=== PATIENT | male | born 1945 | race Caucasian/White ===

== ENCOUNTER 2021-08-18 15:01 | Inpatient (IN) | payer MEDICARE ==
[~2021-08-18 15:01] MED LIST: DEXAMETHASONE SOD PHOSPHATE 10 MG/ML 1 ML VIAL ONE; GLYCOPYRROLATE 0.2 MG/ML 2 ML VIAL ONE; LIDOCAINE 1% INJ 10MG/ML (20 ML MDV) ONE; NEOSTIGMINE 1 MG/ML 10 ML VIAL ONE; ONDANSETRON 4 MG/2 ML VIAL ONE; PHENYLEPHRINE-0.9% NACL SYG 1,000 MCG/10 ML SYRINGE ONE; PROPOFOL 10 MG/ML 20 ML VIAL IV ONE; ROCURONIUM 10 MG/ML (5 ML VIAL) IV ONE; SUCCINYLCHOLINE CHLORIDE 100 MG/5 ML SYR IV ONE; fentaNYL (PF) 50 MCG/ML 2 ML AMP ONE
[2021-08-18] MEDS ORDERED: NALOXONE 0.4 MG/ML 1 ML VIAL IV PRN (18:56)
[2021-08-18] MEDS ORDERED: ALPRAZolam 0.25 MG TAB PO PRN (18:59)
[2021-08-18] MEDS ORDERED: TEMAZEPAM 15 MG CAP PO PRN (18:59)
[2021-08-18] MEDS ORDERED: ACETAMINOPHEN TAB 500 MG TAB PO PRN (18:59)
[2021-08-18 19:56] LABS: Basophils % (A) 1 %; Eosinophils # (A) 0.2 k/uL (0-0.7); Eosinophils % (A) 4 %; HCT 34.3 % (39.0-53.0); HGB 10.7 gm/dL (13.0-17.5); Lymphocytes # (A) 1.3 k/uL (1.0-4.8); Lymphocytes % (A) 20 %; MCH 28.3 pg (25.0-35.0); MCHC 31.4 g/dL (31.0-37.0); MCV 90.3 fL (80.0-100.0); Mean Platelet Volume 7.5; Monocytes # (A) 0.4 k/uL (0-1.0); Monocytes % (A) 6 %; Neutrophils # (A) 4.4 k/uL (1.3-7.7); Neutrophils % (A) 68 %; Platelet Count 279 k/uL (150-450); RBC 3.79 m/uL (4.30-5.90); RDW 14.7 % (11.5-15.5); WBC 6.4 k/uL (3.8-10.6)
--- NOTE | 2021-08-18 19:58 | XR ---
EXAMINATION TYPE: XR chest 1V portable DATE OF EXAM: 08/18/2021 COMPARISON: NONE HISTORY: Cholecystitis short of breath TECHNIQUE: FINDINGS: There is no heart failure nor confluent pneumonic infiltrate. There is mild blunting right costophrenic angle. IMPRESSION: Right pleural effusion and right lower lobe infiltrate probably not changed compared to C T scan 2 days ago. No heart failure seen.
[2021-08-18 20:10] LABS: ALT <6 U/L (4-49); AST 19 U/L (17-59); African American GFR (CKD) >90 (>60 ml/min/1.73 sqM); Albumin 3.8 g/dL (3.5-5.0); Albumin/Globulin Ratio 1.1; Alkaline Phosphatase 78 U/L (38-126); Amylase 66 U/L (30-110); Anion Gap 7 mmol/L; Blood Urea Nitrogen 14 mg/dL (9-20); Calcium 8.9 mg/dL (8.4-10.2); Carbon Dioxide 28 mmol/L (22-30); Chloride 104 mmol/L (98-107); Globulin 3.5 g/dL; Glucose 91 mg/dL (74-99); Lipase 42 U/L (23-300); Non-African American GFR(CKD) 84 (>60 ml/min/1.73 sqM); Potassium 4.9 mmol/L (3.5-5.1); Sodium 139 mmol/L (137-145); Total Bilirubin 0.5 mg/dL (0.2-1.3); Total Protein 7.3 g/dL (6.3-8.2)
[2021-08-18] MEDS: PIPERACILLIN-TAZOBACTAM 3.375 GM in SODIUM CHLORIDE 0.9% 100 ML IVPB SCH (20:45)
[2021-08-18] MEDS: SODIUM CHLORIDE 0.9% 1,000 ML IV SCH (20:46)
--- NOTE | 2021-08-18 20:52 | HP ---
HISTORY AND PHYSICAL DATE OF SERVICE: 08/18/2021 CHIEF COMPLAINT: Abdominal pain. HISTORY OF PRESENT ILLNESS: This 76-year-old gentleman with a past medical history of multiple medical problems including depression, Parkinson's, hypothyroidism, dementia, CHF, anxiety, atrial fibrillation being followed by [facility] in the outpatient setting, presented to [facility] with abdominal pain, shoulder pain for several days duration. The patient was found to have features of acute cholecystitis with cholelithiasis, gallbladder wall thickening up to 7 mm, Marin sign was elicited and because of increasing difficulties, the ER physician in [place], Dr. Majano discussed the case at length and the patient transferred to [facility] for further evaluation and treatment. There is no history of fever, rigors or chills. No history of headache, loss of consciousness, seizures at this time. PAST MEDICAL HISTORY: History of depression, Parkinson's hypothyroidism, dementia, CHF, anxiety, atrial fibrillation, chronic pain syndrome, hypertension. MEDICATIONS: Prior to admission according to the EMR: Zestril, Norvasc, Zyloprim, Zoloft, Protonix, Synthroid, EpiPen, Sinequan, vitamin B12, aspirin, Tylenol dose has to be reviewed. ALLERGIES: BEE VENOM. SOCIAL: No history of smoking. No alcohol intake. FAMILY HISTORY: History of ovarian cancer. REVIEW OF SYSTEMS: ENT: No diminished vision. No diminished hearing. CARDIOVASCULAR: No angina or palpitations. RESPIRATION: No cough. GI: As mentioned earlier. no dysuria. NERVOUS SYSTEM: No numbness or weakness. ALLERGY/IMMUNOLOGY: No asthma or hayfever. MUSCULOSKELETAL: As mentioned earlier. HEMATOLOGY/ONCOLOGY: No history of anemia. ENDOCRINE: No history of diabetes or hypothyroidism. CONSTITUTIONAL: As mentioned earlier. DERMATOLOGY: Negative. RHEUMATOLOGY: Negative. PSYCHIATRIC: As mentioned earlier. PHYSICAL EXAMINATION: Alert and oriented x3. Pulse is 80. Blood pressure 120/90, respiration 20, temperature is normal. HEENT: Conjunctivae normal. Neck: No JVD. CARDIOVASCULAR: S1, S2 muffled. RESPIRATORY: Breath sounds diminished in the bases. A few scattered rhonchi. ABDOMEN: Soft. Obese. Mild diffuse tenderness present, mainly on the right upper quadrant. Marin sign present. No guarding. No rigidity. No mass palpable. Bowel sounds diminished. No ascites. Legs no edema. No swelling. NERVOUS SYSTEM: Higher functions as mentioned earlier. Moves all four limbs. No focal motor or sensory deficits. LYMPHATICS: No lymph nodes palpable in the neck, axillae or groin. SKIN: No ulcer, rash or bleeding. JOINTS: No active deforming arthropathy. LABS: Reviewed. ASSESSMENT: 1. Right upper quadrant abdominal pain with possible acute cholecystitis with cholelithiasis with severe pain. 2. Parkinson's. 3. Hypothyroidism. 4. Depression. 5. History of dementia. 6. History of congestive heart failure, ejection fraction unknown. 7. History of anxiety. 8. History of atrial fibrillation. 9. History of chronic pain syndrome. 10.History of dizziness. 11.Anemia, normocytic. 12.Gastroesophageal reflux disease. 13.Hypothyroidism. 14.History of anxiety/depression/PTSD. RECOMMENDATIONS AND DISCUSSION: This 76-year-old gentleman who presented with multiple complex medical issues, we will monitor the patient closely, continue the current medications, management and symptomatic treatment. We will initiate pain medication. Empiric antibiotics. Surgical evaluation. DVT prophylaxis. Resume the home medications once they are confirmed. Prognosis guarded because of multiple complex medical issues. Further recommendations to follow. A copy of dictation being forwarded to Dr. Nava who is the primary physician. MMODL / IJN: [id number] /
[2021-08-18] MEDS: HYDROmorphone 0.5 MG/0.5 ML SYRINGE IVP PRN (22:17)
[2021-08-18] MEDS: HEPARIN SODIUM,PORCINE/PF 5,000 UNIT/0.5 ML SYRINGE SQ SCH (22:17)
[2021-08-18] MEDS: PANTOPRAZOLE 40 MG/10 ML VIAL IVP SCH (22:17)
[2021-08-19] MEDS: PIPERACILLIN-TAZOBACTAM 3.375 GM in SODIUM CHLORIDE 0.9% 100 ML IVPB SCH ×4 (00:45→23:26)
[2021-08-19 03:34] LABS: Appearance,Urine Clear (Clear); Bilirubin,Urine Negative (Negative); Blood,Urine Negative (Negative); Color,Urine Yellow; Glucose,Urine (UA) Negative (Negative); Ketones,Urine Negative (Negative); Leukocyte Esterase,Urine Negative (Negative); Nitrite,Urine Negative (Negative); Protein,Urine Negative (Negative); Specific Gravity,Urine 1.019 (1.001-1.035); Urobilinogen,Urine <2.0 mg/dL (<2.0)
[2021-08-19] MEDS: HYDROmorphone 0.5 MG/0.5 ML SYRINGE IVP PRN ×3 (04:46→19:05)
[2021-08-19 07:48] LABS: Basophils % (A) 1 %; Eosinophils # (A) 0.2 k/uL (0-0.7); Eosinophils % (A) 4 %; HCT 31.2 % (39.0-53.0); Lymphocytes # (A) 0.9 k/uL (1.0-4.8); Lymphocytes % (A) 15 %; MCH 28.8 pg (25.0-35.0); MCV 89.8 fL (80.0-100.0); Monocytes # (A) 0.5 k/uL (0-1.0); Monocytes % (A) 7 %; Neutrophils # (A) 4.4 k/uL (1.3-7.7); Neutrophils % (A) 71 %; Platelet Count 265 k/uL (150-450); RBC 3.47 m/uL (4.30-5.90); RDW 14.6 % (11.5-15.5); WBC 6.1 k/uL (3.8-10.6)
[2021-08-19] MEDS: HEPARIN SODIUM,PORCINE/PF 5,000 UNIT/0.5 ML SYRINGE SQ SCH ×2 (09:36→20:58)
[2021-08-19] MEDS: PANTOPRAZOLE 40 MG/10 ML VIAL IVP SCH ×2 (09:37→20:59)
--- NOTE | 2021-08-19 09:53 | P.GSCN ---
History of Present Illness Consult date: 08/19/21 Reason for Consult: Acute calculus cholecystitis History of present illness: 76-year-old male was transferred from [facility] yesterday. Patient was having chest and abdominal pain. Pain radiated to the right shoulder. Pain was mostly in the right upper quadrant however. States in retrospect he has had this pain for many years. His cardiac workup at [facility] was reportedly normal. He underwent a CT chest abdomen and pelvis which showed a distended gallbladder and mild inflammation with stones. Patient had an ultrasound showing a thickened gallbladder wall and a Marin sign. Patient was transferred here for surgical intervention. Liver enzymes have been normal throughout. White blood cell count is normal today as well. No nausea or vomiting. No fevers. Review of Systems The patient denies any acute changes in vision or hearing, no dysphagia or odynophagia, no chest pain or shortness of breath, no dysuria or hematuria, no headache, no runny nose, no rectal bleeding or melena, no unexplained weight loss Past Medical History Past Medical History: Atrial Fibrillation, GERD/Reflux, Hypertension, Osteoarthritis (OA), Pneumonia, Thyroid Disorder History of Any Multi-Drug Resistant Organisms: None Reported Past Surgical History: Back Surgery, Orthopedic Surgery, Tonsillectomy Additional Past Surgical History / Comment(s): lung drains-thoracentesis; left hip replaced; 5x back surgeries Past Anesthesia/Blood Transfusion Reactions: No Reported Reaction Past Psychological History: Anxiety, Depression, PTSD Smoking Status: Former smoker Past Alcohol Use History: Rare Past Drug Use History: None Reported - Past Family History Mother Family Medical History: Cancer Additional Family Medical History / Comment(s): Ovarian Medications and Allergies Home Medications Medication Instructions Recorded Confirmed Type Cholecalciferol [Vitamin D3 (25 2,000 units PO DAILY 01/30/16 08/18/21 History Mcg = 1000 Iu)] Sertraline [Zoloft] 200 mg PO DAILY 01/30/16 08/18/21 History EPINEPHrine (Auto Inject) [Epipen] 0.3 mg IM ONCE PRN 01/31/16 08/18/21 History Apixaban [Eliquis] 5 mg PO BID 08/18/21 08/18/21 History Carbidopa-Levodopa 25-100 mg 2.5 tab PO QID@07,11,15,19 08/18/21 08/18/21 History [Sinemet 25-100] Docusate [Colace] 100 mg PO DAILY 08/18/21 08/18/21 History Ferrous Sulfate [Feosol] 325 mg PO DAILY 08/18/21 08/18/21 History Gabapentin 600 mg PO TID 08/18/21 08/18/21 History Levothyroxine Sodium [Synthroid] 200 mcg PO DAILY 08/18/21 08/18/21 History Meclizine [Antivert] 25 mg PO Q8H PRN 08/18/21 08/18/21 History Multivitamins, Thera [Multivitamin 1 tab PO DAILY 08/18/21 08/18/21 History (formulary)] Prazosin [Minipress] 10 mg PO HS 08/18/21 08/18/21 History buPROPion XL [Wellbutrin XL] 150 mg PO DAILY 08/18/21 08/18/21 History Allergies Allergy/AdvReac Type Severity Reaction Status Date / Time venom-honey bee Allergy Dyspnea Verified 08/18/21 20:11 [bee venom (honey bee)] Surgical - Exam Vital Signs Temp Pulse Resp BP Pulse Ox 98.5 F 79 16 160/90 97 08/18/21 20:00 08/18/21 20:00 08/18/21 20:00 08/18/21 20:00 08/18/21 20:00 Physical exam: General: Well-developed, well-nourished HEENT: Normocephalic, sclerae nonicteric Abdomen: Right upper quadrant tenderness, nondistended Extremities: No edema Neuro: Alert and oriented Results - Labs 08/19/21 07:02 08/18/21 19:43 Abnormal Lab Results - Last 24 Hours (Table) 08/18/21 08/19/21 Range/Units 19:43 07:02 RBC 3.79 L 3.47 L (4.30-5.90) m/uL Hgb 10.7 L 10.0 L (13.0-17.5) gm/dL Hct 34.3 L 31.2 L (39.0-53.0) % Lymphocytes # 0.9 L (1.0-4.8) k/uL Diabetes panel 08/18/21 Range/Units 19:43 Sodium 139 (137-145) mmol/L Potassium 4.9 (3.5-5.1) mmol/L Chloride 104 (98-107) mmol/L Carbon Dioxide 28 (22-30) mmol/L BUN 14 (9-20) mg/dL Creatinine 0.90 (0.66-1.25) mg/dL Glucose 91 (74-99) mg/dL Calcium 8.9 (8.4-10.2) mg/dL AST 19 (17-59) U/L ALT <6 (4-49) U/L Alkaline Phosphatase 78 (38-126) U/L Total Protein 7.3 (6.3-8.2) g/dL Albumin 3.8 (3.5-5.0) g/dL Calcium panel 08/18/21 Range/Units 19:43 Calcium 8.9 (8.4-10.2) mg/dL Albumin 3.8 (3.5-5.0) g/dL Pituitary panel 08/18/21 Range/Units 19:43 Sodium 139 (137-145) mmol/L Potassium 4.9 (3.5-5.1) mmol/L Chloride 104 (98-107) mmol/L Carbon Dioxide 28 (22-30) mmol/L BUN 14 (9-20) mg/dL Creatinine 0.90 (0.66-1.25) mg/dL Glucose 91 (74-99) mg/dL Calcium 8.9 (8.4-10.2) mg/dL Adrenal panel 08/18/21 Range/Units 19:43 Sodium 139 (137-145) mmol/L Potassium 4.9 (3.5-5.1) mmol/L Chloride 104 (98-107) mmol/L Carbon Dioxide 28 (22-30) mmol/L BUN 14 (9-20) mg/dL Creatinine 0.90 (0.66-1.25) mg/dL Glucose 91 (74-99) mg/dL Calcium 8.9 (8.4-10.2) mg/dL Total Bilirubin 0.5 (0.2-1.3) mg/dL AST 19 (17-59) U/L ALT <6 (4-49) U/L Alkaline Phosphatase 78 (38-126) U/L Total Protein 7.3 (6.3-8.2) g/dL Albumin 3.8 (3.5-5.0) g/dL Assessment and Plan (1) Acute cholecystitis due to biliary calculus Narrative/Plan: 76-year-old male with acute calculus cholecystitis. Patient does take eloquis however his last dose appears to be on Friday. Options discussed with patient. We'll proceed with laparoscopic possible open cholecystectomy today. Risks of bleeding, infection, bile leak, bile duct injury, retained common bile duct stone, trocar injury, conversion to an open procedure, hernia, anesthesia related complications were reviewed. The patient understands and wishes to proceed. Current Visit: Yes Status: Acute Code(s): K80.00 - CALCULUS OF GALLBLADDER W ACUTE CHOLECYST W/O OBSTRUCTION SNOMED Code(s): 14974414894371
[2021-08-19] MEDS ORDERED: LACTATED RINGERS 1,000 ML IV ONE (11:32)
--- NOTE | 2021-08-19 12:36 | P.OP ---
Date of Procedure: 08/19/21 Procedure(s) Performed: PREOPERATIVE DIAGNOSIS: Acute calculus cholecystitis POSTOPERATIVE DIAGNOSIS: Same PROCEDURE: Laparoscopic cholecystectomy SURGEON: Hannah EBL: Minimal see anesthesia record ANESTHESIA: Gen. COMPLICATIONS: None OPERATIVE PROCEDURE: The patient was brought and placed on the operating room table in the supine position. The patient was placed under general anesthesia at that time. The abdomen was prepped and draped in the usual sterile fashion. A small vertical infraumbilical incision was made. The fascia was grasped with the Bernice forceps. The fascia was retracted anteriorly. The Veress needle was advanced into the peritoneal cavity. The saline drop test was normal. Ins ufflation took place up to 15 mmHg. A 5 mm optical trocar was advanced and the peritoneal cavity. 2 additional 5 mm trochars were placed in the right upper quadrant under direct visualization. A 12 mm trocar was advanced into the epigastric incision site. The gallbladder was retracted superiorly and laterally. The peritoneum overlying the infundibulum was bluntly dissected. The patient's cystic duct was visualized. The junction between the cystic duct common and hepatic duct was identified. The critical view of safety was achieved after blunt dissection. The cystic duct was then divided after placement of 3 12 mm clips on the patient's side and one on the specimen side. The cystic artery was identified and clipped as well. A small vessel was seen along the gallbladder fossa and clipped as well. The gallbladder was then removed from the liver bed using electrocautery. The gallbladder was then removed from the epigastric trocar site with an Endo Catch bag. The gallbladder fossa was irrigated with saline. There was no evidence of any bleeding or biliary drainage seen. The fascia at the 12 millimeter site was closed using a River-Porsha 0 Vicryl stitch. The trochars were then removed. The skin at all 4 sites was closed using a 4-0 Monocryl stitch. Skin glue was utilized on the incision sites. At the end of this procedure the sponge and needle counts were correct. DISPOSITION: Stable to the recovery room
[2021-08-19 12:54] LABS: ALT <8 U/L (10-49); AST 16 U/L (14-35); African American GFR (CKD) 76.2 (60.0-200.0); Albumin/Globulin Ratio 1.46 (1.60-3.17); Alkaline Phosphatase 69 U/L (41-126); Calcium 8.5 mg/dL (8.7-10.3); Carbon Dioxide 31.4 mmol/L (21.6-31.8); Chloride 106 mmol/L (96-109); Globulin 2.6 g/dL (1.6-3.3); Glucose 83 mg/dL (70-110); Non-African American GFR(CKD) 65.8 (60.0-200.0); Potassium 4.4 mmol/L (3.5-5.5); Sodium 137 mmol/L (135-145); Total Bilirubin 0.7 mg/dL (0.3-1.2); Total Protein 6.4 g/dL (6.2-8.2)
[2021-08-19] MEDS ORDERED: MECLIZINE 25 MG TAB PO PRN (17:17)
[2021-08-19] MEDS: SODIUM CHLORIDE 0.9% 1,000 ML IV SCH (17:28)
--- NOTE | 2021-08-19 19:31 | PN ---
PROGRESS NOTE DATE OF SERVICE: 08/19/2021 This 76-year-old gentleman was admitted with acute cholecystitis, underwent laparoscopic cholecystectomy patient is feeling much better. No chest pain. No palpitations. No fever. PHYSICAL EXAMINATION: Pulse 69, blood pressure 151/71, respiration 20, temperature is normal, pulse ox 94% on 2 L. HEENT: Conjunctivae normal. Oral mucosa moist. NECK: No jugular venous distention. No lymph node enlargement. CARDIOVASCULAR: S1, S2, muffled. No S3, no S4, RESPIRATORY: Diminished breath sounds at the bases. A few scattered rhonchi. ABDOMEN: Soft. Postoperative tenderness present, mild. Status post laparoscopic cholecystectomy. LEGS: No edema, no swelling. NERVOUS SYSTEM: No focal deficits. LAB STUDIES: WBC 6.9, hemoglobin 10. ASSESSMENT: 1. Acute cholecystitis with cholelithiasis, severe pain status post laparoscopic cholecystectomy. 2. Parkinson's. 3. Hypothyroidism. 4. Depression. 5. History of dementia. 6. History of congestive heart failure, ejection fraction unknown. 7. History of anxiety. 8. History atrial fibrillation. 9. History of chronic pain syndrome. 10.History of dizziness. 11.Anemia, normocytic. 12.Gastroesophageal reflux disease. 13.Hypothyroidism. 14.History of anxiety, depression, PTSD. RECOMMENDATIONS AND DISCUSSION: Recommend to continue current management and symptomatic treatment. Otherwise, incentive spirometry. DVT prophylaxis. Closely follow with surgery. Further recommendations to follow. Resume the home medications. MMODL / IJN: [id number] /
[2021-08-19] MEDS: GABAPENTIN 300 MG CAP PO SCH (20:57)
[2021-08-19] MEDS: HYDROcodone/APAP 5-325MG 1 EACH TAB PO PRN (20:58)
[2021-08-19] MEDS: CARBIDOPA-LEVODOPA 25-100 MG 1 EACH TAB PO SCH (20:58)
[2021-08-19] MEDS ORDERED: PRAZOSIN 5 MG PO SCH (21:00)
[2021-08-20] MEDS: HYDROmorphone 0.5 MG/0.5 ML SYRINGE IVP PRN ×3 (01:04→12:47)
[2021-08-20 05:07] VITALS: RESP 16
[2021-08-20] MEDS: HYDROcodone/APAP 5-325MG 1 EACH TAB PO PRN (05:21)
[2021-08-20] MEDS ORDERED: LEVOTHYROXINE 100 MCG TAB PO SCH (06:30)
[2021-08-20 06:48] LABS: Basophils % (A) 0 %; Eosinophils # (A) 0.1 k/uL (0-0.7); Eosinophils % (A) 1 %; HCT 28.3 % (39.0-53.0); HGB 9.1 gm/dL (13.0-17.5); Lymphocytes % (A) 15 %; MCHC 32.1 g/dL (31.0-37.0); MCV 90.1 fL (80.0-100.0); Mean Platelet Volume 7.8; Monocytes # (A) 0.5 k/uL (0-1.0); Monocytes % (A) 7 %; Neutrophils # (A) 5.1 k/uL (1.3-7.7); Neutrophils % (A) 75 %; Platelet Count 274 k/uL (150-450); RBC 3.14 m/uL (4.30-5.90); RDW 14.9 % (11.5-15.5); WBC 6.7 k/uL (3.8-10.6)
[2021-08-20] MEDS: PIPERACILLIN-TAZOBACTAM 3.375 GM in SODIUM CHLORIDE 0.9% 100 ML IVPB SCH (08:17)
[2021-08-20] MEDS: GABAPENTIN 300 MG CAP PO SCH (08:18)
[2021-08-20] MEDS: CARBIDOPA-LEVODOPA 25-100 MG 1 EACH TAB PO SCH ×2 (08:18→11:33)
[2021-08-20] MEDS: HEPARIN SODIUM,PORCINE/PF 5,000 UNIT/0.5 ML SYRINGE SQ SCH (08:18)
[2021-08-20] MEDS: PANTOPRAZOLE 40 MG/10 ML VIAL IVP SCH (08:19)
[2021-08-20] MEDS ORDERED: SERTRALINE 100 MG TAB PO SCH (09:00)
[2021-08-20] MEDS ORDERED: MULTIVITAMINS, THERA 1 EACH TAB PO SCH (09:00)
[2021-08-20] MEDS ORDERED: buPROPion XL 150 MG TAB.ER.24H PO SCH (09:00)
[2021-08-20 10:14] LABS: ALT <8 U/L (10-49); AST 19 U/L (14-35); African American GFR (CKD) 85.6 (60.0-200.0); Albumin/Globulin Ratio 1.35 (1.60-3.17); Alkaline Phosphatase 65 U/L (41-126); Calcium 8.5 mg/dL (8.7-10.3); Carbon Dioxide 21.9 mmol/L (21.6-31.8); Chloride 104 mmol/L (96-109); Globulin 2.6 g/dL (1.6-3.3); Glucose 110 mg/dL (70-110); Non-African American GFR(CKD) 73.8 (60.0-200.0); Potassium 4.2 mmol/L (3.5-5.5); Sodium 138 mmol/L (135-145); Total Bilirubin 0.3 mg/dL (0.2-1.2); Total Protein 6.1 g/dL (6.2-8.2)
--- NOTE | 2021-08-20 11:18 | P.PN ---
Subjective Progress Note Date: 08/20/21 CHIEF COMPLAINT: Abdominal pain HISTORY OF PRESENT ILLNESS: Patient is status post laparoscopic cholecystectomy. He reports his pain is controlled. Denies any nausea or vomiting. He is having flatus. He has been up and ambulating. Afebrile. WBC 6.7 hemoglobin 9.1 PHYSICAL EXAM: VITAL SIGNS: Reviewed. GENERAL: Well-developed in no acute distress. HEENT: No sclera icterus. Extraocular movements grossly intact. Moist buccal mucosa. Head is atraumatic, normocephalic. ABDOMEN: Soft. Nondistended. Nontender. Incision sites clean dry and intact NEUROLOGIC: Alert and oriented. Cranial nerves II through XII grossly intact. ASSESSMENT: 1. Acute calculus cholecystitis status post laparoscopic cholecystectomy PLAN: -Patient can be discharged from surgical standpoint -Patient can resume Eliquis tomorrow from surgical standpoint -Patient follow up with Dr. Young in 1 week Physician Fashion Consultant Selling note has been reviewed by physician. Signing provider agrees with the documented findings, assessment, and plan of care. Objective - Vital Signs Vital signs: Vital Signs Temp 97.6 F 08/20/21 05:06 Pulse 48 L 08/20/21 05:06 Resp 16 08/20/21 05:06 BP 125/68 08/20/21 05:06 Pulse Ox 92 L 08/20/21 05:06 Intake & Output 08/19/21 08/20/21 08/20/21 18:59 06:59 18:59 Intake Total 1700 700 Output Total 10 Balance 1690 700 Weight 85 kg Intake: IV 1000 Intake, IV Titration 700 700 Amount Piperacillin-Tazobactam 3 100 100 .375 gm In Sodium Chloride 0.9% 100 ml @ 25 mls/hr IVPB Q8HR [facility]IP Rx# :[id number] Sodium Chloride 0.9% 1, 600 600 000 ml @ 50 mls/hr IV . Q20H CHPI Rx#:[id number] Output: Estimated Blood Loss 10 Other: Voiding Method Toilet # Voids 1 2 - Labs CBC & Chem 7: 08/20/21 06:11 08/20/21 06:11 Labs: Abnormal Lab Results - Last 24 Hours (Table) 08/19/21 08/20/21 08/20/21 Range/Units 07:02 06:11 06:11 RBC 3.14 L (4.30-5.90) m/uL Hgb 9.1 L (13.0-17.5) gm/dL Hct 28.3 L (39.0-53.0) % Anion Gap -0.40 L 12.10 H (4.00-12.00) mmol/L BUN/Creatinine Ratio 10.00 L (12.00-20.00) Ratio Calcium 8.5 L 8.5 L (8.7-10.3) mg/dL ALT <8 L <8 L (10-49) U/L Total Protein 6.1 L (6.2-8.2) g/dL Albumin 3.50 L (3.80-4.90) g/dL Albumin/Globulin Ratio 1.46 L 1.35 L (1.60-3.17) g/dL
[2021-08-20 11:53] VITALS: BP 107/53; PULSE 70; TEMP 97.8
--- NOTE | 2021-08-20 13:24 | P.DS ---
Providers Date of admission: 08/18/21 18:45 Attending physician: Joseph Corral Consults: 08/18/21 18:58 Consult Physician Routine Consulting Provider: Julian Young Consult Reason/Comments: ac cholecystitis Do you want consulting provider notified?: Yes Primary care physician: Stated None Hospital Course: Final diagnoses 1. Acute cholecystitis with cholelithiasis, severe pain status post endoscopic cholecystectomy postoperative day #1 2. Parkinson's 3. Hypothyroidism 4. Depression 5. History of congestive heart failure, EF unknown, not in acute exacerbation 6. History of A. fib, on eliquis can resume tomorrow 7. History of chronic pain, receives injections plan is for one today 8. Hypothyroidism 9. GERD 10. History of dementia Focal Discharge disposition Patient is discharged home in a stable condition status post appendectomy #1 laparoscopic cholecystectomy. Patient denies any pain today he states all pain in his abdomen, shoulder, back has been resolved. Patient will follow-up with his PCP at the [facility] and surgical services. Patient can resume his eliquis tomorrow. Plans for patient to receive a injection at his normal clinic today for his chronic pain. Patient is discharged home with labs as follow-up Hospital course This is a pleasant 76-year-old gentleman with a past medical history for depression, anxiety, dementia, Parkinson's, hypothyroidism, CHF, paroxysmal atrial fibrillation. He does follow with [facility] and [facility]. Patient presented to [facility] with abdominal pain, right shoulder pain as well as right back pain for several days. Patient was found to have features of acute cholecystitis with cholelithiasis, gall bladder wall thickening up to 7 mm, Marin sign was elicited and because of decreasing difficulties the ER physician sent the patient to a clear border and for further evaluation and treatment. Patient did not have any fever at that time. Patient was placed on empiric antibiotics with IV Zosyn. Patient underwent a laparoscopic cholecystectomy with Dr. Young on August 19. Labs reviewed, this admission patient's white count has remained stable at 6.7, hemoglobin today is 9.1, yesterday was 10.0. Calcium has been 8.5, albumin 6.1. Sodium 138, potassium 4.2, chloride 104, CO2 21.9, BUN 16, creatinine 1. Chest x-ray completed at [facility] revealed a right pleural effusion and right lower lobe infiltrate not changed as compared to computed tomography scan 2 days ago. No heart failure seen. Vital signs remained stable, patient has remained afebrile, heart rate 70s sinus rhythm, blood pressure 125/68 patient is a 95% on room air. 08/20/2021 Patient is evaluated the bedside, he denies any chest pain, chest pressure, cough or shortness of breath. Patient denies any pain. He denies any nausea vomiting or diarrhea. Patient has been up ambulating in the hallway without difficulty. He is tolerating meals. Lungs are clear to auscultation, S1-S2 auscultated. Patient's abdomen is soft nontender positive bowel sounds. Vital signs are stable today afebrile, 97.8, heart rate 70 sinus rhythm, BP 107 and 53 and 95% on room air. Patient is stable for discharge from medical standpoint w ill follow-up with the [facility] and will surgical services. Please see medication reconciliation for list of current medications. Thank you for allowing us to participate in the care of this patient. Plan - Discharge Summary Discharge Rx Participant: Yes New Discharge Prescriptions: New HYDROcodone/APAP 5-325MG [[place] 5-325] 1 tab PO Q6HR PRN 3 Days #12 tab PRN Reason: Pain Continue Sertraline [Zoloft] 200 mg PO DAILY Cholecalciferol [Vitamin D3 (25 Mcg = 1000 Iu)] 2,000 units PO DAILY EPINEPHrine (Auto Inject) [Epipen] 0.3 mg IM ONCE PRN PRN Reason: Allergic Reaction Ferrous Sulfate [Iron (65 MG Elemental)] 325 mg PO DAILY Docusate [Colace] 100 mg PO DAILY Carbidopa-Levodopa 25-100 mg [Sinemet 25-100 mg] 2.5 tab PO QID@07,11,15,19 Meclizine [Antivert] 25 mg PO Q8H PRN PRN Reason: DIZZINESS Multivitamins, Thera [Multivitamin (formulary)] 1 tab PO DAILY Levothyroxine Sodium [Synthroid] 200 mcg PO DAILY Prazosin [Minipress] 10 mg PO HS Gabapentin 600 mg PO TID buPROPion XL [Wellbutrin XL] 150 mg PO DAILY Apixaban [Eliquis] 5 mg PO BID #0 Discharge Medication List Cholecalciferol [Vitamin D3 (25 Mcg = 1000 Iu)] 2,000 units PO DAILY 01/30/16 [History] Sertraline [Zoloft] 200 mg PO DAILY 01/30/16 [History] EPINEPHrine (Auto Inject) [Epipen] 0.3 mg IM ONCE PRN 01/31/16 [History] Carbidopa-Levodopa 25-100 mg [Sinemet 25-100 mg] 2.5 tab PO QID@07,11,15,19 08/18/21 [History] Docusate [Colace] 100 mg PO DAILY 08/18/21 [History] Ferrous Sulfate [Iron (65 MG Elemental)] 325 mg PO DAILY 08/18/21 [History] Gabapentin 600 mg PO TID 08/18/21 [History] Levothyroxine Sodium [Synthroid] 200 mcg PO DAILY 08/18/21 [History] Meclizine [Antivert] 25 mg PO Q8H PRN 08/18/21 [History] Multivitamins, Thera [Multivitamin (formulary)] 1 tab PO DAILY 08/18/21 [History] Prazosin [Minipress] 10 mg PO HS 08/18/21 [History] buPROPion XL [Wellbutrin XL] 150 mg PO DAILY 08/18/21 [History] Apixaban [Eliquis] 5 mg PO BID #0 08/20/21 [Rx] HYDROcodone/APAP 5-325MG [[place] 5-325] 1 tab PO Q6HR PRN 3 Days #12 tab 08/20/21 [Rx] Follow up Appointment(s)/Referral(s): Julian Young MD [Medical Doctor] - 1 Week Jacqueline Ruiz [Other] - 1-2 Days Ambulatory/Diagnostic Orders: Basic Metabolic Panel [LAB.AMB] Time Frame: 2 Days, Location: None Selected Complete Blood Count w/diff [LAB.AMB] Time Frame: 2 Days, Location: None Selected Patient Instructions/Handouts: *Surgery [facility] - Laparoscopic Cholecystectomy Discharge Instructions, Hydrocodone/Acetaminophen (By mouth) Activity/Diet/Wound Care/Special Instructions: No driving while taking [place] No lifting over 10 pounds You may shower. No soaking or tub baths for 2 weeks Very light activity until you are reevaluated at your follow up appointment with your surgeon Discharge Disposition: HOME SELF-CARE
[2021-08-20] MEDS: SODIUM CHLORIDE 0.9% 1,000 ML IV SCH (13:32)
[2021-08-20] MEDS ORDERED: PANTOPRAZOLE 40 MG TABLET PO SCH (21:00)
== END 2021-08-20 13:45 | disposition home or self-care (01) | DRG 419 ==
LOC: 5NMEDONC 18:45
PROVIDERS: ADMIT Hospitalist; ATTEND Hospitalist
PROC: 0FT44ZZ Resection of Gallbladder, Percutaneous Endoscopic Approach (ICD-10-PCS; principal; 2021-08-18)
DX: K80.00 Calculus of gallbladder with acute cholecystitis without obstruction (principal); D64.9 Anemia, unspecified; I11.0 Hypertensive heart disease with heart failure; I48.0 Paroxysmal atrial fibrillation; I50.9 Heart failure, unspecified; K82.8 Other specified diseases of gallbladder; E03.9 Hypothyroidism, unspecified; G20 Parkinson's disease; F02.80 Dementia in other diseases classified elsewhere, unspecified severity, without behavioral disturbance, psychotic disturbance, mood disturbance, and anxiety; F32.9 Major depressive disorder, single episode, unspecified; F43.10 Post-traumatic stress disorder, unspecified; G89.4 Chronic pain syndrome; K21.9 Gastro-esophageal reflux disease without esophagitis; R56.9 Unspecified convulsions; Z79.01 Long term (current) use of anticoagulants; Z79.890 Hormone replacement therapy; Z79.899 Other long term (current) drug therapy; Z87.891 Personal history of nicotine dependence; Z96.642 Presence of left artificial hip joint; Z91.030 Bee allergy status
CPT/HCPCS: 71045; 80053; 81003; 82150; 83690; 83735; 85025; 93005

== ENCOUNTER 2022-07-23 06:48 | Inpatient (IN) | payer OTHER, MEDICARE ==
[2022-07-23] MEDS ORDERED: DILTIAZEM DRIP BOLUS FROM BAG 1 MG SOLN IV ONE (07:03)
[2022-07-23] MEDS ORDERED: DILTIAZEM 125 MG in SODIUM CHLORIDE 0.9% 100 ML IV SCH (07:15)
[2022-07-23 07:24] LABS: Anisocytosis Slight; Basophils # (A) 0.1 k/uL (0-0.2); Basophils % (A) 1 %; Eosinophils # (A) 0.1 k/uL (0-0.7); Eosinophils % (A) 2 %; HCT 31.2 % (39.0-53.0); HGB 9.6 gm/dL (13.0-17.5); Hypochromasia Marked; Lymphocytes # (A) 0.9 k/uL (1.0-4.8); Lymphocytes % (A) 14 %; MCH 25.6 pg (25.0-35.0); MCHC 30.6 g/dL (31.0-37.0); MCV 83.8 fL (80.0-100.0); Mean Platelet Volume 8.4; Monocytes # (A) 0.4 k/uL (0-1.0); Monocytes % (A) 7 %; Neutrophils # (A) 4.9 k/uL (1.3-7.7); Neutrophils % (A) 75 %; Platelet Count 297 k/uL (150-450); RBC 3.73 m/uL (4.30-5.90); RDW 16.7 % (11.5-15.5); WBC 6.5 k/uL (3.8-10.6)
[2022-07-23 07:33] LABS: INR 0.9 (<1.2); Partial Thromboplastin Time 24.3 sec (22.0-30.0); Prothrombin Time 10.2 sec (9.0-12.0)
[2022-07-23 07:36] LABS: ALT 11 U/L (4-49); AST 17 U/L (17-59); African American GFR (CKD) >90 (>60 ml/min/1.73 sqM); Albumin 3.9 g/dL (3.5-5.0); Alkaline Phosphatase 98 U/L (38-126); Anion Gap 13 mmol/L; Blood Urea Nitrogen 21 mg/dL (9-20); Calcium 8.8 mg/dL (8.4-10.2); Carbon Dioxide 21 mmol/L (22-30); Chloride 108 mmol/L (98-107); Glucose 107 mg/dL (74-99); Magnesium 1.8 mg/dL (1.6-2.3); Non-African American GFR(CKD) 81 (>60 ml/min/1.73 sqM); Potassium 4.1 mmol/L (3.5-5.1); Sodium 142 mmol/L (137-145); Total Bilirubin 0.2 mg/dL (0.2-1.3); Total Protein 7.2 g/dL (6.3-8.2)
--- NOTE | 2022-07-23 07:36 | XR ---
EXAMINATION TYPE: XR chest 2V DATE OF EXAM: 07/23/2022 7:30 AM COMPARISON: Chest radiographs from 08/18/2021 TECHNIQUE: XR chest 2V Frontal and lateral views of the chest. CLINICAL INDICATION:Male, 77 years old with history of Chest Pain; FINDINGS: Lungs/Pleura: No pneumothorax. Small right pleural effusion with right basilar patchy airspace opacit y. Pulmonary vascularity: Unremarkable. Heart/mediastinum: Cardiomediastinal silhouette is unremarkable. Two lead cardiac conduction device o verlying the left hemithorax with lead tips projecting over the right ventricle and right atrium. Musculoskeletal: No acute osseous pathology. Cervical fusion hardware. IMPRESSION: Small right pleural effusion with right basilar patchy airspace opacity which may represent atelectas is versus infiltrate in the appropriate clinical setting.
[2022-07-23] MEDS ORDERED: fentaNYL (PF) 50 MCG/ML 2 ML AMP IVP STA (07:46)
[2022-07-23] MEDS ORDERED: NITROGLYCERIN SL TABS 0.4 MG TAB SUBLINGUAL PRN (09:16)
--- NOTE | 2022-07-23 09:16 | ED ---
Chest Pain HPI - General Source: patient, RN notes reviewed Mode of arrival: ambulatory Limitations: no limitations <Sanchez Ferguson - Last Filed: 07/23/22 09:13> <Liz Dhaliwal - Last Filed: 07/29/22 17:17> - General Chief Complaint: Chest Pain Stated Complaint: Chest Pain Time Seen by Provider: 07/23/22 06:50 - History of Present Illness Initial Comments: 77-year-old male presents emergency Department with chief complaint of chest pain, palpitations. Patient states started overnight does take eliquis A. fib h as a history of pacemaker. Patient states that he was given aspirin, 3 nitro with no change of his symptoms. Patient denies any headache dizziness denies any abdominal pain no leg pain or leg swelling. (Sanchez Ferguson) - Related Data Home Medications Medication Instructions Recorded Confirmed Carbidopa-Levodopa 25-100 mg 2.5 tab PO QID@07,11,15,19 08/18/21 07/23/22 [Sinemet 25-100 mg] Ferrous Sulfate [Iron (65 MG 325 mg PO DAILY 08/18/21 07/23/22 Elemental)] Gabapentin 600 mg PO TID 08/18/21 07/23/22 Levothyroxine Sodium [Synthroid] 200 mcg PO DAILY 08/18/21 07/23/22 Albuterol Sulfate [Albuterol 2 puff INHALATION RT-QID PRN 07/23/22 07/23/22 Sulfate Hfa] Fluticasone Propion/Salmeterol 1 puff INHALATION RT-BID 07/23/22 07/23/22 [Advair 100-50 Diskus] Prazosin [Minipress] 5 mg PO HS 07/23/22 07/23/22 Sertraline [Zoloft] 100 mg PO BID 07/23/22 07/23/22 traZODone HCL 150 mg PO HS 07/23/22 07/23/22 Previous Rx's Medication Instructions Recorded Apixaban [Eliquis] 5 mg PO BID #0 08/20/21 Metoprolol Tartrate [Lopressor] 12.5 mg PO BID #60 tab 07/25/22 Nitroglycerin Sl Tabs [Nitrostat] 0.4 mg SUBLINGUAL Q5M PRN #10 tab 07/25/22 Allergies Allergy/AdvReac Type Severity Reaction Status Date / Time venom-honey bee Allergy Dyspnea Verified 07/23/22 10:55 [bee venom (honey bee)] Review of Systems ROS Other: All systems not noted in ROS Statement are negative. <Sanchez Ferguson - Last Filed: 07/23/22 09:13> ROS Other: All systems not noted in ROS Statement are negative. <MadhuriLiz Jose - Last Filed: 07/29/22 17:17> ROS Statement: Those systems with pertinent positive or pertinent negative responses have been documented in the HPI. Past Medical History Past Medical History: Atrial Fibrillation, GERD/Reflux, Hypertension, Osteoarthritis (OA), Pneumonia, Thyroid Disorder History of Any Multi-Drug Resistant Organisms: None Reported Past Surgical History: Back Surgery, Orthopedic Surgery, Tonsillectomy Additional Past Surgical History / Comment(s): lung drains-thoracentesis; left hip replaced; 5x back surgeries Past Anesthesia/Blood Transfusion Reactions: No Reported Reaction Past Psychological History: Anxiety, Depression, PTSD Smoking Status: Former smoker Past Alcohol Use History: Rare Past Drug Use History: None Reported - Past Family History Mother Family Medical History: Cancer Additional Family Medical History / Comment(s): Ovarian <Sanchez Ferguson - Last Filed: 07/23/22 09:13> General Exam Limitations: no limitations General appearance: alert, in no apparent distress Head exam: Present: atraumatic, normocephalic, normal inspection Eye exam: Present: normal appearance, PERRL, EOMI. Absent: scleral icterus, conjunctival injection, periorbital swelling ENT exam: Present: normal exam, mucous membranes moist Neck exam: Present: normal inspection, full ROM. Absent: tenderness, meningismus, lymphadenopathy Respiratory exam: Present: normal lung sounds bilaterally. Absent: respiratory distress, wheezes, rales, rhonchi, stridor Cardiovascular Exam: Present: tachycardia, irregular rhythm, normal heart sounds. Absent: regular rate, normal rhythm, systolic murmur, diastolic murmur, rubs, gallop, clicks GI/Abdominal exam: Present: soft, normal bowel sounds. Absent: distended, tenderness, guarding, rebound, rigid <Sanchez Ferguson - Last Filed: 07/23/22 09:13> Course Vital Signs 07/23/22 07/23/22 07/23/22 07:07 08:02 10:13 Temperature Pulse Rate 170 H 161 H 152 H Pulse Rate [ [employer] [place] ] Respiratory 18 18 18 Rate Blood Pressure 123/96 108/79 86/61 Blood Pressure [Left Arm] O2 Sat by Pulse 98 96 98 Oximetry 07/23/22 07/23/22 07/23/22 10:29 11:24 12:01 Temperature 97.2 F L Pulse Rate Pulse Rate [ 141 H 49 L [employer] ] Respiratory 20 20 Rate Blood Pressure 104/71 Blood Pressure 97/71 87/52 [Left Arm] O2 Sat by Pulse 96 98 Oximetry 07/23/22 07/23/22 07/23/22 12:13 12:26 13:01 Temperature Pulse Rate Pulse Rate [ 49 L 52 L 53 L [employer] [place] ] Respiratory 20 Rate Blood Pressure Blood Pressure 84/52 75/46 89/56 [Left Arm] O2 Sat by Pulse Oximetry 07/23/22 07/23/22 14:14 15:45 Temperature Pulse Rate Pulse Rate [ 51 L 53 L [employer] [place] ] Respiratory 20 20 Rate Blood Pressure Blood Pressure 86/50 95/60 [Left Arm] O2 Sat by Pulse 98 95 Oximetry Chest Pain MDM <Sanchez Ferguson - Last Filed: 07/23/22 09:13> - MDM 77-year-old male presented from chief complaint chest pain and palpitations. Patient Friday and A. fib RVR. Patient is currently not anticoagulated patient was started on Cardizem with a bolus of 5 mg. Patient blood pressures being closer monitored as he had blood pressure 100 systolic after nitro given by EMS. Patiently admitted for cardiology evaluation, with the treatment of his A. fib RVR. (Sanchez Ferguson) Critical Care Time Critical Care Time: Yes <Liz Dhaliwal - Last Filed: 07/29/22 17:17> Critical Care Time: 35 MINUTES (Liz Dhaliwal) Disposition Time of Disposition: 09:15 <Sanchez Ferguson - Last Filed: 07/23/22 09:13> <Liz Dhaliwal - Last Filed: 07/29/22 17:17> Clinical Impression: Atrial fibrillation with RVR Disposition: ADMITTED IP TO THIS HOSP Condition: Poor
--- NOTE | 2022-07-23 10:02 | P.HPIM ---
History of Present Illness 77-year-old pleasant male came in with complaints of chest pressure like sensation which started today constant and found to be in atrial fibrillation with rapid ventricular rate patient does have history of A. fib on any rate control medications at home patient was on Eliquis at home. Patient had a chest x-ray which was showing infiltrate in the right the lower lung gomez but this appears to be chronic patient had a similar chest x-ray findings in 2020. Patient had pneumonia at that time patient denied any history of congestive heart failure. Patient denied any significant shortness of breath orthopnea paroxysmal nocturnal dyspnea. Patient does smoke 1-2 cigarettes per day doesn't use any oxygen at home. Patient denied any dizziness, diaphoresis. First set of troponin is not elevated and patient BNP is only 717. REVIEW OF SYSTEMS: CONSTITUTIONAL: No fever, no malaise, no fatigue. HEENT: No recent visual problems or hearing problems. Denied any sore throat. CARDIOVASCULAR:no syncope. PULMONARY: No shortness of breath, no cough, no hemoptysis. GASTROINTESTINAL: No diarrhea, no nausea, no vomiting, no abdominal pain. NEUROLOGICAL: No headaches, no weakness, no numbness. HEMATOLOGICAL: Denies any bleeding or petechiae. GENITOURINARY: Denies any burning micturition, frequency, or urgency. MUSCULOSKELETAL/RHEUMATOLOGICAL: Denies any joint pain, swelling, or any muscle pain. ENDOCRINE: Denies any polyuria or polydipsia. The rest of the 14-point review of systems is negative. PHYSICAL EXAMINATION: GENERAL: The patient is alert and oriented x3, not in any acute distress. Well developed, well nourished. HEENT: Pupils are round and equally reacting to light. EOMI. No scleral icterus. No conjunctival pallor. Normocephalic, atraumatic. No pharyngeal erythema. No thyromegaly. CARDIOVASCULAR: S1 and S2 present. No murmurs, rubs, or gallops. Irregularly irregular rhythm tachycardic PULMONARY: Chest is clear to auscultation, no wheezing or crackles. ABDOMEN: Soft, nontender, nondistended, normoactive bowel sounds. No palpable organomegaly. MUSCULOSKELETAL: No joint swelling or deformity. EXTREMITIES: No cyanosis, clubbing, or pedal edema. NEUROLOGICAL: Gross neurological examination did not reveal any focal deficits. SKIN: No rashes. Assessment and plan -Atrial fibrillation with rapid and regular rate patient is on Cardizem at this time although patient blood pressure is low normal cardiology will evaluate the patient patient resumed on Eliquis -Hypothyroidism: Patient is on levothyroxine will obtain a TSH level -Infiltrate in the right lower lung gomez which is chronic and doesn't appear to have any Pneumonia patient doesn't have any fever doesn't have any leuko cytosis tunnel level will be obtained -Gastroesophageal reflux disease -Depression -Benign prostatic hypertrophy For about mentioned chronic medical problems patient will be resumed on appropriate home medications once verified. DVT prophylaxis: Patient will be started back on Eliquis Past Medical History Past Medical History: Atrial Fibrillation, GERD/Reflux, Hypertension, Osteoarthritis (OA), Pneumonia, Thyroid Disorder History of Any Multi-Drug Resistant Organisms: None Reported Past Surgical History: Back Surgery, Orthopedic Surgery, Tonsillectomy Additional Past Surgical History / Comment(s): lung drains-thoracentesis; left hip replaced; 5x back surgeries Past Anesthesia/Blood Transfusion Reactions: No Reported Reaction Past Psychological History: Anxiety, Depression, PTSD Smoking Status: Former smoker Past Alcohol Use History: Rare Past Drug Use History: None Reported - Past Family History Mother Family Medical History: Cancer Additional Family Medical History / Comment(s): Ovarian Medications and Allergies Home Medications Medication Instructions Recorded Confirmed Type Cholecalciferol [Vitamin D3 (25 2,000 units PO DAILY 01/30/16 08/18/21 History Mcg = 1000 Iu)] Sertraline [Zoloft] 200 mg PO DAILY 01/30/16 08/18/21 History EPINEPHrine (Auto Inject) [Epipen] 0.3 mg IM ONCE PRN 01/31/16 08/18/21 History Carbidopa-Levodopa 25-100 mg 2.5 tab PO QID@07,11,15,19 08/18/21 08/18/21 History [Sinemet 25-100 mg] Docusate [Colace] 100 mg PO DAILY 08/18/21 08/18/21 History Ferrous Sulfate [Iron (65 MG 325 mg PO DAILY 08/18/21 08/18/21 History Elemental)] Gabapentin 600 mg PO TID 08/18/21 08/18/21 History Levothyroxine Sodium [Synthroid] 200 mcg PO DAILY 08/18/21 08/18/21 History Meclizine [Antivert] 25 mg PO Q8H PRN 08/18/21 08/18/21 History Multivitamins, Thera [Multivitamin 1 tab PO DAILY 08/18/21 08/18/21 History (formulary)] Prazosin [Minipress] 10 mg PO HS 08/18/21 08/18/21 History buPROPion XL [Wellbutrin XL] 150 mg PO DAILY 08/18/21 08/18/21 History Apixaban [Eliquis] 5 mg PO BID #0 08/20/21 08/18/21 Rx HYDROcodone/APAP 5-325MG [[place] 1 tab PO Q6HR PRN 3 Days #12 tab 08/20/21 Rx 5-325] Omeprazole [PriLOSEC] 20 mg PO AC-BRKFST #30 cap 08/20/21 Rx Allergies Allergy/AdvReac Type Severity Reaction Status Date / Time venom-honey bee Allergy Dyspnea Verified 07/23/22 07:10 [bee venom (honey bee)] Physical Exam Vitals: Vital Signs Pulse Resp BP Pulse Ox 07/23/22 08:02 161 H 18 108/79 96 07/23/22 07:07 170 H 18 123/96 98 Intake and Output 07/22/22 07/23/22 07/23/22 22:59 06:59 14:59 Other: Weight 89.358 kg Results CBC & Chem 7: 07/23/22 07:10 07/23/22 07:10 Labs: Abnormal Lab Results - Last 24 Hours (Table) 07/23/22 07/23/22 Range/Units 07:10 07:10 RBC 3.73 L (4.30-5.90) m/uL Hgb 9.6 L (13.0-17.5) gm/dL Hct 31.2 L (39.0-53.0) % MCHC 30.6 L (31.0-37.0) g/dL RDW 16.7 H (11.5-15.5) % Lymphocytes # 0.9 L (1.0-4.8) k/uL Chloride 108 H (98-107) mmol/L Carbon Dioxide 21 L (22-30) mmol/L BUN 21 H (9-20) mg/dL Glucose 107 H (74-99) mg/dL
[2022-07-23] MEDS: HYDROcodone/APAP 7.5-325MG 1 EACH TAB PO PRN ×3 (10:12→21:50)
[2022-07-23] MEDS: APIXABAN 5 MG TAB PO SCH ×2 (10:12→21:49)
[2022-07-23] MEDS: METOPROLOL TARTRATE 25 MG TAB PO SCH ×2 (11:39→23:45)
--- NOTE | 2022-07-23 11:57 | P.CRDCN ---
History of Present Illness History of present illness: HISTORY OF PRESENTING ILLNESS This is a pleasant 77-year-old male past medical history significant for paroxysmal atrial fibrillation on Eliquis, nonobstructive coronary artery disease, pacemaker implantation 6-7 months ago, GERD, hypothyroidism, osteoarthritis, former smoker. He follows with Dr. Vergara. We have been asked to see in consultation for A fib with RVR. Patient presents to the emergency department with complaints of palpitations and chest discomfort that started at 5 AM this morning. Patient states that his chest pain in the center of his chest. Is nonradiating, nonexertional. He denies any nausea, vomiting, diaphoresis, shortness of breath, lightheadedness, dizziness, syncope or near syncope. He states that he took aspirin 3 nitro with no changes symptoms. On arrival to the emergency department patient was found to be in atrial fibrillation with rapid ventricular response, heart rate 169. He was started on IV Cardizem drip, HR slightly improved. He denies any cyst history of CAD, MT, stroke, diabetes. DIAGNOSTICS EKG reveals atrial fibrillation with rapid ventricular response, heart rate 169, ST depression noted in inferior leads. Telemetry tracings indicate Afib with RVR Chest xray reported small right pleural effusion with right basilar patchy airsp hunter opacity which may represent atelectasis versus infiltrate. Laboratory reviewed, initial troponin negative, WBC 6.5, hemoglobin 9.6, platelets 297, sodium 142, potassium 4.1, BUN 21, serum current 0.9, proBNP 717 Current home cardiac medications include Eliquis 5 mg twice a day Cardiac catheterization in 01/2016 revealed mild nonobstructive coronary artery disease involving the mid LAD. REVIEW OF SYSTEMS At the time of my exam: CONSTITUTIONAL: Denies fever or chills. CARDIOVASCULAR: Denies chest pain, +shortness of breath, Denies orthopnea, PND. +palpitations. RESPIRATORY: Reports shortness of breath. GASTROINTESTINAL: Denies abdominal pain, diarrhea, constipation, nausea or vomiting. MUSCULOSKELETAL: Denies myalgias. NEUROLOGIC: Denies numbness, tingling, headacbe or weakness. ENDOCRINE: Denies fatigue, weight change, polydipsia or polyurina. GENITOURINARY: Denies burning, hematuria or urgency with micturation. HEMATOLOGIC: Denies history of anemia or bleeding. PHYSICAL EXAMINATION Vitals 104/71, heart 152, afebrile, oxygen saturations 98% on room air CONSTITUTIONAL: No apparent distress. HEENT: Head is normocephalic. Pupils are equal, round. Sclerae anicteric. Mucous membranes of the mouth are moist. No JVD. CHEST EXAMINATION: Lungs are diminished in bases to auscultation. No chest wall tenderness is noted on palpation or with deep breathing. HEART EXAMINATION:Irregular tachycardic rate and rhythm. S1, S2 heard. ABDOMEN: Soft, nontender. Positive bowel sounds. EXTREMITIES: 2+ peripheral pulses, no lower extremity edema and no calf tenderness. SKIN: warm, dry NEUROLOGIC EXAMINATION: Patient is awake, alert and oriented x3. ASSESSMENT Paroxysmal atrial fibrillation with rapid ventricular response, on Eliquis Pacemaker implantation 6-7 months ago per patient Nonobstructive coronary artery disease GERD Hypothyroidism Osteoarthritis Former smoker PLAN Start metoprolol tartrate 25mg BID Wean off cardizem Patient may require IV amiodarone pending rate control Continue anticoagulation with Eliquis Nothing by mouth after midnight if intervention is required/indicated Obtain 2D echocardiogram Check TSH Further recommendations based on clinical course Nurse practitioner note has been reviewed by physician. Signing provider agrees with the documented findings, assessment, and plan of care. Past Medical History Past Medical History: Atrial Fibrillation, GERD/Reflux, Osteoarthritis (OA), Pneumonia, Thyroid Disorder History of Any Multi-Drug Resistant Organisms: None Reported Past Surgical History: Back Surgery, Orthopedic Surgery, Tonsillectomy Additional Past Surgical History / Comment(s): lung drains-thoracentesis; left hip replaced; 5x back surgeries Past Anesthesia/Blood Transfusion Reactions: No Reported Reaction Past Psychological History: Anxiety, Depression, PTSD Smoking Status: Former smoker Past Alcohol Use History: Rare Past Drug Use History: None Reported - Past Family History Mother Family Medical History: Cancer Additional Family Medical History / Comment(s): Ovarian Medications and Allergies Home Medications Medication Instructions Recorded Confirmed Type Carbidopa-Levodopa 25-100 mg 2.5 tab PO QID@07,11,15,19 08/18/21 07/23/22 History [Sinemet 25-100 mg] Ferrous Sulfate [Iron (65 MG 325 mg PO DAILY 08/18/21 07/23/22 History Elemental)] Gabapentin 600 mg PO TID 08/18/21 07/23/22 History Levothyroxine Sodium [Synthroid] 200 mcg PO DAILY 08/18/21 07/23/22 History Apixaban [Eliquis] 5 mg PO BID #0 08/20/21 07/23/22 Rx Albuterol Sulfate [Albuterol 2 puff INHALATION RT-QID PRN 07/23/22 07/23/22 History Sulfate Hfa] Cyclobenzaprine [Flexeril] 5 mg PO TID 07/23/22 07/23/22 History Fluticasone Propion/Salmeterol 1 puff INHALATION RT-BID 07/23/22 07/23/22 History [Advair 100-50 Diskus] Prazosin [Minipress] 5 mg PO HS 07/23/22 07/23/22 History Sertraline [Zoloft] 100 mg PO BID 07/23/22 07/23/22 History traZODone HCL 150 mg PO HS 07/23/22 07/23/22 History Allergies Allergy/AdvReac Type Severity Reaction Status Date / Time venom-honey bee Allergy Dyspnea Verified 07/23/22 10:55 [bee venom (honey bee)] Physical Exam Vitals: Vital Signs Temp Pulse Pulse Resp BP BP Pulse Ox 07/23/22 11:24 97.2 F L 141 H 20 97/71 96 07/23/22 10:29 104/71 07/23/22 10:13 152 H 18 86/61 98 07/23/22 08:02 161 H 18 108/79 96 07/23/22 07:07 170 H 18 123/96 98 Intake and Output 07/22/22 07/23/22 07/23/22 22:59 06:59 14:59 Output Total 250 Balance -250 Output: Urine 250 Other: Weight 89.358 kg Results 07/23/22 07:10 07/23/22 07:10 Cardiac Enzymes 07/23/22 07/23/22 07/23/22 Range/Units 07:10 07:10 10:34 AST 17 (17-59) U/L Troponin I 0.015 0.053 H* (0.000-0.034) ng/mL Coagulation 07/23/22 Range/Units 07:10 PT 10.2 (9.0-12.0) sec APTT 24.3 (22.0-30.0) sec CBC 07/23/22 Range/Units 07:10 WBC 6.5 (3.8-10.6) k/uL RBC 3.73 L (4.30-5.90) m/uL Hgb 9.6 L (13.0-17.5) gm/dL Hct 31.2 L (39.0-53.0) % Plt Count 297 (150-450) k/uL Comprehensive Metabolic Panel 07/23/22 Range/Units 07:10 Sodium 142 (137-145) mmol/L Potassium 4.1 (3.5-5.1) mmol/L Chloride 108 H (98-107) mmol/L Carbon Dioxide 21 L (22-30) mmol/L BUN 21 H (9-20) mg/dL Creatinine 0.92 (0.66-1.25) mg/dL Glucose 107 H (74-99) mg/dL Calcium 8.8 (8.4-10.2) mg/dL AST 17 (17-59) U/L ALT 11 (4-49) U/L Alkaline Phosphatase 98 (38-126) U/L Total Protein 7.2 (6.3-8.2) g/dL Albumin 3.9 (3.5-5.0) g/dL Current Medications Generic Name Dose Route Start Last Admin Trade Name Freq PRN Reason Stop Dose Admin Hydrocodone Bitart/Acetaminophen 1 each 07/23/22 09:41 07/23/22 10:12 Hydrocodone/Apap 7.5-325mg 1 Each Tab PO 1 each Q6HR PRN Administration Pain Apixaban 5 mg 07/23/22 10:00 07/23/22 10:12 Apixaban 5 Mg Tab PO 5 mg BID CHIP Administration Protocol Diltiazem HCl 125 mg/ Sodium 125 mls @ 5 mls/hr 07/23/22 07:15 07/23/22 07:16 Chloride IV 5 mg/hr .Q24H CHIP 5 mls/hr Administration 5 MG/HR Metoprolol Tartrate 25 mg 07/23/22 10:45 07/23/22 11:39 Metoprolol Tartrate 25 Mg Tab PO 25 mg BID CHIP Administration Nitroglycerin 0.4 mg 07/23/22 09:16 Nitroglycerin Sl Tabs 0.4 Mg Tab SUBLINGUAL Q5M PRN Chest Pain Intake and Output 07/22/22 07/23/22 07/23/22 22:59 06:59 14:59 Output Total 250 Balance -250 Output: Urine 250 Other: Weight 89.358 kg Patient Weight 07/24/22 06:59 Weight 89.358 kg 07/23/22 07:10 07/23/22 07:10
[2022-07-23 12:31] LABS: T4, Free (Free Thyroxine) 1.38 ng/dL (0.78-2.19)
[2022-07-23] MEDS: SODIUM CHLORIDE 0.9% 1,000 ML IV SCH (12:45)
[2022-07-23] MEDS ORDERED: ALBUTEROL NEBULIZED 2.5 MG/3 ML INHALATION PRN (15:01)
[2022-07-23] MEDS ORDERED: Magnesium Replacement Protocol 1 EACH MISC MISCELLANE PRN (15:03)
[2022-07-23] MEDS: CARBIDOPA-LEVODOPA 25-100 MG 1 EACH TAB PO SCH ×2 (15:42→21:49)
[2022-07-23] MEDS: GABAPENTIN 400 MG CAP PO SCH ×2 (15:43→21:49)
[2022-07-23] MEDS: MAGNESIUM SULFATE-D5W PMX 1 GM in DEXTROSE/WATER 1 100ML.BAG IVPB SCH ×2 (17:23→18:59)
[2022-07-23] MEDS: SYMBICORT 80-4.5 MCG INHALER INHALATION SCH (19:34)
[2022-07-23] MEDS: traZODone HCL 50 MG TAB PO SCH (21:48)
[2022-07-23] MEDS: SERTRALINE 100 MG TAB PO SCH (21:50)
[2022-07-23] MEDS: PRAZOSIN 1 MG CAP PO SCH (21:51)
[2022-07-24 03:48] VITALS: RESP 18
[2022-07-24] MEDS: HYDROcodone/APAP 7.5-325MG 1 EACH TAB PO PRN ×3 (06:28→22:20)
[2022-07-24] MEDS: CARBIDOPA-LEVODOPA 25-100 MG 1 EACH TAB PO SCH ×4 (06:28→19:05)
[2022-07-24] MEDS: LEVOTHYROXINE 100 MCG TAB PO SCH (06:28)
[2022-07-24] MEDS: SYMBICORT 80-4.5 MCG INHALER INHALATION SCH ×2 (07:50→20:15)
[2022-07-24 08:03] LABS: Anisocytosis Slight; HGB 8.4 gm/dL (13.0-17.5); Hypochromasia Marked; MCH 25.6 pg (25.0-35.0); MCHC 29.8 g/dL (31.0-37.0); MCV 85.8 fL (80.0-100.0); Mean Platelet Volume 8.1; Platelet Count 232 k/uL (150-450); RBC 3.27 m/uL (4.30-5.90); RDW 16.7 % (11.5-15.5); WBC 6.1 k/uL (3.8-10.6)
[2022-07-24] MEDS: SERTRALINE 100 MG TAB PO SCH ×2 (08:38→21:45)
[2022-07-24] MEDS: APIXABAN 5 MG TAB PO SCH ×2 (08:38→21:48)
[2022-07-24] MEDS: GABAPENTIN 400 MG CAP PO SCH ×3 (08:38→21:45)
[2022-07-24] MEDS: METOPROLOL TARTRATE 25 MG TAB PO SCH (08:38)
[2022-07-24] MEDS: FERROUS SULFATE 325 MG TAB PO SCH (08:38)
[2022-07-24 08:48] LABS: African American GFR (CKD) 76 (>60 ml/min/1.73 sqM); Anion Gap 11 mmol/L; Blood Urea Nitrogen 25 mg/dL (9-20); Calcium 8.6 mg/dL (8.4-10.2); Carbon Dioxide 21 mmol/L (22-30); Chloride 109 mmol/L (98-107); Glucose 93 mg/dL (74-99); Magnesium 2.1 mg/dL (1.6-2.3); Non-African American GFR(CKD) 66 (>60 ml/min/1.73 sqM); Potassium 4.5 mmol/L (3.5-5.1); Sodium 141 mmol/L (137-145)
[2022-07-24] MEDS ORDERED: ASPIRIN 325 MG TAB PO SCH (09:00)
--- NOTE | 2022-07-24 12:09 | CA ---
Transthoracic Echo Report Name: Danis Gomez Age: 77 Gender: M : 1945 Exam Date: 07/24/2022 09:04 Exam Location: [facility] Ht (in): 71 Wt (lb): 197 Ordering Physician: Carito Mallory Attending/Referring Phys: Coffee Machine Technician Shilpa Claudio RDCS Procedure CPT: Indications: a fib RVR Cardiac Hx: Pacemaker, Hx of Afib Technical Quality: Good Contrast 1: Total Dose (mL): Contrast 2: Total Dose (mL): MEASUREMENTS (Male / Female) Normal Values 2D ECHO LV Diastolic Diameter PLAX 3.9 cm 4.2 - 5.9 / 3.9 - 5.3 cm LV Systolic Diameter PLAX 2.8 cm IVS Diastolic Thickness 1.1 cm 0.6 - 1.0 / 0.6 - 0.9 cm LVPW Diastolic Thickness 1.3 cm 0.6 - 1.0 / 0.6 - 0.9 cm LV Relative Wall Thickness 0.6 LV Diastolic Volume MOD BP 72.8 cm??? 67 - 155 / 56 - 104 cm??? LV Systolic Volume MOD BP 33.2 cm??? 22 - 58 / 19 - 49 cm??? LV Ejection Fraction MOD BP 54.3 % >= 55 % LV Cardiac Index MOD BP 1095.7 cm???/min???m??? LV Diastolic Volume MOD 4C 55.0 cm??? LV Systolic Volume MOD 4C 25.0 cm??? LV Ejection Fraction MOD 4C 54.5 % LV Cardiac Index MOD 4C 829.8 cm???/min???m??? LV Diastolic Length 4C 7.7 cm LV Systolic Length 4C 6.0 cm LV Diastolic Volume MOD 2C 88.5 cm??? LV Systolic Volume MOD 2C 34.3 cm??? LV Ejection Fraction MOD 2C 61.2 % LV Cardiac Index MOD 2C 1498.8 cm???/min???m??? LV Diastolic Length 2C 8.5 cm LV Systolic Length 2C 7.8 cm LA Volume 59.4 cm??? 18 - 58 / 22 - 52 cm??? M-MODE Aortic Root Diameter MM 3.7 cm LA Systolic Diameter MM 3.4 cm LA Ao Ratio MM 0.9 MV E Point Septal Separation 1.6 cm AV Cusp Separation MM 2.0 cm DOPPLER AV Peak Velocity 124.3 cm/s AV Peak Gradient 6.2 mmHg MV Area PHT 4.2 cm??? Mitral E Point Velocity 139.0 cm/s Mitral A Point Velocity 86.0 cm/s Mitral E to A Ratio 1.6 MV Deceleration Time 179.9 ms MV E' Velocity 6.7 cm/s Mitral E to MV E' Ratio 20.6 TR Peak Velocity 253.0 cm/s TR Peak Gradient 25.6 mmHg Right Ventricular Systolic Press 34.8 mmHg PV Peak Velocity 82.7 cm/s PV Peak Gradient 2.7 mmHg FINDINGS Left Ventricle Left ventricular ejection fraction is estimated at 50-55 %. Left ventricular cavity size normal. Left ventricular wall thickness normal. Right Ventricle The right ventricle is normal in size and function. Right Atrium The right atrium is normal in size. Left Atrium Mildly increased left atrial volume. Mitral Valve Structurally normal mitral valve without significant stenosis or prolapse. There is mild mitral regurgitation. Aortic Valve Structurally normal aortic valve without significant sclerosis or stenosis. There is no aortic regurgitation. Tricuspid Valve Structurally normal tricuspid valve without significant stenosis. Pulmonary artery systolic pressure is normal. Mild tricuspid regurgitation. Pulmonic Valve Structurally normal pulmonic valve without significant stenosis. There is no pulmonic regurgitation. Pericardium Normal pericardium without effusion. Aorta Normal aortic root dimension. CONCLUSIONS Left ventricular ejection fraction 50-55% Mild mitral regurgitation Mild tricuspid regurgitation RVSP 34 No pericardial effusion Previewed by: Dr. Wilian Emerson DO (Electronically Signed) Final Date: 24 July 2022 12:08
--- NOTE | 2022-07-24 12:21 | P.PN ---
Subjective This is a pleasant 77-year-old male past medical history significant for paroxysmal atrial fibrillation on Eliquis, nonobstructive coronary artery di sease, pacemaker implantation 6-7 months ago, GERD, hypothyroidism, osteoarthritis, former smoker. He follows with Dr. Vergara. We have been asked to see in consultation for A fib with RVR. Patient presents to the emergency department with complaints of palpitations and chest discomfort that started at 5 AM this morning. Patient states that his chest pain in the center of his chest. Is nonradiating, nonexertional. He denies any nausea, vomiting, diaphoresis, shortness of breath, lightheadedness, dizziness, syncope or near syncope. He states that he took aspirin 3 nitro with no changes symptoms. On arrival to the emergency department patient was found to be in atrial fibrillation with rapid ventricular response, heart rate 169. He was started on IV Cardizem drip, HR slightly improved. He denies any cyst history of CAD, [place], stroke, diabetes. 07/24 Patient seen and examined at bedside, no acute distress. Yesterday patient converted to sinus mechanism and Cardizem was stopped. He's currently maintaining sinus mechanism. He denies any chest pain, shortness of breath, lightheadedness or dizziness. Blood pressure was stable at 110/63, heart rate 63, afebrile. Heart rates in the 50s/60s on telemetry. Echocardiogram revealed EF of 5055 percent, mild mitral regurgitation, mild t ricuspid regurgitation, RVSP of 34 mmHg, no pericardial effusion PHYSICAL EXAMINATION Vitals reviewed CONSTITUTIONAL: No apparent distress. HEENT: Head is normocephalic. Neck SUpple. No JVD. CHEST EXAMINATION: Lungs are diminished in bases to auscultation. No chest wall tenderness is noted on palpation or with deep breathing. HEART EXAMINATION:Regular tachycardic rate and rhythm. S1, S2 heard. ABDOMEN: Soft, nontender. Positive bowel sounds. EXTREMITIES: 2+ peripheral pulses, no lower extremity edema and no calf tenderness. SKIN: warm, dry NEUROLOGIC EXAMINATION: Patient is awake, alert and oriented x3. ASSESSMENT Paroxysmal atrial fibrillation with rapid ventricular response, on Eliquis Pacemaker implantation 6-7 months ago per patient Nonobstructive coronary artery disease GERD Hypothyroidism Osteoarthritis Former smoker PLAN Patient was slightly hypotensive this morning per nursing with BP 88/43, HR 44. Patient was asymptomatic. We will continue metoprolol tartrate 12.5mg BID Continue anticoagulation with Eliquis From cardiology perspective, patient stable to be discharged home. Follow up outpatient with his primary orthopedic shoe maker Dr. Vergara within 1-2 weeks. Nurse practitioner note has been reviewed by physician. Signing provider agrees with the documented findings, assessment, and plan of care. Objective - Vital Signs Vital signs: Vital Signs Temp 98.0 F 07/24/22 08:40 Pulse 63 07/24/22 08:40 Resp 18 07/24/22 08:40 BP 110/63 07/24/22 08:40 Pulse Ox 97 07/24/22 08:40 FiO2 Intake & Output 07/23/22 07/24/22 07/24/22 18:59 06:59 18:59 Intake Total 2 Output Total 250 Balance -250 2 Weight 89.358 kg 89.2 kg Intake: Other 2 Output: Urine 250 - Labs CBC & Chem 7: 07/24/22 07:14 07/24/22 07:14 Labs: Abnormal Lab Results - Last 24 Hours (Table) 07/23/22 07/23/22 07/23/22 Range/Units 10:34 10:39 14:30 RBC (4.30-5.90) m/uL Hgb (13.0-17.5) gm/dL Hct (39.0-53.0) % MCHC (31.0-37.0) g/dL RDW (11.5-15.5) % Chloride (98-107) mmol/L Carbon Dioxide (22-30) mmol/L BUN (9-20) mg/dL Troponin I 0.053 H* 0.082 H* (0.000-0.034) ng/mL TSH 0.379 L (0.465-4.680) mIU/L 07/24/22 07/24/22 Range/Units 07:14 07:14 RBC 3.27 L (4.30-5.90) m/uL Hgb 8.4 L (13.0-17.5) gm/dL Hct 28.0 L (39.0-53.0) % MCHC 29.8 L (31.0-37.0) g/dL RDW 16.7 H (11.5-15.5) % Chloride 109 H (98-107) mmol/L Carbon Dioxide 21 L (22-30) mmol/L BUN 25 H (9-20) mg/dL Troponin I (0.000-0.034) ng/mL TSH (0.465-4.680) mIU/L
--- NOTE | 2022-07-24 16:54 | P.PN ---
Subjective From the records: 77-year-old pleasant male came in with complaints of chest pressure like sensation which started today constant and found to be in atrial fibrillation with rapid ventricular rate patient does have history of A. fib on any rate cont rol medications at home patient was on Eliquis at home. Patient had a chest x- ray which was showing infiltrate in the right the lower lung gomez but this appears to be chronic patient had a similar chest x-ray findings in 2020. Patient had pneumonia at that time patient denied any history of congestive heart failure. Patient denied any significant shortness of breath orthopnea paroxysmal nocturnal dyspnea. Patient does smoke 1-2 cigarettes per day doesn't use any oxygen at home. Patient denied any dizziness, diaphoresis. First set of troponin is not elevated and patient BNP is only 717. Subjective: This is a pleasant 77 years old male with past medical history of A. fib status post pacemaker implantation per patient and documentation, he states that he was sent into [facility] about 6-7 months ago for the procedure. He presents with chest pain and chest flutter. His heart rate was 170 on admission, currently his heart rate sensing 50s. He was on metoprolol 5325 mg twice daily lower to 12.5 mg. A still has borderline low blood pressure and heart rate but as symptomatic and knife edger already clear the patient. Patient states also he has history of Parkinson disease and that he follows up With neurologist and also with neurosurgeon. His neurosurgeon is Dr. Campbell and he has appointment with him in a month in this coming July for his spinal disease as he was complaining of from numbness and neuropathy. As per patient both neurologist and neurosurgeon are aware of his symptoms. Today he says he has only little bit of numbness in his right foot. Patient is already on Eliquis and he told me he has it at home. Labs reviewed. Objective - Vital Signs Vital signs: Vital Signs Temp 98.0 F 07/24/22 08:40 Pulse 63 07/24/22 08:40 Resp 18 07/24/22 08:40 BP 110/63 07/24/22 08:40 Pulse Ox 97 07/24/22 08:40 FiO2 Intake & Output 07/23/22 07/24/22 07/24/22 18:59 06:59 18:59 Intake Total 2 Output Total 250 Balance -250 2 Weight 89.358 kg 89.2 kg Intake: Other 2 Output: Urine 250 - Exam GENERAL: The patient is alert and oriented x3, not in any acute distress. Well developed, well nourished. HEENT: Pupils are round and equally reacting to light. EOMI. No scleral icterus. No conjunctival pallor. Normocephalic, atraumatic. No pharyngeal erythema. No thyromegaly. CARDIOVASCULAR: S1 and S2 present. No murmurs, rubs, or gallops. PULMONARY: Chest is clear to auscultation, no wheezing or crackles. ABDOMEN: Soft, nontender, nondistended, normoactive bowel sounds. No palpable organomegaly. MUSCULOSKELETAL: No joint swelling or deformity. EXTREMITIES: No cyanosis, clubbing, or pedal edema. NEUROLOGICAL: Gross neurological examination did not reveal any focal deficits. SKIN: No rashes. no petechiae. - Labs CBC & Chem 7: 07/24/22 07:14 07/24/22 07:14 Labs: Abnormal Lab Results - Last 24 Hours (Table) 07/23/22 07/23/22 07/23/22 Range/Units 10:34 10:39 14:30 RBC (4.30-5.90) m/uL Hgb (13.0-17.5) gm/dL Hct (39.0-53.0) % MCHC (31.0-37.0) g/dL RDW (11.5-15.5) % Chloride (98-107) mmol/L Carbon Dioxide (22-30) mmol/L BUN (9-20) mg/dL Troponin I 0.053 H* 0.082 H* (0.000-0.034) ng/mL TSH 0.379 L (0.465-4.680) mIU/L 07/24/22 07/24/22 Range/Units 07:14 07:14 RBC 3.27 L (4.30-5.90) m/uL Hgb 8.4 L (13.0-17.5) gm/dL Hct 28.0 L (39.0-53.0) % MCHC 29.8 L (31.0-37.0) g/dL RDW 16.7 H (11.5-15.5) % Chloride 109 H (98-107) mmol/L Carbon Dioxide 21 L (22-30) mmol/L BUN 25 H (9-20) mg/dL Troponin I (0.000-0.034) ng/mL TSH (0.465-4.680) mIU/L Assessment and Plan Assessment: -Atrial fibrillation with rapid and regular rate patient is on metoprolol 12.5 and Eliquis. Heart rate is in the 50s, knife edger already care of the patient for discharge -Parkinson disease with history of neuropathy. Patient has appointment with his neurosurgeon on July. Consult physical therapy as patient is on a blood thinner -Hypothyroidism: Patient is on levothyroxine . T4 is normal -Infiltrate in the right lower lung gomez which is chronic and doesn't appear to have any Pneumonia patient doesn't have any fever doesn't have any leukocytosis tunnel level will be obtained -Gastroesophageal reflux disease -Depression -Benign prostatic hypertrophy
[2022-07-24 17:27] LABS: Chol/HDL Ratio 4.51 Ratio; LDL Cholesterol,Calculated 77.7 mg/dL (0.0-131.0)
[2022-07-24] MEDS: SODIUM CHLORIDE 0.9% 1,000 ML IV SCH (18:26)
[2022-07-24] MEDS: traZODone HCL 50 MG TAB PO SCH (21:45)
[2022-07-24] MEDS: PRAZOSIN 1 MG CAP PO SCH (21:46)
[2022-07-24] MEDS: METOPROLOL TARTRATE 12.5 MG TAB PO SCH (21:46)
[2022-07-25] MEDS: CARBIDOPA-LEVODOPA 25-100 MG 1 EACH TAB PO SCH ×3 (06:53→15:42)
[2022-07-25] MEDS: LEVOTHYROXINE 100 MCG TAB PO SCH (06:53)
[2022-07-25] MEDS: HYDROcodone/APAP 7.5-325MG 1 EACH TAB PO PRN ×2 (06:59→15:42)
[2022-07-25] MEDS: SYMBICORT 80-4.5 MCG INHALER INHALATION SCH (08:05)
[2022-07-25] MEDS: SODIUM CHLORIDE 0.9% 1,000 ML IV SCH (09:05)
[2022-07-25] MEDS: APIXABAN 5 MG TAB PO SCH (09:08)
[2022-07-25] MEDS: GABAPENTIN 400 MG CAP PO SCH ×2 (09:09→15:42)
[2022-07-25] MEDS: METOPROLOL TARTRATE 12.5 MG TAB PO SCH (09:09)
[2022-07-25] MEDS: FERROUS SULFATE 325 MG TAB PO SCH (09:09)
[2022-07-25] MEDS: SERTRALINE 100 MG TAB PO SCH (09:09)
[2022-07-25 11:43] VITALS: BP 101/53; PULSE 61; TEMP 98.3
--- NOTE | 2022-07-25 23:21 | P.DS ---
Providers Date of admission: 07/23/22 08:57 Attending physician: Erin Khan Consults: 07/23/22 09:16 Consult Physician Urgent Consulting Provider: Wander Bravo Consult Reason/Comments: chest pain Do you want consulting provider notified?: Yes Primary care physician: Stated None Hospital Course: Diagnoses: -Atrial fibrillation with rapid and regular rate -Parkinson disease with history of neuropathy. -Hypothyroidism -Atelectasis rather than Infiltrate in the right lower lung gomez ,no fever ,no leukocytosis -History of Gastroesophageal reflux disease -Depression -Benign prostatic hypertrophy Hospital course: 77-year-old pleasant male came in with complaints of chest pressure like sensation , found to have A. fib with RVR, his heart rate was 170, it was controlled with beta alex, currently on metoprolol 12.5 mg twice daily. Also he is on Eliquis 5 mg which is on home dose. Heart rate currently in 50s and patient is as symptomatic. Director Of Religious Life evaluated the patient and found him stable and cleared him for discharge. Patient has history of Parkinson disease and chronic neck pain and he has appointment with his neurosurgeon Dr. Campbell on July. Consult physical therapy as patient is on a blood thinner, and they recommended for the patient to go home by both physical and occupational therapist. Patient denies any other symptoms, no dyspnea or dizziness. His blood pressure low borderline but is asymptomatic and raimann machine operator already scheduled him for discharge. (He denies abdominal pain or vomiting or diarrhea. No urinary complaints. Patient was cleared for discharge by raimann machine operator Problems and management plan were discussed with the patient and he verbalized understanding and acceptance Patient was found stable and can be discharged home however he needs follow-up as an outpatient. Patient was instructed to follow up with PCP within one week and patient agrees, [facility], he states currently he does not have PCP, patient was advised to follow up and call his medical insurance provider to find any of my PCP and colon make appointment within 1 week and he agrees. Patient was instructed to follow up with raimann machine operator Dr. Mercado in one week as he have seen him before and requested to follow up with him Physical exam Gen: patient is a AAOx3, no distress CVS: S1-S2, RRR, no murmur Lungs: B/L CTA, no wheezing Abdomen: soft, no distention, no tenderness, positive bowel sounds Extremity: no leg edema or induration Time spent more than 35 minutes Patient Condition at Discharge: Poor Plan - Discharge Summary Discharge Rx Participant: No New Discharge Prescriptions: New Metoprolol Tartrate [Lopressor] 12.5 mg PO BID #60 tab Nitroglycerin Sl Tabs [Nitrostat] 0.4 mg SUBLINGUAL Q5M PRN #10 tab PRN Reason: Chest Pain Continue Ferrous Sulfate [Iron (65 MG Elemental)] 325 mg PO DAILY Carbidopa-Levodopa 25-100 mg [Sinemet 25-100 mg] 2.5 tab PO QID@,,, Sertraline [Zoloft] 100 mg PO BID Prazosin [Minipress] 5 mg PO HS Levothyroxine Sodium [Synthroid] 200 mcg PO DAILY Gabapentin 600 mg PO TID Apixaban [Eliquis] 5 mg PO BID #0 Fluticasone Propion/Salmeterol [Advair 100-50 Diskus] 1 puff INHALATION RT- BID Albuterol Sulfate [Albuterol Sulfate Hfa] 2 puff INHALATION RT-QID PRN PRN Reason: Shortness Of Breath traZODone HCL 150 mg PO HS Discontinued Cyclobenzaprine [Flexeril] 5 mg PO TID Discharge Medication List Carbidopa-Levodopa 25-100 mg [Sinemet 25-100 mg] 2.5 tab PO QID@,,,08/18/21 [History] Ferrous Sulfate [Iron (65 MG Elemental)] 325 mg PO DAILY 08/18/21 [History] Gabapentin 600 mg PO TID 08/18/21 [History] Levothyroxine Sodium [Synthroid] 200 mcg PO DAILY 08/18/21 [History] Apixaban [Eliquis] 5 mg PO BID #0 08/20/21 [Rx] Albuterol Sulfate [Albuterol Sulfate Hfa] 2 puff INHALATION RT-QID PRN 07/23/22 [History] Fluticasone Propion/Salmeterol [Advair 100-50 Diskus] 1 puff INHALATION RT-BID 07/23/22 [History] Prazosin [Minipress] 5 mg PO HS 07/23/22 [History] Sertraline [Zoloft] 100 mg PO BID 07/23/22 [History] traZODone HCL 150 mg PO HS 07/23/22 [History] Metoprolol Tartrate [Lopressor] 12.5 mg PO BID #60 tab 07/25/22 [Rx] Nitroglycerin Sl Tabs [Nitrostat] 0.4 mg SUBLINGUAL Q5M PRN #10 tab 07/25/22 [Rx] Follow up Appointment(s)/Referral(s): None,Stated [Primary Care Provider] - 1-2 days Carson Mercado MD [STAFF PHYSICIAN] - 1 Week (Office will call you with apt. date and time) Patient Instructions/Handouts: A-fib (Atrial Fibrillation) (ED) Activity/Diet/Wound Care/Special Instructions: [facility], states he follows with Dr. Queen (sp) heart healthy diet activity is restricted till you see your doctor Discharge Disposition: HOME SELF-CARE
== END 2022-07-25 15:45 | disposition home or self-care (01) | DRG 309 ==
LOC: EC 06:48 → 3SCARD 08:57
PROVIDERS: ADMIT Internal Medicine; ATTEND Internal Medicine
DX: I48.0 Paroxysmal atrial fibrillation (principal); J98.11 Atelectasis; K21.9 Gastro-esophageal reflux disease without esophagitis; M19.90 Unspecified osteoarthritis, unspecified site; N40.0 Benign prostatic hyperplasia without lower urinary tract symptoms; E03.9 Hypothyroidism, unspecified; F17.210 Nicotine dependence, cigarettes, uncomplicated; F32.A Depression, unspecified; F43.10 Post-traumatic stress disorder, unspecified; G20 Parkinson's disease; G62.9 Polyneuropathy, unspecified; I10 Essential (primary) hypertension; I25.10 Atherosclerotic heart disease of native coronary artery without angina pectoris; Z79.01 Long term (current) use of anticoagulants; Z79.890 Hormone replacement therapy; Z79.899 Other long term (current) drug therapy; Z95.0 Presence of cardiac pacemaker; G89.29 Other chronic pain; M54.2 Cervicalgia; Z91.030 Bee allergy status
CPT/HCPCS: 36415; 71046; 80048; 80053; 80061; 83735; 83880; 84145; 84439; 84443; 84484; 85025; 85027; 85610; 85730; 93005; 93306; 94640; 96365; 96366; 96375; 99285

== ENCOUNTER 2022-10-08 19:08 | Emergency (ER) | payer MEDICARE, OTHER ==
[2022-10-08 19:29] VITALS: RESP 18; TEMP 98
[2022-10-08] MEDS ORDERED: KETOROLAC 15 MG/ML 1 ML VIAL IM STA (20:02)
--- NOTE | 2022-10-08 21:48 | ED ---
Lower Extremity Injury HPI - General Chief Complaint: Extremity Injury, Lower Stated Complaint: Hip and Neck Pain, Sent [facility] Time Seen by Provider: 10/08/22 19:37 Source: patient Mode of arrival: wheelchair Limitations: no limitations - History of Present Illness Initial Comments: Patient complains of pain in the hip and pain in the neck. He has no new injuries today. He is getting scheduled for surgery. He has no chest or belly or back pain. He has no nausea or vomiting. He has no change in vision or hearing. He states that he needs some Toradol, which will get him through until he can see his doctor. - Related Data Home Medications Medication Instructions Recorded Confirmed Carbidopa-Levodopa 25-100 mg 2.5 tab PO QID@,,,08/18/21 07/23/22 [Sinemet 25-100 mg] Ferrous Sulfate [Iron (65 MG 325 mg PO DAILY 08/18/21 07/23/22 Elemental)] Gabapentin 600 mg PO TID 08/18/21 07/23/22 Levothyroxine Sodium [Synthroid] 200 mcg PO DAILY 08/18/21 07/23/22 Albuterol Sulfate [Albuterol 2 puff INHALATION RT-QID PRN 07/23/22 07/23/22 Sulfate Hfa] Fluticasone Propion/Salmeterol 1 puff INHALATION RT-BID 07/23/22 07/23/22 [Advair 100-50 Diskus] Prazosin [Minipress] 5 mg PO HS 07/23/22 07/23/22 Sertraline [Zoloft] 100 mg PO BID 07/23/22 07/23/22 traZODone HCL 150 mg PO HS 07/23/22 07/23/22 Previous Rx's Medication Instructions Recorded Apixaban [Eliquis] 5 mg PO BID #0 08/20/21 Metoprolol Tartrate [Lopressor] 12.5 mg PO BID #60 tab 07/25/22 Nitroglycerin Sl Tabs [Nitrostat] 0.4 mg SUBLINGUAL Q5M PRN #10 tab 07/25/22 Allergies Allergy/AdvReac Type Severity Reaction Status Date / Time venom-honey bee Allergy Dyspnea Verified 10/08/22 19:29 [bee venom (honey bee)] Review of Systems ROS Statement: Those systems with pertinent positive or pertinent negative responses have been documented in the HPI. ROS Other: All systems not noted in ROS Statement are negative. Past Medical History Past Medical History: Atrial Fibrillation, GERD/Reflux, Osteoarthritis (OA), Pneumonia, Thyroid Disorder Additional Past Medical History / Comment(s): PARKINSON History of Any Multi-Drug Resistant Organisms: None Reported Past Surgical History: Back Surgery, Orthopedic Surgery, Tonsillectomy Additional Past Surgical History / Comment(s): lung drains-thoracentesis; left hip replaced; 5x back surgeries Past Anesthesia/Blood Transfusion Reactions: No Reported Reaction Past Psychological History: Anxiety, Depression, PTSD Smoking Status: Current every day smoker Past Alcohol Use History: Rare Past Drug Use History: None Reported - Past Family History Mother Family Medical History: Cancer Additional Family Medical History / Comment(s): Ovarian General Exam Limitations: no limitations General appearance: alert, in no apparent distress Head exam: Present: atraumatic, normocephalic, normal inspection Eye exam: Present: normal appearance, PERRL, EOMI. Absent: scleral icterus, conjunctival injection, periorbital swelling ENT exam: Present: normal exam, mucous membranes moist Neck exam: Present: normal inspection. Absent: tenderness, meningismus, lymphadenopathy Respiratory exam: Present: normal lung sounds bilaterally. Absent: respiratory distress, wheezes, rales, rhonchi, stridor Cardiovascular Exam: Present: regular rate, normal rhythm, normal heart sounds. Absent: systolic murmur, diastolic murmur, rubs, gallop, clicks GI/Abdominal exam: Present: soft, normal bowel sounds. Absent: distended, tenderness, guarding, rebound, rigid Extremities exam: Present: normal inspection, full ROM, normal capillary refill. Absent: tenderness, pedal edema, joint swelling, calf tenderness Back exam: Present: normal inspection Neurological exam: Present: alert, oriented X3, CN II-XII intact Psychiatric exam: Present: normal affect, normal mood Skin exam: Present: warm, dry, intact, normal color. Absent: rash Course Vital Signs 10/08/22 19:27 Temperature 98 F Pulse Rate 75 Respiratory 18 Rate Blood Pressure 90/50 O2 Sat by Pulse 97 Oximetry Medical Decision Making - Medical Decision Making Patient complains of hip and neck pain, but has had no new injuries and no new weakness. He tolerates oral intake. I ordered him a shot of Toradol. He feels better. He is stable for discharge. Disposition Clinical Impression: Musculoskeletal pain Disposition: HOME SELF-CARE Condition: Good Instructions (If sedation given, give patient instructions): Musculoskeletal Pain (ED) Is patient prescribed a controlled substance at d/c from ED?: No Referrals: Nonstaff,Physician [Primary Care Provider] - 1-2 days
[2022-10-08 22:04] VITALS: BP 132/48; PULSE 64
== END 2022-10-08 22:11 | disposition home or self-care (01) ==
LOC: EC 19:08
DX: M79.18 Myalgia, other site (principal); I48.91 Unspecified atrial fibrillation; K21.9 Gastro-esophageal reflux disease without esophagitis; M19.90 Unspecified osteoarthritis, unspecified site; E07.9 Disorder of thyroid, unspecified; F17.200 Nicotine dependence, unspecified, uncomplicated; F41.9 Anxiety disorder, unspecified; Z79.890 Hormone replacement therapy; Z79.899 Other long term (current) drug therapy; Z79.83 Long term (current) use of bisphosphonates; Z79.01 Long term (current) use of anticoagulants; Z91.038 Other insect allergy status
CPT/HCPCS: 99283; 96372; J1885

== ENCOUNTER 2023-02-20 07:50 | Day surgery (SDC) | payer OTHER ==
[2023-02-20] MEDS ORDERED: diazePAM 5 MG TAB PO PRN (08:23)
[2023-02-20 08:40] VITALS: PULSE 61; RESP 16; TEMP 98.2
[2023-02-20 10:12] VITALS: BP 116/72
== END 2023-02-20 09:55 | disposition home or self-care (01) ==
LOC: RADPROMAIN 07:50
PROVIDERS: ATTEND Neurological Surgery
DX: Z53.9 Procedure and treatment not carried out, unspecified reason (principal); M48.02 Spinal stenosis, cervical region

== ENCOUNTER 2023-04-03 07:52 | Day surgery (SDC) | payer OTHER ==
[2023-04-03 09:02] VITALS: RESP 16; TEMP 97.8
[2023-04-03] MEDS ORDERED: PROPOFOL 10 MG/ML 20 ML VIAL IV ONE (09:18)
[2023-04-03] MEDS ORDERED: fentaNYL (PF) 50 MCG/ML 2 ML AMP ONE (09:18)
[2023-04-03] MEDS ORDERED: MIDAZOLAM 2 MG/2 ML VIAL ONE (09:18)
--- NOTE | 2023-04-03 10:46 | CT ---
EXAMINATION TYPE: CT cervical spine w con DATE OF EXAM: 04/03/2023 COMPARISON: NONE HISTORY: Spinal stenosis, cervical region CT DLP: 566 mGycm. Automated Exposure Control for Dose Reduction was Utilized. TECHNIQUE: CT scan of the cervical spine is obtained after intrathecal contrast injection, axial yolanda ges are obtained, sagittal and coronal reformatted images are also reviewed. Patient injected with 15 cc of Isovue-M 200. FINDINGS: Cervical spine is visualized in its entirety from C1 through upper thoracic levels, demonst rates satisfactory alignment without evidence of acute fracture or dislocation. Prevertebral soft ti ssue appears within normal limits. The C1-C2 articulation is within normal limits on the coronal yolanda ges. Successful intrathecal injection of contrast noted. There is anterior fusion plate with artifici al disc material in ossific fusion involving the C6 and C7 vertebra. Vertebral body heights are maint ained above and below surgical levels. There is [id number] disc space narrowing at C7-T1 level. There is large prominent osteophyte from the anterior inferior C5 vertebra extending inferiorly. The re is mild to moderate multilevel anterior spurring in the upper thoracic spine. Axial images show some left-sided uncovertebral facet degenerative change C2-C3 level without signifi cant neural foraminal narrowing. Axial images at C3-C4 level show tiny central disc protrusion mildly effacing anterior thecal sac and uncovertebral facet degenerative changes bilaterally greater on the right causing mild left and mode rate to severe right-sided neural foraminal narrowing. Axial images at C4-C5 level show bilateral uncovertebral changes causing moderate bilateral neural fo raminal narrowing. Spinal canal is preserved. Axial images at C5-C6 level show lobulated posterior disc protrusion effacing the anterior thecal sa c, patent bilateral neural foramina. Axial images at the C6-C7 level show postsurgical change. Spinal canal is preserved. Bilateral neural foramina are patent. Axial images at C7-T1 level degraded by susceptibility artifact. Suggestion of posterior disc herniat ion and/or spur sagittal image 46 effacing the anterior thecal sac. Lung apices show mild apical scarring without pneumothorax. Somewhat small size thyroid gland is seen . There is moderate calcified plaque at bilateral carotid bulb level greater on the left. IMPRESSION: Successful intrathecal injection. Postsurgical change C6-C7 level. Multilevel degenerativ e changes are seen as detailed above.
[2023-04-03 12:36] VITALS: PULSE 69
[2023-04-03 12:38] VITALS: BP 121/58
--- NOTE | 2023-04-03 13:50 | FL ---
EXAMINATION TYPE: FL myelogram cervical DATE OF EXAM: 04/03/2023 CLINICAL HISTORY: Cervical region spinal stenosis TECHNIQUE: Fluoroscopy assisted lumbar puncture for subsequent contrast enhanced CT cervical spine st y. COMPARISON: Outside whole-body CT August 16, 2021. FINDINGS: Fluoroscopic guidance was provided during lumbar puncture procedure performed by myself. A total of 53 seconds of fluoroscopic time was utilized during the procedure and four spot images are acquired. The procedure was explained to the patient. Benefits, alternatives, and risks were discussed. Informe d consent was obtained by IR nurse. There is on site ANESTHESIA for sedation due to patient anxiety. Overlying skin is cleansed with Betadine. Lidocaine is used as anesthetic into the skin and deeper ti ssue. An old CT scan is reviewed and shows multilevel bilateral interpedicular rods and screws throug h the lumbar spine. There is multilevel laminectomy defects and spinous process resection. There is e xtensive posterior scar tissue up to the targeted spinal canal. Under fluoroscopic guidance, several attempts to access spinal canal are performed. There is some dif ficulty due to extensive scar tissue. Eventually there was successful placement into the spinal canal at L3 level despite lack of CSF return. There is then placement of 15 cc of Isovue-M 200 into the sp inal canal. There is x-ray obtained confirming successful intrathecal injection. At this point needle is withdrawn. Cholecystectomy clips are incidentally noted on images saved. Patient tolerated procedure well without any immediate complication. Patient taken to CT for subseque nt CT study. Vital signs monitored before during and after the procedure by IR nursing and ELEAZAR patton sedation. Patient was kept in the hospital for short stay after the procedure and then discharge home in stable and satisfactory position. IMPRESSION: As Above.
== END 2023-04-03 12:47 | disposition home or self-care (01) ==
LOC: RADPROMAIN 07:52
PROVIDERS: ATTEND Neurological Surgery
DX: M48.02 Spinal stenosis, cervical region (principal); M47.812 Spondylosis without myelopathy or radiculopathy, cervical region
CPT/HCPCS: 36415; 62302; 72126; J2250; J3010; J2704; Q9966

== ENCOUNTER 2024-09-06 10:45 | Observation (INO) | payer OTHER ==
[2024-09-06 11:32] LABS: ALT 14 U/L (4-49); AST 23 U/L (17-59); African American GFR (CKD) 88 (>60 ml/min/1.73 sqM); Albumin 3.9 g/dL (3.5-5.0); Alkaline Phosphatase 76 U/L (38-126); Anion Gap 6 mmol/L; Blood Urea Nitrogen 26 mg/dL (9-20); Carbon Dioxide 25 mmol/L (22-30); Chloride 111 mmol/L (98-107); Glucose 121 mg/dL (74-99); Magnesium 1.9 mg/dL (1.6-2.3); Non-African American GFR(CKD) 77 (>60 ml/min/1.73 sqM); Potassium 4.4 mmol/L (3.5-5.1); Sodium 142 mmol/L (137-145); Total Bilirubin 0.7 mg/dL (0.2-1.3); Total Protein 6.8 g/dL (6.3-8.2)
[2024-09-06 11:33] LABS: INR 0.9 (<1.2); Partial Thromboplastin Time 23.9 sec (22.0-30.0); Prothrombin Time 10.4 sec (10.0-12.5)
[2024-09-06 11:35] LABS: Basophils % (A) 0 %; Eosinophils # (A) 0.3 k/uL (0-0.7); Eosinophils % (A) 3 %; HCT 40.7 % (39.0-53.0); HGB 13.8 gm/dL (13.0-17.5); Lymphocytes # (A) 1.3 k/uL (1.0-4.8); Lymphocytes % (A) 16 %; MCH 31.2 pg (25.0-35.0); MCV 91.8 fL (80.0-100.0); Mean Platelet Volume 7.4; Monocytes # (A) 0.4 k/uL (0-1.0); Monocytes % (A) 4 %; Neutrophils # (A) 6.2 k/uL (1.3-7.7); Neutrophils % (A) 75 %; Platelet Count 259 k/uL (150-450); RBC 4.44 m/uL (4.30-5.90); RDW 14.4 % (11.5-15.5); WBC 8.2 k/uL (3.8-10.6)
--- NOTE | 2024-09-06 11:43 | XR ---
EXAMINATION TYPE: XR chest 2V DATE OF EXAM: 09/06/2024 COMPARISON: 07/23/2022 TECHNIQUE: PA and lateral views submitted. HISTORY: Chest pain FINDINGS: Line SMS changes. There is a cardiac device and postsurgical change overlying the cervical spine. A s mall right effusion and consolidation. Mild central vascular prominence. No pneumothorax. Osteopenia, hypertrophic and degenerative change of the spine. Arthropathy shoulders. No definite sizable pneumo thorax. Suspect pleural reflections at the bilateral lung apices with lung markings noted distally. T iny calcified granuloma left lower lobe. IMPRESSION: 1. Right lower lobe infiltrate and small pleural effusion similar to prior exam. Correlate clinically to exclude mild venous congestion. [facility], , 09/06/2024 11:41 AM
--- NOTE | 2024-09-06 12:37 | ED ---
General Adult HPI - General Chief complaint: Chest Pain Stated complaint: Chest Pain Time Seen by Provider: 09/06/24 10:51 Source: patient, EMS, RN notes reviewed, old records reviewed Mode of arrival: EMS Limitations: no limitations - History of Present Illness Initial comments: 79-year-old male presenting for evaluation of chest pain and palpitations. Patient states he has a history of atrial fibrillation he is on Eliquis. He denies prior coronary artery disease. He states he has had intermittent chest pain center of his chest with associated palpitations. He believes he is in atrial fibrillation. Patient denies cough or dyspnea. - Related Data Home Medications Medication Instructions Recorded Confirmed Carbidopa-Levodopa 25-100 mg 2.5 tab PO TID@09,12,1700 08/18/21 09/06/24 [Sinemet 25-100 mg] Albuterol Sulfate [Albuterol 2 puff INHALATION RT-QID PRN 07/23/22 09/06/24 Sulfate Hfa] Cholecalciferol [Vitamin D3 (25 25 mcg PO DAILY 09/06/24 09/06/24 Mcg = 1000 Iu)] Cyclobenzaprine [Flexeril] 5 mg PO TID 09/06/24 09/06/24 DULoxetine HCL [Cymbalta] 30 mg PO DAILY 09/06/24 09/06/24 EPINEPHrine (Auto Inject) [Epipen] 0.3 mg IM ONCE PRN 09/06/24 09/06/24 Gabapentin (Unknown Strength) 1 dose PO TID 09/06/24 09/06/24 Levothyroxine Sodium [Synthroid] 150 mcg PO DAILY 09/06/24 09/06/24 QUEtiapine FUMARATE [SEROquel] 150 mg PO HS 09/06/24 09/06/24 QUEtiapine [SEROquel] 25 mg PO QID PRN 09/06/24 09/06/24 Tiotropium 2.5 Mcg/Puff [Spiriva 2 puff INHALATION RT-BID 09/06/24 09/06/24 Respimat 2.5 Mcg] cloNIDine HCL [Catapres] 0.1 mg PO BID 09/06/24 09/06/24 polyethylene glycoL 3350 [Miralax] 17 gm PO BID 09/06/24 09/06/24 Previous Rx's Medication Instructions Recorded Apixaban [Eliquis] 5 mg PO BID #0 08/20/21 Nitroglycerin Sl Tabs [Nitrostat] 0.4 mg SUBLINGUAL Q5M PRN #10 tab 07/25/22 Allergies Allergy/AdvReac Type Severity Reaction Status Date / Time venom-honey bee Allergy Dyspnea Verified 09/06/24 10:52 [bee venom (honey bee)] Review of Systems ROS Statement: Those systems with pertinent positive or pertinent negative responses have been documented in the HPI. ROS Other: All systems not noted in ROS Statement are negative. Past Medical History Past Medical History: Atrial Fibrillation, GERD/Reflux, Osteoarthritis (OA), Pneumonia, Thyroid Disorder Additional Past Medical History / Comment(s): P[place]IN[place], neck right side and numbness in right arm, History of Any Multi-Drug Resistant Organisms: None Reported Past Surgical History: Back Surgery, Orthopedic Surgery, Tonsillectomy Additional Past Surgical History / Comment(s): lung drains-thoracentesis; foot surgery repair of tendon, left hip replaced; 5x back surgeries, laminectomy x2, 20 years ago cervical fusion, lumbar spine fusion. Past Anesthesia/Blood Transfusion Reactions: No Reported Reaction Past Psychological History: Anxiety, Depression, PTSD Smoking Status: Current every day smoker Past Alcohol Use History: Occasional Past Drug Use History: None Reported - Past Family History Mother Family Medical History: Cancer Additional Family Medical History / Comment(s): Ovarian General Exam Limitations: no limitations General appearance: alert, in no apparent distress Head exam: Present: atraumatic, normocephalic Eye exam: Present: normal appearance, PERRL ENT exam: Present: normal exam Neck exam: Present: normal inspection. Absent: tenderness Respiratory exam: Present: normal lung sounds bilaterally. Absent: respiratory distress, wheezes Cardiovascular Exam: Present: regular rate, normal rhythm GI/Abdominal exam: Present: soft. Absent: distended, tenderness, guarding Extremities exam: Present: normal inspection, normal capillary refill. Absent: pedal edema, calf tenderness Neurological exam: Present: alert, oriented X3, CN II-XII intact. Absent: motor sensory deficit Psychiatric exam: Present: normal affect, normal mood Skin exam: Present: warm, dry, intact Course Vital Signs 09/06/24 09/06/24 10:49 12:00 Temperature 98.7 F Pulse Rate 82 81 Respiratory 20 18 Rate Blood Pressure 152/85 152/93 O2 Sat by Pulse 96 97 Oximetry Medical Decision Making - Medical Decision Making Was pt. sent in by a medical professional or institution ([facility] Fernandez, [facility], urgent care, hospital, or care home...) When possible be specific @ -No Did you speak to anyone other than the patient for history (EMS, parent, family, police, friend...)? What history was obtained from this source @ -No Did you review nursing and triage notes (agree or disagree)? Why? @ -I reviewed and agree with nursing and triage notes Were old charts reviewed (outside hosp., previous admission, EMS record, old EKG, old radiological studies, urgent care reports/EKG's, care home records)? Report findings @ -No old charts were reviewed Differential Chest Pain: Stable Angina, Unstable Angina, STEMI, NSTEMI Aortic Dissection, Pneumothorax, Musculoskeletal, Esophageal Spasm GERD, Cholecystitis, Pancreatitis, Zoster, this is not meant to be an all-inclusive list. EKG interpreted by me (3pts min.). @ -Sinus rhythm rate of 81 CO interval 166, QRS duration 102, QTc [address] segment elevation. X-rays interpreted by me (1pt min.). @ -X-ray showing right pleural effusion CT interpreted by me (1pt min.). @ -None done U/S interpreted by me (1pt. min.). @ -None done What testing was considered but not performed or refused? (CT, X-rays, U/S, labs)? Why? @ -None What meds were considered not given or refused? Why? @ -None Did you discuss the management of the patient with other professionals (professionals i.e. [facility]ASME[facility] Fernandez, [employer] [facility], lab, RT, psych nurse, child welfare social worker, shellfish sorter, teacher, reserve officer, test case developer)? Give summary @ -Dr. Price will admit Was smoking cessation discussed for >3mins.? @ -No Was critical care preformed (if so, how long)? @ -No Were there social determinants of health that impacted care today? How? (Homelessness, low income, unemployed, alcoholism, drug addiction, transportation, low edu. Level, literacy, decrease access to med. care, long-term, rehab)? @ -No Was there de-escalation of care discussed even if they declined (Discuss DNR or withdrawal of care, Hospice)? DNR status @ -No What co-morbidities impacted this encounter? (DM, HTN, Smoking, COPD, CAD, Cancer, CVA, ARF, Chemo, Hep., AIDS, mental health diagnosis, sleep apnea, morbid obesity)? @ -Atrial fibrillation Was patient admitted / discharged? Hospital course, mention meds given and route, prescriptions, significant lab abnormalities, going to OR and other pertinent info. @ 79-year-old male with central chest discomfort, palpitations. Patient is in sinus rhythm stable vitals. He has chronic appearing right-sided pleural effusion on x-ray. Normal CBC, normal CMP, negative initial troponin. Patient will be observed overnight for serial cardiac enzymes, cardiology consultation. Case discussed with Dr. Price. Undiagnosed new problem with uncertain prognosis? @ -No Drug Therapy requiring intensive monitoring for toxicity (Heparin, Nitro, Insulin, Cardizem)? @ -No Were any procedures done? @ -No Diagnosis/symptom? @ -[Chest pain rule out Acute, or Chronic, or Acute on Chronic? @ -Acute Uncomplicated (without systemic symptoms) or Complicated (systemic symptoms)? @ -[default Side effects of treatment? @ -No Exacerbation, Progression, or Severe Exacerbation? @ -No Poses a threat to life or bodily function? How? (Chest pain, USA, DC, pneumonia, PE, COPD, DKA, ARF, appy, cholecystitis, CVA, Diverticulitis, Homicidal, Suicidal, threat to staff... and all critical care pts) @ -[yes, ACS - Lab Data Result diagrams: 09/06/24 11:14 09/06/24 11:14 Lab Results 09/06/24 09/06/24 09/06/24 Range/Units 11:14 11:14 11:14 WBC 8.2 (3.8-10.6) k/uL RBC 4.44 (4.30-5.90) m/uL Hgb 13.8 (13.0-17.5) gm/dL Hct 40.7 (39.0-53.0) % MCV 91.8 (80.0-100.0) fL MCH 31.2 (25.0-35.0) pg MCHC 34.0 (31.0-37.0) g/dL RDW 14.4 (11.5-15.5) % Plt Count 259 (150-450) k/uL MPV 7.4 Neutrophils % 75 % Lymphocytes % 16 % Monocytes % 4 % Eosinophils % 3 % Basophils % 0 % Neutrophils # 6.2 (1.3-7.7) k/uL Lymphocytes # 1.3 (1.0-4.8) k/uL Monocytes # 0.4 (0-1.0) k/uL Eosinophils # 0.3 (0-0.7) k/uL Basophils # 0.0 (0-0.2) k/uL PT 10.4 (10.0-12.5) sec INR 0.9 (<1.2) APTT 23.9 (22.0-30.0) sec Sodium 142 (137-145) mmol/L Potassium 4.4 (3.5-5.1) mmol/L Chloride 111 H (98-107) mmol/L Carbon Dioxide 25 (22-30) mmol/L Anion Gap 6 mmol/L BUN 26 H (9-20) mg/dL Creatinine 0.96 (0.66-1.25) mg/dL Est GFR (CKD-EPI)AfAm 88 (>60 ml/min/1.73 sqM) Est GFR (CKD-EPI)NonAf 77 (>60 ml/min/1.73 sqM) Glucose 121 H (74-99) mg/dL Calcium 10.0 (8.4-10.2) mg/dL Magnesium 1.9 (1.6-2.3) mg/dL Total Bilirubin 0.7 (0.2-1.3) mg/dL AST 23 (17-59) U/L ALT 14 (4-49) U/L Alkaline Phosphatase 76 (38-126) U/L Troponin I (0.000-0.034) ng/mL Total Protein 6.8 (6.3-8.2) g/dL Albumin 3.9 (3.5-5.0) g/dL 09/06/24 Range/Units 11:14 WBC (3.8-10.6) k/uL RBC (4.30-5.90) m/uL Hgb (13.0-17.5) gm/dL Hct (39.0-53.0) % MCV (80.0-100.0) fL MCH (25.0-35.0) pg MCHC (31.0-37.0) g/dL RDW (11.5-15.5) % Plt Count (150-450) k/uL MPV Neutrophils % % Lymphocytes % % Monocytes % % Eosinophils % % Basophils % % Neutrophils # (1.3-7.7) k/uL Lymphocytes # (1.0-4.8) k/uL Monocytes # (0-1.0) k/uL Eosinophils # (0-0.7) k/uL Basophils # (0-0.2) k/uL PT (10.0-12.5) sec INR (<1.2) APTT (22.0-30.0) sec Sodium (137-145) mmol/L Potassium (3.5-5.1) mmol/L Chloride (98-107) mmol/L Carbon Dioxide (22-30) mmol/L Anion Gap mmol/L BUN (9-20) mg/dL Creatinine (0.66-1.25) mg/dL Est GFR (CKD-EPI)AfAm (>60 ml/min/1.73 sqM) Est GFR (CKD-EPI)NonAf (>60 ml/min/1.73 sqM) Glucose (74-99) mg/dL Calcium (8.4-10.2) mg/dL Magnesium (1.6-2.3) mg/dL Total Bilirubin (0.2-1.3) mg/dL AST (17-59) U/L ALT (4-49) U/L Alkaline Phosphatase (38-126) U/L Troponin I <0.012 (0.000-0.034) ng/mL Total Protein (6.3-8.2) g/dL Albumin (3.5-5.0) g/dL Disposition Clinical Impression: Chest pain Disposition: ADMITTED IP TO THIS HOSP Condition: Stable Is patient prescribed a controlled substance at d/c from ED?: No [facility] - 1-2 days Time of Disposition: 13:29
[2024-09-06] MEDS: ASPIRIN 325 MG TAB PO STA (13:11)
[2024-09-06] MEDS: MORPHINE SULFATE 4 MG/ML SYRINGE IVP STA (13:12)
[2024-09-06] MEDS ORDERED: ACETAMINOPHEN TAB 325 MG TAB PO PRN (13:24)
[2024-09-06] MEDS ORDERED: NALOXONE 0.4 MG/ML 1 ML VIAL IV PRN (13:24)
[2024-09-06] MEDS ORDERED: ONDANSETRON 4 MG/2 ML VIAL IVP PRN (13:24)
[2024-09-06] MEDS: MORPHINE SULFATE 4 MG/ML SYRINGE IV PRN (17:22)
[2024-09-06] MEDS: CARBIDOPA-LEVODOPA 25-100 MG 1 EACH TAB PO SCH (18:23)
[2024-09-06] MEDS: IPRATROPIUM 0.5 MG/2.5 ML NEBU INHALATION SCH (20:18)
[2024-09-06] MEDS: QUEtiapine 50 MG TAB PO SCH (21:21)
[2024-09-06] MEDS: APIXABAN 5 MG TAB PO SCH (21:21)
[2024-09-06] MEDS: CYCLOBENZAPRINE 5 MG TAB PO SCH (21:22)
[2024-09-06] MEDS: polyethylene glycoL 3350 17 GM POWD.PACK PO SCH (21:22)
[2024-09-06] MEDS: PANTOPRAZOLE 40 MG TABLET PO SCH (21:22)
--- NOTE | 2024-09-07 05:11 | HP ---
HISTORY AND PHYSICAL HISTORY OF PRESENT ILLNESS: A 79-year-old white male, presented for evaluation of chest pain, palpitations, history of atrial fibrillation, is on Eliquis. Status post coronary artery disease. He has had intermittent chest pain started with palpitations. He is in atrial fibrillation and has cough and dyspnea. HOME MEDICATIONS: 1. Albuterol HFA. 2. Sinemet 2.5 t.i.d. 3. Flexeril 5 t.i.d. 4. Cymbalta 30 daily. 5. Synthroid 150 mcg daily. 6. Seroquel 150 mg daily. 7. Spiriva inhaler. 8. Catapres 0.1 b.i.d. ALLERGIES: Venom. REVIEW OF SYSTEMS: A 14-point review of systems otherwise is negative. PAST MEDICAL HISTORY: Atrial fibrillation, GERD, osteoarthritis, pneumonia, hypothyroidism. PAST SURGICAL HISTORY: Orthopedic surgery, tonsillectomy, back surgery, anxiety, depression, PTSD, hip surgery, laminectomy, and cervical fusion. SOCIAL HISTORY: Current everyday smoker, occasional alcohol. PHYSICAL EXAMINATION: VITAL SIGNS: Temp 98.7, pulse 82, respiratory rate 16 to 18, blood pressure 152/85, O2 96% to 97% GENERAL: No acute distress. Given appropriate answers. PSYCH: Fair mood and affect. NEUROLOGIC: Alert and oriented x3. CARDIOVASCULAR: S1, S2. LUNGS: Transmitted upper sounds. HEMATOLOGY: Negative Homans. PSYCH: Fair mood and affect. The patient states he wants a cardiac ablation. ASSESSMENT: Atrial fibrillation, rapid ventricular response, chronic obstructive pulmonary disease, gastroesophageal reflux disease, rule out myocardial infarction. Cardizem drip for atrial fibrillation, RVR. Order echo. Prognosis guarded. Please see further orders. MMODL / IJN: [id number] /
[2024-09-07] MEDS: LEVOTHYROXINE 75 MCG TAB PO SCH (05:54)
[2024-09-07] MEDS: DULoxetine HCL 30 MG CAPSULE.DR PO SCH (08:09)
[2024-09-07] MEDS: CHOLECALCIFEROL 25 MCG (1000 IU) TABLET PO SCH (08:09)
[2024-09-07] MEDS: DILTIAZEM CD 120 MG CAP.ER.24H PO SCH (11:37)
[2024-09-07] MEDS: ALBUTEROL NEBULIZED 2.5 MG/3 ML INHALATION PRN (12:15)
[2024-09-07 14:25] VITALS: BP 100/41; RESP 17; TEMP 97.4
--- NOTE | 2024-09-07 14:33 | CA ---
Transthoracic Echo Report Name: Danis Gomez Age: 79 Gender: M : 1945 Exam Date: 09/07/2024 08:13 Exam Location: [facility] Ht (in): 72 Wt (lb): 180 Ordering Physician: Roel Price MD Attending/Referring Phys: Electrostatic Paint Operator Roxana Keene RDCS Procedure CPT: Indications: dyspnea Cardiac Hx: Technical Quality: Fair Contrast 1: Total Dose (mL): Contrast 2: Total Dose (mL): MEASUREMENTS (Male / Female) Normal Values 2D ECHO LV Diastolic Diameter PLAX 4.2 cm 4.2 - 5.9 / 3.9 - 5.3 cm LV Systolic Diameter PLAX 2.7 cm IVS Diastolic Thickness 1.1 cm 0.6 - 1.0 / 0.6 - 0.9 cm LVPW Diastolic Thickness 1.1 cm 0.6 - 1.0 / 0.6 - 0.9 cm LV Relative Wall Thickness 0.5 LVOT Diameter 2.1 cm LV Diastolic Volume MOD BP 103.3 cm??? 67 - 155 / 56 - 104 cm??? LV Systolic Volume MOD BP 45.5 cm??? 22 - 58 / 19 - 49 cm??? LV Ejection Fraction MOD BP 55.9 % >= 55 % LV Cardiac Index MOD BP 1753.3 cm???/min???m??? LV Diastolic Volume MOD 4C 87.6 cm??? LV Systolic Volume MOD 4C 39.0 cm??? LV Ejection Fraction MOD 4C 55.4 % LV Cardiac Index MOD 4C 1473.5 cm???/min???m??? LV Diastolic Length 4C 8.2 cm LV Systolic Length 4C 7.5 cm LV Diastolic Volume MOD 2C 117.4 cm??? LV Systolic Volume MOD 2C 48.4 cm??? LV Ejection Fraction MOD 2C 58.8 % LV Cardiac Index MOD 2C 2097.1 cm???/min???m??? LV Diastolic Length 2C 8.6 cm LV Systolic Length 2C 6.8 cm LA Volume 59.9 cm??? 18 - 58 / 22 - 52 cm??? LA Volume Index 29.3 cm???/m??? 16 - 28 cm???/m??? Ascending Aorta Diameter 3.2 cm DOPPLER AV Peak Velocity 128.9 cm/s AV Peak Gradient 6.6 mmHg AV Mean Velocity 88.1 cm/s AV Mean Gradient 3.4 mmHg AV Velocity Time Integral 31.7 cm LVOT Peak Velocity 87.3 cm/s LVOT Peak Gradient 3.0 mmHg LVOT Velocity Time Integral 21.1 cm LVOT Stroke Volume 70.5 cm??? LVOT Stroke Volume Index 34.6 ml/m??? LVOT Cardiac Index 2139.9 cm???/min???m??? AV Area Cont Eq vti 2.2 cm??? AV Area Cont Eq pk 2.3 cm??? MV Area PHT 4.3 cm??? Mitral E Point Velocity 107.5 cm/s Mitral A Point Velocity 72.1 cm/s Mitral E to A Ratio 1.5 MV Deceleration Time 177.0 ms TR Peak Velocity 252.6 cm/s TR Peak Gradient 25.5 mmHg Right Atrial Pressure 5.0 mmHg Pulmonary Artery Systolic Pressu 30.5 mmHg Right Ventricular Systolic Press 30.5 mmHg PV Peak Velocity 49.0 cm/s PV Peak Gradient 1.0 mmHg FINDINGS Left Ventricle Left ventricular ejection fraction is estimated at 55-60 %. Mildly increased septal wall thickness. Left ventricular cavity size normal. No obvious regional wall motion abnormalities. Right Ventricle Normal right ventricular size and function. Right ventricular systolic pressure within normal limits. Right Atrium Normal right atrial size. Left Atrium Mildly increased left atrial volume. Mitral Valve Structurally normal mitral valve. No mitral stenosis, regurgitation or prolapse. Aortic Valve Trileaflet aortic valve. No aortic valve stenosis or regurgitation. Tricuspid Valve Structurally normal tricuspid valve. No tricuspid stenosis. Mild tricuspid regurgitation. Pulmonic Valve Structurally normal pulmonic valve. Trace pulmonic regurgitation. No pulmonic stenosis. Pericardium No pericardial effusion. Aorta Normal size aortic root and proximal ascending aorta. CONCLUSIONS Left ventricular ejection fraction 55-60% Mild tricuspid regurgitation No pericardial effusion Previewed by: Dr. Wilian Emerson DO (Electronically Signed) Final Date: 07 September 2024 14:32
[2024-09-07 16:19] VITALS: PULSE 62
--- NOTE | 2024-09-07 17:53 | CT ---
EXAMINATION TYPE: CT angio chest CT DLP: 569 mGycm, Automated exposure control for dose reduction was used. DATE OF EXAM: 09/07/2024 5:33 PM COMPARISON: Chest radiograph from 09/06/2024. CLINICAL INDICATION: Male, 79 years old with history of high d-dimer; elevated d-dimer TECHNIQUE/CONTRAST: CTA scan of the thorax is performed with IV Contrast, patient injected with 100ml mL of Isovue 370, M IP images are created and reviewed these are created on a separate workstation.. FINDINGS: Pulmonary Artery: There is no evidence for a filling defect within the pulmonary vasculature to sugge st acute pulmonary embolism. The pulmonary artery is of normal size. Lungs/Pleura: Small right pleural effusion. No left pleural effusion. Split pleural sign in the right . No evidence of focal consolidation, pleural effusion or pneumothorax. Airway: Large airways are patent. Heart: The heart is mildly enlarged for size. Cardiac conduction leads terminating in the right ventr icle and right atrium. Atherosclerosis of the coronary arteries. Vasculature: No evidence of aortic aneurysm. Mediastinum: No gross evidence of adenopathy. Musculoskeletal: No acute osseous abnormalities, partially visualized fixation hardware in the cervic al spine appears intact. Moderate multilevel degeneration changes with osteophyte formation. Fixation hardware in the lower spine also appears intact. Soft Tissues/lymph nodes: Unremarkable. Lower neck: No significant findings. Upper Abdomen: Gallbladder surgically absent. IMPRESSION: 1. No evidence of pulmonary embolism. 2. Trace right pleural effusion with split pleural sign correlate for signs and symptoms of infection . [facility], , 09/07/2024 5:51 PM
--- NOTE | 2024-09-07 21:28 | P.CRDCN ---
History of Present Illness Consult date: 09/07/24 Consult reason: chest pain History of present illness: This is a 79-year-old male patient with past medical history of paroxysmal atrial fibrillation on Eliquis, nonobstructive coronary artery disease, pacemaker, hypothyroidism, Parkinson's disease, neuropathy, hypertension, remote history of tobacco use. We have been asked to evaluate the patient for chest pain. Patient states was having afib and heart was racing with discomfort in his mid chest area. Chest pain is resolved, no palpatations. Telemetry is sinus rhythm. Blood pressure 125/67, heart rate 59, pulse ox 96% on room air, afebrile. Pacemaker interrogation reviewed which did not reveal afib episodes. EKG: Sinus rhythm Chest x-ray: Right lower lobe infiltrate and small pleural effusion similar to prior exam. Correlate clinically to exclude mild venous congestion. Laboratory studies: CBC within normal limits, D-dimer 0.64. Sodium 142, potassium 4.4, BUN 26 creatinine 0.96. Troponin negative x 3. TSH 1.16. Home cardiac medications: Eliquis 5 mg twice daily, clonidine 0.1 mg twice daily, Nitrostat as needed, also on levothyroxine 150 mcg daily. Echocardiogram performed 07/24/2022 at [facility] revealed EF of 50 to 55%, mild MR, mild TR, RVSP 34, no pericardial effusion. Cardiac catheterization in 01/2016 revealed mild nonobstructive coronary artery disease involving the mid LAD Review Of Systems: At the time of my exam: CONSTITUTIONAL: Denies fever or chills. HEENT: Denies blurred vision, vision changes, or eye pain. Denies hemoptysis CARDIOVASCULAR: Denies chest pain. Denies orthopnea. Denies PND. Denies palpitations RESPIRATORY: Denies shortness of breath. GASTROINTESTINAL: Denies abdominal pain. Denies nausea or vomiting. HEMATOLOGIC: Denies bleeding disorders. GENITOURINARY: Denies any blood in urine. SKIN: Denies puritis. Denies rash. Physical examination: Gen: This is a 79-year-old male in no acute distress VS: reviewed HEENT: Head is atraumatic, normocephalic. Pupils equal, round. Sclerae is anicteric. NECK: Supple. No JVD. LUNGS: Clear to auscultation. No wheezes or rhonchi. No intercostal retractions. HEART: Regular rate and rhythm. No murmur. ABDOMEN: Soft No tenderness. EXTREMITIES: No pedal edema. No calf tenderness. NEUROLOGICAL: Patient is awake, alert and oriented x3. Assessment: Atypical chest pain, acute coronary syndrome ruled out Palpitations possibly due to atrial fibrillation and conversion prior to arrival Paroxysmal atrial fibrillation Pacemaker implantation Nonobstructive coronary artery disease Hypertension Hypothyroidism Parkinson's disease Remote history of tobacco use Plan: Resume patient's home cardiac medications Obtain 2-D echocardiogram and Doppler study to assess cardiac structure and function If echocardiogram is unremarkable, patient is cleared for discharge home and may follow up with Dr. Stratton in 1 week. Start patient on cardizem Thank you kindly for this consultation. Nurse practitioner note has been reviewed, I agree with documented findings and plan of care. Patient was seen and examined. Past Medical History Past Medical History: Atrial Fibrillation, GERD/Reflux, Osteoarthritis (OA), Pneumonia, Thyroid Disorder Additional Past Medical History / Comment(s): PARKINSON, neck right side and numbness in right arm, History of Any Multi-Drug Resistant Organisms: None Reported Past Surgical History: Back Surgery, Orthopedic Surgery, Tonsillectomy Additional Past Surgical History / Comment(s): lung drains-thoracentesis; foot surgery repair of tendon, left hip replaced; 5x back surgeries, laminectomy x2, 20 years ago cervical fusion, lumbar spine fusion. Past Anesthesia/Blood Transfusion Reactions: No Reported Reaction Past Psychological History: Anxiety, Depression, PTSD Additional Psychological History / Comment(s): high anxiety and PTSD Smoking Status: Current every day smoker Past Alcohol Use History: Occasional Additional Past Alcohol Use History / Comment(s): three cigars per day Past Drug Use History: None Reported - Past Family History Mother Family Medical History: Cancer Additional Family Medical History / Comment(s): Ovarian Medications and Allergies Home Medications Medication Instructions Recorded Confirmed Type Carbidopa-Levodopa 25-100 mg 2.5 tab PO TID@09,12,1700 08/18/21 09/06/24 History [Sinemet 25-100 mg] Apixaban [Eliquis] 5 mg PO BID #0 08/20/21 09/06/24 Rx Albuterol Sulfate [Albuterol 2 puff INHALATION RT-QID PRN 07/23/22 09/06/24 History Sulfate Hfa] Nitroglycerin Sl Tabs [Nitrostat] 0.4 mg SUBLINGUAL Q5M PRN #10 tab 07/25/22 09/06/24 Rx Cholecalciferol [Vitamin D3 (25 25 mcg PO DAILY 09/06/24 09/06/24 History Mcg = 1000 Iu)] Cyclobenzaprine [Flexeril] 5 mg PO TID 09/06/24 09/06/24 History DULoxetine HCL [Cymbalta] 30 mg PO DAILY 09/06/24 09/06/24 History EPINEPHrine (Auto Inject) [Epipen] 0.3 mg IM ONCE PRN 09/06/24 09/06/24 History Gabapentin (Unknown Strength) 1 dose PO TID 09/06/24 09/06/24 History Levothyroxine Sodium [Synthroid] 150 mcg PO DAILY 09/06/24 09/06/24 History QUEtiapine FUMARATE [SEROquel] 150 mg PO HS 09/06/24 09/06/24 History QUEtiapine [SEROquel] 25 mg PO QID PRN 09/06/24 09/06/24 History Tiotropium 2.5 Mcg/Puff [Spiriva 2 puff INHALATION RT-BID 09/06/24 09/06/24 History Respimat 2.5 Mcg] cloNIDine HCL [Catapres] 0.1 mg PO BID 09/06/24 09/06/24 History polyethylene glycoL 3350 [Miralax] 17 gm PO BID 09/06/24 09/06/24 History Allergies Allergy/AdvReac Type Severity Reaction Status Date / Time venom-honey bee Allergy Dyspnea Verified 09/06/24 10:52 [bee venom (honey bee)] Physical Exam Vitals: Vital Signs Temp Pulse Pulse Resp BP BP Pulse Ox 09/07/24 07:00 97.7 F 59 L 16 125/67 96 09/07/24 01:40 97.7 F 70 17 127/66 97 09/06/24 20:30 65 09/06/24 20:20 64 09/06/24 19:54 97.9 F 74 18 149/65 98 09/06/24 15:00 98.1 F 61 16 165/78 94 L 09/06/24 14:52 98 F 80 18 157/88 100 09/06/24 12:00 81 18 152/93 97 09/06/24 10:49 98.7 F 82 20 152/85 96 Intake and Output 09/06/24 09/07/24 09/07/24 22:59 06:59 14:59 Intake Total 118 Balance 118 Intake: Oral 118 Other: # Voids 2 3 Weight 81.647 kg Results 09/06/24 11:14 09/06/24 11:14 Cardiac Enzymes 09/06/24 09/06/24 09/06/24 Range/Units 11:14 11:14 15:07 AST 23 (17-59) U/L Troponin I <0.012 <0.012 (0.000-0.034) ng/mL 09/06/24 Range/Units 18:50 AST (17-59) U/L Troponin I <0.012 (0.000-0.034) ng/mL Coagulation 09/06/24 Range/Units 11:14 PT 10.4 (10.0-12.5) sec APTT 23.9 (22.0-30.0) sec CBC 09/06/24 Range/Units 11:14 WBC 8.2 (3.8-10.6) k/uL RBC 4.44 (4.30-5.90) m/uL Hgb 13.8 (13.0-17.5) gm/dL Hct 40.7 (39.0-53.0) % Plt Count 259 (150-450) k/uL Comprehensive Metabolic Panel 09/06/24 Range/Units 11:14 Sodium 142 (137-145) mmol/L Potassium 4.4 (3.5-5.1) mmol/L Chloride 111 H (98-107) mmol/L Carbon Dioxide 25 (22-30) mmol/L BUN 26 H (9-20) mg/dL Creatinine 0.96 (0.66-1.25) mg/dL Glucose 121 H (74-99) mg/dL Calcium 10.0 (8.4-10.2) mg/dL AST 23 (17-59) U/L ALT 14 (4-49) U/L Alkaline Phosphatase 76 (38-126) U/L Total Protein 6.8 (6.3-8.2) g/dL Albumin 3.9 (3.5-5.0) g/dL Current Medications Generic Name Dose Route Start Last Admin Trade Name Freq PRN Reason Stop Dose Admin Acetaminophen 650 mg 09/06/24 13:24 Acetaminophen Tab 325 Mg Tab PO Q6HR PRN Mild Pain or Fever > 100.5 Albuterol Sulfate 2.5 mg 09/06/24 17:31 Albuterol Nebulized 2.5 Mg/3 Ml INHALATION RT-QID PRN Shortness Of Breath Apixaban 5 mg 09/06/24 21:00 09/07/24 05:54 Apixaban 5 Mg Tab PO 5 mg BID CHIP Administration Protocol Carbidopa/Levodopa 2.5 each 09/06/24 18:00 09/06/24 18:23 Carbidopa-Levodopa 25-100 Mg 1 Each Tab PO 2.5 each TID@1700 CHIP Administration Cholecalciferol 25 mcg 09/07/24 09:00 Cholecalciferol 25 Mcg (1000 Iu) Tablet PO DAILY CHIP Cyclobenzaprine HCl 5 mg 09/06/24 22:00 09/06/24 21:22 Cyclobenzaprine 5 Mg Tab PO 5 mg TID CHIP Administration Duloxetine HCl 30 mg 09/07/24 09:00 Duloxetine Hcl 30 Mg Capsule.Dr PO DAILY CHIP Ipratropium Welch 0.5 mg 09/06/24 20:00 09/06/24 20:18 Ipratropium 0.5 Mg/2.5 Ml Nebu INHALATION 0.5 mg RT-QID CHIP Administration Levothyroxine Sodium 150 mcg 09/07/24 06:30 09/07/24 05:54 Levothyroxine 75 Mcg Tab PO 150 mcg DAILY@0630 CHIP Administration Morphine Sulfate 4 mg 09/06/24 13:24 09/07/24 05:54 Morphine Sulfate 4 Mg/Ml Syringe IV 4 mg Q4HR PRN Administration Severe Pain (Scale 7 to 10) Naloxone HCl 0.2 mg 09/06/24 13:24 Naloxone 0.4 Mg/Ml 1 Ml Vial IV Q2M PRN Opioid Reversal Ondansetron HCl 4 mg 09/06/24 13:24 Ondansetron 4 Mg/2 Ml Vial IVP Q8HR PRN Nausea And Vomiting Pantoprazole Sodium 40 mg 09/06/24 21:30 09/07/24 05:54 Pantoprazole 40 Mg Tablet PO 40 mg AC-BID CHIP Administration Polyethylene Glycol 17 gm 09/06/24 21:00 09/06/24 21:22 Polyethylene Glycol 3350 17 Gm Powd.Pack PO 17 gm BID CHIP Administration Quetiapine Fumarate 150 mg 09/06/24 21:00 09/06/24 21:21 Quetiapine 50 Mg Tab PO 150 mg HS CHIP Administration Intake and Output 09/06/24 09/07/24 09/07/24 22:59 06:59 14:59 Intake Total 118 Balance 118 Intake: Oral 118 Other: # Voids 2 3 Weight 81.647 kg 09/06/24 11:14 09/06/24 11:14
== END 2024-09-07 18:30 | disposition home or self-care (01) ==
LOC: EC 10:45 → 6NMEDSUR 13:24
PROVIDERS: ADMIT Family Medicine; ATTEND Family Medicine
DX: I48.0 Paroxysmal atrial fibrillation (principal); J44.9 Chronic obstructive pulmonary disease, unspecified; K21.9 Gastro-esophageal reflux disease without esophagitis; E03.9 Hypothyroidism, unspecified; M19.90 Unspecified osteoarthritis, unspecified site; F17.200 Nicotine dependence, unspecified, uncomplicated; F43.10 Post-traumatic stress disorder, unspecified; F32.A Depression, unspecified; F41.9 Anxiety disorder, unspecified; I25.10 Atherosclerotic heart disease of native coronary artery without angina pectoris; G62.9 Polyneuropathy, unspecified; G20.A1 Parkinson's disease without dyskinesia, without mention of fluctuations; I10 Essential (primary) hypertension; Z79.01 Long term (current) use of anticoagulants; Z79.890 Hormone replacement therapy; Z79.899 Other long term (current) drug therapy; Z91.030 Bee allergy status
CPT/HCPCS: 96376 ×2; 96374; 99285; 36415; 94640 ×3; 93005; 93306; 85379; 80053; 84443; 83735; 84484; 85025; 85610; 85730; 71046; 71275; G0378 ×2; J2270 ×2; Q9967

== ENCOUNTER 2024-09-29 11:27 | Observation (INO) | payer OTHER ==
[2024-09-29 11:53] LABS: Basophils % (A) 0 %; Eosinophils # (A) 0.4 k/uL (0-0.7); Eosinophils % (A) 5 %; HCT 43.7 % (39.0-53.0); HGB 14.6 gm/dL (13.0-17.5); Lymphocytes # (A) 1.3 k/uL (1.0-4.8); Lymphocytes % (A) 15 %; MCH 31.8 pg (25.0-35.0); MCHC 33.4 g/dL (31.0-37.0); MCV 95.2 fL (80.0-100.0); Mean Platelet Volume 7.4; Monocytes # (A) 0.4 k/uL (0-1.0); Monocytes % (A) 5 %; Neutrophils # (A) 6.5 k/uL (1.3-7.7); Neutrophils % (A) 74 %; Platelet Count 245 k/uL (150-450); RBC 4.59 m/uL (4.30-5.90); RDW 14.3 % (11.5-15.5); WBC 8.7 k/uL (3.8-10.6)
--- NOTE | 2024-09-29 12:04 | XR ---
EXAMINATION TYPE: XR chest 2V DATE OF EXAM: 09/29/2024 COMPARISON: 09/06/2024 CLINICAL INDICATION: Male, 79 years old with history of Chest Pain; , TECHNIQUE: XR chest 2V views of the chest. FINDINGS: A right-sided consolidation and small effusion. There is increased density along the posterior lung o n the lateral view. Hypertrophic and degenerative change of the spine. Mild cardiomegaly. Underlying emphysematous changes but no overt failure. Arthropathy of the shoulders. Stable multilead cardiac de vice. Postsurgical change cervical spine. IMPRESSION: 1. COPD with a right basilar infiltrate and small effusion stable from prior exam. [facility], , 09/29/2024 12:01 PM
[2024-09-29 12:06] LABS: ALT 10 U/L (4-49); AST 19 U/L (17-59); African American GFR (CKD) 57 (>60 ml/min/1.73 sqM); Albumin 4.1 g/dL (3.5-5.0); Alkaline Phosphatase 60 U/L (38-126); Anion Gap 11 mmol/L; Blood Urea Nitrogen 35 mg/dL (9-20); Calcium 9.1 mg/dL (8.4-10.2); Carbon Dioxide 17 mmol/L (22-30); Chloride 110 mmol/L (98-107); Glucose 107 mg/dL (74-99); Non-African American GFR(CKD) 49 (>60 ml/min/1.73 sqM); Potassium 4.4 mmol/L (3.5-5.1); Sodium 138 mmol/L (137-145); Total Bilirubin 0.7 mg/dL (0.2-1.3); Total Protein 7.1 g/dL (6.3-8.2)
[2024-09-29] MEDS: KETOROLAC 15 MG/ML 1 ML VIAL IVP STA (12:11)
[2024-09-29 12:12] LABS: NT-Pro-B-Type Natriuretic Pept 505 pg/mL
[2024-09-29 12:14] LABS: INR 0.9 (<1.2); Partial Thromboplastin Time 25.7 sec (22.0-30.0); Prothrombin Time 10.3 sec (10.0-12.5)
--- NOTE | 2024-09-29 14:20 | ED ---
Chest Pain HPI - General Chief Complaint: Chest Pain Stated Complaint: Chest pain Time Seen by Provider: 09/29/24 11:32 Source: patient, EMS, RN notes reviewed Mode of arrival: EMS Limitations: no limitations - History of Present Illness Initial Comments: 79-year-old male presents emergency department with chief complaint of chest pain. Patient states pain started arrival. Patient states he does have a history of A-fib. Patient states that pain is centralized, still left-sided. Patient states that he was told he may need an ablation. Patient's had a prior pacemaker. Patient did have some shortness of breath. Patient has known effusion denies any increasing cough. Patient denies any fevers. Patient states he just feels weak felt like he passed out. - Related Data Home Medications Medication Instructions Recorded Confirmed Carbidopa-Levodopa 25-100 mg 2.5 tab PO TID@09,12,1700 08/18/21 09/29/24 [Sinemet 25-100 mg] Albuterol Sulfate [Albuterol 2 puff INHALATION RT-QID PRN 07/23/22 09/29/24 Sulfate Hfa] Cholecalciferol [Vitamin D3 (25 25 mcg PO DAILY 09/06/24 09/29/24 Mcg = 1000 Iu)] Cyclobenzaprine [Flexeril] 5 mg PO TID 09/06/24 09/29/24 DULoxetine HCL [Cymbalta] 30 mg PO DAILY 09/06/24 09/29/24 EPINEPHrine (Auto Inject) [Epipen] 0.3 mg IM ONCE PRN 09/06/24 09/29/24 Levothyroxine Sodium [Synthroid] 150 mcg PO DAILY 09/06/24 09/29/24 QUEtiapine FUMARATE [SEROquel] 150 mg PO HS 09/06/24 09/29/24 QUEtiapine [SEROquel] 25 mg PO QID PRN 09/06/24 09/29/24 Tiotropium 2.5 Mcg/Puff [Spiriva 2 puff INHALATION RT-BID 09/06/24 09/29/24 Respimat 2.5 Mcg] cloNIDine HCL [Catapres] 0.1 mg PO BID 09/06/24 09/29/24 polyethylene glycoL 3350 [Miralax] 17 gm PO BID 09/06/24 09/29/24 Previous Rx's Medication Instructions Recorded Apixaban [Eliquis] 5 mg PO BID #0 08/20/21 Nitroglycerin Sl Tabs [Nitrostat] 0.4 mg SUBLINGUAL Q5M PRN #10 tab 07/25/22 Allergies Allergy/AdvReac Type Severity Reaction Status Date / Time venom-honey bee Allergy Dyspnea Verified 09/29/24 13:20 [bee venom (honey bee)] Review of Systems ROS Statement: Those systems with pertinent positive or pertinent negative responses have been documented in the HPI. ROS Other: All systems not noted in ROS Statement are negative. EKG Findings - EKG Comments: EKG Findings:: EKG performed at 11: 40 sinus rhythm the rate is 70 QRS 93 QT/QTc 419/440 - EKG Results: EKG: interpreted by AARON Past Medical History Past Medical History: Atrial Fibrillation, GERD/Reflux, Osteoarthritis (OA), Pneumonia, Syncope, Thyroid Disorder Additional Past Medical History / Comment(s): PARKINSON, neck right side and numbness in right arm, History of Any Multi-Drug Resistant Organisms: None Reported Past Surgical History: Back Surgery, Orthopedic Surgery, Tonsillectomy Additional Past Surgical History / Comment(s): lung drains-thoracentesis; foot surgery repair of tendon, left hip replaced; 5x back surgeries, laminectomy x2, 20 years ago cervical fusion, lumbar spine fusion. Past Anesthesia/Blood Transfusion Reactions: No Reported Reaction Past Psychological History: Anxiety, Depression, PTSD Smoking Status: Current every day smoker Past Alcohol Use History: Occasional Past Drug Use History: None Reported - Past Family History Mother Family Medical History: Cancer Additional Family Medical History / Comment(s): Ovarian General Exam Limitations: no limitations General appearance: alert, in no apparent distress Head exam: Present: atraumatic, normocephalic, normal inspection Eye exam: Present: normal appearance, PERRL, EOMI. Absent: scleral icterus, conjunctival injection, periorbital swelling ENT exam: Present: normal exam, mucous membranes moist Neck exam: Present: normal inspection, full ROM. Absent: tenderness, meningismus, lymphadenopathy Respiratory exam: Present: normal lung sounds bilaterally. Absent: respiratory distress, wheezes, rales, rhonchi, stridor Cardiovascular Exam: Present: regular rate, normal rhythm, normal heart sounds. Absent: systolic murmur, diastolic murmur, rubs, gallop, clicks Course Vital Signs 09/29/24 11:30 Temperature 97.9 F Pulse Rate 74 Respiratory 20 Rate Blood Pressure 134/80 O2 Sat by Pulse 99 Oximetry Chest Pain MDM - MDM Was pt. sent in by a medical professional or institution (, YASMEEN, RECYCLE COORDINATOR, urgent care, hospital, or custodial...) When possible be specific @ -No Did you speak to anyone other than the patient for history (EMS, parent, family, police, friend...)? What history was obtained from this source @ -No Did you review nursing and triage notes (agree or disagree)? Why? @ -I reviewed and agree with nursing and triage notes Were old charts reviewed (outside hosp., previous admission, EMS record, old EKG, old radiological studies, urgent care reports/EKG's, custodial records)? Report findings @ -No old charts were reviewed Differential Diagnosis (chest pain, altered mental status, abdominal pain women, abdominal pain men, vaginal bleeding, weakness, fever, dyspnea, syncope, headache, dizziness, GI bleed, back pain, seizure, CVA, palpatations, mental health, musculoskeletal)? @ -Differential Chest Pain: Stable Angina, Unstable Angina, STEMI, NSTEMI Aortic Dissection, Pneumothorax, Musculoskeletal, Esophageal Spasm GERD, Cholecystitis, Pancreatitis, Zoster, this is not meant to be an all-inclusive list. EKG interpreted by me (3pts min.). @ -As above X-rays interpreted by me (1pt min.). @ -Chest x-ray shows chronic effusion, possible basilar infiltrate CT interpreted by me (1pt min.). @ -None done U/S interpreted by me (1pt. min.). @ -None done What testing was considered but not performed or refused? (CT, X-rays, U/S, labs)? Why? @ -None What meds were considered but not given or refused? Why? @ -None Did you discuss the management of the patient with other professionals (professionals i.e. YASMEEN Fernandez, RECYCLE COORDINATOR, lab, RT, psych nurse, social and political studies professor, belt turner, teacher, jailer/training officer, patient case coordinator)? Give summary @ -Dr. Galarza for admission Was smoking cessation discussed for >3mins.? @ -No Was critical care preformed (if so, how long)? @ -No Were there social determinants of health that impacted care today? How? (Homelessness, low income, unemployed, alcoholism, drug addiction, transportation, low edu. Level, literacy, decrease access to med. care, penitentiary, rehab)? @ -No Was there de-escalation of care discussed even if they declined (Discuss DNR or withdrawal of care, Hospice)? DNR status @ -No What co-morbidities impacted this encounter? (DM, HTN, Smoking, COPD, CAD, Cancer, CVA, ARF, Chemo, Hep., AIDS, mental health diagnosis, sleep apnea, morbid obesity)? @ -Afib, Parkinson's disease Was patient admitted / discharged? Hospital course, mention meds given and route, prescriptions, significant lab abnormalities, going to OR and other pertinent info. @ -Admitted patient will be admitted for cardiac rule out for troponin is negative. Patient has mild ANDREY. Patient was given fluids. Patient will repeat laboratory studies and cardiology evaluation. Undiagnosed new problem with uncertain prognosis? @ -No Drug Therapy requiring intensive monitoring for toxicity (Heparin, Nitro, Insulin, Cardizem)? @ -No Were any procedures done? @ -No Diagnosis/symptom? @ -Chest pain, ANDREY Acute, or Chronic, or Acute on Chronic? @ -Acute Uncomplicated (without systemic symptoms) or Complicated (systemic symptoms)? @ -Complicated Side effects of treatment? @ -No Exacerbation, Progression, or Severe Exacerbation? @ -No Poses a threat to life or bodily function? How? (Chest pain, USA, NM, pneumonia, PE, COPD, DKA, ARF, appy, cholecystitis, CVA, Diverticulitis, Homicidal, Suicidal, threat to staff... and all critical care pts) @ -Yes possible underlying ACS, causing cardiac arrest. Disposition Clinical Impression: Chest pain Disposition: ADMITTED IP TO THIS HOSP Condition: Fair [facility] - 1-2 days Time of Disposition: 14:19
[2024-09-29] MEDS ORDERED: NITROGLYCERIN SL TABS 0.4 MG TAB SUBLINGUAL PRN ×2 (14:22→14:24)
[2024-09-29] MEDS ORDERED: ALBUTEROL NEBULIZED 2.5 MG/3 ML INHALATION PRN (14:24)
--- NOTE | 2024-09-29 15:46 | P.HPIM ---
History of Present Illness H&P Date: 09/29/24 Patient is a 79-year-old male with history of COPD, Parkinson's disease, atrial fibrillation on Eliquis, hypertension, anxiety/depression presenting with syncope and atrial fibrillation with RVR. He claims that he has had these episodes before. This morning he found himself on the floor, passed out, noticed that he was in A-fib RVR when he woke up. He is unclear how long he was on the floor. Since then he is also having some chest tightness about 6/10. Occasional shortness of breath, some nausea, denies any vomiting. He denies any recent sick contacts or travel history. He denies any decreased urine output or decreased oral intake. Denies any fevers or chills. He was recently in the hospital for similar issues, was discharged on Cardizem. He did not start taking his medication due to cost issues. In the ED, temperature was 97.9, respiratory rate 20, pulse 74, 134/80, 99% on room air. WBC 8.7, hemoglobin 14.6, platelet 245, potassium 4.4, bicarb 17, anion gap 11, BUN 35, creatinine 1.37 above baseline, troponin negative, proBNP 505, magnesium 2. Chest x-ray independently interpreted, shows right lower lobe opacity, likely small pleural effusion. EKG independently interpreted, shows sinus rhythm. Patient admitted for observation for chest pain. Cardiology c onsulted. Pertinent positives and negatives as discussed in HPI, a complete review of systems was performed and all other systems are negative. Patient seen and examined at bedside. Vital signs reviewed General: nontoxic, no distress, appears at stated age Derm: warm, dry Head: atraumatic, normocephalic, symmetric Eyes: EOMI, no lid lag, anicteric sclera, pupils equal round reactive to light ENT: Nose and ears atraumatic Neck: No thyromegaly, supple Mouth: no lip lesion, mucus membranes moist Cardiovascular: S1S2 reg, no murmur, no edema Lungs: clear to auscultation bilateral, no rhonchi, no rales, no wheeze, no accessory muscle use Abdominal: soft, nontender to palpation, no guarding, no appreciable organomegaly Ext: no gross muscle atrophy, muscle strength muscle strength 5 out of 5 in all 4 extremities, no contractures Neuro: CN II-XII grossly intact Psych: Alert, oriented, appropriate affect Assessment/Plan: Active: Paroxysmal atrial fibrillation Chest pain, rule out ACS Syncope -Trend troponin -Cardiology consulted, pending recommendations -Telemetry monitoring -Aspirin 81 mg -Lipid panel, TSH, A1c pending -Continue Eliquis 5 twice daily, there was previously talk of doing ablation -Patient currently not taking Cardizem. -Orthostatic vitals ordered Acute kidney injury Mild metabolic acidosis -Likely prerenal -Avoid nephrotoxic agents -Renal ultrasound ordered -Intake and output -Continue normal saline 75 cc an hour -Repeat BMP tomorrow Chronic: Hypertension Parkinson's disease Hypothyroidism Anxiety/depression COPD, not in exacerbation The patient is admitted with an anticipated less than 2 midnight stay as observation status for evaluation of chest pain. Surrogate decision-maker: Daughter CODE STATUS: Full code DVT prophylaxis: Eliquis Anticipated discharge date: Pending clinical course Anticipated discharge place: Pending clinical course A total of 65 minutes was spent on the care of this complex patient more than 50% of the time was spent in counseling and care coordination. Past Medical History Past Medical History: Atrial Fibrillation, GERD/Reflux, Osteoarthritis (OA), Pneumonia, Syncope, Thyroid Disorder Additional Past Medical History / Comment(s): PARKINSON, neck right side and numbness in right arm, History of Any Multi-Drug Resistant Organisms: None Reported Past Surgical History: Back Surgery, Orthopedic Surgery, Tonsillectomy Additional Past Surgical History / Comment(s): lung drains-thoracentesis; foot surgery repair of tendon, left hip replaced; 5x back surgeries, laminectomy x2, 20 years ago cervical fusion, lumbar spine fusion. Past Anesthesia/Blood Transfusion Reactions: No Reported Reaction Past Psychological History: Anxiety, Depression, PTSD Smoking Status: Current every day smoker Past Alcohol Use History: Occasional Past Drug Use History: None Reported - Past Family History Mother Family Medical History: Cancer Additional Family Medical History / Comment(s): Ovarian Medications and Allergies Home Medications Medication Instructions Recorded Confirmed Type Carbidopa-Levodopa 25-100 mg 2.5 tab PO TID@09,12,1700 08/18/21 09/29/24 History [Sinemet 25-100 mg] Apixaban [Eliquis] 5 mg PO BID #0 08/20/21 09/29/24 Rx Albuterol Sulfate [Albuterol 2 puff INHALATION RT-QID PRN 07/23/22 09/29/24 History Sulfate Hfa] Nitroglycerin Sl Tabs [Nitrostat] 0.4 mg SUBLINGUAL Q5M PRN #10 tab 07/25/22 09/29/24 Rx Cholecalciferol [Vitamin D3 (25 25 mcg PO DAILY 09/06/24 09/29/24 History Mcg = 1000 Iu)] Cyclobenzaprine [Flexeril] 5 mg PO TID 09/06/24 09/29/24 History DULoxetine HCL [Cymbalta] 30 mg PO DAILY 09/06/24 09/29/24 History EPINEPHrine (Auto Inject) [Epipen] 0.3 mg IM ONCE PRN 09/06/24 09/29/24 History Levothyroxine Sodium [Synthroid] 150 mcg PO DAILY 09/06/24 09/29/24 History QUEtiapine FUMARATE [SEROquel] 150 mg PO HS 09/06/24 09/29/24 History QUEtiapine [SEROquel] 25 mg PO QID PRN 09/06/24 09/29/24 History Tiotropium 2.5 Mcg/Puff [Spiriva 2 puff INHALATION RT-BID 09/06/24 09/29/24 History Respimat 2.5 Mcg] cloNIDine HCL [Catapres] 0.1 mg PO BID 09/06/24 09/29/24 History polyethylene glycoL 3350 [Miralax] 17 gm PO BID 09/06/24 09/29/24 History Allergies Allergy/AdvReac Type Severity Reaction Status Date / Time venom-honey bee Allergy Dyspnea Verified 09/29/24 13:20 [bee venom (honey bee)] Physical Exam Vitals: Vital Signs Temp Pulse Resp BP Pulse Ox 09/29/24 11:30 97.9 F 74 20 134/80 99 Intake and Output 09/28/24 09/29/24 09/29/24 22:59 06:59 14:59 Other: Weight 81.647 kg Results CBC & Chem 7: 09/29/24 11:39 09/29/24 11:39 Labs: Abnormal Lab Results - Last 24 Hours (Table) 09/29/24 Range/Units 11:39 Chloride 110 H (98-107) mmol/L Carbon Dioxide 17 L (22-30) mmol/L BUN 35 H (9-20) mg/dL Creatinine 1.37 H (0.66-1.25) mg/dL Glucose 107 H (74-99) mg/dL
[2024-09-29] MEDS ORDERED: ACETAMINOPHEN TAB 325 MG TAB PO PRN (15:57)
[2024-09-29] MEDS: MORPHINE SULFATE 2 MG/ML SYRINGE IVP PRN (16:12)
--- NOTE | 2024-09-29 16:15 | US ---
EXAMINATION TYPE: US renals and bladder DATE OF EXAM: 09/29/2024 COMPARISON: NONE CLINICAL INDICATION: Male, 79 years old with history of tess;tess TECHNIQUE: Grayscale imaging of the bilateral kidneys and urinary bladder: FINDINGS: EXAM MEASUREMENTS: Right Kidney: 10.9x4.2x5.4 cm Left Kidney: 10.1x5.5x5.5 cm Right Kidney: wnl, no evidence for hydronephrosis, mass or renal calculus. Left Kidney: wnl, no evidence for hydronephrosis, mass or renal calculus. Bladder: wnl Bilateral Jets seen: No There is no evidence for hydronephrosis at this point in time. No nephrolithiasis is seen. No isai s are identified. The urinary bladder is anechoic. IMPRESSION: No evidence for obstructive uropathy. [facility], , 09/29/2024 4:13 PM
[2024-09-29] MEDS: CARBIDOPA-LEVODOPA 25-100 MG 1 EACH TAB PO SCH (17:17)
[2024-09-29] MEDS: SODIUM CHLORIDE 0.9% 1,000 ML IV SCH (17:18)
[2024-09-29] MEDS: APIXABAN 5 MG TAB PO SCH (20:38)
[2024-09-29] MEDS: cloNIDine HCL 0.1 MG TAB PO SCH (20:38)
[2024-09-30] MEDS: IPRATROPIUM 0.5 MG/2.5 ML NEBU INHALATION SCH (00:10)
[2024-09-30] MEDS: QUEtiapine 100 MG TAB PO SCH (00:15)
[2024-09-30] MEDS: LEVOTHYROXINE 75 MCG TAB PO SCH (04:44)
[2024-09-30 07:21] VITALS: BP 119/66; RESP 17; TEMP 98
[2024-09-30 08:46] VITALS: PULSE 76
[2024-09-30] MEDS ORDERED: ASPIRIN 325 MG TAB PO SCH (09:00)
[2024-09-30 09:15] LABS: African American GFR (CKD) 85 (>60 ml/min/1.73 sqM); Anion Gap 7 mmol/L; Blood Urea Nitrogen 28 mg/dL (9-20); Calcium 8.8 mg/dL (8.4-10.2); Carbon Dioxide 24 mmol/L (22-30); Chloride 109 mmol/L (98-107); Glucose 92 mg/dL (74-99); Non-African American GFR(CKD) 73 (>60 ml/min/1.73 sqM); Potassium 4.4 mmol/L (3.5-5.1); Sodium 140 mmol/L (137-145)
[2024-09-30] MEDS: ASPIRIN 81 MG PO SCH (09:22)
[2024-09-30] MEDS: DULoxetine HCL 30 MG CAPSULE.DR PO SCH (09:22)
[2024-09-30 09:28] LABS: Chol/HDL Ratio 4.82 Ratio; LDL Cholesterol,Calculated 116.5 mg/dL (0.0-131.0)
--- NOTE | 2024-09-30 11:09 | P.CRDCN ---
History of Present Illness History of present illness: HISTORY OF PRESENT ILLNESS: This is a 79-year-old male with a past medical history significant for paroxysmal atrial fibrillation, nonobstructive CAD, pacemaker implantation, hypothyroidism, Parkinson's disease, and hypertension. Patient follows in the office with Dr. Stratton but has not been seen in the office since July 2022. We have been asked to see the patient in consultation for chest pain. Patient examined at the bedside. The patient was recently hospitalized secondary to palpitations. He was discharged home and was supposed to follow-up in the office with Dr. Stratton. The patient was also started on Cardizem at that time. However the patient states he still has his prescription and did not get it filled. He presents back to the hospital with some chest discomfort and palpitations. EKG on arrival revealed sinus mechanism. There has been no atrial fibrillation noted since coming to the hospital. DIAGNOSTICS: - EKG reveals sinus mechanism with no signs of acute ischemia - Chest xray COPD with right basilar infiltrate and small effusion stable from prior exam - Laboratory data: WBC 8.7. Hemoglobin 14.6. Platelet count 245. Sodium 140. Potassium 4.4. BUN 28. Creatinine 0.99. Troponin negative x 3. proBNP 505. - Current home cardiac medications include Cardizem CD 120 mg daily, Eliquis 5 mg twice a day, Catapres 0.1 mg twice a day - Most recent echocardiogram obtained in 09/07/2024 revealed ejection fraction 55 to 60% with mild TR - Cardiac catheterization history: 2016 revealing mild nonobstructive CAD involving mid LAD REVIEW OF SYSTEMS: At the time of my exam: CONSTITUTIONAL: Denies fever or chills. HEENT: Denies blurred vision, vision changes, or eye pain. Denies hemoptysis CARDIOVASCULAR: Denies chest pain. Denies orthopnea. Denies PND. Denies palpitations RESPIRATORY: Denies shortness of breath. GASTROINTESTINAL: Denies abdominal pain. Denies nausea or vomiting. HEMATOLOGIC: Denies bleeding disorders. GENITOURINARY: Denies any blood in urine. SKIN: Denies pruitis. Denies rash. PHYSICAL EXAM: VITAL SIGNS: Reviewed. GENERAL: Well-developed in no acute distress. HEENT: Head is normocephalic. Pupils are equal, round. Sclerae anicteric. Mucous membranes of the mouth are moist. Neck supple. No JVD or thyromegaly LUNGS: Respirations even and unlabored. Lungs essentially clear to auscultation bilaterally. HEART: Regular rate and rhythm. S1 and S2 heard. ABDOMEN: Soft. Nondistended. Nontender. EXTREMITIES: Normal range of motion. No clubbing or cyanosis. Peripheral pulses intact. No lower extremity edema NEUROLOGIC: Awake and alert. Oriented x 3. ASSESSMENT: Chest pain, troponin negative x 3, atypical, ACS ruled out Palpitations Paroxysmal atrial fibrillation Nonobstructive CAD History of pacemaker implantation Hypertension Parkinson's disease Hypothyroidism PLAN: An acute coronary event has been ruled out No need to repeat echocardiogram as this was performed last month Continue current cardiac medications Patient instructed to take his Cardizem as previously prescribed Patient may be discharged home today Outpatient evaluation for possible A-fib ablation Patient to follow-up postdischarge in the office with Dr. Stratton Nurse practitioner note has been reviewed by physician. Signing provider agrees with the documented findings, assessment, and plan of care documented by VAC PRESS OPERATOR as a scribe. Past Medical History Past Medical History: Atrial Fibrillation, GERD/Reflux, Osteoarthritis (OA), Pneumonia, Syncope, Thyroid Disorder Additional Past Medical History / Comment(s): PARKINSON, neck right side and numbness in right arm, neuropathy History of Any Multi-Drug Resistant Organisms: None Reported Past Surgical History: Back Surgery, Orthopedic Surgery, Tonsillectomy Additional Past Surgical History / Comment(s): lung drains-thoracentesis; foot s urgery repair of tendon, left hip replaced; 5x back surgeries, laminectomy x2, 20 years ago cervical fusion, lumbar spine fusion. Past Anesthesia/Blood Transfusion Reactions: No Reported Reaction Smoking Status: Current every day smoker - Past Family History Mother Family Medical History: Cancer Additional Family Medical History / Comment(s): Ovarian Medications and Allergies Home Medications Medication Instructions Recorded Confirmed Type Carbidopa-Levodopa 25-100 mg 2.5 tab PO TID@09,12,1700 08/18/21 09/29/24 History [Sinemet 25-100 mg] Apixaban [Eliquis] 5 mg PO BID #0 08/20/21 09/29/24 Rx Albuterol Sulfate [Albuterol 2 puff INHALATION RT-QID PRN 07/23/22 09/29/24 History Sulfate Hfa] Nitroglycerin Sl Tabs [Nitrostat] 0.4 mg SUBLINGUAL Q5M PRN #10 tab 07/25/22 09/29/24 Rx Cholecalciferol [Vitamin D3 (25 25 mcg PO DAILY 09/06/24 09/29/24 History Mcg = 1000 Iu)] Cyclobenzaprine [Flexeril] 5 mg PO TID 09/06/24 09/29/24 History DULoxetine HCL [Cymbalta] 30 mg PO DAILY 09/06/24 09/29/24 History EPINEPHrine (Auto Inject) [Epipen] 0.3 mg IM ONCE PRN 09/06/24 09/29/24 History Levothyroxine Sodium [Synthroid] 150 mcg PO DAILY 09/06/24 09/29/24 History QUEtiapine FUMARATE [SEROquel] 150 mg PO HS 09/06/24 09/29/24 History QUEtiapine [SEROquel] 25 mg PO QID PRN 09/06/24 09/29/24 History Tiotropium 2.5 Mcg/Puff [Spiriva 2 puff INHALATION RT-BID 09/06/24 09/29/24 History Respimat 2.5 Mcg] cloNIDine HCL [Catapres] 0.1 mg PO BID 09/06/24 09/29/24 History polyethylene glycoL 3350 [Miralax] 17 gm PO BID 09/06/24 09/29/24 History Diltiazem Cd [Cardizem CD] 120 mg PO DAILY #90 cap 09/30/24 Rx Allergies Allergy/AdvReac Type Severity Reaction Status Date / Time venom-honey bee Allergy Dyspnea Verified 09/29/24 13:20 [bee venom (honey bee)] Physical Exam Vitals: Vital Signs Temp Pulse Pulse Pulse Pulse Resp BP 09/30/24 08:45 76 09/30/24 08:33 74 09/30/24 08:32 09/30/24 07:00 98.0 F 70 17 09/30/24 01:26 98.4 F 66 14 09/29/24 20:00 97.8 F 62 76 70 14 09/29/24 19:40 71 18 152/96 09/29/24 15:38 79 20 143/84 09/29/24 11:30 97.9 F 74 20 134/80 BP BP BP Pulse Ox 09/30/24 08:45 09/30/24 08:33 09/30/24 08:32 96 09/30/24 07:00 119/66 97 09/30/24 01:26 131/81 94 L 09/29/24 20:00 144/82 152/69 149/73 97 09/29/24 19:40 100 09/29/24 15:38 98 09/29/24 11:30 99 Intake and Output 09/29/24 09/30/24 09/30/24 22:59 06:59 14:59 Intake Total 118 Output Total 2 Balance -2 118 Intake: Oral 118 Output: Urine 2 Other: Weight 81.647 kg Results 09/29/24 11:39 09/30/24 08:45 Cardiac Enzymes 09/29/24 09/29/24 09/29/24 Range/Units 11:39 11:39 15:03 AST 19 (17-59) U/L Troponin I <0.012 <0.012 (0.000-0.034) ng/mL 09/29/24 Range/Units 18:38 AST (17-59) U/L Troponin I <0.012 (0.000-0.034) ng/mL Coagulation 09/29/24 Range/Units 11:39 PT 10.3 (10.0-12.5) sec APTT 25.7 (22.0-30.0) sec Lipids 09/29/24 Range/Units 11:39 Triglycerides 119.00 (0.00-149.00) mg/dL Cholesterol 177.00 (0.00-200.00) mg/dL HDL Cholesterol 36.70 L (40.00-60.00) mg/dL Cholesterol/HDL Ratio 4.82 Ratio CBC 09/29/24 Range/Units 11:39 WBC 8.7 (3.8-10.6) k/uL RBC 4.59 (4.30-5.90) m/uL Hgb 14.6 (13.0-17.5) gm/dL Hct 43.7 (39.0-53.0) % Plt Count 245 (150-450) k/uL Comprehensive Metabolic Panel 09/29/24 09/30/24 Range/Units 11:39 08:45 Sodium 138 140 (137-145) mmol/L Potassium 4.4 4.4 (3.5-5.1) mmol/L Chloride 110 H 109 H (98-107) mmol/L Carbon Dioxide 17 L 24 (22-30) mmol/L BUN 35 H 28 H (9-20) mg/dL Creatinine 1.37 H 0.99 (0.66-1.25) mg/dL Glucose 107 H 92 (74-99) mg/dL Calcium 9.1 8.8 (8.4-10.2) mg/dL AST 19 (17-59) U/L ALT 10 (4-49) U/L Alkaline Phosphatase 60 (38-126) U/L Total Protein 7.1 (6.3-8.2) g/dL Albumin 4.1 (3.5-5.0) g/dL Current Medications Generic Name Dose Route Start Last Admin Trade Name Freq PRN Reason Stop Dose Admin Acetaminophen 650 mg 09/29/24 15:57 Acetaminophen Tab 325 Mg Tab PO Q6HR PRN Fever and/ or Mild Pain Albuterol Sulfate 2.5 mg 09/29/24 14:24 Albuterol Nebulized 2.5 Mg/3 Ml INHALATION RT-QID PRN Shortness Of Breath Apixaban 5 mg 09/29/24 21:00 09/30/24 09:19 Apixaban 5 Mg Tab PO 5 mg BID CHIP Administration Protocol Aspirin 81 mg 09/30/24 09:00 09/30/24 09:22 Aspirin 81 Mg PO 81 mg DAILY CHIP Administration Carbidopa/Levodopa 2.5 each 09/29/24 17:00 09/30/24 09:22 Carbidopa-Levodopa 25-100 Mg 1 Each Tab PO 2.5 each TID@,12,1700 CHIP Administration Clonidine 0.1 mg 09/29/24 21:00 09/30/24 09:22 Clonidine Hcl 0.1 Mg Tab PO 0.1 mg BID CHIP Administration Duloxetine HCl 30 mg 09/30/24 09:00 09/30/24 09:22 Duloxetine Hcl 30 Mg Capsule.Dr PO 30 mg DAILY CHIP Administration Sodium Chloride 1,000 mls @ 75 mls/hr 09/29/24 15:15 09/30/24 04:44 Saline 0.9% IV Not Given .[id number] CHIP Ipratropium [place] 0.5 mg 09/29/24 20:00 09/30/24 08:32 Ipratropium 0.5 Mg/2.5 Ml Nebu INHALATION 0.5 mg RT-QID CHIP Administration Levothyroxine Sodium 150 mcg 09/30/24 06:30 09/30/24 04:44 Levothyroxine 75 Mcg Tab PO 150 mcg DAILY@0630 CHIP Administration Morphine Sulfate 2 mg 09/29/24 15:58 09/30/24 09:22 Morphine Sulfate 2 Mg/Ml Syringe IVP 2 mg Q4HR PRN Administration Severe Breakthrough Pain Nitroglycerin 0.4 mg 09/29/24 14:22 Nitroglycerin Sl Tabs 0.4 Mg Tab SUBLINGUAL Q5M PRN Chest Pain Quetiapine Fumarate 150 mg 09/29/24 21:00 09/30/24 00:15 Quetiapine 100 Mg Tab PO 150 mg HS CHIP Administration Intake and Output 09/29/24 09/30/24 09/30/24 22:59 06:59 14:59 Intake Total 118 Output Total 2 Balance -2 118 Intake: Oral 118 Output: Urine 2 Other: Weight 81.647 kg 09/29/24 11:39 09/30/24 08:45
--- NOTE | 2024-09-30 11:09 | P.DS ---
Providers Date of admission: 09/29/24 14:04 Expected date of discharge: 09/30/24 Attending physician: Deonte Galarza Consults: 09/29/24 14:22 Consult Physician Urgent Consulting Provider: Wander Bravo Consult Reason/Comments: chest pain Do you want consulting provider notified?: Yes Primary care physician: [facility] Course: Discharge Diagnosis: Paroxysmal atrial fibrillation Chest pain, ruled out ACS Syncope Acute kidney injury Mild metabolic acidosis Nicotine dependence Hypertension Parkinson's disease Hypothyroidism Anxiety/depression COPD, not in exacerbation Hospital Course: 79-year-old male with history of COPD, Parkinson's disease, atrial fibrillation on Eliquis, hypertension, anxiety/depression presenting with syncope and atrial fibrillation with RVR. In the ED, temperature was 97.9, respiratory rate 20, pulse 74, 134/80, 99% on room air. WBC 8.7, hemoglobin 14.6, platelet 245, potassium 4.4, bicarb 17, anion gap 11, BUN 35, creatinine 1.37 above baseline, troponin negative, proBNP 505, magnesium 2. Chest x-ray independently interpreted, shows right lower lobe opacity, likely small pleural effusion. EKG independently interpreted, shows sinus rhythm. Patient admitted for observation for chest pain. Cardiology consulted. Patient was restarted on oral Cardizem which she was supposed to take 2 weeks ago. Close follow-up with industrial gas service helper. Currently asymptomatic at the time of discharge. Renal function improved. Acidosis resolved. Patient seen and examined at bedside. Vital signs reviewed and stable. General: Nontoxic, no distress, appears at stated age Derm: Warm, dry Head: Atraumatic, normocephalic, symmetric Eyes: EOMI, no lid lag, anicteric sclera Mouth: No lip lesion, mucus membranes moist Cardiovascular: S1S2 reg, no murmur Lungs: CTA bilateral, no rhonchi, no rales, no accessory muscle use Abdominal: Soft, nontender to palpation, no guarding, no appreciable organomegaly Ext: No gross muscle atrophy, no edema, no contractures Neuro: CN II-XI grossly intact, no focal neuro deficits Psych: Alert, oriented, appropriate affect A total of 36 minutes of time were spent preparing this complex discharge summary. Patient was discharged on 09/30/24 at 1036. Patient Condition at Discharge: Stable Plan - Discharge Summary Discharge Rx Participant: No New Discharge Prescriptions: New Diltiazem Cd [Cardizem CD] 120 mg PO DAILY #90 cap Continue Carbidopa-Levodopa 25-100 mg [Sinemet 25-100 mg] 2.5 tab PO TID@,,1700 Tiotropium 2.5 Mcg/Puff [Spiriva Respimat 2.5 Mcg] 2 puff INHALATION RT-BID DULoxetine HCL [Cymbalta] 30 mg PO DAILY Cholecalciferol [Vitamin D3 (25 Mcg = 1000 Iu)] 25 mcg PO DAILY EPINEPHrine (Auto Inject) [Epipen] 0.3 mg IM ONCE PRN PRN Reason: Anaphylaxis Levothyroxine Sodium [Synthroid] 150 mcg PO DAILY Apixaban [Eliquis] 5 mg PO BID #0 Albuterol Sulfate [Albuterol Sulfate Hfa] 2 puff INHALATION RT-QID PRN PRN Reason: Shortness Of Breath Nitroglycerin Sl Tabs [Nitrostat] 0.4 mg SUBLINGUAL Q5M PRN #10 tab PRN Reason: Chest Pain cloNIDine HCL [Catapres] 0.1 mg PO BID QUEtiapine FUMARATE [SEROquel] 150 mg PO HS Cyclobenzaprine [Flexeril] 5 mg PO TID polyethylene glycoL 3350 [Miralax] 17 gm PO BID QUEtiapine [SEROquel] 25 mg PO QID PRN PRN Reason: Anxiety Discharge Medication List Carbidopa-Levodopa 25-100 mg [Sinemet 25-100 mg] 2.5 tab PO TID@,12,1700 08/18/21 [History] Apixaban [Eliquis] 5 mg PO BID #0 08/20/21 [Rx] Albuterol Sulfate [Albuterol Sulfate Hfa] 2 puff INHALATION RT-QID PRN 07/23/22 [History] Nitroglycerin Sl Tabs [Nitrostat] 0.4 mg SUBLINGUAL Q5M PRN #10 tab 07/25/22 [Rx] Cholecalciferol [Vitamin D3 (25 Mcg = 1000 Iu)] 25 mcg PO DAILY 09/06/24 [History] Cyclobenzaprine [Flexeril] 5 mg PO TID 09/06/24 [History] DULoxetine HCL [Cymbalta] 30 mg PO DAILY 09/06/24 [History] EPINEPHrine (Auto Inject) [Epipen] 0.3 mg IM ONCE PRN 09/06/24 [History] Levothyroxine Sodium [Synthroid] 150 mcg PO DAILY 09/06/24 [History] QUEtiapine FUMARATE [SEROquel] 150 mg PO HS 09/06/24 [History] QUEtiapine [SEROquel] 25 mg PO QID PRN 09/06/24 [History] Tiotropium 2.5 Mcg/Puff [Spiriva Respimat 2.5 Mcg] 2 puff INHALATION RT-BID 09/06/24 [History] cloNIDine HCL [Catapres] 0.1 mg PO BID 09/06/24 [History] polyethylene glycoL 3350 [Miralax] 17 gm PO BID 09/06/24 [History] Diltiazem Cd [Cardizem CD] 120 mg PO DAILY #90 cap 09/30/24 [Rx] Follow up Appointment(s)/Referral(s): Orlando Stratton MD [STAFF PHYSICIAN] - 10/08/24 2[facility] - 1-2 days (Please call and schedule appointment) Patient Instructions/Handouts: A-fib (Atrial Fibrillation) (DC), Acute Kidney Injury (DC), Syncope (DC) Activity/Diet/Wound Care/Special Instructions: Please see your PCP and patent attorney. Discharge Disposition: HOME SELF-CARE
== END 2024-09-30 13:39 | disposition home or self-care (01) ==
LOC: EC 11:27 → 6NMEDSUR 14:04
PROVIDERS: ADMIT Student in an Organized Health Care Education/Training Program; ATTEND Student in an Organized Health Care Education/Training Program
DX: R07.9 Chest pain, unspecified (principal); I48.0 Paroxysmal atrial fibrillation; J44.0 Chronic obstructive pulmonary disease with (acute) lower respiratory infection; N17.9 Acute kidney failure, unspecified; E87.20 Acidosis, unspecified; E03.9 Hypothyroidism, unspecified; F03.94 Unspecified dementia, unspecified severity, with anxiety; G20.A1 Parkinson's disease without dyskinesia, without mention of fluctuations; I25.10 Atherosclerotic heart disease of native coronary artery without angina pectoris; I10 Essential (primary) hypertension; F32.A Depression, unspecified; F43.10 Post-traumatic stress disorder, unspecified; F17.200 Nicotine dependence, unspecified, uncomplicated; Z79.01 Long term (current) use of anticoagulants; Z79.899 Other long term (current) drug therapy; Z79.890 Hormone replacement therapy; Z91.030 Bee allergy status; Z95.0 Presence of cardiac pacemaker; Z71.6 Tobacco abuse counseling
CPT/HCPCS: 96376 ×2; 96374; 96375; 99285; 36415; 94640; 94760; 93005; 83880; 80061; 80053; 80048; 84443; 83735 ×2; 84484; 85025; 85610; 85730; 83036; 71046; 76770; G0378 ×2; J2270 ×2; J1885

== ENCOUNTER 2024-10-01 15:13 | Observation (INO) | payer OTHER ==
--- NOTE | 2024-10-01 15:46 | ED ---
Chest Pain HPI - General Chief Complaint: Chest Pain Stated Complaint: Syncope Time Seen by Provider: 10/01/24 15:44 Source: patient, RN notes reviewed, old records reviewed Mode of arrival: EMS Limitations: no limitations - History of Present Illness Initial Comments: This is a 79-year-old male to the ER for evaluation of recent inpatient hospital admission for chest pain and palpitations with history of atrial fibrillation patient comes in today for multiple syncopal events he believes he passed out 3 times at home found himself on the ground that occurred after hospital discharge yesterday. Patient called both EMS and the [facility] urged him to come to the emergency department, history of atrial fibrillation and history of syncope MD Complaint: chest pain, other (Syncopal event x 3) -: hour(s) Onset: during rest, during exertion Pain Radiation: none Severity: severe Quality: aching Consistency: intermittent Improves With: nothing Anginal Symptoms: sense of impending doom Other Symptoms: palpitations Treatments Prior to Arrival: none - Related Data Home Medications Medication Instructions Recorded Confirmed Carbidopa-Levodopa 25-100 mg 2.5 tab PO TID@09,12,1700 08/18/21 10/01/24 [Sinemet 25-100 mg] Albuterol Sulfate [Albuterol 2 puff INHALATION RT-QID PRN 07/23/22 10/01/24 Sulfate Hfa] Cholecalciferol [Vitamin D3 (25 25 mcg PO DAILY 09/06/24 10/01/24 Mcg = 1000 Iu)] DULoxetine HCL [Cymbalta] 30 mg PO DAILY 09/06/24 10/01/24 EPINEPHrine (Auto Inject) [Epipen] 0.3 mg IM ONCE PRN 09/06/24 10/01/24 Levothyroxine Sodium [Synthroid] 150 mcg PO DAILY 09/06/24 10/01/24 QUEtiapine FUMARATE [SEROquel] 150 mg PO HS 09/06/24 10/01/24 Tiotropium 2.5 Mcg/Puff [Spiriva 2 puff INHALATION RT-BID 09/06/24 10/01/24 Respimat 2.5 Mcg] polyethylene glycoL 3350 [Miralax] 17 gm PO BID 09/06/24 10/01/24 Previous Rx's Medication Instructions Recorded Apixaban [Eliquis] 5 mg PO BID #0 08/20/21 Nitroglycerin Sl Tabs [Nitrostat] 0.4 mg SUBLINGUAL Q5M PRN #10 tab 07/25/22 Metoprolol Tartrate [Lopressor] 25 mg PO BID #90 tab 10/03/24 Allergies Allergy/AdvReac Type Severity Reaction Status Date / Time venom-honey bee Allergy Dyspnea Verified 10/01/24 18:04 [bee venom (honey bee)] Review of Systems ROS Statement: Those systems with pertinent positive or pertinent negative responses have been documented in the HPI. ROS Other: All systems not noted in ROS Statement are negative. EKG Findings - EKG Comments: EKG Findings:: EKG is sinus 68 NH 207 QRS 70 QTc 439 - EKG Results: EKG: interpreted by AARON Past Medical History Past Medical History: Atrial Fibrillation, GERD/Reflux, Osteoarthritis (OA), Pneumonia, Syncope, Thyroid Disorder Additional Past Medical History / Comment(s): PARKINSON, neck right side and numbness in right arm, neuropathy History of Any Multi-Drug Resistant Organisms: None Reported Past Surgical History: Back Surgery, Orthopedic Surgery, Pacemaker, Tonsillectomy Additional Past Surgical History / Comment(s): lung drains-thoracentesis; foot surgery repair of tendon, left hip replaced; 5x back surgeries, laminectomy x2, 20 years ago cervical fusion, lumbar spine fusion. Past Anesthesia/Blood Transfusion Reactions: No Reported Reaction Past Psychological History: Anxiety, Depression, PTSD Smoking Status: Current every day smoker - Past Family History Mother Family Medical History: Cancer Additional Family Medical History / Comment(s): Ovarian General Exam Limitations: no limitations General appearance: alert, in no apparent distress Head exam: Present: atraumatic, normocephalic, normal inspection Eye exam: Present: normal appearance, PERRL, EOMI. Absent: scleral icterus, conjunctival injection, periorbital swelling ENT exam: Present: normal exam, mucous membranes moist Neck exam: Present: normal inspection. Absent: tenderness, meningismus, lymphadenopathy Respiratory exam: Present: normal lung sounds bilaterally. Absent: respiratory distress, wheezes, rales, rhonchi, stridor Cardiovascular Exam: Present: regular rate, normal rhythm, normal heart sounds. Absent: systolic murmur, diastolic murmur, rubs, gallop, clicks GI/Abdominal exam: Present: soft, normal bowel sounds. Absent: distended, tenderness, guarding, rebound, rigid Extremities exam: Present: normal inspection, full ROM, normal capillary refill. Absent: tenderness, pedal edema, joint swelling, calf tenderness Back exam: Present: normal inspection Neurological exam: Present: alert, oriented X3, CN II-XII intact Psychiatric exam: Present: normal affect, normal mood Skin exam: Present: warm, dry, intact, normal color. Absent: rash Course Vital Signs 10/01/24 10/01/24 10/01/24 15:25 16:04 17:00 Temperature 98.7 F Pulse Rate 71 69 74 Respiratory 20 17 16 Rate Blood Pressure 141/82 146/93 148/68 Blood Pressure [Left Arm Sitting] Blood Pressure [Left Arm Standing] Blood Pressure [Left Arm Supine] O2 Sat by Pulse 99 100 98 Oximetry 10/01/24 10/01/24 10/01/24 17:42 20:04 21:07 Temperature Pulse Rate 67 64 Respiratory 17 18 Rate Blood Pressure 139/66 158/74 123/62 Blood Pressure [Left Arm Sitting] Blood Pressure [Left Arm Standing] Blood Pressure [Left Arm Supine] O2 Sat by Pulse 99 98 Oximetry 10/01/24 10/01/24 10/02/24 22:20 22:29 01:48 Temperature Pulse Rate 66 66 Respiratory Rate Blood Pressure Blood Pressure 120/76 [Left Arm Sitting] Blood Pressure 127/66 [Left Arm Standing] Blood Pressure 149/73 [Left Arm Supine] O2 Sat by Pulse Oximetry 10/02/24 10/02/24 10/02/24 05:54 07:47 08:40 Temperature 98.4 F Pulse Rate 71 60 68 Respiratory 18 18 18 Rate Blood Pressure 127/57 126/68 Blood Pressure [Left Arm Sitting] Blood Pressure [Left Arm Standing] Blood Pressure [Left Arm Supine] O2 Sat by Pulse 98 98 95 Oximetry 10/02/24 10/02/24 10/02/24 08:50 10:37 13:31 Temperature Pulse Rate 68 67 68 Respiratory 18 18 Rate Blood Pressure 130/62 129/69 Blood Pressure [Left Arm Sitting] Blood Pressure [Left Arm Standing] Blood Pressure [Left Arm Supine] O2 Sat by Pulse 97 97 Oximetry 10/02/24 10/02/24 10/02/24 15:33 15:41 18:02 Temperature Pulse Rate 68 51 L 63 Respiratory 18 18 14 Rate Blood Pressure 150/73 Blood Pressure [Left Arm Sitting] Blood Pressure [Left Arm Standing] Blood Pressure [Left Arm Supine] O2 Sat by Pulse 99 Oximetry 10/02/24 10/02/24 10/02/24 19:56 20:59 21:09 Temperature Pulse Rate 59 L 64 68 Respiratory 18 Rate Blood Pressure 146/78 Blood Pressure [Left Arm Sitting] Blood Pressure [Left Arm Standing] Blood Pressure [Left Arm Supine] O2 Sat by Pulse 97 Oximetry 10/02/24 10/02/24 10/03/24 22:55 23:00 02:17 Temperature 97.3 F L Pulse Rate 60 52 L 64 Respiratory 16 18 18 Rate Blood Pressure 133/78 176/85 117/72 Blood Pressure [Left Arm Sitting] Blood Pressure [Left Arm Standing] Blood Pressure [Left Arm Supine] O2 Sat by Pulse 98 98 98 Oximetry 10/03/24 06:22 Temperature Pulse Rate 57 L Respiratory 18 Rate Blood Pressure 128/68 Blood Pressure [Left Arm Sitting] Blood Pressure [Left Arm Standing] Blood Pressure [Left Arm Supine] O2 Sat by Pulse 98 Oximetry - Reevaluation(s) Reevaluation #1: 10/01/24 17:12 Medical records reviewed Reevaluation #2: 10/01/24 17:12 Patient has no recurrent syncope here in this emergency department Attempted pacemaker interrogation Reevaluation #3: 10/01/24 17:12 Patient informed of results questions answered Reevaluation #4: Was pt. sent in by a medical professional or institution (, PA, ORGANISATIONAL PSYCHOLOGIST, urgent care, hospital, or [place] health care facility...) When possible be specific @ -no Did you speak to anyone other than the patient for history (EMS, parent, family, police, friend...)? What history was obtained from this source @ -no Did you review nursing and triage notes (agree or disagree)? Why? @ -agree Are old charts reviewed (outside hosp., previous admission, EMS record, old EKG, old radiological studies, urgent care reports/EKG's, [place] health care facility records)? Report findings @ -yes Differential Diagnosis (chest pain, altered mental status, abdominal pain women, abdominal pain men, vaginal bleeding, weakness, fever, dyspnea, syncope, headache, dizziness, GI bleed, back pain, seizure, CVA, palpatations, mental health, musculoskeletal)? @ -prior EKG interpreted by me (3pts min.). @ -yes X-rays interpreted by me (1pt min.). @ -yes negative for acute disease CT interpreted by me (1pt min.). @ -no U/S interpreted by me (1pt. min.). @ -no What testing was considered but not performed or refused? (CT, X-rays, U/S, labs)? Why? @ -none What meds were considered but not given or refused? Why? @ -none Did you discuss the management of the patient with other professionals (professionals i.e. , PA, ORGANISATIONAL PSYCHOLOGIST, lab, RT, psych nurse, public health social worker, civil service worker, teacher, restoration officer, social work case manager)? Give summary @ -no Was smoking cessation discussed for >3mins.? @ -no Was critical care preformed (if so, how long)? @ -yes31 Were there social determinants of health that impacted care today? How? (Homelessness, low income, unemployed, alcoholism, drug addiction, transportation, low edu. Level, literacy, decrease access to med. care, skilled nursing, rehab)? @ -none Was there de-escalation of care discussed even if they declined (Discuss DNR or withdrawal of care, Hospice)? DNR status @ -no What co-morbidities impacted this encounter? (DM, HTN, Smoking, COPD, CAD, Cancer, CVA, ARF, Chemo, Hep., AIDS, mental health diagnosis, sleep apnea, morbid obesity)? @ -none Was patient admitted / discharged? Hospital course, mention meds given and route, prescriptions, significant lab abnormalities, going to OR and other pertinent info. @ - 79 male to the ER for evaluation of a syncopal event. Patient has 3 syncopal events at home today. History of syncope presyncope with atrial fibrillation, patient admitted for cardiology to see Admitted Undiagnosed new problem with uncertain prognosis? @ -no Drug Therapy requiring intensive monitoring for toxicity (Heparin, Nitro, Insulin, Cardizem)? @ -no Were any procedures done? @ -no Diagnosis/symptom? @ -Syncope with arrhythmia Acute, or Chronic, or Acute on Chronic? @ -Acute Uncomplicated (without systemic symptoms) or Complicated (systemic symptoms)? @ -Complicated Side effects of treatment? @ -no Exacerbation, Progression, or Severe Exacerbation? @ -exacerbation Poses a threat to life or bodily function? How? (Chest pain, USA, NV, pneumonia, PE, COPD, DKA, ARF, appy, cholecystitis, CVA, Diverticulitis, Homicidal, Suicidal, threat to staff... and all critical care pts) @ -yes extremes of age Reevaluation #5: Differential Syncope: Valvular disease, hypertrophic cardiomyopathy, pulmonary embolism, tamponade, tachycardia, bradycardia, NV, hypovolemia, hemorrhage, dissection, anemia, intracranial hemorrhage, seizure, hypoglycemia, carbon monoxide poisoning, this is not meant to be an all-inclusive list. - Consultations Consultation #1: Spoke with man who will admit this patient Chest Pain MDM - MDM 79 male to the ER for evaluation of a syncopal event. Patient has 3 syncopal events at home today. History of syncope presyncope with atrial fibrillation, patient admitted for cardiology to see Critical Care Time Critical Care Time: Yes Total Critical Care Time: 31 Disposition Clinical Impression: Syncope and collapse, Atrial fibrillation, Chest pain, Atrial fibrillation with RVR Disposition: ADMITTED IP TO THIS [facility] Condition: Serious Is patient prescribed a controlled substance at d/c from ED?: No Time of Disposition: 17:10
[2024-10-01 15:49] LABS: Basophils # (A) 0.1 k/uL (0-0.2); Basophils % (A) 1 %; Eosinophils # (A) 0.4 k/uL (0-0.7); Eosinophils % (A) 5 %; HCT 43.2 % (39.0-53.0); HGB 14.4 gm/dL (13.0-17.5); Lymphocytes # (A) 1.3 k/uL (1.0-4.8); Lymphocytes % (A) 17 %; MCH 31.1 pg (25.0-35.0); MCHC 33.3 g/dL (31.0-37.0); MCV 93.5 fL (80.0-100.0); Mean Platelet Volume 7.5; Monocytes # (A) 0.4 k/uL (0-1.0); Monocytes % (A) 5 %; Neutrophils # (A) 5.7 k/uL (1.3-7.7); Neutrophils % (A) 71 %; Platelet Count 282 k/uL (150-450); RBC 4.62 m/uL (4.30-5.90); RDW 13.9 % (11.5-15.5)
[2024-10-01 16:01] LABS: ALT 13 U/L (4-49); AST 19 U/L (17-59); African American GFR (CKD) 82 (>60 ml/min/1.73 sqM); Albumin 4.6 g/dL (3.5-5.0); Alkaline Phosphatase 67 U/L (38-126); Anion Gap 9 mmol/L; Blood Urea Nitrogen 23 mg/dL (9-20); Calcium 9.2 mg/dL (8.4-10.2); Carbon Dioxide 23 mmol/L (22-30); Chloride 107 mmol/L (98-107); Glucose 86 mg/dL (74-99); INR 0.9 (<1.2); Non-African American GFR(CKD) 71 (>60 ml/min/1.73 sqM); Partial Thromboplastin Time 26.6 sec (22.0-30.0); Potassium 4.5 mmol/L (3.5-5.1); Prothrombin Time 10.5 sec (10.0-12.5); Sodium 139 mmol/L (137-145); Total Bilirubin 0.7 mg/dL (0.2-1.3); Total Protein 7.8 g/dL (6.3-8.2)
[2024-10-01] MEDS: SODIUM CHLORIDE 0.9% 1,000 ML IV STA (16:03)
--- NOTE | 2024-10-01 16:19 | XR ---
EXAMINATION TYPE: XR chest 2V DATE OF EXAM: 10/01/2024 COMPARISON: 09/29/2024 HISTORY: Chest pain TECHNIQUE: Frontal and lateral views of the chest are obtained. FINDINGS: There is a 2-lead cardiac pacemaker. There is probable surgical changes of cervical fusion. There is a persistent opacity obscuring the right hemidiaphragm and costophrenic angle consistent wit h a small stable pleural effusion. The heart is mildly prominent. The pulmonary vasculature does not appear congested. There is no pneumothorax. There is a probable chronic rotator cuff tear of the right shoulder. IMPRESSION: 1. Mild acute cardiopulmonary disease with no interval change as described above. Stable small right pleural effusion and mild cardiomegaly. 2. No significant interval change. [facility], , 10/01/2024 4:16 PM
[2024-10-01 16:39] LABS: Phosphorus 3.5 mg/dL (2.5-4.5)
[2024-10-01] MEDS: MORPHINE SULFATE 4 MG/ML SYRINGE IV PRN (17:01)
[2024-10-01] MEDS ORDERED: NALOXONE 0.4 MG/ML 1 ML VIAL IV PRN (17:09)
[2024-10-01] MEDS ORDERED: ONDANSETRON 4 MG/2 ML VIAL IVP PRN (17:09)
--- NOTE | 2024-10-01 17:33 | P.HPIM ---
History of Present Illness H&P Date: 10/01/24 Patient is a 79-year-old male with history of COPD, Parkinson's disease, atrial fibrillation on Eliquis, hypertension, anxiety/depression presenting with multiple episodes of syncope. Patient was here yesterday with similar complaints, was discharged on diltiazem, outpatient follow-up with EP. He claims that [facility] when [facility] out, and we had difficulty locating him. They called ambulance for him. In the outside he ended up in the hospital. He denies any significant chest pain or any prodromal symptoms prior to passing out. He denies any lightheadedness. No recent fevers or chills, recent travel history or sick contacts. In the ED, temperature was 98.7, pulse 71, respiratory rate 20, blood pressure 141/82, saturating at 99% on room air. Laboratory workup showed unremarkable CBC, D-dimer 0.61, creatinine 1.02, glucose 86, troponin negative. Chest x-ray independently interpreted did not show any acute process, previous right pleural effusion, EKG independently interpreted showed normal sinus rhythm. Patient admitted for observation with cardiology consult. Pertinent positives and negatives as discussed in HPI, a complete review of systems was performed and all other systems are negative. Patient seen and examined at bedside. Vital signs reviewed General: nontoxic, no distress, appears at stated age Derm: warm, dry Head: atraumatic, normocephalic, symmetric Eyes: EOMI, no lid lag, anicteric sclera, pupils equal round reactive to light ENT: Nose and ears atraumatic Neck: No thyromegaly, supple Mouth: no lip lesion, mucus membranes moist Cardiovascular: S1S2 reg, no murmur, no edema Lungs: clear to auscultation bilateral, no rhonchi, no rales, no wheeze, no accessory muscle use Abdominal: soft, nontender to palpation, no guarding, no appreciable organomegaly Ext: no gross muscle atrophy, muscle strength muscle strength 5 out of 5 in all 4 extremities, no contractures Neuro: CN II-XII grossly intact Psych: Alert, oriented, appropriate affect Assessment/Plan: Active: Recurrent syncope History of atrial fibrillation Status post pacemaker placement History of Parkinson's disease -Continue telemetry monitoring -Orthostatic vitals -Recurrent syncope possibly in the setting of arrhythmia versus Parkinson's disease -Cardiology consulted, pending recommendations -Interrogate deviceRestart Cardizem 120 daily, Eliquis 5 twice daily Chronic: Hypertension Parkinson's disease Hypothyroidism Anxiety/depression COPD, not in exacerbation Restart home medications once reconciled The patient is admitted with an anticipated less than 2 midnight stay as observation status for evaluation of syncope. Surrogate decision-maker: Daughter CODE STATUS: Full code DVT prophylaxis: Eliquis Anticipated discharge date: 1 to [address]: Home A total of 55 minutes was spent on the care of this complex patient more than 50% of the time was spent in counseling and care coordination. Past Medical History Past Medical History: Atrial Fibrillation, GERD/Reflux, Osteoarthritis (OA), Pneumonia, Syncope, Thyroid Disorder Additional Past Medical History / Comment(s): PARKINSON, neck right side and numbness in right arm, neuropathy History of Any Multi-Drug Resistant Organisms: None Reported Past Surgical History: Back Surgery, Orthopedic Surgery, Pacemaker, Tonsillectomy Additional Past Surgical History / Comment(s): lung drains-thoracentesis; foot s urgery repair of tendon, left hip replaced; 5x back surgeries, laminectomy x2, 20 years ago cervical fusion, lumbar spine fusion. Past Anesthesia/Blood Transfusion Reactions: No Reported Reaction Past Psychological History: Anxiety, Depression, PTSD Smoking Status: Current every day smoker - Past Family History Mother Family Medical History: Cancer Additional Family Medical History / Comment(s): Ovarian Medications and Allergies Home Medications Medication Instructions Recorded Confirmed Type Carbidopa-Levodopa 25-100 mg 2.5 tab PO TID@09,12,1700 08/18/21 09/29/24 History [Sinemet 25-100 mg] Apixaban [Eliquis] 5 mg PO BID #0 08/20/21 09/29/24 Rx Albuterol Sulfate [Albuterol 2 puff INHALATION RT-QID PRN 07/23/22 09/29/24 History Sulfate Hfa] Nitroglycerin Sl Tabs [Nitrostat] 0.4 mg SUBLINGUAL Q5M PRN #10 tab 07/25/22 09/29/24 Rx Cholecalciferol [Vitamin D3 (25 25 mcg PO DAILY 09/06/24 09/29/24 History Mcg = 1000 Iu)] Cyclobenzaprine [Flexeril] 5 mg PO TID 09/06/24 09/29/24 History DULoxetine HCL [Cymbalta] 30 mg PO DAILY 09/06/24 09/29/24 History EPINEPHrine (Auto Inject) [Epipen] 0.3 mg IM ONCE PRN 09/06/24 09/29/24 History Levothyroxine Sodium [Synthroid] 150 mcg PO DAILY 09/06/24 09/29/24 History QUEtiapine FUMARATE [SEROquel] 150 mg PO HS 09/06/24 09/29/24 History QUEtiapine [SEROquel] 25 mg PO QID PRN 09/06/24 09/29/24 History Tiotropium 2.5 Mcg/Puff [Spiriva 2 puff INHALATION RT-BID 09/06/24 09/29/24 History Respimat 2.5 Mcg] cloNIDine HCL [Catapres] 0.1 mg PO BID 09/06/24 09/29/24 History polyethylene glycoL 3350 [Miralax] 17 gm PO BID 09/06/24 09/29/24 History Diltiazem Cd [Cardizem CD] 120 mg PO DAILY #90 cap 09/30/24 Rx Allergies Allergy/AdvReac Type Severity Reaction Status Date / Time venom-honey bee Allergy Dyspnea Verified 09/29/24 13:20 [bee venom (honey bee)] Physical Exam Vitals: Vital Signs Temp Pulse Resp BP Pulse Ox 10/01/24 17:00 74 16 148/68 98 10/01/24 16:04 69 17 146/93 100 10/01/24 15:25 98.7 F 71 20 141/82 99 Intake and Output 10/01/24 10/01/24 10/01/24 06:59 14:59 22:59 Other: Weight 82.1 kg Results CBC & Chem 7: 10/01/24 15:39 10/01/24 15:39 Labs: Abnormal Lab Results - Last 24 Hours (Table) 10/01/24 10/01/24 Range/Units 15:39 15:39 D-Dimer 0.61 H (<0.60) mg/L FEU BUN 23 H (9-20) mg/dL
[2024-10-01] MEDS: SODIUM CHLORIDE 0.9% 1,000 ML IV SCH (17:39)
[2024-10-01] MEDS: APIXABAN 5 MG TAB PO SCH (21:01)
[2024-10-01] MEDS: IPRATROPIUM-ALBUTEROL 3 ML NEB INHALATION PRN (22:18)
[2024-10-02] MEDS: MORPHINE SULFATE 4 MG/ML SYRINGE IV PRN (02:05)
[2024-10-02] MEDS ORDERED: ALBUTEROL HFA INHALER INHALATION PRN (07:18)
[2024-10-02] MEDS: DILTIAZEM CD 120 MG CAP.ER.24H PO SCH (08:13)
[2024-10-02] MEDS: DULoxetine HCL 30 MG CAPSULE.DR PO SCH (08:14)
[2024-10-02] MEDS: LEVOTHYROXINE 75 MCG TAB PO SCH (08:14)
[2024-10-02] MEDS: CARBIDOPA-LEVODOPA 25-100 MG 1 EACH TAB PO SCH (08:16)
[2024-10-02] MEDS: IPRATROPIUM 0.5 MG/2.5 ML NEBU INHALATION SCH (08:44)
[2024-10-02] MEDS: polyethylene glycoL 3350 17 GM POWD.PACK PO SCH (09:10)
[2024-10-02 10:20] LABS: HCT 41.3 % (39.6-50.0); HGB 13.8 g/dL (13.0-17.0); MCH 31.4 pg (27.0-32.0); MCHC 33.4 g/dL (32.0-37.0); MCV 94.1 FL (80.0-97.0); Mean Platelet Volume 9.9 FL (9.5-12.2); NRBC Per 100 WBC 0 X 10*3/uL (0.00-0.01); Platelet Count 229 X 10*3/uL (140-440); RBC 4.39 X 10*6/uL (4.40-5.60); RDW 13.8 % (11.5-14.5); WBC 7.55 X 10*3/uL (4.50-10.00)
[2024-10-02 10:21] LABS: Basophils # (A) 0.08 X 10*3/uL (0.00-0.10); Basophils % (A) 1.1 %; Eosinophils % (A) 5.3 %; Lymphocytes # (A) 1.94 X 10*3/uL (0.90-5.00); Lymphocytes % (A) 25.7 %; Monocytes # (A) 0.59 X 10*3/uL (0.20-1.00); Monocytes % (A) 7.8 %; Neutrophils # (A) 4.53 X 10*3/uL (1.80-7.70)
[2024-10-02 11:24] LABS: ALT 12 U/L (10-49); AST 19 U/L (14-35); Albumin 4.2 g/dL (3.8-4.9); Albumin/Globulin Ratio 1.62 Ratio (1.60-3.17); Alkaline Phosphatase 64 U/L (41-126); Blood Urea Nitrogen 18.9 mg/dL (9.0-27.0); Calcium 8.9 mg/dL (8.7-10.3); Carbon Dioxide 21.5 mmol/L (21.6-31.8); Chloride 105 mmol/L (96-109); Globulin 2.6 g/dL (1.6-3.3); Glucose 120 mg/dL (70-110); Magnesium 1.9 mg/dL (1.5-2.4); Phosphorus 2.9 mg/dL (2.4-5.1); Potassium 4.4 mmol/L (3.5-5.5); Sodium 138 mmol/L (135-145); Total Bilirubin 0.6 mg/dL (0.3-1.2); Total Protein 6.8 g/dL (6.2-8.2)
--- NOTE | 2024-10-02 11:38 | P.PN ---
Subjective Progress Note Date: 10/02/24 Hospital Course: 79-year-old male with history of COPD, Parkinson's disease, atrial fibrillation on Eliquis, hypertension, anxiety/depression presenting with multiple episodes of syncope. In the ED, temperature was 98.7, pulse 71, respiratory rate 20, blood pressure 141/82, saturating at 99% on room air. Laboratory workup showed unremarkable CBC, D-dimer 0.61, creatinine 1.02, glucose 86, troponin negative. Chest x-ray independently interpreted did not show any acute process, previous right pleural effusion, EKG independently interpreted showed normal sinus rhythm. Patient admitted for observation with cardiology consult. Subjective: Patient seen and examined at bedside. No acute events overnight. Denies any further episodes of syncope. Pertinent positives and negatives as discussed above, a complete review of systems was performed and all other systems are negative. Vitals Signs Reviewed. General: Nontoxic, no distress, appears at stated age Derm: Warm, dry Head: Atraumatic, normocephalic, symmetric Eyes: EOMI, no lid lag, anicteric sclera Mouth: No lip lesion, mucus membranes moist Cardiovascular: S1S2 reg, no murmur Lungs: CTA bilateral, no rhonchi, no rales, no accessory muscle use Abdominal: Soft, nontender to palpation, no guarding, no appreciable organomeg mayra Ext: No gross muscle atrophy, no edema, no contractures Neuro: CN II-XI grossly intact, no focal neuro deficits Psych: Alert, oriented, appropriate affect Data Reviewed Today: Pertinent Labs: Hemoglobin 13.8, creatinine 0.9, troponin negative x 3 Imaging: No new imaging Assessment and Plan: Active: Recurrent syncope History of atrial fibrillation Status post pacemaker placement History of Parkinson's disease -Continue telemetry monitoring -Orthostatic vitals slightly positive when sitting to standing, okay to continue normal saline 75 cc an hour -Recurrent syncope possibly in the setting of arrhythmia versus Parkinson's disease -Cardiology consulted, pending recommendations -Interrogate device -Continue Cardizem 120 daily, Eliquis 5 twice daily Chronic: Hypertension Parkinson's disease Hypothyroidism Anxiety/depression COPD, not in exacerbation DVT ppx: Eliquis Code status: Full code Anticipated discharge place: Pending clinical course Anticipated discharge time: pending clinical course Objective - Vital Signs Vital signs: Vital Signs Temp 98.4 F 10/02/24 07:47 Pulse 67 10/02/24 10:37 Resp 18 10/02/24 10:37 BP 130/62 10/02/24 10:37 Pulse Ox 97 10/02/24 10:37 FiO2 Intake & Output 10/01/24 10/02/24 10/02/24 18:59 06:59 18:59 Weight 82.1 kg - Labs CBC & Chem 7: 10/02/24 05:42 10/02/24 05:37 Labs: Abnormal Lab Results - Last 24 Hours (Table) 10/01/24 10/01/24 10/02/24 Range/Units 15:39 15:39 05:37 RBC (4.40-5.60) X 10*6/uL Eosinophils # (0.04-0.35) X 10*3/uL D-Dimer 0.61 H (<0.60) mg/L FEU Carbon Dioxide 21.5 L (21.6-31.8) mmol/L BUN 23 H (9-20) mg/dL BUN/Creatinine Ratio 21.00 H (12.00-20.00) Ratio Glucose 120 H (70-110) mg/dL 10/02/24 Range/Units 05:42 RBC 4.39 L (4.40-5.60) X 10*6/uL Eosinophils # 0.40 H (0.04-0.35) X 10*3/uL D-Dimer (<0.60) mg/L FEU Carbon Dioxide (21.6-31.8) mmol/L BUN (9-20) mg/dL BUN/Creatinine Ratio (12.00-20.00) Ratio Glucose (70-110) mg/dL
[2024-10-02] MEDS: cloNIDine HCL 0.1 MG TAB PO SCH (11:49)
--- NOTE | 2024-10-02 17:04 | P.CRDCN ---
History of Present Illness Consult date: 10/02/24 History of present illness: HISTORY OF PRESENTING ILLNESS 79-year-old male with past medical history of paroxysmal atrial fibrillation, nonobstructive CAD, PPM, hypothyroidism, Parkinson's disease, hypertension. Over last 3 months patient has had 3 hospital admissions with concerns of passing out. Patient was recently in the hospital with some concerns of palpitations and chest pain. On last admission he was discharged on Cardizem CD 120 mg. This time he presented to the hospital with concerns of syncopal episode. It was unwitnessed syncope. Patient is a poor historian and is not able to describe the event. He however denies any chest pain chest pressure palpitation lightheadedness or dizziness REVIEW OF SYSTEMS 14 point review of system is negative except what is mentioned above in HPI. PHYSICAL EXAMINATION Head: Normocephalic. Eyes: Sclerae nonicteric. Neck: Brisk carotid upstroke, no jugular venous distention. Lungs: Clear to auscultation. Heart: Regular rate and rhythm, S1-S2, mild systolic murmur audible Abdomen: Soft nontender, positive bowel sounds. Extremities: No edema, intact distal pulses. Neuro: Alert, oritented, no focal deficits. Detailed neuro exam was not performed. ASSESSMENT Questionable syncope Paroxysmal atrial fibrillation, currently sinus rhythm Nonobstructive CAD History of PPM Hypertension Parkinsonism Hypothyroidism Recent echocardiogram showed an EF of 55% with no significant valvular abnormality or any structural abnormalities with no regional wall motion abnormality. PLAN Perform pacemaker interrogation Discontinue clonidine. Do not resume it on discharge. This could be related to patient's dizziness and could be causing orthostatic hypotensive symptoms. 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 When he gets fast he has palpitations. I would start him on Discontinue Cardizem. This might be too strong for the patient. Continue metoprolol 25 mg twice daily instead. Prior to discharge I would recommend that he should get PT OT evaluation and social work consult for discharge disposition. I would also recommend that we should cut down his Seroquel dose. This is too high of a dose and should be reevaluated as this could be also contributing to his syncope and passing out. Check TSH level and assess if this high levothyroxine dose is appropriate ? Past Medical History Past Medical History: Atrial Fibrillation, GERD/Reflux, Osteoarthritis (OA), Pneumonia, Syncope, Thyroid Disorder Additional Past Medical History / Comment(s): PARKINSON, neck right side and numbness in right arm, neuropathy History of Any Multi-Drug Resistant Organisms: None Reported Past Surgical History: Back Surgery, Orthopedic Surgery, Pacemaker, Tonsillectomy Additional Past Surgical History / Comment(s): lung drains-thoracentesis; foot surgery repair of tendon, left hip replaced; 5x back surgeries, laminectomy x2, 20 years ago cervical fusion, lumbar spine fusion. Past Anesthesia/Blood Transfusion Reactions: No Reported Reaction Past Psychological History: Anxiety, Depression, PTSD Smoking Status: Current every day smoker - Past Family History Mother Family Medical History: Cancer Additional Family Medical History / Comment(s): Ovarian Medications and Allergies Home Medications Medication Instructions Recorded Confirmed Type Carbidopa-Levodopa 25-100 mg 2.5 tab PO TID@09,12,1700 08/18/21 10/01/24 History [Sinemet 25-100 mg] Apixaban [Eliquis] 5 mg PO BID #0 08/20/21 10/01/24 Rx Albuterol Sulfate [Albuterol 2 puff INHALATION RT-QID PRN 07/23/22 10/01/24 History Sulfate Hfa] Nitroglycerin Sl Tabs [Nitrostat] 0.4 mg SUBLINGUAL Q5M PRN #10 tab 07/25/22 10/01/24 Rx Cholecalciferol [Vitamin D3 (25 25 mcg PO DAILY 09/06/24 10/01/24 History Mcg = 1000 Iu)] Cyclobenzaprine [Flexeril] 5 mg PO TID 09/06/24 10/01/24 History DULoxetine HCL [Cymbalta] 30 mg PO DAILY 09/06/24 10/01/24 History EPINEPHrine (Auto Inject) [Epipen] 0.3 mg IM ONCE PRN 09/06/24 10/01/24 History Levothyroxine Sodium [Synthroid] 150 mcg PO DAILY 09/06/24 10/01/24 History QUEtiapine FUMARATE [SEROquel] 150 mg PO HS 09/06/24 10/01/24 History QUEtiapine [SEROquel] 25 mg PO QID PRN 09/06/24 10/01/24 History Tiotropium 2.5 Mcg/Puff [Spiriva 2 puff INHALATION RT-BID 09/06/24 10/01/24 Hist ory Respimat 2.5 Mcg] cloNIDine HCL [Catapres] 0.1 mg PO BID 09/06/24 10/01/24 History polyethylene glycoL 3350 [Miralax] 17 gm PO BID 09/06/24 10/01/24 History Diltiazem Cd [Cardizem CD] 120 mg PO DIRECTED 10/01/24 10/01/24 History Allergies Allergy/AdvReac Type Severity Reaction Status Date / Time venom-honey bee Allergy Dyspnea Verified 10/01/24 18:04 [bee venom (honey bee)] Physical Exam Vitals: Vital Signs Temp Pulse Resp BP BP BP BP 10/02/24 15:41 51 L 18 10/02/24 15:33 68 18 10/02/24 13:31 68 18 129/69 10/02/24 10:37 67 18 130/62 10/02/24 08:50 68 10/02/24 08:40 68 18 10/02/24 07:47 98.4 F 60 18 126/68 10/02/24 05:54 71 18 127/57 10/02/24 01:48 120/76 127/66 149/73 10/01/24 22:29 66 10/01/24 22:20 66 10/01/24 21:07 123/62 10/01/24 20:04 64 18 158/74 10/01/24 17:42 67 17 139/66 Pulse Ox 10/02/24 15:41 10/02/24 15:33 10/02/24 13:31 97 10/02/24 10:37 97 10/02/24 08:50 10/02/24 08:40 95 10/02/24 07:47 98 10/02/24 05:54 98 10/02/24 01:48 10/01/24 22:29 10/01/24 22:20 10/01/24 21:07 10/01/24 20:04 98 10/01/24 17:42 99 Results 10/02/24 05:42 10/02/24 05:37 Cardiac Enzymes 10/01/24 10/01/24 10/02/24 Range/Units 18:37 21:09 05:37 AST 19 (14-35) U/L Troponin I <0.012 <0.012 (0.000-0.034) ng/mL CBC 10/02/24 Range/Units 05:42 WBC 7.55 (4.50-10.00) X 10*3/uL RBC 4.39 L (4.40-5.60) X 10*6/uL Hgb 13.8 (13.0-17.0) g/dL Hct 41.3 (39.6-50.0) % Plt Count 229 (140-440) X 10*3/uL Comprehensive Metabolic Panel 10/02/24 Range/Units 05:37 Sodium 138 (135-145) mmol/L Potassium 4.4 (3.5-5.5) mmol/L Chloride 105 (96-109) mmol/L Carbon Dioxide 21.5 L (21.6-31.8) mmol/L BUN 18.9 (9.0-27.0) mg/dL Creatinine 0.9 (0.6-1.5) mg/dL Glucose 120 H (70-110) mg/dL Calcium 8.9 (8.7-10.3) mg/dL AST 19 (14-35) U/L ALT 12 (10-49) U/L Alkaline Phosphatase 64 (41-126) U/L Total Protein 6.8 (6.2-8.2) g/dL Albumin 4.2 (3.8-4.9) g/dL Current Medications Generic Name Dose Route Start Last Admin Trade Name Freq PRN Reason Stop Dose Admin Albuterol/Ipratropium 3 ml 10/01/24 22:06 10/02/24 08:40 Ipratropium-Albuterol 3 Ml Neb INHALATION 3 ml RT-QID PRN Administration Shortness Of Breath Or Wheezing Apixaban 5 mg 10/01/24 21:00 10/02/24 08:12 Apixaban 5 Mg Tab PO 5 mg BID CHIP Administration Protocol Carbidopa/Levodopa 2.5 each 10/02/24 09:00 10/02/24 13:28 Carbidopa-Levodopa 25-100 Mg 1 Each Tab PO 2.5 each TID@09,12,1700 CHIP Administration Diltiazem HCl 120 mg 10/02/24 09:00 10/02/24 08:13 Diltiazem Cd 120 Mg Cap.Er.24h PO 120 mg DAILY CHIP Administration Duloxetine HCl 30 mg 10/02/24 09:00 10/02/24 08:14 Duloxetine Hcl 30 Mg Capsule.Dr PO 30 mg DAILY CHIP Administration Sodium Chloride 1,000 mls @ 75 mls/hr 10/01/24 17:15 10/02/24 05:57 Saline 0.9% IV 75 mls/hr .[id number] CHIP Administration Ipratropium [place] 0.5 mg 10/02/24 08:00 10/02/24 15:33 Ipratropium 0.5 Mg/2.5 Ml Nebu INHALATION 0.5 mg RT-QID CHIP Administration Levothyroxine Sodium 150 mcg 10/02/24 09:00 10/02/24 08:14 Levothyroxine 75 Mcg Tab PO 150 mcg DAILY@0630 CHIP Administration Morphine Sulfate 4 mg 10/01/24 16:51 10/02/24 15:23 Morphine Sulfate 4 Mg/Ml Syringe IV 4 mg ONCE PRN Administration Severe Pain (Scale 7 to 10) Morphine Sulfate 4 mg 10/01/24 17:09 10/02/24 05:56 Morphine Sulfate 4 Mg/Ml Syringe IV 4 mg Q4HR PRN Administration Severe Pain (Scale 7 to 10) Naloxone HCl 0.2 mg 10/01/24 17:09 Naloxone 0.4 Mg/Ml 1 Ml Vial IV Q2M PRN Opioid Reversal Ondansetron HCl 4 mg 10/01/24 17:09 Ondansetron 4 Mg/2 Ml Vial IVP Q8HR PRN Nausea And Vomiting Polyethylene Glycol 17 gm 10/02/24 09:00 10/02/24 09:10 Polyethylene Glycol 3350 17 Gm Powd.Pack PO 17 gm BID CHIP Administration Quetiapine Fumarate 150 mg 10/02/24 21:00 Quetiapine 100 Mg Tab PO HS CHIP 10/02/24 05:42 10/02/24 05:37
[2024-10-02 20:28] LABS: T4, Free (Free Thyroxine) 0.72 ng/dL (0.78-2.19)
[2024-10-02] MEDS: METOPROLOL TARTRATE 25 MG TAB PO SCH (23:21)
[2024-10-02] MEDS: QUEtiapine 100 MG TAB PO SCH (23:21)
[2024-10-03] MEDS ORDERED: LOSARTAN 25 MG TAB PO SCH (09:00)
--- NOTE | 2024-10-03 09:02 | P.PN ---
Subjective Progress Note Date: 10/03/24 HISTORY OF PRESENTING ILLNESS 79-year-old male with past medical history of paroxysmal atrial fibrillation, nonobstructive CAD, PPM, hypothyroidism, Parkinson's disease, hypertension. Over last 3 months patient has had 3 hospital admissions with concerns of passing out. Patient was recently in the hospital with some concerns of palpitations and chest pain. On last admission he was discharged on Cardizem CD 120 mg. This time he presented to the hospital with concerns of syncopal episode. It was unwitnessed syncope. Patient is a poor historian and is not able to describe the event. He however denies any chest pain chest pressure palpitation lightheadedness or dizziness Progress note October 03, 2021 Patient is seen and examined at bedside this a.m. His blood pressure and heart rate is controlled. He is in sinus rhythm at present. He is tolerating metoprolol 25 mg better than Cardizem. He is off clonidine and his blood pressure stable. Pacemaker interrogation did not show any major arrhythmias or even atrial fibrillation at present. PHYSICAL EXAMINATION Head: Normocephalic. Eyes: Sclerae nonicteric. Neck: Brisk carotid upstroke, no jugular venous distention. Lungs: Clear to auscultation. Heart: Regular rate and rhythm, S1-S2, mild systolic murmur audible Abdomen: Soft nontender, positive bowel sounds. Extremities: No edema, intact distal pulses. Neuro: Alert, oritented, no focal deficits. Detailed neuro exam was not per formed. ASSESSMENT Questionable syncope Paroxysmal atrial fibrillation, currently sinus rhythm Nonobstructive CAD History of PPM Hypertension Parkinsonism Hypothyroidism Recent echocardiogram showed an EF of 55% with no significant valvular abnormality or any structural abnormalities with no regional wall motion abnormality. Pacemaker at [facility] did not show any major concerning arrhythmias since September 20 PLAN Perform orthostatic vital signs Discontinue Cardizem. Continue metoprolol 25 mg twice daily instead Continue to hold clonidine. Do not resume it on discharge. This can exacerbate his orthostatic hypotension. Would recommend not to increase his levothyroxine dose. He is already on high dose. On Eliquis 5 mg twice daily. Watch for signs of bleeding, monitor hemoglobin. Continue for now. Prior to discharge I would recommend that he should get PT OT evaluation and social work consult for discharge disposition. I would also recommend that we should cut down his Seroquel dose. This is too high of a dose and should be reevaluated as this could be also contributing to his syncope and passing out. Objective - Vital Signs Vital signs: Vital Signs Temp 97.6 F 10/03/24 07:40 Pulse 61 10/03/24 07:40 Resp 16 10/03/24 07:40 BP 136/69 10/03/24 07:40 Pulse Ox 95 10/03/24 08:57 FiO2 21 10/03/24 08:57 - Labs CBC & Chem 7: 10/02/24 05:42 10/02/24 05:37 Labs: Abnormal Lab Results - Last 24 Hours (Table) 10/02/24 10/02/24 10/02/24 Range/Units 05:37 05:42 18:45 RBC 4.39 L (4.40-5.60) X 10*6/uL Eosinophils # 0.40 H (0.04-0.35) X 10*3/uL Carbon Dioxide 21.5 L (21.6-31.8) mmol/L BUN/Creatinine Ratio 21.00 H (12.00-20.00) Ratio Glucose 120 H (70-110) mg/dL TSH 5.580 H (0.465-4.680) mIU/L Free T4 0.72 L (0.78-2.19) ng/dL
[2024-10-03 09:19] VITALS: RESP 17
[2024-10-03 14:40] VITALS: BP 132/74; PULSE 54; TEMP 98.3
--- NOTE | 2024-10-03 15:27 | P.DS ---
Providers Date of admission: 10/01/24 17:10 Expected date of discharge: 10/03/24 Attending physician: Thu Potter MD Consults: 10/01/24 17:09 Consult Physician Routine Consulting Provider: Larisa Birmingham Consult Reason/Comments: syncope Do you want consulting provider notified?: Yes Primary care physician: [facility] Course: Discharge Diagnosis: Recurrent syncope History of atrial fibrillation Status post pacemaker placement History of Parkinson's disease Hypertension Hypothyroidism Anxiety/depression Hospital Course: 79-year-old male with history of COPD, Parkinson's disease, atrial fibrillation on Eliquis, hypertension, anxiety/depression presenting with multiple episodes of syncope. In the ED, temperature was 98.7, pulse 71, respiratory rate 20, blood pressure 141/82, saturating at 99% on room air. Laboratory workup showed unremarkable CBC, D-dimer 0.61, creatinine 1.02, glucose 86, troponin negative. Chest x-ray independently interpreted did not show any acute process, previous right pleural effusion, EKG independently interpreted showed normal sinus rhythm. Patient admitted for observation with cardiology consult. Device interrogated, no significant arrhythmia. Patient was orthostatic hypotensive, now resolved. Cardizem discontinued, clonidine discontinued, outpatient follow- up to decrease Seroquel. Patient seen and examined at bedside. Vital signs reviewed and stable. General: Nontoxic, no distress, appears at stated age Derm: Warm, dry Head: Atraumatic, normocephalic, symmetric Eyes: EOMI, no lid lag, anicteric sclera Mouth: No lip lesion, mucus membranes moist Cardiovascular: S1S2 reg, no murmur Lungs: CTA bilateral, no rhonchi, no rales, no accessory muscle use Abdominal: Soft, nontender to palpation, no guarding, no appreciable organomegaly Ext: No gross muscle atrophy, no edema, no contractures Neuro: CN II-XI grossly intact, no focal neuro deficits Psych: Alert, oriented, appropriate affect A total of 33 minutes of time were spent preparing this complex discharge summary. Patient was discharged on 10/03/2024 1525. Patient Condition at Discharge: Stable Plan - Discharge Summary New Discharge Prescriptions: New Metoprolol Tartrate [Lopressor] 25 mg PO BID #90 tab Continue Carbidopa-Levodopa 25-100 mg [Sinemet 25-100 mg] 2.5 tab PO TID@09,12,1700 Tiotropium 2.5 Mcg/Puff [Spiriva Respimat 2.5 Mcg] 2 puff INHALATION RT-BID DULoxetine HCL [Cymbalta] 30 mg PO DAILY Cholecalciferol [Vitamin D3 (25 Mcg = 1000 Iu)] 25 mcg PO DAILY EPINEPHrine (Auto Inject) [Epipen] 0.3 mg IM ONCE PRN PRN Reason: Anaphylaxis Levothyroxine Sodium [Synthroid] 150 mcg PO DAILY Apixaban [Eliquis] 5 mg PO BID #0 Albuterol Sulfate [Albuterol Sulfate Hfa] 2 puff INHALATION RT-QID PRN PRN Reason: Shortness Of Breath Nitroglycerin Sl Tabs [Nitrostat] 0.4 mg SUBLINGUAL Q5M PRN #10 tab PRN Reason: Chest Pain QUEtiapine FUMARATE [SEROquel] 150 mg PO HS polyethylene glycoL 3350 [Miralax] 17 gm PO BID Discontinued cloNIDine HCL [Catapres] 0.1 mg PO BID Cyclobenzaprine [Flexeril] 5 mg PO TID QUEtiapine [SEROquel] 25 mg PO QID PRN PRN Reason: Anxiety Diltiazem Cd [Cardizem CD] 120 mg PO DIRECTED Discharge Medication List Carbidopa-Levodopa 25-100 mg [Sinemet 25-100 mg] 2.5 tab PO TID@08/18/21 [History] Apixaban [Eliquis] 5 mg PO BID #0 08/20/21 [Rx] Albuterol Sulfate [Albuterol Sulfate Hfa] 2 puff INHALATION RT-QID PRN 07/23/22 [History] Nitroglycerin Sl Tabs [Nitrostat] 0.4 mg SUBLINGUAL Q5M PRN #10 tab 07/25/22 [Rx] Cholecalciferol [Vitamin D3 (25 Mcg = 1000 Iu)] 25 mcg PO DAILY 09/06/24 [History] DULoxetine HCL [Cymbalta] 30 mg PO DAILY 09/06/24 [History] EPINEPHrine (Auto Inject) [Epipen] 0.3 mg IM ONCE PRN 09/06/24 [History] Levothyroxine Sodium [Synthroid] 150 mcg PO DAILY 09/06/24 [History] QUEtiapine FUMARATE [SEROquel] 150 mg PO HS 09/06/24 [History] Tiotropium 2.5 Mcg/Puff [Spiriva Respimat 2.5 Mcg] 2 puff INHALATION RT-BID 09/06/24 [History] polyethylene glycoL 3350 [Miralax] 17 gm PO BID 09/06/24 [History] Metoprolol Tartrate [Lopressor] 25 mg PO BID #90 tab 10/03/24 [Rx] Follow up Appointment(s)/Referral(s): Orlando Stratton MD [STAFF PHYSICIAN] - 1 Week [facility] [Primary Care Provider] - 1-2 days Patient Instructions/Handouts: Syncope (DC) Activity/Diet/Wound Care/Special Instructions: Please see your PCP and cardiology. Discharge Disposition: HOME SELF-CARE
== END 2024-10-03 17:39 | disposition home or self-care (01) ==
LOC: EC 15:13 → 6NMEDSUR 17:10
PROVIDERS: ADMIT Internal Medicine; ATTEND Internal Medicine
DX: R55 Syncope and collapse (principal); I48.0 Paroxysmal atrial fibrillation; G20.A1 Parkinson's disease without dyskinesia, without mention of fluctuations; I10 Essential (primary) hypertension; E03.9 Hypothyroidism, unspecified; I25.10 Atherosclerotic heart disease of native coronary artery without angina pectoris; J44.9 Chronic obstructive pulmonary disease, unspecified; R00.2 Palpitations; F32.A Depression, unspecified; F41.9 Anxiety disorder, unspecified; F43.10 Post-traumatic stress disorder, unspecified; F17.200 Nicotine dependence, unspecified, uncomplicated; Z79.01 Long term (current) use of anticoagulants; Z79.899 Other long term (current) drug therapy; Z79.890 Hormone replacement therapy; Z91.030 Bee allergy status; Z95.0 Presence of cardiac pacemaker
CPT/HCPCS: 96376 ×4; 96361 ×4; 96374; 99291; 36415; 94640 ×2; 94760; 93005; 85379; 84439; 83880; 80053 ×2; 84443; 83690; 83735 ×2; 84100 ×2; 84484; 85025 ×2; 85610; 85730; 71046; G0378 ×3; J2270 ×3

== ENCOUNTER 2024-10-08 15:03 | Observation (INO) | payer OTHER ==
[2024-10-08 15:36] LABS: Glucose,Whole Blood 90 mg/dL (70-110)
[2024-10-08 16:37] LABS: Basophils # (A) 0.1 k/uL (0-0.2); Basophils % (A) 1 %; Eosinophils # (A) 0.4 k/uL (0-0.7); Eosinophils % (A) 4 %; HGB 14.1 gm/dL (13.0-17.5); Lymphocytes # (A) 2.1 k/uL (1.0-4.8); Lymphocytes % (A) 21 %; MCH 31.4 pg (25.0-35.0); MCHC 33.5 g/dL (31.0-37.0); MCV 93.6 fL (80.0-100.0); Mean Platelet Volume 7.9; Monocytes # (A) 0.5 k/uL (0-1.0); Monocytes % (A) 5 %; Neutrophils # (A) 6.8 k/uL (1.3-7.7); Neutrophils % (A) 68 %; Platelet Count 307 k/uL (150-450); RBC 4.48 m/uL (4.30-5.90); RDW 13.9 % (11.5-15.5); WBC 9.9 k/uL (3.8-10.6)
[2024-10-08 16:44] LABS: Prothrombin Time 10.7 sec (10.0-12.5)
[2024-10-08 16:49] LABS: ALT 23 U/L (4-49); AST 22 U/L (17-59); African American GFR (CKD) 78 (>60 ml/min/1.73 sqM); Albumin 4.8 g/dL (3.5-5.0); Alkaline Phosphatase 79 U/L (38-126); Anion Gap 7 mmol/L; Blood Urea Nitrogen 24 mg/dL (9-20); Calcium 9.5 mg/dL (8.4-10.2); Carbon Dioxide 23 mmol/L (22-30); Chloride 108 mmol/L (98-107); Glucose 82 mg/dL (74-99); Non-African American GFR(CKD) 68 (>60 ml/min/1.73 sqM); Sodium 138 mmol/L (137-145); Total Bilirubin 0.6 mg/dL (0.2-1.3); Total Protein 8.1 g/dL (6.3-8.2)
[2024-10-08] MEDS: HYDROmorphone 0.5 MG/0.5 ML SYRINGE IVP STA (17:38)
--- NOTE | 2024-10-08 17:52 | CT ---
EXAMINATION TYPE: CT brain jan wo con DATE OF EXAM: 10/08/2024 5:10 PM COMPARISON: None. CLINICAL INDICATION: Male, 79 years old with history of head injury, fell today/ neck pain TECHNIQUE: CT of the brain is performed utilizing 3 mm thick sections through the posterior fossa and 3 mm thick sections through the remaining calvarium. Study is performed within 24 hours of arrival to the hospital. Contrast used: mL of , (none if empty) CT DLP: 1386.2 mGycm, Automated exposure control for dose reduction was used. FINDINGS: No abnormal hyperdensity is present to suggest an acute intracranial hemorrhage. No mass lesion is evident. No acute infarcts are evident. Minimal periventricular white matter hypodensity is present, likely o n the basis of chronic white matter ischemic changes. Ventricles and sulci are appropriate for the patient age. Cholecystectomy is within the right maxillary sinus. There is an air-fluid level. Correlate for traum a versus acute sinusitis. No acute osseous abnormality is evident. Greater wings of sphenoid are norm al. Zygomatic arches are intact. Maxillary nowak appear intact. IMPRESSIONS: 1. No acute intracranial process. Follow-up MRI can be performed as clinically indicated. 2. Mild periventricular white matter ischemic-type changes CT cervical spine. COMPARISON: None TECHNIQUE: CT of the cervical spine is performed in the axial plane at 2 mm thick sections. Reconstr ucted images in the coronal, and sagittal plane are reviewed on the computer. FINDINGS: No acute fractures are evident. Vertebral body alignment is normal. There is an anterior cervical fusion C6-7. Diffuse narrowing of disc height is present Vertebral body heights are preserved. No spinal canal stenosis is evident. Vertebral joint hypertrophy is present with some mild foraminal narrowing IMPRESSION: 1. No acute osseous abnormality cervical spine. 2. Chronic degenerative changes [facility], , 10/08/2024 5:49 PM
--- NOTE | 2024-10-08 18:08 | ED ---
General Adult HPI - General Chief complaint: Fall Stated complaint: syncope Time Seen by Provider: 10/08/24 15:10 Source: patient, family, EMS Mode of arrival: EMS Limitations: no limitations - History of Present Illness Initial comments: 79-year-old male with past medical history of A-fib, Parkinson's who presents emergency department with syncopal episode. Patient was seen in the emergency department and evaluated for multiple syncopal episodes. Today was his follow- up in the cardiology office. He had his visit and was attempting to leave. On the way out the patient ended up having a syncopal episode witnessed by his ex- . He fell to the ground. He does not believe he hit his head but there is some report that he did. The patient does take Eliquis for A-fib. Patient admits to feeling lightheaded before it started. Denies any chest pain or difficulty breathing. EMS did find that his sugar was 60. He was administered glucose. Patient admits that he did not eat today. States he has not had much of an appetite. Denies any abdominal pain. No vomiting. No other alleviating, precipitating modifying factors - Related Data Home Medications Medication Instructions Recorded Confirmed Carbidopa-Levodopa 25-100 mg 2.5 tab PO TID@0900,1200,1700 08/18/21 10/14/24 [Sinemet 25-100 mg] Albuterol Sulfate [Albuterol 2 puff INHALATION RT-QID PRN 07/23/22 10/14/24 Sulfate Hfa] Cholecalciferol [Vitamin D3 (25 25 mcg PO DAILY 09/06/24 10/14/24 Mcg = 1000 Iu)] DULoxetine HCL [Cymbalta] 30 mg PO DAILY 09/06/24 10/14/24 EPINEPHrine (Auto Inject) [Epipen] 0.3 mg IM ONCE PRN 09/06/24 10/14/24 Levothyroxine Sodium [Synthroid] 150 mcg PO DAILY 09/06/24 10/14/24 QUEtiapine FUMARATE [SEROquel] 150 mg PO HS 09/06/24 10/14/24 Tiotropium 2.5 Mcg/Puff [Spiriva 2 puff INHALATION RT-BID 09/06/24 10/14/24 Respimat 2.5 Mcg] polyethylene glycoL 3350 [Miralax] 17 gm PO BID 09/06/24 10/14/24 Previous Rx's Medication Instructions Recorded Aspirin 81 mg PO DAILY #30 tab 10/15/24 Atorvastatin Calcium [Lipitor] 40 mg PO DAILY #30 tab 10/15/24 HYDROcodone/APAP 5-325MG [[place] 1 tab PO Q4HR PRN 3 Days #18 tab 10/15/24 5-325] HYDROcodone/APAP 5-325MG [[place] 1 tab PO Q4HR PRN 3 Days #18 tab 10/15/24 5-325] Midodrine [ProAmatine] 5 mg PO AC-TID PRN #90 tab 10/15/24 Allergies Allergy/AdvReac Type Severity Reaction Status Date / Time venom-honey bee Allergy Dyspnea Verified 10/08/24 19:22 [bee venom (honey bee)] Review of Systems ROS Statement: Those systems with pertinent positive or pertinent negative responses have been documented in the HPI. ROS Other: All systems not noted in ROS Statement are negative. Past Medical History Past Medical History: Atrial Fibrillation, GERD/Reflux, Osteoarthritis (OA), Pneumonia, Syncope, Thyroid Disorder Additional Past Medical History / Comment(s): PARKINSON, neck right side and numbness in right arm, neuropathy History of Any Multi-Drug Resistant Organisms: None Reported Past Surgical History: Back Surgery, Orthopedic Surgery, Pacemaker, Tonsi llectomy Additional Past Surgical History / Comment(s): lung drains-thoracentesis; foot surgery repair of tendon, left hip replaced; 5x back surgeries, laminectomy x2, 20 years ago cervical fusion, lumbar spine fusion. Past Anesthesia/Blood Transfusion Reactions: No Reported Reaction Type of Cardiac Device: Permanent Pacemaker Device Placement Date:: unk Past Psychological History: Anxiety, Depression, PTSD Smoking Status: Current every day smoker - Past Family History Mother Family Medical History: Cancer Additional Family Medical History / Comment(s): Ovarian General Exam Limitations: no limitations General appearance: alert, in no apparent distress Head exam: Present: atraumatic, normocephalic, normal inspection Eye exam: Present: normal appearance, PERRL, EOMI. Absent: scleral icterus, conjunctival injection, periorbital swelling ENT exam: Present: normal exam, mucous membranes moist Neck exam: Present: normal inspection. Absent: tenderness, meningismus, lymphadenopathy Respiratory exam: Present: normal lung sounds bilaterally. Absent: respiratory distress, wheezes, rales, rhonchi, stridor Cardiovascular Exam: Present: regular rate, normal rhythm, normal heart sounds. Absent: systolic murmur, diastolic murmur, rubs, gallop, clicks GI/Abdominal exam: Present: soft, normal bowel sounds. Absent: distended, tenderness, guarding, rebound, rigid Extremities exam: Present: normal inspection, full ROM, normal capillary refill. Absent: tenderness, pedal edema, joint swelling, calf tenderness Back exam: Present: normal inspection Neurological exam: Present: alert, oriented X3, CN II-XII intact Psychiatric exam: Present: normal affect, normal mood Skin exam: Present: warm, dry, intact, normal color. Absent: rash Course Vital Signs 10/08/24 10/08/24 10/08/24 15:07 16:33 17:37 Temperature 98.8 F 98.8 F 98.5 F Pulse Rate 66 62 66 Pulse Rate [ Sitting] Pulse Rate [ Standing] Pulse Rate [ Supine] Respiratory 16 16 20 Rate Blood Pressure 147/79 118/86 120/81 Blood Pressure [Right Arm] Blood Pressure [Standing] Blood Pressure [Supine] O2 Sat by Pulse 94 L 97 97 Oximetry 10/08/24 10/08/24 20:50 21:07 Temperature 97.8 F Pulse Rate 58 L Pulse Rate [ 61 Sitting] Pulse Rate [ 70 Standing] Pulse Rate [ 58 L Supine] Respiratory 16 18 Rate Blood Pressure 99/59 Blood Pressure 129/74 [Right Arm] Blood Pressure 104/63 [Standing] Blood Pressure 115/47 [Supine] O2 Sat by Pulse 99 95 Oximetry Medical Decision Making - Medical Decision Making Was pt. sent in by a medical professional or institution (, PA, GRAPE CUTTER, urgent care, hospital, or senior living...) When possible be specific @ -Patient sent in from cardiology office Did you speak to anyone other than the patient for history (EMS, parent, family, police, friend...)? What history was obtained from this source @ -Spoke with EMS and daughter for history Did you review nursing and triage notes (agree or disagree)? Why? @ -I reviewed and agree with nursing and triage notes Were old charts reviewed (outside hosp., previous admission, EMS record, old EKG, old radiological studies, urgent care reports/EKG's, senior living records)? Report findings @ -I reviewed patient's discharge summary from the [facility] Differential Diagnosis (chest pain, altered mental status, abdominal pain women, abdominal pain men, vaginal bleeding, weakness, fever, dyspnea, syncope, headache, dizziness, GI bleed, back pain, seizure, CVA, palpatations, mental health, musculoskeletal)? @ -Differential Syncope: Valvular disease, hypertrophic cardiomyopathy, pulmonary embolism, tamponade, tachycardia, bradycardia, KS, hypovolemia, hemorrhage, dissection, anemia, intracranial hemorrhage, seizure, hypoglycemia, carbon monoxide poisoning, this is not meant to be an all-inclusive list. EKG interpreted by me (3pts min.). @ -Yes and demonstrates sinus rhythm with a rate of 62. ID interval 176. QRS 100. QTc of 433. No acute ST segment elevation or depression X-rays interpreted by me (1pt min.). @ -None done CT interpreted by me (1pt min.). @ -Yes which demonstrates no acute process U/S interpreted by me (1pt. min.). @ -None done What testing was considered but not performed or refused? (CT, X-rays, U/S, labs)? Why? @ -None What meds were considered but not given or refused? Why? @ -None Did you discuss the management of the patient with other professionals (professionals i.e. , PA, GRAPE CUTTER, lab, RT, psych nurse, social media marketing manager, head of store operations, teacher, aviation tactical readiness officer, case monitor)? Give summary @ -Spoke with Dr. Maloney for admission Was smoking cessation discussed for >3mins.? @ -No Was critical care preformed (if so, how long)? @ -No Were there social determinants of health that impacted care today? How? (Homelessness, low income, unemployed, alcoholism, drug addiction, trans portation, low edu. Level, literacy, decrease access to med. care, residential, rehab)? @ -No Was there de-escalation of care discussed even if they declined (Discuss DNR or withdrawal of care, Hospice)? DNR status @ -No What co-morbidities impacted this encounter? (DM, HTN, Smoking, COPD, CAD, Cancer, CVA, ARF, Chemo, Hep., AIDS, mental health diagnosis, sleep apnea, morbid obesity)? @ -A-fib, Parkinson's Was patient admitted / discharged? Hospital course, mention meds given and route, prescriptions, significant lab abnormalities, going to OR and other pertinent info. @ -On arrival patient seen and evaluated in room 12. Thorough history and physical exam was performed. Patient placed on continuous pulse ox and cardiac monitoring. Twelve-lead EKG is obtained. Laboratory studies were conducted. Patient did go for CT of his head due to his fall. Results are discussed with the patient. Recommended admission for further observation on a monitoring analyst reports patient was agreeable. I spoke with Dr. Maloney for the admission. Cardiology was placed on consult Undiagnosed new problem with uncertain prognosis? @ -Yes Drug Therapy requiring intensive monitoring for toxicity (Heparin, Nitro, Insulin, Cardizem)? @ -No Were any procedures done? @ -No Diagnosis/symptom? @ -Recurrent syncope, blunt head trauma Acute, or Chronic, or Acute on Chronic? @ -Acute on chronic Uncomplicated (without systemic symptoms) or Complicated (systemic symptoms)? @ -Complicated Side effects of treatment? @ -No Exacerbation, Progression, or Severe Exacerbation? @ -No Poses a threat to life or bodily function? How? (Chest pain, [place], KS, pneumonia, PE, COPD, DKA, ARF, appy, cholecystitis, CVA, Diverticulitis, Homicidal, Suicidal, threat to staff... and all critical care pts) @ -No - Lab Data Result diagrams: 10/09/24 04:59 10/09/24 04:59 Lab Results 10/08/24 10/08/24 10/08/24 Range/Units 15:34 16:21 16:21 WBC 9.9 (3.8-10.6) k/uL RBC 4.48 (4.30-5.90) m/uL Hgb 14.1 (13.0-17.5) gm/dL Hct 42.0 (39.0-53.0) % MCV 93.6 (80.0-100.0) fL MCH 31.4 (25.0-35.0) pg MCHC 33.5 (31.0-37.0) g/dL RDW 13.9 (11.5-15.5) % Plt Count 307 (150-450) k/uL MPV 7.9 Neutrophils % 68 % Lymphocytes % 21 % Monocytes % 5 % Eosinophils % 4 % Basophils % 1 % Neutrophils # 6.8 (1.3-7.7) k/uL Lymphocytes # 2.1 (1.0-4.8) k/uL Monocytes # 0.5 (0-1.0) k/uL Eosinophils # 0.4 (0-0.7) k/uL Basophils # 0.1 (0-0.2) k/uL PT 10.7 (10.0-12.5) sec INR 1.0 (<1.2) APTT 26.0 (22.0-30.0) sec Sodium (137-145) mmol/L Potassium (3.5-5.1) mmol/L Chloride (98-107) mmol/L Carbon Dioxide (22-30) mmol/L Anion Gap mmol/L BUN (9-20) mg/dL Creatinine (0.66-1.25) mg/dL Est GFR (CKD-EPI)AfAm (>60 ml/min/1.73 sqM) Est GFR (CKD-EPI)NonAf (>60 ml/min/1.73 sqM) Glucose (74-99) mg/dL POC Glucose (mg/dL) 90 (70-110) mg/dL POC Glu Public Transportation Inspector ID Ayaka Malik Calcium (8.4-10.2) mg/dL Total Bilirubin (0.2-1.3) mg/dL AST (17-59) U/L ALT (4-49) U/L Alkaline Phosphatase (38-126) U/L Troponin I (0.000-0.034) ng/mL Total Protein (6.3-8.2) g/dL Albumin (3.5-5.0) g/dL 10/08/24 10/08/24 Range/Units 16:21 16:21 WBC (3.8-10.6) k/uL RBC (4.30-5.90) m/uL Hgb (13.0-17.5) gm/dL Hct (39.0-53.0) % MCV (80.0-100.0) fL MCH (25.0-35.0) pg MCHC (31.0-37.0) g/dL RDW (11.5-15.5) % Plt Count (150-450) k/uL MPV Neutrophils % % Lymphocytes % % Monocytes % % Eosinophils % % Basophils % % Neutrophils # (1.3-7.7) k/uL Lymphocytes # (1.0-4.8) k/uL Monocytes # (0-1.0) k/uL Eosinophils # (0-0.7) k/uL Basophils # (0-0.2) k/uL PT (10.0-12.5) sec INR (<1.2) APTT (22.0-30.0) sec Sodium 138 (137-145) mmol/L Potassium 5.0 (3.5-5.1) mmol/L Chloride 108 H (98-107) mmol/L Carbon Dioxide 23 (22-30) mmol/L Anion Gap 7 mmol/L BUN 24 H (9-20) mg/dL Creatinine 1.06 (0.66-1.25) mg/dL Est GFR (CKD-EPI)AfAm 78 (>60 ml/min/1.73 sqM) Est GFR (CKD-EPI)NonAf 68 (>60 ml/min/1.73 sqM) Glucose 82 (74-99) mg/dL POC Glucose (mg/dL) (70-110) mg/dL POC Glu Public Transportation Inspector ID Calcium 9.5 (8.4-10.2) mg/dL Total Bilirubin 0.6 (0.2-1.3) mg/dL AST 22 (17-59) U/L ALT 23 (4-49) U/L Alkaline Phosphatase 79 (38-126) U/L Troponin I <0.012 (0.000-0.034) ng/mL Total Protein 8.1 (6.3-8.2) g/dL Albumin 4.8 (3.5-5.0) g/dL Disposition Clinical Impression: Syncope, Fall Disposition: ADMITTED IP TO THIS [facility] Condition: Stable Is patient prescribed a controlled substance at d/c from ED?: No Time of Disposition: 19:51 Decision to Admit Reason: Admit from EC Decision Date: 10/08/24 Decision Time: 19:51
[2024-10-08] MEDS ORDERED: NALOXONE 0.4 MG/ML 1 ML VIAL IV PRN (19:51)
[2024-10-08] MEDS: polyethylene glycoL 3350 17 GM POWD.PACK PO SCH (21:52)
[2024-10-08] MEDS: APIXABAN 5 MG TAB PO SCH (21:52)
[2024-10-08] MEDS: QUEtiapine 50 MG TAB PO SCH (21:52)
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
[2024-10-08] MEDS ORDERED: ALBUTEROL HFA INHALER INHALATION PRN (23:11)
[2024-10-09] MEDS: MORPHINE SULFATE 4 MG/ML SYRINGE IVP PRN (00:48)
[2024-10-09] MEDS: PANTOPRAZOLE 40 MG TABLET PO SCH (05:45)
[2024-10-09] MEDS: LEVOTHYROXINE 75 MCG TAB PO SCH (05:45)
[2024-10-09] MEDS: IPRATROPIUM 0.5 MG/2.5 ML NEBU INHALATION SCH (07:40)
[2024-10-09] MEDS: DULoxetine HCL 30 MG CAPSULE.DR PO SCH (09:26)
[2024-10-09] MEDS: CARBIDOPA-LEVODOPA 25-100 MG 1 EACH TAB PO SCH (09:27)
[2024-10-09] MEDS: CHOLECALCIFEROL 25 MCG (1000 IU) TABLET PO SCH (09:29)
[2024-10-09 09:48] LABS: Calcium 8.8 mg/dL (8.7-10.3); Carbon Dioxide 21.5 mmol/L (21.6-31.8); Chloride 104 mmol/L (96-109); Glucose 112 mg/dL (70-110); Potassium 3.9 mmol/L (3.5-5.5); Sodium 135 mmol/L (135-145)
[2024-10-09 09:59] LABS: Basophils # (A) 0.09 X 10*3/uL (0.00-0.10); Eosinophils % (A) 5.5 %; HCT 41.3 % (39.6-50.0); HGB 13.9 g/dL (13.0-17.0); Lymphocytes # (A) 2.15 X 10*3/uL (0.90-5.00); Lymphocytes % (A) 23.7 %; MCH 31.5 pg (27.0-32.0); MCHC 33.7 g/dL (32.0-37.0); MCV 93.7 FL (80.0-97.0); Mean Platelet Volume 9.8 FL (9.5-12.2); Monocytes # (A) 0.71 X 10*3/uL (0.20-1.00); Monocytes % (A) 7.8 %; NRBC Per 100 WBC 0 X 10*3/uL (0.00-0.01); Neutrophils # (A) 5.59 X 10*3/uL (1.80-7.70); Neutrophils % (A) 61.7 %; Platelet Count 278 X 10*3/uL (140-440); RBC 4.41 X 10*6/uL (4.40-5.60); RDW 13.7 % (11.5-14.5); WBC 9.07 X 10*3/uL (4.50-10.00)
--- NOTE | 2024-10-09 13:58 | P.CRDCN ---
History of Present Illness Consult date: 10/09/24 Requesting physician: Marcos Maloney Reason for Consult (text): syncope Chief complaint: syncope History of present illness: This is a pleasant 79-year-old gentleman with a past medical history of paroxysmal atrial fibrillation, nonobstructive CAD, pacemaker, hypothyroidism, Parkinson's disease and hypertension. Over the last few months patient has had several hospital admissions with concerns of passing out. Most recently admitted on 10/01/2024 at that time it was questionable whether he had true syncope. Medications were adjusted and he followed up yesterday in the office with Dr. Ki Campuzano's nurse practitioner, and the device clinic. Upon leaving his visit the patient had an episode of falling while walking out of the office it is unclear whether he truly passed out I am unsure what the patient's blood pressure was at that time and his blood glucose was in the 60s. The patient is a poor historian and according to the H&P there was a discussion with the patient's ex- who has concerns that these episodes are possibly affected by the patient due to some legal troubles and needing to go to court soon as he began having these episodes shortly after receiving paperwork in the mail in regards to this. The patient denies any chest discomfort or prodromal symptoms prior to passing out he denies any dizziness or lightheadedness. He does verbalize having difficulties getting around at home due to his Parkinson's and is planning to move into an assisted living facility. EKG on admission showed sinus mechanism with nonspecific T wave abnormalities. Vital signs have been stable. Labs showed no significant abnormalities with troponins negative x 3. Past Medical History Past Medical History: Atrial Fibrillation, GERD/Reflux, Osteoarthritis (OA), Pneumonia, Syncope, Thyroid Disorder Additional Past Medical History / Comment(s): PARKINSON, neck right side and numbness in right arm, neuropathy History of Any Multi-Drug Resistant Organisms: None Reported Past Surgical History: Back Surgery, Orthopedic Surgery, Pacemaker, Tonsillectomy Additional Past Surgical History / Comment(s): lung drains-thoracentesis; foot surgery repair of tendon, left hip replaced; 5x back surgeries, laminectomy x2, 20 years ago cervical fusion, lumbar spine fusion. Past Anesthesia/Blood Transfusion Reactions: No Reported Reaction Type of Cardiac Device: Permanent Pacemaker Device Placement Date:: unk Past Psychological History: Anxiety, Depression, PTSD Smoking Status: Current every day smoker - Past Family History Mother Family Medical History: Cancer Additional Family Medical History / Comment(s): Ovarian Medications and Allergies Home Medications Medication Instructions Recorded Confirmed Type Carbidopa-Levodopa 25-100 mg 2.5 tab PO TID@09,12,1700 08/18/21 10/08/24 History [Sinemet 25-100 mg] Apixaban [Eliquis] 5 mg PO BID #0 08/20/21 10/08/24 Rx Albuterol Sulfate [Albuterol 2 puff INHALATION RT-QID PRN 07/23/22 10/08/24 History Sulfate Hfa] Nitroglycerin Sl Tabs [Nitrostat] 0.4 mg SUBLINGUAL Q5M PRN #10 tab 07/25/22 10/08/24 Rx Cholecalciferol [Vitamin D3 (25 25 mcg PO DAILY 09/06/24 10/08/24 History Mcg = 1000 Iu)] DULoxetine HCL [Cymbalta] 30 mg PO DAILY 09/06/24 10/08/24 History EPINEPHrine (Auto Inject) [Epipen] 0.3 mg IM ONCE PRN 09/06/24 10/08/24 History Levothyroxine Sodium [Synthroid] 150 mcg PO DAILY 09/06/24 10/08/24 History QUEtiapine FUMARATE [SEROquel] 150 mg PO HS 09/06/24 10/08/24 History Tiotropium 2.5 Mcg/Puff [Spiriva 2 puff INHALATION RT-BID 09/06/24 10/08/24 History Respimat 2.5 Mcg] polyethylene glycoL 3350 [Miralax] 17 gm PO BID 09/06/24 10/08/24 History Metoprolol Tartrate [Lopressor] 25 mg PO DIRECTED 10/08/24 10/08/24 History Allergies Allergy/AdvReac Type Severity Reaction Status Date / Time venom-honey bee Allergy Dyspnea Verified 10/08/24 19:22 [bee venom (honey bee)] Physical Exam Vitals: Vital Signs Temp Pulse Pulse Pulse Pulse Resp BP 10/09/24 11:33 72 10/09/24 11:21 72 10/09/24 08:04 80 10/09/24 07:41 76 10/09/24 07:00 98.2 F 58 L 14 10/09/24 02:00 98.3 F 64 16 10/08/24 21:07 58 L 18 99/59 10/08/24 20:50 97.8 F 61 70 58 L 16 10/08/24 17:37 98.5 F 66 20 120/81 10/08/24 16:33 98.8 F 62 16 118/86 10/08/24 15:07 98.8 F 66 16 147/79 BP BP BP BP Pulse Ox 10/09/24 11:33 10/09/24 11:21 10/09/24 08:04 10/09/24 07:41 10/09/24 07:00 139/77 99 10/09/24 02:00 131/74 91 L 10/08/24 21:07 95 10/08/24 20:50 129/74 104/63 115/47 99 10/08/24 17:37 97 10/08/24 16:33 97 10/08/24 15:07 94 L Intake and Output 10/08/24 10/09/24 10/09/24 22:59 06:59 14:59 Intake Total 480 0 Balance 480 0 Intake: Oral 480 0 Other: # Voids 1 3 Weight 79.379 kg PHYSICAL EXAMINATION: HEENT: Head is atraumatic, normocephalic. Pupils equal, round. Neck is supple. There is no elevated jugular venous pressure. HEART EXAMINATION: Heart sounds regular, S1 and S2 normal. Systolic murmur. CHEST EXAMINATION: Lungs are clear to auscultation and precussion. No chest wall tenderness is noted on palpation or with deep breathing. ABDOMEN: Soft, nontender. Bowel sounds are heard. No organomegaly noted. EXTREMITIES: 2+ peripheral pulses with no evidence of peripheral edema and no calf tenderness noted. NEUROLOGIC patient is awake, alert and oriented x3. . Results 10/09/24 04:59 10/09/24 04:59 Cardiac Enzymes 10/08/24 10/08/24 10/08/24 Range/Units 16:21 16:21 22:16 AST 22 (17-59) U/L Troponin I <0.012 <0.012 (0.000-0.034) ng/mL 10/09/24 Range/Units 01:28 AST (17-59) U/L Troponin I <0.012 (0.000-0.034) ng/mL Coagulation 10/08/24 Range/Units 16:21 PT 10.7 (10.0-12.5) sec APTT 26.0 (22.0-30.0) sec CBC 10/08/24 10/09/24 Range/Units 16:21 04:59 WBC 9.9 9.07 (3.8-10.6) k/uL RBC 4.48 4.41 (4.30-5.90) m/uL Hgb 14.1 13.9 (13.0-17.5) gm/dL Hct 42.0 41.3 (39.0-53.0) % Plt Count 307 278 (150-450) k/uL Comprehensive Metabolic Panel 10/08/24 10/09/24 Range/Units 16:21 04:59 Sodium 138 135 (137-145) mmol/L Potassium 5.0 3.9 (3.5-5.1) mmol/L Chloride 108 H 104 (98-107) mmol/L Carbon Dioxide 23 21.5 L (22-30) mmol/L BUN 24 H 22.0 (9-20) mg/dL Creatinine 1.06 1.0 (0.66-1.25) mg/dL Glucose 82 112 H (74-99) mg/dL Calcium 9.5 8.8 (8.4-10.2) mg/dL AST 22 (17-59) U/L ALT 23 (4-49) U/L Alkaline Phosphatase 79 (38-126) U/L Total Protein 8.1 (6.3-8.2) g/dL Albumin 4.8 (3.5-5.0) g/dL Current Medications Generic Name Dose Route Start Last Admin Trade Name Freq PRN Reason Stop Dose Admin Albuterol Sulfate 2 puff 10/08/24 23:11 Albuterol Hfa Inhaler INHALATION RT-QID PRN Shortness Of Breath Apixaban 5 mg 10/08/24 21:00 10/09/24 09:26 Apixaban 5 Mg Tab PO 5 mg BID CHIP Administration Protocol Carbidopa/Levodopa 2.5 each 10/09/24 09:00 10/09/24 11:06 Carbidopa-Levodopa 25-100 Mg 1 Each Tab PO 2.5 each TID@09,12,1700 CHIP Administration Cholecalciferol 25 mcg 10/09/24 09:00 10/09/24 09:29 Cholecalciferol 25 Mcg (1000 Iu) Tablet PO 25 mcg DAILY CHIP Administration Duloxetine HCl 30 mg 10/09/24 09:00 10/09/24 09:26 Duloxetine Hcl 30 Mg Capsule.Dr PO 30 mg DAILY CHIP Administration Ipratropium Ferguson 0.5 mg 10/09/24 08:00 10/09/24 11:21 Ipratropium 0.5 Mg/2.5 Ml Nebu INHALATION 0.5 mg RT-QID CHIP Administration Levothyroxine Sodium 150 mcg 10/09/24 06:30 10/09/24 05:45 Levothyroxine 75 Mcg Tab PO 150 mcg DAILY@0630 CHIP Administration Morphine Sulfate 4 mg 10/09/24 00:08 10/09/24 10:07 Morphine Sulfate 4 Mg/Ml Syringe IVP 4 mg Q4HR PRN Administration Pain Naloxone HCl 0.2 mg 10/08/24 19:51 Naloxone 0.4 Mg/Ml 1 Ml Vial IV Q2M PRN Opioid Reversal Pantoprazole Sodium 40 mg 10/09/24 07:30 10/09/24 05:45 Pantoprazole 40 Mg Tablet PO Not Given AC-BRKFST CHIP Polyethylene Glycol 17 gm 10/08/24 21:00 10/09/24 09:29 Polyethylene Glycol 3350 17 Gm Powd.Pack PO 17 gm BID CHIP Administration Quetiapine Fumarate 150 mg 10/08/24 21:00 10/08/24 21:52 Quetiapine 50 Mg Tab PO 150 mg HS CHIP Administration Intake and Output 10/08/24 10/09/24 10/09/24 22:59 06:59 14:59 Intake Total 480 0 Balance 480 0 Intake: Oral 480 0 Other: # Voids 1 3 Weight 79.379 kg 10/09/24 04:59 10/09/24 04:59 Assessment and Plan Assessment: #1 questionable syncope 2 paroxysmal atrial fibrillation, anticoagulated on Eliquis #3 history of permanent pacemaker implantation #4 mild nonobstructive CAD involving the mid LAD by heart cath from 2016 #5 Parkinson's Plan: From cardiology's perspective medications were reviewed and we will continue the same. Patient could be experiencing orthostasis due to underlying Parkinson's disease. No evidence of pacemaker malfunction as device interrogation yesterday in the office was normal. From our standpoint patient may be discharged home and follow-up in the office with Dr. Emerson. OPERATIONS RESEARCH GROUP MANAGER note has been reviewed, I agree with a documented findings and plan of care. Patient was seen and examined.
[2024-10-09 14:19] VITALS: BP 127/66; RESP 15; TEMP 98.4
[2024-10-09 15:16] VITALS: PULSE 64
--- NOTE | 2024-10-09 16:27 | P.DS ---
Providers Date of admission: 10/08/24 19:51 Expected date of discharge: 10/09/24 Attending physician: Marcos Maloney MD Consults: 10/08/24 19:51 Consult Physician Urgent Consulting Provider: [facility] Consult Reason/Comments: acute syncope Do you want consulting provider notified?: Yes Primary care physician: [facility] Hospital Course: #Recurrent syncope: possibly in the setting of arrhythmia versus Parkinson's disease vs possible potential underlying secondary gain #History of atrial fibrillation #Status post pacemaker placement #Orthostatic hypotension with history of Parkinson's disease #Hypertension: #Hypothyroidism #Anxiety/depression #COPD, not in exacerbation Gen: In NAD, non-toxic HEENT: normocephalic, atraumatic, hearing acuity is intant, mucous membranes moist CVS: perfusing all extremities well, no pitting edema, Respiratory: symmetric chest expansion, no accessory muscle use, GI: soft, NTTP, ND, : no suprapubic tenderness, no CVA tenderness MSK/Derm: no rashes, cyanosis Neuro: CN II-XII intact, no motor weakness, Psych: cooperative, euthymic mood, judgment and insight is intact Hospital course: 79-year-old male with COPD, Parkinson's disease, atrial fibrillation on Eliquis, hypertension, anxiety/depression, history of syncopal episodes, and hypothyroidism presents with syncopal episode. Imaging: -EKG done in the ER showed heart rate of 62 bpm, no ST segment elevation or depression seen, no T-wave inversions seen. Sinus rhythm, nonspecific T wave abnormality, and QTc 433 ms -ER CT Head: No acute intracranial process. Mild periventricular white matter ischemic type changes. Patient was admitted to medicine with cardiology consultation. Noted to be orthostatic. Assessment is that patient is likely orthostatic secondary to Parkinson's disease and will require ongoing outpatient follow-up with cardiology with no change of medical management further consultation. Patient is cleared for discharge home at baseline condition. Patient should follow-up with both cardiology as well as primary care physician. Please note, patient's pacemaker was reviewed in the office prior to his visit and had no evidence of malfunction or arrhythmic events. I spent 32 minutes coordinating this discharge Patient Condition at Discharge: Stable Plan - Discharge Summary Discharge Rx Participant: No New Discharge Prescriptions: Continue Carbidopa-Levodopa 25-100 mg [Sinemet 25-100 mg] 2.5 tab PO TID@09,12,1700 Tiotropium 2.5 Mcg/Puff [Spiriva Respimat 2.5 Mcg] 2 puff INHALATION RT-BID DULoxetine HCL [Cymbalta] 30 mg PO DAILY Cholecalciferol [Vitamin D3 (25 Mcg = 1000 Iu)] 25 mcg PO DAILY EPINEPHrine (Auto Inject) [Epipen] 0.3 mg IM ONCE PRN PRN Reason: Anaphylaxis Levothyroxine Sodium [Synthroid] 150 mcg PO DAILY Apixaban [Eliquis] 5 mg PO BID #0 Albuterol Sulfate [Albuterol Sulfate Hfa] 2 puff INHALATION RT-QID PRN PRN Reason: Shortness Of Breath QUEtiapine FUMARATE [SEROquel] 150 mg PO HS polyethylene glycoL 3350 [Miralax] 17 gm PO BID Discontinued Nitroglycerin Sl Tabs [Nitrostat] 0.4 mg SUBLINGUAL Q5M PRN #10 tab PRN Reason: Chest Pain Metoprolol Tartrate [Lopressor] 25 mg PO DIRECTED Discharge Medication List Carbidopa-Levodopa 25-100 mg [Sinemet 25-100 mg] 2.5 tab PO TID@09,12,1700 08/18/21 [History] Apixaban [Eliquis] 5 mg PO BID #0 08/20/21 [Rx] Albuterol Sulfate [Albuterol Sulfate Hfa] 2 puff INHALATION RT-QID PRN 07/23/22 [History] Cholecalciferol [Vitamin D3 (25 Mcg = 1000 Iu)] 25 mcg PO DAILY 09/06/24 [History] DULoxetine HCL [Cymbalta] 30 mg PO DAILY 09/06/24 [History] EPINEPHrine (Auto Inject) [Epipen] 0.3 mg IM ONCE PRN 09/06/24 [History] Levothyroxine Sodium [Synthroid] 150 mcg PO DAILY 09/06/24 [History] QUEtiapine FUMARATE [SEROquel] 150 mg PO HS 09/06/24 [History] Tiotropium 2.5 Mcg/Puff [Spiriva Respimat 2.5 Mcg] 2 puff INHALATION RT-BID 09/06/24 [History] polyethylene glycoL 3350 [Miralax] 17 gm PO BID 09/06/24 [History] Follow up Appointment(s)/Referral(s): [facility] [Primary Care Provider] - 1-2 days Discharge Disposition: HOME SELF-CARE
== END 2024-10-09 17:45 | disposition home or self-care (01) ==
LOC: EC 15:03 → 6NMEDSUR 19:51
PROVIDERS: ADMIT Internal Medicine; ATTEND Internal Medicine
DX: R55 Syncope and collapse (principal); J44.9 Chronic obstructive pulmonary disease, unspecified; I48.0 Paroxysmal atrial fibrillation; W19.XXXA Unspecified fall, initial encounter; G20.A1 Parkinson's disease without dyskinesia, without mention of fluctuations; E03.9 Hypothyroidism, unspecified; F17.200 Nicotine dependence, unspecified, uncomplicated; F32.A Depression, unspecified; F41.9 Anxiety disorder, unspecified; F43.10 Post-traumatic stress disorder, unspecified; I10 Essential (primary) hypertension; I25.10 Atherosclerotic heart disease of native coronary artery without angina pectoris; I95.1 Orthostatic hypotension; M19.90 Unspecified osteoarthritis, unspecified site; K21.9 Gastro-esophageal reflux disease without esophagitis; G62.9 Polyneuropathy, unspecified; Z79.01 Long term (current) use of anticoagulants; Z79.899 Other long term (current) drug therapy; Z79.890 Hormone replacement therapy; Z79.82 Long term (current) use of aspirin; Z95.0 Presence of cardiac pacemaker; Z98.1 Arthrodesis status; Z96.642 Presence of left artificial hip joint
CPT/HCPCS: 96376; 96375; 96374; 99285; 36415; 94640 ×2; 93005; 80053; 80048; 84484 ×2; 85025 ×2; 85610; 85730; 72125; 70450; G0378 ×2; J2270; J1171

== ENCOUNTER 2024-10-14 12:43 | Observation (INO) | payer OTHER ==
--- NOTE | 2024-10-14 13:13 | ED ---
General Adult HPI - General Chief complaint: Fall Stated complaint: chest pain Time Seen by Provider: 10/14/24 12:50 Source: patient, EMS, RN notes reviewed, old records reviewed Mode of arrival: EMS Limitations: no limitations - History of Present Illness Initial comments: This is a 79-year-old male who presents to the emergency department stating that he woke up this morning started having chest pain. Patient denied any difficulty breathing patient denied radiation of the pain. Patient states shortly thereafter he started to get lightheaded and passed out and ended up on the ground. Patient states he continues to have chest pain at this time. Patient states passing out has been occurring more more lately. Patient states he has been worked up in the past. Patient states he has a history of atrial fibrillation. Patient states he used to be a smoker but no longer smokes. - Related Data Home Medications Medication Instructions Recorded Confirmed Carbidopa-Levodopa 25-100 mg 2.5 tab PO TID@09,12,1700 08/18/21 10/08/24 [Sinemet 25-100 mg] Albuterol Sulfate [Albuterol 2 puff INHALATION RT-QID PRN 07/23/22 10/08/24 Sulfate Hfa] Cholecalciferol [Vitamin D3 (25 25 mcg PO DAILY 09/06/24 10/08/24 Mcg = 1000 Iu)] DULoxetine HCL [Cymbalta] 30 mg PO DAILY 09/06/24 10/08/24 EPINEPHrine (Auto Inject) [Epipen] 0.3 mg IM ONCE PRN 09/06/24 10/08/24 Levothyroxine Sodium [Synthroid] 150 mcg PO DAILY 09/06/24 10/08/24 QUEtiapine FUMARATE [SEROquel] 150 mg PO HS 09/06/24 10/08/24 Tiotropium 2.5 Mcg/Puff [Spiriva 2 puff INHALATION RT-BID 09/06/24 10/08/24 Respimat 2.5 Mcg] polyethylene glycoL 3350 [Miralax] 17 gm PO BID 09/06/24 10/08/24 Previous Rx's Medication Instructions Recorded Apixaban [Eliquis] 5 mg PO BID #0 08/20/21 Allergies Allergy/AdvReac Type Severity Reaction Status Date / Time venom-honey bee Allergy Dyspnea Verified 10/08/24 19:22 [bee venom (honey bee)] Review of Systems ROS Statement: Those systems with pertinent positive or pertinent negative responses have been documented in the HPI. ROS Other: All systems not noted in ROS Statement are negative. Past Medical History Past Medical History: Atrial Fibrillation, GERD/Reflux, Osteoarthritis (OA), Pneumonia, Syncope, Thyroid Disorder Additional Past Medical History / Comment(s): PARKINSON, neck right side and numbness in right arm, neuropathy History of Any Multi-Drug Resistant Organisms: None Reported Past Surgical History: Back Surgery, Orthopedic Surgery, Pacemaker, Tonsillectomy Additional Past Surgical History / Comment(s): lung drains-thoracentesis; foot surgery repair of tendon, left hip replaced; 5x back surgeries, laminectomy x2, 20 years ago cervical fusion, lumbar spine fusion. Past Anesthesia/Blood Transfusion Reactions: No Reported Reaction Type of Cardiac Device: Permanent Pacemaker Device Placement Date:: unk Past Psychological History: Anxiety, Depression, PTSD Smoking Status: Former smoker Past Alcohol Use History: Rare Past Drug Use History: None Reported - Past Family History Mother Family Medical History: Cancer Additional Family Medical History / Comment(s): Ovarian General Exam - General Exam Comments Initial Comments: GENERAL: Patient is well-developed and well-nourished. Patient is nontoxic and well- hydrated and is in mild distress. ENT: Neck is soft and supple. No significant lymphadenopathy is noted. Oropharynx is clear. Moist mucous membranes. Neck has full range of motion without eliciting any pain. EYES: The sclera were anicteric and conjunctiva were pink and moist. Extraocular movements were intact and pupils were equal round and reactive to light. Eyelids were unremarkable. PULMONARY: Unlabored respirations. Good breath sounds bilaterally. No audible rales rhonchi or wheezing was noted. CARDIOVASCULAR: There is a regular rate and rhythm without any murmurs gallops or rubs. ABDOMEN: Soft and nontender with normal bowel sounds. SKIN: Skin is clear with no lesions or rashes and otherwise unremarkable. NEUROLOGIC: Patient is alert and oriented x3. Cranial nerves II through XII are grossly intact. Motor and sensory are also intact. Normal speech, volume and content. Symmetrical smile. MUSCULOSKELETAL: Normal extremities with adequate strength and full range of motion. No lower extremity swelling or edema. No calf tenderness. LYMPHATICS: No significant lymphadenopathy is noted PSYCHIATRIC: Normal psychiatric evaluation. Limitations: no limitations Course Vital Signs 10/14/24 12:46 Temperature 97.6 F Pulse Rate 65 Respiratory 20 Rate Blood Pressure 154/76 O2 Sat by Pulse 100 Oximetry Medical Decision Making - Medical Decision Making EKG is interpreted by myself. EKG shows atrial fibrillation at 63 bpm QRS is 100 QT interval is 426 QTc is 433. EKG shows no ST segment elevation Was pt. sent in by a medical professional or institution (, YASMEEN, WINCHMAN/CRANE OPERATOR, urgent care, hospital, or residential...) When possible be specific @ -No Did you speak to anyone other than the patient for history (EMS, parent, family, police, friend...)? What history was obtained from this source @ -No Did you review nursing and triage notes (agree or disagree)? Why? @ -I reviewed and agree with nursing and triage notes Were old charts reviewed (outside hosp., previous admission, EMS record, old EKG, old radiological studies, urgent care reports/EKG's, residential records)? Report findings @ -No old charts were reviewed Differential Diagnosis? @ -Differential Chest Pain: Stable Angina, Unstable Angina, STEMI, NSTEMI Aortic Dissection, Pneumothorax, Musculoskeletal, Esophageal Spasm GERD, Cholecystitis, Pancreatitis, Zoster, this is not meant to be an all-inclusive list. EKG interpreted by me (3pts min.). @ -As above X-rays interpreted by me (1pt min.). @ -Chest x-ray shows no acute abnormality CT interpreted by me (1pt min.). @ -None done U/S interpreted by me (1pt. min.). @ -None done What testing was considered but not performed or refused? (CT, X-rays, U/S, labs)? Why? @ -None What meds were considered but not given or refused? Why? @ -None Did you discuss the management of the patient with other professionals (professionals i.e. , YASMEEN, WINCHMAN/CRANE OPERATOR, lab, RT, psych nurse, director social welfare, stone setter, teacher, banking services officer, case hardener)? Give summary @ -I spoke with Dr. Galarza he agreed to admit the patient admit the patient wrote admitting orders Was smoking cessation discussed for >3mins.? @ -No Was critical care preformed (if so, how long)? @ -No Were there social determinants of health that impacted care today? How? (Homelessness, low income, unemployed, alcoholism, drug addiction, transportation, low edu. Level, literacy, decrease access to med. care, long term, rehab)? @ -No Was there de-escalation of care discussed even if they declined (Discuss DNR or withdrawal of care, Hospice)? DNR status @ -No What co-morbidities impacted this encounter? (DM, HTN, Smoking, COPD, CAD, Cancer, CVA, ARF, Chemo, Hep., AIDS, mental health diagnosis, sleep apnea, morbid obesity)? @ -None Was patient admitted / discharged? Hospital course, mention meds given and route, prescriptions, significant lab abnormalities, going to OR and other pertinent info. @ -Patient will be admitted to Dr. Galarza. Cardiology will be consulted. Undiagnosed new problem with uncertain prognosis? @ -No Drug Therapy requiring intensive monitoring for toxicity (Heparin, Nitro, Insulin, Cardizem)? @ -No Were any procedures done? @ -No Diagnosis/symptom? @ -Chest pain Acute, or Chronic, or Acute on Chronic? @ -acute Uncomplicated (without systemic symptoms) or Complicated (systemic symptoms)? @ -Complicated Side effects of treatment? @ -No Exacerbation, Progression, or Severe Exacerbation? @ -No Poses a threat to life or bodily function? How? (Chest pain, [place], [place], pneumonia, PE, COPD, DKA, ARF, appy, cholecystitis, CVA, Diverticulitis, Homicidal, Suicidal, threat to staff... and all critical care pts) @ -Yes this could lead to an [place] and endorgan dysfunction Diagnosis/symptom? @ -Syncope Acute, or Chronic, or Acute on Chronic? @ -Acute Uncomplicated (without systemic symptoms) or Complicated (systemic symptoms)? @ -Complicated Side effects of treatment? @ -None Exacerbation, Progression, or Severe Exacerbation] @ -No Poses a threat to life or bodily function? @ -Yes patient is on Eliquis and this could lead to intracranial hemorrhage. - Lab Data Result diagrams: 10/14/24 12:56 10/14/24 12:56 Lab Results 10/14/24 10/14/24 10/14/24 Range/Units 12:56 12:56 12:56 WBC 9.1 (3.8-10.6) k/uL RBC 4.24 L (4.30-5.90) m/uL Hgb 13.5 (13.0-17.5) gm/dL Hct 40.6 (39.0-53.0) % MCV 95.7 (80.0-100.0) fL MCH 31.8 (25.0-35.0) pg MCHC 33.2 (31.0-37.0) g/dL RDW 13.3 (11.5-15.5) % Plt Count 241 (150-450) k/uL MPV 7.8 Neutrophils % 72 % Lymphocytes % 18 % Monocytes % 5 % Eosinophils % 4 % Basophils % 0 % Neutrophils # 6.5 (1.3-7.7) k/uL Lymphocytes # 1.6 (1.0-4.8) k/uL Monocytes # 0.4 (0-1.0) k/uL Eosinophils # 0.4 (0-0.7) k/uL Basophils # 0.0 (0-0.2) k/uL PT 10.3 (10.0-12.5) sec INR 0.9 (<1.2) APTT 24.1 (22.0-30.0) sec Sodium 137 (137-145) mmol/L Potassium 4.1 (3.5-5.1) mmol/L Chloride 111 H (98-107) mmol/L Carbon Dioxide 19 L (22-30) mmol/L Anion Gap 7 mmol/L BUN 21 H (9-20) mg/dL Creatinine 0.93 (0.66-1.25) mg/dL Est GFR (CKD-EPI)AfAm >90 (>60 ml/min/1.73 sqM) Est GFR (CKD-EPI)NonAf 79 (>60 ml/min/1.73 sqM) Glucose 96 (74-99) mg/dL Calcium 8.8 (8.4-10.2) mg/dL Magnesium 2.0 (1.6-2.3) mg/dL Total Bilirubin 0.7 (0.2-1.3) mg/dL AST 24 (17-59) U/L ALT 13 (4-49) U/L Alkaline Phosphatase 66 (38-126) U/L Troponin I (0.000-0.034) ng/mL NT-Pro-B Natriuret Pep 483 pg/mL Total Protein 7.0 (6.3-8.2) g/dL Albumin 4.1 (3.5-5.0) g/dL 10/14/24 Range/Units 12:56 WBC (3.8-10.6) k/uL RBC (4.30-5.90) m/uL Hgb (13.0-17.5) gm/dL Hct (39.0-53.0) % MCV (80.0-100.0) fL MCH (25.0-35.0) pg MCHC (31.0-37.0) g/dL RDW (11.5-15.5) % Plt Count (150-450) k/uL MPV Neutrophils % % Lymphocytes % % Monocytes % % Eosinophils % % Basophils % % Neutrophils # (1.3-7.7) k/uL Lymphocytes # (1.0-4.8) k/uL Monocytes # (0-1.0) k/uL Eosinophils # (0-0.7) k/uL Basophils # (0-0.2) k/uL PT (10.0-12.5) sec INR (<1.2) APTT (22.0-30.0) sec Sodium (137-145) mmol/L Potassium (3.5-5.1) mmol/L Chloride (98-107) mmol/L Carbon Dioxide (22-30) mmol/L Anion Gap mmol/L BUN (9-20) mg/dL Creatinine (0.66-1.25) mg/dL Est GFR (CKD-EPI)AfAm (>60 ml/min/1.73 sqM) Est GFR (CKD-EPI)NonAf (>60 ml/min/1.73 sqM) Glucose (74-99) mg/dL Calcium (8.4-10.2) mg/dL Magnesium (1.6-2.3) mg/dL Total Bilirubin (0.2-1.3) mg/dL AST (17-59) U/L ALT (4-49) U/L Alkaline Phosphatase (38-126) U/L Troponin I <0.012 (0.000-0.034) ng/mL NT-Pro-B Natriuret Pep pg/mL Total Protein (6.3-8.2) g/dL Albumin (3.5-5.0) g/dL Disposition Clinical Impression: Chest pain, Syncope and collapse Disposition: ADMITTED IP TO THIS HOSP [facility] - 1-2 days Time of Disposition: 14:33
[2024-10-14 13:21] LABS: Basophils % (A) 0 %; Eosinophils # (A) 0.4 k/uL (0-0.7); Eosinophils % (A) 4 %; HCT 40.6 % (39.0-53.0); HGB 13.5 gm/dL (13.0-17.5); Lymphocytes # (A) 1.6 k/uL (1.0-4.8); Lymphocytes % (A) 18 %; MCH 31.8 pg (25.0-35.0); MCHC 33.2 g/dL (31.0-37.0); MCV 95.7 fL (80.0-100.0); Mean Platelet Volume 7.8; Monocytes # (A) 0.4 k/uL (0-1.0); Monocytes % (A) 5 %; Neutrophils # (A) 6.5 k/uL (1.3-7.7); Neutrophils % (A) 72 %; Platelet Count 241 k/uL (150-450); RBC 4.24 m/uL (4.30-5.90); RDW 13.3 % (11.5-15.5); WBC 9.1 k/uL (3.8-10.6)
[2024-10-14] MEDS: ASPIRIN 81 MG PO STA (13:27)
[2024-10-14 13:28] LABS: ALT 13 U/L (4-49); African American GFR (CKD) >90 (>60 ml/min/1.73 sqM); Albumin 4.1 g/dL (3.5-5.0); Anion Gap 7 mmol/L; Blood Urea Nitrogen 21 mg/dL (9-20); Calcium 8.8 mg/dL (8.4-10.2); Carbon Dioxide 19 mmol/L (22-30); Chloride 111 mmol/L (98-107); Glucose 96 mg/dL (74-99); Non-African American GFR(CKD) 79 (>60 ml/min/1.73 sqM); Sodium 137 mmol/L (137-145); Total Bilirubin 0.7 mg/dL (0.2-1.3)
[2024-10-14 13:29] LABS: AST 24 U/L (17-59); Alkaline Phosphatase 66 U/L (38-126); Potassium 4.1 mmol/L (3.5-5.1)
[2024-10-14 13:36] LABS: NT-Pro-B-Type Natriuretic Pept 483 pg/mL
[2024-10-14] MEDS: NITROGLYCERIN OINT 1 INCH/GM PACKET TOPICAL STA (13:39)
--- NOTE | 2024-10-14 13:41 | XR ---
EXAMINATION TYPE: XR chest 2V DATE OF EXAM: 10/14/2024 1:35 PM COMPARISON: Chest radiographs from 10/01/2024 CLINICAL INDICATION: Male, 79 years old with history of Chest Pain; TECHNIQUE: XR chest 2V Frontal and lateral views of the chest. FINDINGS: Lungs/Pleura: Bibasilar atelectasis. No evidence for pneumothorax, pleural effusion or focal consolid ation. Pulmonary vascularity: Unremarkable. Heart/mediastinum: Cardiomediastinal silhouette is enlarged and stable. Two lead cardiac conduction d evice overlying the left hemithorax with lead tips projecting over the right ventricle and right atri um. Musculoskeletal: No acute osseous pathology. Other findings: None IMPRESSION: Low lung volumes with a generalized hazy appearance which could represent atelectasis versus pulmonar y edema correlate with serum BNP. [facility], , 10/14/2024 1:39 PM
[2024-10-14 13:55] LABS: INR 0.9 (<1.2); Partial Thromboplastin Time 24.1 sec (22.0-30.0); Prothrombin Time 10.3 sec (10.0-12.5)
[2024-10-14] MEDS: KETOROLAC 15 MG/ML 1 ML VIAL IVP STA (14:00)
[2024-10-14] MEDS ORDERED: NITROGLYCERIN SL TABS 0.4 MG TAB SUBLINGUAL PRN (14:38)
[2024-10-14] MEDS: NITROGLYCERIN OINT 1 INCH/GM PACKET TOPICAL SCH (17:56)
--- NOTE | 2024-10-14 18:22 | P.HPIM ---
History of Present Illness H&P Date: 10/14/24 79 year old M with PMH of Parkisons, COPD, AFib, pacemaker, HTN, Anxiety and depression presents to the ED for chest pain and syncopal episode. Patient is a poor historian. He reports a syncopal episode today without prodrome. He woke up on the floor. No witnesses. No tongue biting or bladder or bowel incontinence. He also reports chest pain that has been ongoing for years. He currently reports burning pain in his bilateral hands and feet. In the ED he underwent extensive evaluation. BP 154/76, HR 65, T 97.6F, RR 20, 100% on RA. CBC, Coag panel, CMP significant for RBC 4.24, Cl 111, bicarb 19, BUN 21. Mag 2. Trop < 0.012 x 2. BNP 483. EKG AFib. CXR low lung volume. General: non toxic, no distress, appears at stated age Derm: warm, dry Head: atraumatic, normocephalic, symmetric, R neck swollen, TTP with cervical LAD Eyes: EOMI, no lid lag, anicteric sclera Mouth: no lip lesion, mucus membranes moist Cardiovascular: S1S2 reg, no murmur Lungs: CTA bilateral, no rhonchi, no rales , no accessory muscle use Abdominal: soft, nontender to palpation, no guarding, no appreciable organomegaly Ext: no gross muscle atrophy, no edema, no contractures Neuro: no focal neuro deficits Psych: Alert, oriented, appropriate affect Based on my assessment of this patient, this patient meets a high complexity level of care. Chest pain: Trend Trop/EKG to rule out ACS. Telemetry monitoring. 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 Orthostats neg. Rule out ACS. Recent Echo 55-60%. Cardiology consult. Interrogate pacemaker. Parkisons: Sinemet 25-100 2.5 tab PO TID. COPD not in acute exacerbation AFib: Eliquis 5 mg PO BID. Anxiety and depression: Seroquel 150 mg PO QHS. Cymbalta 30 mg PO QD. CODE STATUS: FULL CODE DVT Prophylaxis: Eliquis. GI Prophylaxis: Designated medical POA if patient is not able to make medical decisions for themselves: I have reviewed the following performance test consultant notes: ED note. I have reviewed the results of the following tests: As above I have ordered the following tests: As above I have discussed the care of this patient with the following independent historian: EKG. I have independently interpreted the following test below: I have discussed the management of this patient with the following physician: Past Medical History Past Medical History: Atrial Fibrillation, GERD/Reflux, Osteoarthritis (OA), Pneumonia, Syncope, Thyroid Disorder Additional Past Medical History / Comment(s): PARKINSON, neck right side and numbness in right arm, neuropathy History of Any Multi-Drug Resistant Organisms: None Reported Past Surgical History: Back Surgery, Orthopedic Surgery, Pacemaker, Tonsillectomy Additional Past Surgical History / Comment(s): lung drains-thoracentesis; foot surgery repair of tendon, left hip replaced; 5x back surgeries, laminectomy x2, 20 years ago cervical fusion, lumbar spine fusion. Past Anesthesia/Blood Transfusion Reactions: No Reported Reaction Type of Cardiac Device: Permanent Pacemaker Device Placement Date:: unk Past Psychological History: Anxiety, Depression, PTSD Smoking Status: Former smoker Past Alcohol Use History: Rare Past Drug Use History: None Reported - Past Family History Mother Family Medical History: Cancer Additional Family Medical History / Comment(s): Ovarian Medications and Allergies Home Medications Medication Instructions Recorded Confirmed Type Carbidopa-Levodopa 25-100 mg 2.5 tab PO TID@0900,1200,1700 08/18/21 10/14/24 History [Sinemet 25-100 mg] Apixaban [Eliquis] 5 mg PO BID #0 08/20/21 10/14/24 Rx Albuterol Sulfate [Albuterol 2 puff INHALATION RT-QID PRN 07/23/22 10/14/24 History Sulfate Hfa] Cholecalciferol [Vitamin D3 (25 25 mcg PO DAILY 09/06/24 10/14/24 History Mcg = 1000 Iu)] DULoxetine HCL [Cymbalta] 30 mg PO DAILY 09/06/24 10/14/24 History EPINEPHrine (Auto Inject) [Epipen] 0.3 mg IM ONCE PRN 09/06/24 10/14/24 History Levothyroxine Sodium [Synthroid] 150 mcg PO DAILY 09/06/24 10/14/24 History QUEtiapine FUMARATE [SEROquel] 150 mg PO HS 09/06/24 10/14/24 History Tiotropium 2.5 Mcg/Puff [Spiriva 2 puff INHALATION RT-BID 09/06/24 10/14/24 History Respimat 2.5 Mcg] polyethylene glycoL 3350 [Miralax] 17 gm PO BID 09/06/24 10/14/24 History Allergies Allergy/AdvReac Type Severity Reaction Status Date / Time venom-honey bee Allergy Dyspnea Verified 10/08/24 19:22 [bee venom (honey bee)] Physical Exam Vitals: Vital Signs Temp Pulse Resp BP BP BP BP 10/14/24 16:00 61 20 141/94 10/14/24 15:19 61 16 124/58 10/14/24 14:51 99/66 97/50 102/57 10/14/24 12:46 97.6 F 65 20 154/76 Pulse Ox 10/14/24 16:00 10/14/24 15:19 96 10/14/24 14:51 10/14/24 12:46 100 Intake and Output 10/14/24 10/14/24 10/14/24 06:59 14:59 22:59 Other: Weight 80.739 kg Results CBC & Chem 7: 10/14/24 12:56 10/14/24 12:56 Labs: Abnormal Lab Results - Last 24 Hours (Table) 10/14/24 10/14/24 Range/Units 12:56 12:56 RBC 4.24 L (4.30-5.90) m/uL Chloride 111 H (98-107) mmol/L Carbon Dioxide 19 L (22-30) mmol/L BUN 21 H (9-20) mg/dL
[2024-10-14] MEDS: MORPHINE SULFATE 4 MG/ML SYRINGE IVP STA (18:43)
[2024-10-14 20:54] VITALS: RESP 16
[2024-10-14] MEDS: APIXABAN 5 MG TAB PO SCH (21:15)
[2024-10-14] MEDS: NICOTINE 21MG/24HR PATCH TRANSDERM SCH (23:07)
[2024-10-14] MEDS: MORPHINE SULFATE 2 MG/ML SYRINGE IVP PRN (23:20)
[2024-10-15] MEDS: QUEtiapine 50 MG TAB PO SCH (02:58)
[2024-10-15] MEDS: LEVOTHYROXINE 75 MCG TAB PO SCH (06:41)
[2024-10-15] MEDS: ASPIRIN 325 MG TAB PO SCH (08:03)
[2024-10-15] MEDS: CARBIDOPA-LEVODOPA 25-100 MG 1 EACH TAB PO SCH (08:03)
[2024-10-15] MEDS: DULoxetine HCL 30 MG CAPSULE.DR PO SCH (08:03)
[2024-10-15 10:45] LABS: Chol/HDL Ratio 3.68 Ratio; LDL Cholesterol,Calculated 83.2 mg/dL (0.0-131.0)
[2024-10-15] MEDS: MIDODRINE 5 MG TAB PO SCH (12:05)
--- NOTE | 2024-10-15 13:42 | P.CRDCN ---
History of Present Illness Consult date: 10/15/24 Reason for Consult (text): Chest pain, syncope History of present illness: This is a 79-year-old male patient of Dr. Emerson with past medical history of paroxysmal atrial fibrillation on Eliquis, nonobstructive coronary artery disease, pacemaker, hypothyroidism, Parkinson's disease, neuropathy, hypertension, remote history of tobacco use. We have been asked to evaluate the patient for chest pain. Patient has had 2 recent hospitalization for syncope. We have been asked on this hospitalization to evaluate the patient for chest pain and syncope. As a matter fact, patient was seen in the office on 10/08 and had a fall and possible syncope in the waiting room when he was checking out and was then transferred by EMS to the emergency center. Patient c/o passing out at home in his living room. He does not recall dizziness. He states he has had syncopal episodes for years. He has stopped driving because of the syncope. Blood pressure 123/69, heart rate in the 50s and 60s, pulse ox 97% on room air. -EKG: Atrial fibrillation 63 bpm -Chest x-ray: Low lung volumes with generalized hazy appearance which could represent atelectasis versus pulmonary edema. -Laboratory studies: WBC 9.1, hemoglobin 13.5. Sodium 137, potassium 4.1, CO2 19, BUN 21 creatinine 0.93. Troponins negative x 3. proBNP 483. Liver function test are normal. Magnesium 2.0. -Home cardiac medications: Eliquis 5 mg twice daily, also on levothyroxine -Cardiac catheterization in 01/2016 revealed mild nonobstructive coronary artery disease involving the mid LAD -Echocardiogram from 09/06/2024 revealed EF 55 to 60%, mild tricuspid regurgitation. -Dual-chamber pacemaker, [employer] inmplanted 10/09/2021 Review Of Systems: At the time of my exam: CONSTITUTIONAL: Denies fever or chills. HEENT: Denies blurred vision, vision changes, or eye pain. Denies hemoptysis CARDIOVASCULAR: Denies chest pain. Denies orthopnea. Denies PND. Denies palpitations RESPIRATORY: Denies shortness of breath. GASTROINTESTINAL: Denies abdominal pain. Denies nausea or vomiting. HEMATOLOGIC: Denies bleeding disorders. GENITOURINARY: Denies any blood in urine. SKIN: Denies puritis. Denies rash. Physical examination: Gen: This is a frail-appearing 79-year-old male in no acute distress] VS: reviewed HEENT: Head is atraumatic, normocephalic. Pupils equal, round. Sclerae is anicteric. NECK: Supple. No JVD. LUNGS: Clear to auscultation. No wheezes or rhonchi. No intercostal retractions. HEART: Regular rate and rhythm. No murmur. ABDOMEN: Soft No tenderness. EXTREMITIES: No pedal edema. No calf tenderness. NEUROLOGICAL: Patient is awake, alert and oriented x3. Assessment: Atypical chest pain, acute coronary syndrome ruled out Syncopal episodes Paroxysmal atrial fibrillation Pacemaker implantation Nonobstructive coronary artery disease Hypertension Hypothyroidism Parkinson's disease Remote history of tobacco use Plan: Resume patient's home cardiac medications except discontinue Eliquis due to falls Obtain event monitor 14 days to evaluate arrhythmia, under sensing of pacemaker Patient is cleared for discharge and may follow-up with Dr. Emerson in 3 weeks Thank you kindly for this consultation. Nurse practitioner note has been reviewed, I agree with documented findings and plan of care. Patient was seen and examined. Past Medical History Past Medical History: Atrial Fibrillation, GERD/Reflux, Osteoarthritis (OA), Pneumonia, Syncope, Thyroid Disorder Additional Past Medical History / Comment(s): PARKINSON, neck right side and numbness in right arm, neuropathy History of Any Multi-Drug Resistant Organisms: None Reported Past Surgical History: Back Surgery, Orthopedic Surgery, Pacemaker, Tonsillectomy Additional Past Surgical History / Comment(s): lung drains-thoracentesis; foot surgery repair of tendon, left hip replaced; 5x back surgeries, laminectomy x2, 20 years ago cervical fusion, lumbar spine fusion. Past Anesthesia/Blood Transfusion Reactions: No Reported Reaction Type of Cardiac Device: Permanent Pacemaker Device Placement Date:: unk Past Psychological History: Anxiety, Depression, PTSD Additional Psychological History / Comment(s): high anxiety and PTSD Smoking Status: Current every day smoker, Former smoker Past Alcohol Use History: Rare Additional Past Alcohol Use History / Comment(s): three cigars per day Past Drug Use History: None Reported - Past Family History Mother Family Medical History: Cancer Additional Family Medical History / Comment(s): Ovarian Medications and Allergies Home Medications Medication Instructions Recorded Confirmed Type Carbidopa-Levodopa 25-100 mg 2.5 tab PO TID@0900,1200,1700 08/18/21 10/14/24 History [Sinemet 25-100 mg] Apixaban [Eliquis] 5 mg PO BID #0 08/20/21 10/14/24 Rx Albuterol Sulfate [Albuterol 2 puff INHALATION RT-QID PRN 07/23/22 10/14/24 History Sulfate Hfa] Cholecalciferol [Vitamin D3 (25 25 mcg PO DAILY 09/06/24 10/14/24 History Mcg = 1000 Iu)] DULoxetine HCL [Cymbalta] 30 mg PO DAILY 09/06/24 10/14/24 History EPINEPHrine (Auto Inject) [Epipen] 0.3 mg IM ONCE PRN 09/06/24 10/14/24 History Levothyroxine Sodium [Synthroid] 150 mcg PO DAILY 09/06/24 10/14/24 History QUEtiapine FUMARATE [SEROquel] 150 mg PO HS 09/06/24 10/14/24 History Tiotropium 2.5 Mcg/Puff [Spiriva 2 puff INHALATION RT-BID 09/06/24 10/14/24 History Respimat 2.5 Mcg] polyethylene glycoL 3350 [Miralax] 17 gm PO BID 09/06/24 10/14/24 History Allergies Allergy/AdvReac Type Severity Reaction Status Date / Time venom-honey bee Allergy Dyspnea Verified 10/08/24 19:22 [bee venom (honey bee)] Physical Exam Vitals: Vital Signs Temp Pulse Pulse Resp BP BP BP 10/15/24 03:32 97.9 F 63 16 123/69 10/15/24 02:00 55 L 10/14/24 23:25 97.7 F 55 L 16 103/56 97/55 10/14/24 20:52 97.4 F L 64 16 10/14/24 20:27 97.7 F 60 17 10/14/24 19:28 98.0 F 60 19 128/83 10/14/24 18:11 58 L 18 156/79 10/14/24 16:00 61 20 141/94 10/14/24 15:19 61 16 124/58 10/14/24 14:51 99/66 10/14/24 12:46 97.6 F 65 20 154/76 BP BP Pulse Ox 10/15/24 03:32 97 10/15/24 02:00 10/14/24 23:25 98 10/14/24 20:52 107/64 10/14/24 20:27 98 10/14/24 19:28 98 10/14/24 18:11 99 10/14/24 16:00 10/14/24 15:19 96 10/14/24 14:51 97/50 102/57 10/14/24 12:46 100 Intake and Output 10/14/24 10/15/24 10/15/24 22:59 06:59 14:59 Intake Total 240 Output Total 100 201 Balance 140 -201 Intake: Oral 240 Output: Urine 100 200 Stool 1 Other: Weight 80.739 kg 79.5 kg Results 10/14/24 12:56 10/14/24 12:56 Cardiac Enzymes 10/14/24 10/14/24 10/14/24 Range/Units 12:56 12:56 15:40 AST 24 (17-59) U/L Troponin I <0.012 <0.012 (0.000-0.034) ng/mL 10/14/24 Range/Units 19:19 AST (17-59) U/L Troponin I <0.012 (0.000-0.034) ng/mL Coagulation 10/14/24 Range/Units 12:56 PT 10.3 (10.0-12.5) sec APTT 24.1 (22.0-30.0) sec CBC 10/14/24 Range/Units 12:56 WBC 9.1 (3.8-10.6) k/uL RBC 4.24 L (4.30-5.90) m/uL Hgb 13.5 (13.0-17.5) gm/dL Hct 40.6 (39.0-53.0) % Plt Count 241 (150-450) k/uL Comprehensive Metabolic Panel 10/14/24 Range/Units 12:56 Sodium 137 (137-145) mmol/L Potassium 4.1 (3.5-5.1) mmol/L Chloride 111 H (98-107) mmol/L Carbon Dioxide 19 L (22-30) mmol/L BUN 21 H (9-20) mg/dL Creatinine 0.93 (0.66-1.25) mg/dL Glucose 96 (74-99) mg/dL Calcium 8.8 (8.4-10.2) mg/dL AST 24 (17-59) U/L ALT 13 (4-49) U/L Alkaline Phosphatase 66 (38-126) U/L Total Protein 7.0 (6.3-8.2) g/dL Albumin 4.1 (3.5-5.0) g/dL Current Medications Generic Name Dose Route Start Last Admin Trade Name Freq PRN Reason Stop Dose Admin Apixaban 5 mg 10/14/24 21:00 10/14/24 21:15 Apixaban 5 Mg Tab PO 5 mg BID CHIP Administration Protocol Aspirin 325 mg 10/15/24 09:00 Aspirin 325 Mg Tab PO DAILY [facility] Carbidopa/Levodopa 2.5 each 10/15/24 09:00 Carbidopa-Levodopa 25-100 Mg 1 Each Tab PO TID@0900,1200,1700 [facility] Duloxetine HCl 30 mg 10/15/24 09:00 Duloxetine Hcl 30 Mg Capsule.Dr PO DAILY [facility] Levothyroxine Sodium 150 mcg 10/15/24 06:30 10/15/24 06:41 Levothyroxine 75 Mcg Tab PO 150 mcg 0630 CHIP Administration Morphine Sulfate 2 mg 10/14/24 18:18 10/15/24 03:29 Morphine Sulfate 2 Mg/Ml Syringe IVP 2 mg Q4HR PRN Administration Pain/Discomfort Nicotine 1 patch 10/14/24 20:45 10/14/24 23:19 Nicotine 21mg/24hr Patch TRANSDERM Not Given DAILY CHIP Nitroglycerin 0.4 mg 10/14/24 14:38 Nitroglycerin Sl Tabs 0.4 Mg Tab SUBLINGUAL Q5M PRN Chest Pain Nitroglycerin 1 inch 10/14/24 18:00 10/15/24 06:41 Nitroglycerin Oint 1 Inch/Gm Packet TOPICAL Not Given Q6HR [facility] Quetiapine Fumarate 150 mg 10/14/24 21:00 10/15/24 02:58 Quetiapine 50 Mg Tab PO Not Given HS CHIP Intake and Output 10/14/24 10/15/24 10/15/24 22:59 06:59 14:59 Intake Total 240 Output Total 100 201 Balance 140 -201 Intake: Oral 240 Output: Urine 100 200 Stool 1 Other: Weight 80.739 kg 79.5 kg 10/14/24 12:56 10/14/24 12:56
--- NOTE | 2024-10-15 14:13 | P.DS ---
Providers Date of admission: 10/14/24 14:40 Expected date of discharge: 10/15/24 Attending physician: Deonte Galarza Consults: 10/14/24 14:38 Consult Physician Urgent Consulting Provider: [facility] Consult Reason/Comments: Chest pain, syncope Do you want consulting provider notified?: Yes Primary care physician: [facility] Course: 79 year old M with PMH of Parkisons, COPD, AFib, pacemaker, HTN, Anxiety and depression presents to the ED for chest pain and syncopal episode. Patient is a poor historian. He reports a syncopal episode today without prodrome. He woke up on the floor. No witnesses. No tongue biting or bladder or bowel incontinence. He also reports chest pain that has been ongoing for years. He currently reports burning pain in his bilateral hands and feet. In the ED he underwent extensive evaluation. BP 154/76, HR 65, T 97.6F, RR 20, 100% on RA. CBC, Coag panel, CMP significant for RBC 4.24, Cl 111, bicarb 19, BUN 21. Mag 2. Trop < 0.012 x 2. BNP 483. EKG AFib. CXR low lung volume. 10/15 Patient was seen and examined. Reports intermittent chest pain and neuropathic pain in his hand and feet. Troponins trended and ACS ruled out. Pacemaker interrogated with no events per RN. Discharge Plans: Cardiology recommends 14 day event monitor and outpatient follow up. Prescribed Midodrine 5 mg PO TID with parameters to hold for systolic BP > 120. Discontinue Eliquis. Start ASA 81 mg PO QD and Lipitor 40 mg PO QD. Follow up with PCP within 1-2 days of discharge. [place] PRN for pain. General: non toxic, no distress, appears at stated age Derm: warm, dry Head: atraumatic, normocephalic, symmetric Eyes: EOMI, no lid lag, anicteric sclera Mouth: no lip lesion, mucus membranes moist Cardiovascular: S1S2 reg, no murmur Lungs: CTA bilateral, no rhonchi, no rales , no accessory muscle use Ext: no gross muscle atrophy, no edema, no contractures Neuro: no focal neuro deficits Psych: Alert, oriented, appropriate affect Discharge Diagnosis: Chest pain Syncope Parkisons COPD not in acute exacerbation AFib Anxiety and depression This complex discharge took 35 minutes to complete. Patient Condition at Discharge: Stable Plan - Discharge Summary New Discharge Prescriptions: New Aspirin 81 mg PO DAILY #30 tab Atorvastatin Calcium [Lipitor] 40 mg PO DAILY #30 tab Midodrine [ProAmatine] 5 mg PO AC-TID PRN #90 tab PRN Reason: Hypotension HYDROcodone/APAP 5-325MG [[place] 5-325] 1 tab PO Q4HR PRN 3 Days #18 tab PRN Reason: Breakthrough Pain Continue Carbidopa-Levodopa 25-100 mg [Sinemet 25-100 mg] 2.5 tab PO TID@0900,1200,1700 Tiotropium 2.5 Mcg/Puff [Spiriva Respimat 2.5 Mcg] 2 puff INHALATION RT-BID DULoxetine HCL [Cymbalta] 30 mg PO DAILY Cholecalciferol [Vitamin D3 (25 Mcg = 1000 Iu)] 25 mcg PO DAILY EPINEPHrine (Auto Inject) [Epipen] 0.3 mg IM ONCE PRN PRN Reason: Anaphylaxis Levothyroxine Sodium [Synthroid] 150 mcg PO DAILY Albuterol Sulfate [Albuterol Sulfate Hfa] 2 puff INHALATION RT-QID PRN PRN Reason: Shortness Of Breath QUEtiapine FUMARATE [SEROquel] 150 mg PO HS polyethylene glycoL 3350 [Miralax] 17 gm PO BID Discontinued Apixaban [Eliquis] 5 mg PO BID #0 Discharge Medication List Carbidopa-Levodopa 25-100 mg [Sinemet 25-100 mg] 2.5 tab PO TID@0900,1200,1700 08/18/21 [History] Albuterol Sulfate [Albuterol Sulfate Hfa] 2 puff INHALATION RT-QID PRN 07/23/22 [History] Cholecalciferol [Vitamin D3 (25 Mcg = 1000 Iu)] 25 mcg PO DAILY 09/06/24 [History] DULoxetine HCL [Cymbalta] 30 mg PO DAILY 09/06/24 [History] EPINEPHrine (Auto Inject) [Epipen] 0.3 mg IM ONCE PRN 09/06/24 [History] Levothyroxine Sodium [Synthroid] 150 mcg PO DAILY 09/06/24 [History] QUEtiapine FUMARATE [SEROquel] 150 mg PO HS 09/06/24 [History] Tiotropium 2.5 Mcg/Puff [Spiriva Respimat 2.5 Mcg] 2 puff INHALATION RT-BID 09/06/24 [History] polyethylene glycoL 3350 [Miralax] 17 gm PO BID 09/06/24 [History] Aspirin 81 mg PO DAILY #30 tab 10/15/24 [Rx] Atorvastatin Calcium [Lipitor] 40 mg PO DAILY #30 tab 10/15/24 [Rx] HYDROcodone/APAP 5-325MG [[place] 5-325] 1 tab PO Q4HR PRN 3 Days #18 tab 10/15/24 [Rx] Midodrine [ProAmatine] 5 mg PO AC-TID PRN #90 tab 10/15/24 [Rx] Follow up Appointment(s)/Referral(s): Wilian Emerson DO [STAFF PHYSICIAN] - 11/10/24 4:00 pm (Appoinment on OCTOBER 26 has been CANCELLED. New appointment Friday @ 4:00pm.) [facility] [Primary Care Provider] - 1-2 days (Please call to follow up with your primary doctor.) Patient Instructions/Handouts: Syncope (DC) Discharge Disposition: HOME SELF-CARE
[2024-10-15 15:44] VITALS: BP 138/77; PULSE 64; TEMP 98.1
== END 2024-10-15 18:18 | disposition home or self-care (01) ==
LOC: EC 12:43 → 3SCARD 14:40
PROVIDERS: ADMIT Student in an Organized Health Care Education/Training Program; ATTEND Student in an Organized Health Care Education/Training Program
DX: R07.89 Other chest pain (principal); R55 Syncope and collapse; I48.0 Paroxysmal atrial fibrillation; I25.10 Atherosclerotic heart disease of native coronary artery without angina pectoris; I10 Essential (primary) hypertension; J44.9 Chronic obstructive pulmonary disease, unspecified; E03.9 Hypothyroidism, unspecified; G20.A1 Parkinson's disease without dyskinesia, without mention of fluctuations; G62.9 Polyneuropathy, unspecified; I07.1 Rheumatic tricuspid insufficiency; F41.9 Anxiety disorder, unspecified; F32.A Depression, unspecified; Z79.890 Hormone replacement therapy; Z79.899 Other long term (current) drug therapy; Z79.01 Long term (current) use of anticoagulants; Z91.030 Bee allergy status; Z91.81 History of falling; Z95.0 Presence of cardiac pacemaker; Z87.891 Personal history of nicotine dependence
CPT/HCPCS: 96376 ×2; 96374; 99285; 36415; 94760; 93005; 93270; 83880; 80061; 80053; 83735; 84484; 85025; 85610; 85730; 71046; G0378 ×2; J2270 ×3

== ENCOUNTER 2024-11-02 12:54 | Emergency (ER) | payer OTHER ==
[2024-11-02 13:15] VITALS: BP 152/78; PULSE 59; RESP 16; TEMP 97.9
--- NOTE | 2024-11-02 14:10 | XR ---
EXAMINATION TYPE: XR Hip RT and AP Pelvis DATE OF EXAM: 11/02/2024 2:05 PM INDICATION: Patient age:Male; 79 years old; Reason for study: fall, pain; PHH. COMPARISON: None. TECHNIQUE: The right hip was examined in the frontal and lateral projections and a AP pelvis. FINDINGS: Postsurgical changes from bilateral total hip arthroplasty. Additional postsurgical changes lumbosacral fusion. Hardware appears intact and appropriately aligned. Degenerative changes of bilat eral SI joints.No evidence of any acute osseous pathology, joint dislocation, or soft tissue swelling . IMPRESSION: 1. No acute osseous pathology. 2. Postsurgical changes of the bilateral hips and lumbosacral spine. Hardware appears intact. [facility], , 11/02/2024 2:08 PM
--- NOTE | 2024-11-02 14:12 | XR ---
EXAMINATION TYPE: XR chest 2V DATE OF EXAM: 11/02/2024 2:05 PM COMPARISON: Chest radiographs from 10/14/2024, CTA chest 09/07/2024 TECHNIQUE: XR chest 2V Frontal and lateral views of the chest. CLINICAL INDICATION:Male, 79 years old with history of Cough/pain; FINDINGS: Lungs/Pleura: There is no evidence of focal consolidation, or pneumothorax. Trace right pleural effu abner with associated atelectasis is redemonstrated. Pulmonary vascularity: Unremarkable. Heart/mediastinum: Cardiomediastinal silhouette is stable. Two lead cardiac conduction device overlyi ng the left hemithorax with lead tips projecting over the right ventricle and right atrium. Musculoskeletal: Multiple level degenerative disc disease changes seen throughout the spine. No acute osseous abnormality. IMPRESSION: Trace right pleural effusion with associated atelectasis is redemonstrated. [facility], , 11/02/2024 2:10 PM
[2024-11-02] MEDS: MORPHINE SULFATE 4 MG/ML SYRINGE IVP STA (15:16)
--- NOTE | 2024-11-02 15:38 | CT ---
EXAMINATION TYPE: CT hip RT wo con DATE OF EXAM: 11/02/2024 3:29 PM COMPARISON: 11/02/2024. CLINICAL INDICATION: Male, 79 years old with history of leg pain, cant ambulate, RT leg pain, cant am ublate TECHNIQUE: Axial images were obtained of the CT hip RT wo con, Additional coronal and sagittal reform atted images and soft tissue and bone window were obtained for review. 3-D reconstruction was created on a separate workstation. Contrast used: mL of , (None if empty) Oral contrast used: (None if empty) CT DLP: 598.8 mGycm, Automated exposure control for dose reduction was used. FINDINGS: Right hip arthroplasty. Hardware appears intact. No evidence for loosening or fracture. The re is no evidence of fracture, subluxation, or dislocation. No significant soft tissue swelling or j oint effusion is identified. No focal muscular atrophy or edema is identified. No radiopaque foreign body identified. Degeneration changes of the pubic symphysis. Post surgical changes to the lower spine with hardware intact. Atherosclerosis of the arterial vascul ature IMPRESSION: Right hip arthroplasty with hardware intact. No evidence for periprosthetic fracture. [facility], Workstation: [facility], 11/02/2024 3:36 PM
[2024-11-02 15:41] LABS: Basophils % (A) 0 %; Eosinophils # (A) 0.3 k/uL (0-0.7); Eosinophils % (A) 4 %; HCT 39.4 % (39.0-53.0); HGB 13.4 gm/dL (13.0-17.5); Lymphocytes % (A) 23 %; MCH 32.7 pg (25.0-35.0); MCHC 33.9 g/dL (31.0-37.0); MCV 96.4 fL (80.0-100.0); Monocytes # (A) 0.5 k/uL (0-1.0); Monocytes % (A) 6 %; Neutrophils # (A) 5.6 k/uL (1.3-7.7); Neutrophils % (A) 66 %; Platelet Count 247 k/uL (150-450); RBC 4.09 m/uL (4.30-5.90); RDW 13.7 % (11.5-15.5); WBC 8.5 k/uL (3.8-10.6)
--- NOTE | 2024-11-02 16:00 | ED ---
Fall HPI - General Chief Complaint: Fall Stated Complaint: Fall, hip injury Time Seen by Provider: 11/02/24 13:05 Source: patient, EMS Mode of arrival: EMS - History of Present Illness Initial Comments: 79-year-old male who presents emergency department for hip pain. Patient was at home when he had a syncopal episode. Patient has had multiple syncopal episodes in the past several months. He has been hospitalized multiple times for the same thing. Today he passed out and fell hitting his right hip. EMS was called as he was having difficulty ambulating. EMS did provide him with 8 of morphine. 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 He did not hit his head or lose consciousness today. He denies any chest pain or difficulty breathing. No abdominal pain. No other alleviating, precipitating or modifying factors - Related Data Home Medications Medication Instructions Recorded Confirmed Carbidopa-Levodopa 25-100 mg 2.5 tab PO TID@0900,1200,1700 08/18/21 10/14/24 [Sinemet 25-100 mg] Albuterol Sulfate [Albuterol 2 puff INHALATION RT-QID PRN 07/23/22 10/14/24 Sulfate Hfa] Cholecalciferol [Vitamin D3 (25 25 mcg PO DAILY 09/06/24 10/14/24 Mcg = 1000 Iu)] DULoxetine HCL [Cymbalta] 30 mg PO DAILY 09/06/24 10/14/24 EPINEPHrine (Auto Inject) [Epipen] 0.3 mg IM ONCE PRN 09/06/24 10/14/24 Levothyroxine Sodium [Synthroid] 150 mcg PO DAILY 09/06/24 10/14/24 QUEtiapine FUMARATE [SEROquel] 150 mg PO HS 09/06/24 10/14/24 Tiotropium 2.5 Mcg/Puff [Spiriva 2 puff INHALATION RT-BID 09/06/24 10/14/24 Respimat 2.5 Mcg] polyethylene glycoL 3350 [Miralax] 17 gm PO BID 09/06/24 10/14/24 Previous Rx's Medication Instructions Recorded Aspirin 81 mg PO DAILY #30 tab 10/15/24 Atorvastatin Calcium [Lipitor] 40 mg PO DAILY #30 tab 10/15/24 HYDROcodone/APAP 5-325MG [[place] 1 tab PO Q4HR PRN 3 Days #18 tab 10/15/24 5-325] HYDROcodone/APAP 5-325MG [[place] 1 tab PO Q4HR PRN 3 Days #18 tab 10/15/24 5-325] Midodrine [ProAmatine] 5 mg PO AC-TID PRN #90 tab 10/15/24 HYDROcodone/APAP 5-325MG [[place] 1 tab PO Q4HR PRN 3 Days #18 tab 11/02/24 5-325] Allergies Allergy/AdvReac Type Severity Reaction Status Date / Time venom-honey bee Allergy Dyspnea Verified 10/08/24 19:22 [bee venom (honey bee)] Review of Systems ROS Statement: Those systems with pertinent positive or pertinent negative responses have been documented in the HPI. ROS Other: All systems not noted in ROS Statement are negative. Past Medical History Past Medical History: Atrial Fibrillation, GERD/Reflux, Osteoarthritis (OA), Pneumonia, Syncope, Thyroid Disorder Additional Past Medical History / Comment(s): PARKINSON, neck right side and numbness in right arm, neuropathy History of Any Multi-Drug Resistant Organisms: None Reported Past Surgical History: Back Surgery, Orthopedic Surgery, Pacemaker, Tonsillectomy Additional Past Surgical History / Comment(s): lung drains-thoracentesis; foot surgery repair of tendon, left hip replaced; 5x back surgeries, laminectomy x2, 20 years ago cervical fusion, lumbar spine fusion. Past Anesthesia/Blood Transfusion Reactions: No Reported Reaction Type of Cardiac Device: Permanent Pacemaker Device Placement Date:: unk Past Psychological History: Anxiety, Depression, PTSD Smoking Status: Current every day smoker, Former smoker Past Alcohol Use History: Rare Past Drug Use History: None Reported - Past Family History Mother Family Medical History: Cancer Additional Family Medical History / Comment(s): Ovarian General Exam Limitations: no limitations General appearance: alert, in no apparent distress Head exam: Present: atraumatic, normocephalic, normal inspection Eye exam: Present: normal appearance, PERRL, EOMI. Absent: scleral icterus, conjunctival injection, periorbital swelling ENT exam: Present: normal exam, mucous membranes moist Neck exam: Present: normal inspection. Absent: tenderness, meningismus, lymphadenopathy Respiratory exam: Present: normal lung sounds bilaterally. Absent: respiratory distress, wheezes, rales, rhonchi, stridor Cardiovascular Exam: Present: regular rate, normal rhythm, normal heart sounds. Absent: systolic murmur, diastolic murmur, rubs, gallop, clicks GI/Abdominal exam: Present: soft, normal bowel sounds. Absent: distended, tenderness, guarding, rebound, rigid Extremities exam: Present: tenderness (To palpation of the right hip and inguinal region), normal capillary refill. Absent: pedal edema, joint swelling, calf tenderness Back exam: Present: normal inspection Neurological exam: Present: alert, oriented X3, CN II-XII intact Psychiatric exam: Present: normal affect, normal mood Skin exam: Present: warm, dry, intact, normal color. Absent: rash Course Vital Signs 11/02/24 13:01 Temperature 97.9 F Pulse Rate 59 L Respiratory 16 Rate Blood Pressure 152/78 O2 Sat by Pulse 98 Oximetry Medical Decision Making - Medical Decision Making Was pt. sent in by a medical professional or institution (YASMEEN Fernandez, TELEMETRY MONITOR, urgent care, hospital, or shelter...) When possible be specific @ -No Did you speak to anyone other than the patient for history (EMS, parent, family, police, friend...)? What history was obtained from this source @ -Spoke with EMS for history Did you review nursing and triage notes (agree or disagree)? Why? @ -I reviewed and agree with nursing and triage notes Were old charts reviewed (outside hosp., previous admission, EMS record, old EKG, old radiological studies, urgent care reports/EKG's, shelter records)? Report findings @ -I reviewed the event monitor from yesterday Differential Diagnosis (chest pain, altered mental status, abdominal pain women, abdominal pain men, vaginal bleeding, weakness, fever, dyspnea, syncope, headache, dizziness, GI bleed, back pain, seizure, CVA, palpatations, mental health, musculoskeletal)? @ -Differential Syncope: Valvular disease, hypertrophic cardiomyopathy, pulmonary embolism, tamponade, tachycardia, bradycardia, MN, hypovolemia, hemorrhage, dissection, anemia, intracranial hemorrhage, seizure, hypoglycemia, carbon monoxide poisoning, this is not meant to be an all-inclusive list. EKG interpreted by me (3pts min.). @ -Yes and demonstrates sinus bradycardia with a rate of 52. CA interval 177. QRS 102. QTc of 470. No acute ST segment elevations or depressions X-rays interpreted by me (1pt min.). @ -Yes and demonstrates no acute fracture CT interpreted by me (1pt min.). @ -Yes and demonstrates no acute fracture U/S interpreted by me (1pt. min.). @ -None done What testing was considered but not performed or refused? (CT, X-rays, U/S, labs)? Why? @ -None What meds were considered but not given or refused? Why? @ -None Did you discuss the management of the patient with other professionals (professionals i.e. , PA, TELEMETRY MONITOR, lab, RT, psych nurse, social services technician, group exercise instructor, teacher, protection officer, telephonic nurse case manager)? Give summary @ -No Was smoking cessation discussed for >3mins.? @ -No Was critical care preformed (if so, how long)? @ -No Were there social determinants of health that impacted care today? How? (Homelessness, low income, unemployed, alcoholism, drug addiction, transportation, low edu. Level, literacy, decrease access to med. care, half-way, rehab)? @ -No Was there de-escalation of care discussed even if they declined (Discuss DNR or withdrawal of care, Hospice)? DNR status @ -No What co-morbidities impacted this encounter? (DM, HTN, Smoking, COPD, CAD, Cancer, CVA, ARF, Chemo, Hep., AIDS, mental health diagnosis, sleep apnea, morbid obesity)? @ -Syncope Was patient admitted / discharged? Hospital course, mention meds given and route, prescriptions, significant lab abnormalities, going to OR and other pertinent info. @ -Upon arrival patient seen and evaluated in hallway 10. Thorough history and physical exam was performed. Patient was sent for hip x-ray which demonstrates no acute fracture. He is sent back for hip CT as he is continuing to report pain. Hip CT is negative. We are able to get up and ambulate the patient. R esults are discussed with him. At this time he is stable for discharge home. Must follow-up with cardiology for these syncopal episodes and return for any new or worsening symptoms Undiagnosed new problem with uncertain prognosis? @ -No Drug Therapy requiring intensive monitoring for toxicity (Heparin, Nitro, Insulin, Cardizem)? @ -No Were any procedures done? @ -No Diagnosis/symptom? @ -Recurrent syncope, right hip pain Acute, or Chronic, or Acute on Chronic? @ -Acute Uncomplicated (without systemic symptoms) or Complicated (systemic symptoms)? @ -Complicated Side effects of treatment? @ -No Exacerbation, Progression, or Severe Exacerbation? @ -No Poses a threat to life or bodily function? How? (Chest pain, USA, MN, pneumonia, PE, COPD, DKA, ARF, appy, cholecystitis, CVA, Diverticulitis, Homicidal, Suicidal, threat to staff... and all critical care pts) @ -No - Lab Data Result diagrams: 11/02/24 15:12 11/02/24 15:12 Lab Results 11/02/24 11/02/24 Range/Units 15:12 15:12 WBC 8.5 (3.8-10.6) k/uL RBC 4.09 L (4.30-5.90) m/uL Hgb 13.4 (13.0-17.5) gm/dL Hct 39.4 (39.0-53.0) % MCV 96.4 (80.0-100.0) fL MCH 32.7 (25.0-35.0) pg MCHC 33.9 (31.0-37.0) g/dL RDW 13.7 (11.5-15.5) % Plt Count 247 (150-450) k/uL MPV 7.0 Neutrophils % 66 % Lymphocytes % 23 % Monocytes % 6 % Eosinophils % 4 % Basophils % 0 % Neutrophils # 5.6 (1.3-7.7) k/uL Lymphocytes # 2.0 (1.0-4.8) k/uL Monocytes # 0.5 (0-1.0) k/uL Eosinophils # 0.3 (0-0.7) k/uL Basophils # 0.0 (0-0.2) k/uL Sodium 138 (137-145) mmol/L Potassium 4.9 (3.5-5.1) mmol/L Chloride 105 (98-107) mmol/L Carbon Dioxide 30 (22-30) mmol/L Anion Gap 3 mmol/L BUN 21 H (9-20) mg/dL Creatinine 0.97 (0.66-1.25) mg/dL Est GFR (CKD-EPI)AfAm 87 (>60 ml/min/1.73 sqM) Est GFR (CKD-EPI)NonAf 76 (>60 ml/min/1.73 sqM) Glucose 96 (74-99) mg/dL Calcium 8.8 (8.4-10.2) mg/dL Total Bilirubin 0.3 (0.2-1.3) mg/dL AST 22 (17-59) U/L ALT 20 (4-49) U/L Alkaline Phosphatase 75 (38-126) U/L Total Protein 6.7 (6.3-8.2) g/dL Albumin 4.0 (3.5-5.0) g/dL Disposition Clinical Impression: Fall, Syncope, Right hip pain Disposition: HOME SELF-CARE Condition: Stable Instructions (If sedation given, give patient instructions): Fall Prevention for Older Adults (ED) Additional Instructions: Please take the medications as instructed. Follow-up with your primary care doctor and return for any new or worsening symptoms Prescriptions: HYDROcodone/APAP 5-325MG [[place] 5-325] 1 tab PO Q4HR PRN 3 Days #18 tab PRN Reason: Severe Breakthrough Pain Is patient prescribed a controlled substance at d/c from ED?: Yes When asked, does pt state using other controlled substances?: No If prescribed controlled substance>3 days was MAPS reviewed?: Prescribed <3 Days If opioid is for acute pain is fill amount 7 days or less?: Yes Referrals: [facility],Clinic [Primary Care Provider] - 1-2 days Time of Disposition: 16:00
[2024-11-02 16:03] LABS: ALT 20 U/L (4-49); AST 22 U/L (17-59); African American GFR (CKD) 87 (>60 ml/min/1.73 sqM); Alkaline Phosphatase 75 U/L (38-126); Anion Gap 3 mmol/L; Blood Urea Nitrogen 21 mg/dL (9-20); Calcium 8.8 mg/dL (8.4-10.2); Carbon Dioxide 30 mmol/L (22-30); Chloride 105 mmol/L (98-107); Glucose 96 mg/dL (74-99); Non-African American GFR(CKD) 76 (>60 ml/min/1.73 sqM); Potassium 4.9 mmol/L (3.5-5.1); Sodium 138 mmol/L (137-145); Total Bilirubin 0.3 mg/dL (0.2-1.3); Total Protein 6.7 g/dL (6.3-8.2)
== END 2024-11-02 17:17 | disposition home or self-care (01) ==
LOC: SUPCPDRO 12:54 → EC 12:54
DX: M25.551 Pain in right hip (principal); R55 Syncope and collapse; F17.200 Nicotine dependence, unspecified, uncomplicated; Z91.030 Bee allergy status; Z95.0 Presence of cardiac pacemaker; W18.09XA Striking against other object with subsequent fall, initial encounter
CPT/HCPCS: 36415; 93005; 80053; 85025; 73502; 71046; 73700; 99284; 96374; J2270

== ENCOUNTER 2024-12-10 23:46 | Emergency (ER) | payer OTHER ==
[2024-12-10 23:53] VITALS: TEMP 98
--- NOTE | 2024-12-11 00:02 | ED ---
Chest Pain HPI - General Chief Complaint: Chest Pain Stated Complaint: Chest Pain Time Seen by Provider: 12/11/24 00:00 Source: patient Mode of arrival: EMS Limitations: no limitations - History of Present Illness MD Complaint: chest pain, other (Palpitation's) Onset/Timin -: hour(s) Onset: during rest Pain Location: substernal, left chest Pain Radiation: none Severity: moderate Quality: tightness Consistency: constant Improves With: nothing Worsens With: nothing Other Symptoms: palpitations - Related Data Home Medications Medication Instructions Recorded Confirmed Carbidopa-Levodopa 25-100 mg 2.5 tab PO TID@0900,1200,1700 08/18/21 10/14/24 [Sinemet 25-100 mg] Albuterol Sulfate [Albuterol 2 puff INHALATION RT-QID PRN 07/23/22 10/14/24 Sulfate Hfa] Cholecalciferol [Vitamin D3 (25 25 mcg PO DAILY 09/06/24 10/14/24 Mcg = 1000 Iu)] DULoxetine HCL [Cymbalta] 30 mg PO DAILY 09/06/24 10/14/24 EPINEPHrine (Auto Inject) [Epipen] 0.3 mg IM ONCE PRN 09/06/24 10/14/24 Levothyroxine Sodium [Synthroid] 150 mcg PO DAILY 09/06/24 10/14/24 QUEtiapine FUMARATE [SEROquel] 150 mg PO HS 09/06/24 10/14/24 Tiotropium 2.5 Mcg/Puff [Spiriva 2 puff INHALATION RT-BID 09/06/24 10/14/24 Respimat 2.5 Mcg] polyethylene glycoL 3350 [Miralax] 17 gm PO BID 09/06/24 10/14/24 Previous Rx's Medication Instructions Recorded Aspirin 81 mg PO DAILY #30 tab 10/15/24 Atorvastatin Calcium [Lipitor] 40 mg PO DAILY #30 tab 10/15/24 HYDROcodone/APAP 5-325MG [[place] 1 tab PO Q4HR PRN 3 Days #18 tab 10/15/24 5-325] HYDROcodone/APAP 5-325MG [[place] 1 tab PO Q4HR PRN 3 Days #18 tab 10/15/24 5-325] Midodrine [ProAmatine] 5 mg PO AC-TID PRN #90 tab 10/15/24 HYDROcodone/APAP 5-325MG [[place] 1 tab PO Q4HR PRN 3 Days #18 tab 11/02/24 5-325] Allergies Allergy/AdvReac Type Severity Reaction Status Date / Time venom-honey bee Allergy Dyspnea Verified 12/10/24 23:53 [bee venom (honey bee)] Review of Systems ROS Statement: Those systems with pertinent positive or pertinent negative responses have been documented in the HPI. ROS Other: All systems not noted in ROS Statement are negative. Constitutional: Denies: fever, chills, weakness Respiratory: Reports: dyspnea. Denies: cough, hemoptysis Cardiovascular: Reports: chest pain, palpitations Gastrointestinal: Denies: abdominal pain, vomiting, diarrhea Genitourinary: Denies: dysuria, hematuria Musculoskeletal: Denies: back pain Skin: Denies: rash Neurological: Denies: headache, weakness EKG Findings - EKG Results: EKG: interpreted by ERMD, normal axis EKG shows: atrial fibrillation (Rate 155 bpm) - Blocks, [place], Hypertrophy, ST Abn: Repolarization changes or abnormalities: ST or T wave suggestive of ischemia Past Medical History Past Medical History: Atrial Fibrillation, GERD/Reflux, Osteoarthritis (OA), Pneumonia, Syncope, Thyroid Disorder Additional Past Medical History / Comment(s): PARKINSON, neck right side and numbness in right arm, neuropathy History of Any Multi-Drug Resistant Organisms: None Reported Past Surgical History: Back Surgery, Orthopedic Surgery, Pacemaker, Tonsillectomy Additional Past Surgical History / Comment(s): lung drains-thoracentesis; foot surgery repair of tendon, left hip replaced; 5x back surgeries, laminectomy x2, 20 years ago cervical fusion, lumbar spine fusion. Past Anesthesia/Blood Transfusion Reactions: No Reported Reaction Type of Cardiac Device: Permanent Pacemaker Device Placement Date:: unk Past Psychological History: Anxiety, Depression, PTSD Smoking Status: Current every day smoker, Former smoker Past Alcohol Use History: Rare Past Drug Use History: None Reported - Past Family History Mother Family Medical History: Cancer Additional Family Medical History / Comment(s): Ovarian General Exam Limitations: no limitations General appearance: alert, in no apparent distress Head exam: Present: atraumatic, normocephalic Eye exam: Present: normal appearance. Absent: scleral icterus, conjunctival injection Neck exam: Present: normal inspection Respiratory exam: Present: normal lung sounds bilaterally. Absent: respiratory distress, wheezes, rales, rhonchi, stridor, accessory muscle use Cardiovascular Exam: Present: regular rate, normal rhythm, normal heart sounds. Absent: systolic murmur, diastolic murmur, rubs, gallop GI/Abdominal exam: Present: soft. Absent: distended, tenderness, guarding, rebound, rigid, mass Extremities exam: Present: normal inspection, normal capillary refill. Absent: pedal edema, calf tenderness Back exam: Present: normal inspection. Absent: CVA tenderness (R), CVA tenderness (L) Neurological exam: Present: alert Skin exam: Present: warm, dry, intact, normal color. Absent: rash Course Vital Signs 12/10/24 12/11/24 12/11/24 23:48 01:40 02:00 Temperature 98.0 F Pulse Rate 144 H 64 51 L Respiratory 18 17 17 Rate Blood Pressure 92/67 82/53 92/58 O2 Sat by Pulse 97 96 95 Oximetry 12/11/24 03:00 Temperature Pulse Rate Respiratory Rate Blood Pressure 92/52 O2 Sat by Pulse Oximetry Disposition Clinical Impression: Paroxysmal atrial fibrillation Disposition: HOME SELF-CARE Condition: Good Instructions (If sedation given, give patient instructions): A-fib (Atrial Fibrillation) (ED) Is patient prescribed a controlled substance at d/c from ED?: No Referrals: [facility],Clinic [Primary Care Provider] - 1-2 days Wilian Emerson DO [STAFF PHYSICIAN] - 1-2 days
[2024-12-11 00:18] LABS: Basophils # (A) 0.1 k/uL (0-0.2); Basophils % (A) 1 %; Eosinophils # (A) 0.3 k/uL (0-0.7); Eosinophils % (A) 3 %; HCT 41.9 % (39.0-53.0); Lymphocytes # (A) 2.2 k/uL (1.0-4.8); Lymphocytes % (A) 23 %; MCHC 33.4 g/dL (31.0-37.0); MCV 95.8 fL (80.0-100.0); Mean Platelet Volume 7.4; Monocytes # (A) 0.6 k/uL (0-1.0); Monocytes % (A) 6 %; Neutrophils # (A) 6.3 k/uL (1.3-7.7); Neutrophils % (A) 66 %; Platelet Count 280 k/uL (150-450); RBC 4.38 m/uL (4.30-5.90); WBC 9.6 k/uL (3.8-10.6)
[2024-12-11 00:23] LABS: ALT 23 U/L (4-49); AST 28 U/L (17-59); African American GFR (CKD) >90 (>60 ml/min/1.73 sqM); Albumin 4.1 g/dL (3.5-5.0); Alkaline Phosphatase 103 U/L (38-126); Anion Gap 8 mmol/L; Blood Urea Nitrogen 23 mg/dL (9-20); Calcium 8.8 mg/dL (8.4-10.2); Carbon Dioxide 25 mmol/L (22-30); Chloride 107 mmol/L (98-107); Glucose 82 mg/dL (74-99); Magnesium 2.2 mg/dL (1.6-2.3); Non-African American GFR(CKD) 83 (>60 ml/min/1.73 sqM); Potassium 4.1 mmol/L (3.5-5.1); Sodium 140 mmol/L (137-145); Total Bilirubin 0.3 mg/dL (0.2-1.3)
[2024-12-11 00:27] LABS: INR 0.9 (<1.2); Prothrombin Time 10.2 sec (10.0-12.5)
[2024-12-11 01:43] VITALS: RESP 17
[2024-12-11] MEDS: SODIUM CHLORIDE 0.9% 500 ML 500 ML IV STA ×2 (01:48→03:20)
--- NOTE | 2024-12-11 02:58 | XR ---
EXAM: XR Chest, 2 Views CLINICAL HISTORY: ITS.REASON XR Reason: dysrhythmia TECHNIQUE: Frontal and lateral views of the chest. COMPARISON: No relevant prior studies available. IMPRESSION: Cardiomegaly. Increased interstitial opacities lower lobes
[2024-12-11] MEDS: MORPHINE SULFATE 4 MG/ML SYRINGE IV STA (03:34)
[2024-12-11] MEDS: IBUPROFEN 400 MG TAB PO STA (03:38)
[2024-12-11] MEDS: DILTIAZEM 125 MG in SODIUM CHLORIDE 0.9% 100 ML IV SCH (03:59)
[2024-12-11] MEDS: DILTIAZEM DRIP BOLUS FROM BAG 1 MG SOLN IV ONE (03:59)
[2024-12-11 04:03] VITALS: BP 98/57; PULSE 59
== END 2024-12-11 04:26 | disposition home or self-care (01) ==
LOC: EC 23:46
DX: I48.0 Paroxysmal atrial fibrillation (principal); F17.200 Nicotine dependence, unspecified, uncomplicated; Z91.030 Bee allergy status; Z95.0 Presence of cardiac pacemaker
CPT/HCPCS: 36415; 93005; 80053; 83735; 84484; 85025; 85610; 85730; 71046; 99285; 96374; 96361; J2270

== ENCOUNTER 2024-12-12 22:16 | Inpatient (IN) | payer OTHER, MEDICARE ==
--- NOTE | 2024-12-12 22:21 | ED ---
Chest Pain HPI - General Stated Complaint: Chest Pain Time Seen by Provider: 12/12/24 22:20 Source: RN notes reviewed, old records reviewed Mode of arrival: EMS Limitations: no limitations - History of Present Illness Initial Comments: This is a 79-year-old male to the ER for evaluation today. Patient presents today for evaluation regards to chest pain history of atrial fibrillation patient presents with severe anxiety states he has increased anxiety and recent ER visit for chest pain. Pain went away but he is consistently with chest pain today MD Complaint: chest pain -: hour(s) Onset: during rest, during exertion Pain Location: substernal, left chest Pain Radiation: none Severity: mild Severity scale (1-10): 1 Quality: tightness Consistency: intermittent Improves With: nothing Worsens With: nothing Context: recent illness Anginal Symptoms: sense of impending doom Other Symptoms: palpitations Treatments Prior to Arrival: none - Related Data Home Medications Medication Instructions Recorded Confirmed Carbidopa-Levodopa 25-100 mg 2.5 tab PO TID@0900,1200,1700 08/18/21 10/14/24 [Sinemet 25-100 mg] Albuterol Sulfate [Albuterol 2 puff INHALATION RT-QID PRN 07/23/22 10/14/24 Sulfate Hfa] Cholecalciferol [Vitamin D3 (25 25 mcg PO DAILY 09/06/24 10/14/24 Mcg = 1000 Iu)] DULoxetine HCL [Cymbalta] 30 mg PO DAILY 09/06/24 10/14/24 EPINEPHrine (Auto Inject) [Epipen] 0.3 mg IM ONCE PRN 09/06/24 10/14/24 Levothyroxine Sodium [Synthroid] 150 mcg PO DAILY 09/06/24 10/14/24 QUEtiapine FUMARATE [SEROquel] 150 mg PO HS 09/06/24 10/14/24 Tiotropium 2.5 Mcg/Puff [Spiriva 2 puff INHALATION RT-BID 09/06/24 10/14/24 Respimat 2.5 Mcg] polyethylene glycoL 3350 [Miralax] 17 gm PO BID 09/06/24 10/14/24 Previous Rx's Medication Instructions Recorded Aspirin 81 mg PO DAILY #30 tab 10/15/24 Atorvastatin Calcium [Lipitor] 40 mg PO DAILY #30 tab 10/15/24 HYDROcodone/APAP 5-325MG [[place] 1 tab PO Q4HR PRN 3 Days #18 tab 10/15/24 5-325] HYDROcodone/APAP 5-325MG [[place] 1 tab PO Q4HR PRN 3 Days #18 tab 10/15/24 5-325] Midodrine [ProAmatine] 5 mg PO AC-TID PRN #90 tab 10/15/24 HYDROcodone/APAP 5-325MG [[place] 1 tab PO Q4HR PRN 3 Days #18 tab 11/02/24 5-325] Allergies Allergy/AdvReac Type Severity Reaction Status Date / Time venom-honey bee Allergy Dyspnea Verified 12/12/24 22:24 [bee venom (honey bee)] Review of Systems ROS Statement: Those systems with pertinent positive or pertinent negative responses have been documented in the HPI. ROS Other: All systems not noted in ROS Statement are negative. EKG Findings - EKG Comments: EKG Findings:: EKG sinus 72 [place] 203 QRS 100 QTc 421 - EKG Results: EKG: interpreted by AARON Past Medical History Past Medical History: Atrial Fibrillation, GERD/Reflux, Osteoarthritis (OA), Pneumonia, Syncope, Thyroid Disorder Additional Past Medical History / Comment(s): PARKINSON, neck right side and numbness in right arm, neuropathy History of Any Multi-Drug Resistant Organisms: None Reported Past Surgical History: Back Surgery, Orthopedic Surgery, Pacemaker, Tonsillectomy Additional Past Surgical History / Comment(s): lung drains-thoracentesis; foot surgery repair of tendon, left hip replaced; 5x back surgeries, laminectomy x2, 20 years ago cervical fusion, lumbar spine fusion. Past Anesthesia/Blood Transfusion Reactions: No Reported Reaction Type of Cardiac Device: Permanent Pacemaker Device Placement Date:: un Past Psychological History: Anxiety, Depression, PTSD Smoking Status: Current every day smoker, Former smoker Past Alcohol Use History: Rare Past Drug Use History: None Reported - Past Family History Mother Family Medical History: Cancer Additional Family Medical History / Comment(s): Ovarian General Exam General appearance: alert, in no apparent distress, anxious, in distress Head exam: Present: atraumatic, normocephalic, normal inspection Eye exam: Present: normal appearance, PERRL, EOMI. Absent: scleral icterus, conjunctival injection, periorbital swelling ENT exam: Present: normal exam, mucous membranes moist Neck exam: Present: normal inspection. Absent: tenderness, meningismus, lymphadenopathy Respiratory exam: Present: normal lung sounds bilaterally. Absent: respiratory distress, wheezes, rales, rhonchi, stridor Cardiovascular Exam: Present: tachycardia, irregular rhythm, normal heart sounds. Absent: systolic murmur, diastolic murmur, rubs, gallop, clicks GI/Abdominal exam: Present: soft, normal bowel sounds. Absent: distended, tenderness, guarding, rebound, rigid Extremities exam: Present: normal inspection, full ROM, normal capillary refill. Absent: tenderness, pedal edema, joint swelling, calf tenderness Back exam: Present: normal inspection Neurological exam: Present: alert, oriented X3, CN II-XII intact Psychiatric exam: Present: normal affect, normal mood Skin exam: Present: warm, dry, intact, normal color. Absent: rash Course Vital Signs 12/12/24 22:20 Temperature 97.6 F Pulse Rate 76 Respiratory 18 Rate Blood Pressure 158/93 O2 Sat by Pulse 98 Oximetry - Reevaluation(s) Reevaluation #1: 12/12/24 23:01 Medical records reviewed Reevaluation #2: 12/13/24 00:03 Patient still with chest pain Reevaluation #3: 12/13/24 00:03 Informed of results and questions answered Reevaluation #4: Was pt. sent in by a medical professional or institution (, PA, BATTER SCALER, urgent care, hospital, or longterm...) When possible be specific @ -no Did you speak to anyone other than the patient for history (EMS, parent, family, police, friend...)? What history was obtained from this source @ -no Did you review nursing and triage notes (agree or disagree)? Why? @ -agree Are old charts reviewed (outside hosp., previous admission, EMS record, old EKG, old radiological studies, urgent care reports/EKG's, longterm records)? Report findings @ -yes Differential Diagnosis (chest pain, altered mental status, abdominal pain women, abdominal pain men, vaginal bleeding, weakness, fever, dyspnea, syncope, headache, dizziness, GI bleed, back pain, seizure, CVA, palpatations, mental health, musculoskeletal)? @ -prior EKG interpreted by me (3pts min.). @ -yes X-rays interpreted by me (1pt min.). @ -yes negative for acute disease CT interpreted by me (1pt min.). @ -no U/S interpreted by me (1pt. min.). @ -no What testing was considered but not performed or refused? (CT, X-rays, U/S, labs)? Why? @ -none What meds were considered but not given or refused? Why? @ -none Did you discuss the management of the patient with other professionals (professionals i.e. , PA, BATTER SCALER, lab, RT, psych nurse, social security specialist, editor, teacher, correctional program officer, casework supervisor)? Give summary @ -no Was smoking cessation discussed for >3mins.? @ -no Was critical care preformed (if so, how long)? @ -no Were there social determinants of health that impacted care today? How? (Homelessness, low income, unemployed, alcoholism, drug addiction, transportation, low edu. Level, literacy, decrease access to med. care, senior living, rehab)? @ -none Was there de-escalation of care discussed even if they declined (Discuss DNR or withdrawal of care, Hospice)? DNR status @ -no What co-morbidities impacted this encounter? (DM, HTN, Smoking, COPD, CAD, Cancer, CVA, ARF, Chemo, Hep., AIDS, mental health diagnosis, sleep apnea, morbid obesity)? @ -none Was patient admitted / discharged? Hospital course, mention meds given and route, prescriptions, significant lab abnormalities, going to OR and other pertinent info. @ - Undiagnosed new problem with uncertain prognosis? @ -no Drug Therapy requiring intensive monitoring for toxicity (Heparin, Nitro, Insul in, Cardizem)? @ -no Were any procedures done? @ -no Diagnosis/symptom? @ - Acute, or Chronic, or Acute on Chronic? @ -Acute Uncomplicated (without systemic symptoms) or Complicated (systemic symptoms)? @ -Complicated Side effects of treatment? @ -no Exacerbation, Progression, or Severe Exacerbation? @ -exacerbation Poses a threat to life or bodily function? How? (Chest pain, [place], [place], pneumonia, PE, COPD, DKA, ARF, appy, cholecystitis, CVA, Diverticulitis, Homicidal, Suicidal, threat to staff... and all critical care pts) @ -yes Reevaluation #5: Differential Chest Pain: Stable Angina, Unstable Angina, STEMI, NSTEMI Aortic Dissection, Pneumothorax, Musculoskeletal, Esophageal Spasm GERD, Cholecystitis, Pancreatitis, Zoster, this is not meant to be an all-inclusive list. Differential Palpitations Ventricular arrhythmias, atrial arrhythmias, myocardial infarction, anemia, thyrotoxicosis, electrolyte imbalance, hypokalemia, pulmonary embolism, pulmonary disease, drugs, alcohol, anxiety, stress.... This is not meant to be an all-inclusive list. - Consultations Consultation #1: Dean who agrees to admit this patient Chest Pain MDM - MDM 79 male presents today for chest pain found to be in A-fib without RVR history of A-fib persistent chest pain and elevated troponin. Patient admitted on anticoagulation for cardiology to see Critical Care Time Critical Care Time: Yes Total Critical Care Time: 31 Disposition Clinical Impression: Chest pain, Syncope and collapse, Unstable angina pectoris, Paroxysmal atrial fibrillation, Atrial fibrillation Disposition: ADMITTED IP TO THIS HOSP Condition: Fair Is patient prescribed a controlled substance at d/c from ED?: No Referrals: [facility],Clinic [Primary Care Provider] - 1-2 days Time of Disposition: 00:00
[2024-12-12] MEDS: SODIUM CHLORIDE 0.9% 1,000 ML IV STA (22:36)
[2024-12-12 22:47] LABS: Basophils # (A) 0.1 k/uL (0-0.2); Basophils % (A) 1 %; Eosinophils # (A) 0.3 k/uL (0-0.7); Eosinophils % (A) 3 %; HCT 43.7 % (39.0-53.0); HGB 14.6 gm/dL (13.0-17.5); Lymphocytes # (A) 1.9 k/uL (1.0-4.8); Lymphocytes % (A) 20 %; MCH 32.2 pg (25.0-35.0); MCHC 33.5 g/dL (31.0-37.0); MCV 96.2 fL (80.0-100.0); Mean Platelet Volume 7.5; Monocytes # (A) 0.5 k/uL (0-1.0); Monocytes % (A) 5 %; Neutrophils # (A) 6.5 k/uL (1.3-7.7); Neutrophils % (A) 69 %; Platelet Count 255 k/uL (150-450); RBC 4.55 m/uL (4.30-5.90); RDW 13.9 % (11.5-15.5); WBC 9.4 k/uL (3.8-10.6)
--- NOTE | 2024-12-12 22:51 | XR ---
EXAMINATION TYPE: XR chest 2V DATE OF EXAM: 12/12/2024 CLINICAL HISTORY: Chest pain TECHNIQUE: Frontal and lateral views of the chest are obtained. COMPARISON: Prior chest x-ray one day earlier FINDINGS: Stable small right pleural effusion. Persistent cardiomegaly with dual lead pacemaker. Lef t lung remains clear. The osseous structures are intact. IMPRESSION: Cardiomegaly with small right pleural effusion redemonstrated. No significant change from one day earlier [facility], , 12/12/2024 10:49 PM
[2024-12-12] MEDS: LORazepam 2 MG/ML INJ IV STA (22:57)
[2024-12-12 23:01] LABS: Partial Thromboplastin Time 24.1 sec (22.0-30.0); Prothrombin Time 10.6 sec (10.0-12.5)
[2024-12-12 23:05] LABS: ALT 25 U/L (4-49); AST 31 U/L (17-59); African American GFR (CKD) >90 (>60 ml/min/1.73 sqM); Albumin 4.6 g/dL (3.5-5.0); Alkaline Phosphatase 108 U/L (38-126); Anion Gap 6 mmol/L; Blood Urea Nitrogen 22 mg/dL (9-20); Calcium 9.3 mg/dL (8.4-10.2); Carbon Dioxide 29 mmol/L (22-30); Chloride 106 mmol/L (98-107); Glucose 81 mg/dL (74-99); Lipase 68 U/L (23-300); Non-African American GFR(CKD) 85 (>60 ml/min/1.73 sqM); Potassium 4.5 mmol/L (3.5-5.1); Sodium 141 mmol/L (137-145); Total Bilirubin 0.8 mg/dL (0.2-1.3); Total Protein 7.9 g/dL (6.3-8.2)
[2024-12-12 23:13] LABS: NT-Pro-B-Type Natriuretic Pept 1730 pg/mL
[2024-12-12] MEDS ORDERED: NITROGLYCERIN SL TABS 0.4 MG TAB SUBLINGUAL PRN (23:59)
[2024-12-13] MEDS: ASPIRIN 81 MG PO STA (00:14)
[2024-12-13] MEDS: HEPARIN SODIUM 1,000 UN/ML (10ML VL) IV ONE (00:18)
[2024-12-13] MEDS: HEPARIN SOD,PORK IN 0.45% NACL 25,000 UNIT in 0.45% NACL 1 250ML.BAG IV SCH (00:19)
[2024-12-13] MEDS: MORPHINE SULFATE 4 MG/ML SYRINGE IV PRN (03:15)
--- NOTE | 2024-12-13 04:21 | P.HPIM ---
History of Present Illness H&P Date: 12/13/24 Patient is a 79-year-old male with a PMH of A-fib (previously on Eliquis, discontinued on 10/15/2024 by cardiology due to history of multiple falls), status post pacemaker placement, hypertension, hypothyroidism, Parkinson disease, who presents to the emergency room with complaints of chest discomfort and shortness of breath. Patient reports that the symptoms started earlier today in the afternoon and have persisted. He reports that the pain is tight in nature, substernal, nonradiating, with associated shortness of breath without nausea or vomiting. He also denies experiencing fever, chills, cough, lower extremity swelling, lower extremity pain. Denies experiencing abdominal pain, or diarrhea. Denies prior history of such symptoms. Reports compliance with his home medications. In the emergency room, chest x-ray revealed cardiomegaly with small right sided pleural effusion. EKG revealed sinus rhythm at [address]/T wave changes noted as reviewed by me. Laboratory evaluation was remarkable for troponin 0.041 and subsequently 0.039 with D-dimer 0.77. WBC count was 9.4 with hemoglobin 14.6, sodium 141, calcium 4.5, and glucose 81. ED documentation reviewed and case discussed with ED provider. Review of systems: Pertinent positives and negatives as discussed in HPI, a complete review of systems was performed and all other systems are negative. Physical examination: Vital signs reviewed General: non toxic, no distress, appears at stated age, normal weight Derm: no unusual rashes/lesions, warm Head: atraumatic, normocephalic, symmetric Eyes: EOMI, no lid lag, anicteric sclera, pupils equal round reactive to light ENT: Nose and ears atraumatic Neck: No cervical lymphadenopathy, trachea midline, supple Mouth: no lip lesion, mucus membranes moist Cardiovascular: S1S2 reg, no murmur, positive dorsalis pedis pulse bilateral, no edema Lungs: CTA bilateral, no rhonchi, no rales, no accessory muscle use Abdominal: soft, nontender to palpation, no guarding Ext: muscle strength 5 out of 5 in all 4 extremities grossly, no gross muscle atrophy, no contractures, Neuro: CN II-XI grossly intact, no gross focal neuro deficits Psych: Alert, oriented, appropriate affect Assessment: Non-ST elevation [place] Chronic conditions: Paroxysmal A-fib, hypertension, hypothyroidism, Parkinson's disease Imaging: In the emergency room, chest x-ray revealed cardiomegaly with small right sided pleural effusion. EKG revealed sinus rhythm at [address]/T wave changes noted as reviewed by me. Data Review: Laboratory evaluation was remarkable for troponin 0.041 and subsequently 0.039 with D-dimer 0.77. WBC count was 9.4 with hemoglobin 14.6, sodium 141, calcium 4.5, and glucose 81. Plan: Cardiac monitoring Cardiology consulted Trend troponin Continue with heparin infusion Continue aspirin and statin Nitroglycerin ointment ordered DVT prophylaxis: Heparin infusion The patient is admitted with an anticipated greater than 2 midnight stay for evaluation of non-ST elevation [place] CODE STATUS: Full Code Discussed with: Patient Anticipated discharge place: Home Past Medical History Past Medical History: Atrial Fibrillation, GERD/Reflux, Osteoarthritis (OA), Pneumonia, Syncope, Thyroid Disorder Additional Past Medical History / Comment(s): PARKINSON, neck right side and numbness in right arm, neuropathy History of Any Multi-Drug Resistant Organisms: None Reported Past Surgical History: Back Surgery, Orthopedic Surgery, Pacemaker, Tons illectomy Additional Past Surgical History / Comment(s): lung drains-thoracentesis; foot surgery repair of tendon, left hip replaced; 5x back surgeries, laminectomy x2, 20 years ago cervical fusion, lumbar spine fusion. Past Anesthesia/Blood Transfusion Reactions: No Reported Reaction Type of Cardiac Device: Permanent Pacemaker Device Placement Date:: unk Past Psychological History: Anxiety, Depression, PTSD Smoking Status: Current every day smoker, Former smoker Past Alcohol Use History: Rare Past Drug Use History: None Reported - Past Family History Mother Family Medical History: Cancer Additional Family Medical History / Comment(s): Ovarian Medications and Allergies Home Medications Medication Instructions Recorded Confirmed Type Carbidopa-Levodopa 25-100 mg 2.5 tab PO TID@0900,1200,1700 08/18/21 10/14/24 History [Sinemet 25-100 mg] Albuterol Sulfate [Albuterol 2 puff INHALATION RT-QID PRN 07/23/22 10/14/24 History Sulfate Hfa] Cholecalciferol [Vitamin D3 (25 25 mcg PO DAILY 09/06/24 10/14/24 History Mcg = 1000 Iu)] DULoxetine HCL [Cymbalta] 30 mg PO DAILY 09/06/24 10/14/24 History EPINEPHrine (Auto Inject) [Epipen] 0.3 mg IM ONCE PRN 09/06/24 10/14/24 History Levothyroxine Sodium [Synthroid] 150 mcg PO DAILY 09/06/24 10/14/24 History QUEtiapine FUMARATE [SEROquel] 150 mg PO HS 09/06/24 10/14/24 History Tiotropium 2.5 Mcg/Puff [Spiriva 2 puff INHALATION RT-BID 09/06/24 10/14/24 History Respimat 2.5 Mcg] polyethylene glycoL 3350 [Miralax] 17 gm PO BID 09/06/24 10/14/24 History Aspirin 81 mg PO DAILY #30 tab 10/15/24 Rx Atorvastatin Calcium [Lipitor] 40 mg PO DAILY #30 tab 10/15/24 Rx HYDROcodone/APAP 5-325MG [[place] 1 tab PO Q4HR PRN 3 Days #18 tab 10/15/24 Rx 5-325] HYDROcodone/APAP 5-325MG [[place] 1 tab PO Q4HR PRN 3 Days #18 tab 10/15/24 Rx 5-325] Midodrine [ProAmatine] 5 mg PO AC-TID PRN #90 tab 10/15/24 Rx HYDROcodone/APAP 5-325MG [[place] 1 tab PO Q4HR PRN 3 Days #18 tab 11/02/24 Rx 5-325] Allergies Allergy/AdvReac Type Severity Reaction Status Date / Time venom-honey bee Allergy Dyspnea Verified 12/12/24 22:24 [bee venom (honey bee)] Physical Exam Vitals: Vital Signs Temp Pulse Resp BP Pulse Ox 12/13/24 03:00 73 18 156/83 95 12/13/24 00:00 75 17 148/71 94 L 12/12/24 22:20 97.6 F 76 18 158/93 98 Intake and Output 12/12/24 12/12/24 12/13/24 14:59 22:59 06:59 Other: Weight 79.832 kg Results CBC & Chem 7: 12/12/24 22:37 12/12/24 22:37 Labs: Abnormal Lab Results - Last 24 Hours (Table) 12/12/24 12/12/24 12/12/24 Range/Units 22:37 22:37 22:37 APTT (22.0-30.0) sec D-Dimer 0.77 H (<0.60) mg/L FEU BUN 22 H (9-20) mg/dL Troponin I 0.041 H* (0.000-0.034) ng/mL 12/13/24 12/13/24 Range/Units 00:53 00:53 APTT 61.3 H (22.0-30.0) sec D-Dimer (<0.60) mg/L FEU BUN (9-20) mg/dL Troponin I 0.039 H* (0.000-0.034) ng/mL
[2024-12-13] MEDS: NITROGLYCERIN OINT 1 INCH/GM PACKET TOPICAL SCH (05:39)
[2024-12-13 08:18] LABS: Platelet Count 231 k/uL (150-450)
[2024-12-13] MEDS: ATORVASTATIN 80 MG TAB PO SCH (08:25)
[2024-12-13] MEDS: ASPIRIN 81 MG PO SCH (08:26)
[2024-12-13] MEDS: METOPROLOL TARTRATE 25 MG TAB PO SCH (08:26)
[2024-12-13] MEDS ORDERED: ASPIRIN 325 MG TAB PO SCH (09:00)
--- NOTE | 2024-12-13 09:01 | CT ---
EXAMINATION TYPE: CT angio chest DATE OF EXAM: 12/13/2024 COMPARISON: CLINICAL INDICATION: Male, 79 years old with history of elevated d-dimer, r/o PE; PHH, sob TECHNIQUE: CTA scan of the thorax is performed with IV Contrast, patient injected with 60 mL of Isovue 370, pulm onary embolism protocol. MIP images are created and reviewed. CT DLP: 346.[address] CTDI: mGy Automated exposure control for dose reduction was used. FINDINGS: LUNGS: There is a right lower lobe consolidation and small right pleural effusion. Biapical pleural t hickening. No pulmonary edema. Airways are patent. There is a 6 mm nodule left lower lobe image [address] 5 MEDIASTINUM: Satisfactory enhancement of the central pulmonary vascular. No central pulmonary embolis m. Distal branches are limited. There is a 1.4 cm short axis adenopathy in the right hilum and border line mediastinal and hilar lymph nodes lymph nodes. The heart is enlarged. Cardiac device and leads a re partially included in the [id number]. No significant coronary artery calcification. Trace peric ardial fluid. OTHER: Reflux of contrast into the IVC can be associated with right heart or tricuspid dysfunction c orrelate clinically. Postcholecystectomy changes. Small hiatal hernia. Spleen measures 13.3 cm mildly enlarged. Punctate granuloma near the hepatic dome. Multilevel hypertrophic and degenerative changes of the spine. Surgical change near the thoracolumbar junction and cervical spine. IMPRESSION: 1. No central pulmonary embolism. Distal branches are Limited. 2. Right lower lobe infiltrate and small pleural effusion. 3. Mild splenomegaly measuring 13.3 cm. 4. Right hilar lymphadenopathy is nonspecific correlate clinically. 5. 6 mm left lower lobe pulmonary nodule too small to characterize recommend 6 month follow-up to ass ess stability. 6. Reflux of contrast into the IVC can be associated with right heart or tricuspid dysfunction. Corre late clinically. [facility], , 12/13/2024 8:58 AM
[2024-12-13] MEDS ORDERED: DOCUSATE 100 MG CAP PO PRN (09:57)
[2024-12-13] MEDS ORDERED: polyethylene glycoL 3350 17 GM POWD.PACK PO PRN (09:57)
[2024-12-13] MEDS ORDERED: MIDODRINE 5 MG TAB PO PRN (09:57)
[2024-12-13 10:41] LABS: VLDL Calculation 14.94 mg/dL (5.00-40.00)
[2024-12-13] MEDS: CARBIDOPA-LEVODOPA 25-100 MG 1 EACH TAB PO SCH (12:28)
--- NOTE | 2024-12-13 12:57 | P.CRDCN ---
History of Present Illness History of present illness: HISTORY OF PRESENT ILLNESS: This is a 79-year-old male with a past medical history significant for paroxysmal atrial fibrillation, pacemaker implantation, hypothyroidism, Parkinson's disease, hypertension, neuropathy, and syncope. Patient follows in the office with Dr. Emerson. We have been asked to see the patient in consultation for atrial fibrillation. Patient examined at the bedside in the emergency room. Patient states he presented to the hospital after having multiple episodes of elevated heart rates at home. He states that he checks his vitals at home and his heart rates would be up in to the 150s. He reports having some vague chest discomfort as well. However when patient presented to the hospital he was in sinus mechanism and has been maintaining sinus mechanism at the time of examination. He does report he is having a lot of anxiety and states that nobody is giving him medications to help that. He currently denies any chest pain or shortness of breath. The patient was seen by Dr. Emerson in October 2024. It is noted that the patient had his device checked in September 2024 that did not reveal any episodes. He then wore an event monitor for 14 days which did not reveal any arrhythmias. He apparently has been having frequent falls and his Eliquis has been placed on hold. He was referred for Watchman device at his last appointment in the office. However patient states he has not had any appointments for this as of yet. DIAGNOSTICS: - EKG reveals sinus mechanism with no signs of acute ischemia - Chest xray cardiomegaly with small right pleural effusion redemonstrated. - Laboratory data: WBC 9.4. Hemoglobin 14.6. Platelet count 231. D-dimer 0.77. Sodium 141. Potassium 4.5. BUN 22. Creatinine 0.83. Troponin 0.041. 0.039. 0.041. proBNP 1730. - Current home cardiac medications include aspirin 81 mg daily, midodrine 5 mg 3 times a day as needed - Most recent echocardiogram obtained in August 2024 revealing ejection fraction 55 to 60%, mild TR, and no pericardial effusion - Cardiac catheterization history: 2016 revealing mild nonobstructive disease involving mid LAD REVIEW OF SYSTEMS: At the time of my exam: CONSTITUTIONAL: Denies fever or chills. HEENT: Denies blurred vision, vision changes, or eye pain. Denies hemoptysis CARDIOVASCULAR: Denies chest pain. Denies orthopnea. Denies PND. Denies palpitations RESPIRATORY: Denies shortness of breath. GASTROINTESTINAL: Denies abdominal pain. Denies nausea or vomiting. HEMATOLOGIC: Denies bleeding disorders. GENITOURINARY: Denies any blood in urine. SKIN: Denies pruitis. Denies rash. PHYSICAL EXAM: VITAL SIGNS: Reviewed. GENERAL: Well-developed in no acute distress. HEENT: Head is normocephalic. Pupils are equal, round. Sclerae anicteric. Mucous membranes of the mouth are moist. Neck supple. No JVD or thyromegaly LUNGS: Respirations even and unlabored. Lungs essentially clear to auscultation bilaterally. HEART: Regular rate and rhythm. S1 and S2 heard. ABDOMEN: Soft. Nondistended. Nontender. EXTREMITIES: Normal range of motion. No clubbing or cyanosis. Peripheral pulses intact. No lower extremity edema NEUROLOGIC: Awake and alert. Oriented x 3. 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 Agree with continuing this. Continue telemetry monitoring to assess for any episodes of atrial fibrillation. Patient has been maintaining sinus mechanism since coming to the hospital. Patient taken off anticoagulation on an outpatient basis and recently referred for Watchman device Possible ischemic workup pending echo results Further recommendations pending patient course Nurse practitioner note has been reviewed by physician. Signing provider agrees with the documented findings, assessment, and plan of care documented by DIRECTOR OF PRODUCT DESIGN as a scribe. Past Medical History Past Medical History: Atrial Fibrillation, GERD/Reflux, Osteoarthritis (OA), Pneumonia, Syncope, Thyroid Disorder Additional Past Medical History / Comment(s): PARKINSON, neck right side and numbness in right arm, neuropathy History of Any Multi-Drug Resistant Organisms: None Reported Past Surgical History: Back Surgery, Orthopedic Surgery, Pacemaker, Tonsillectomy Additional Past Surgical History / Comment(s): lung drains-thoracentesis; foot surgery repair of tendon, left hip replaced; 5x back surgeries, laminectomy x2, 20 years ago cervical fusion, lumbar spine fusion. Past Anesthesia/Blood Transfusion Reactions: No Reported Reaction Type of Cardiac Device: Permanent Pacemaker Device Placement Date:: unk Past Psychological History: Anxiety, Depression, PTSD Smoking Status: Current every day smoker, Former smoker Past Alcohol Use History: Rare Past Drug Use History: None Reported - Past Family History Mother Family Medical History: Cancer Additional Family Medical History / Comment(s): Ovarian Medications and Allergies Home Medications Medication Instructions Recorded Confirmed Type Carbidopa-Levodopa 25-100 mg 3 tab PO TID@0900,1200,1700 08/18/21 12/13/24 History [Sinemet 25-100 mg] Albuterol Sulfate [Albuterol 2 puff INHALATION RT-QID PRN 07/23/22 12/13/24 History Sulfate Hfa] Cholecalciferol [Vitamin D3 (25 25 mcg PO DAILY 09/06/24 12/13/24 History Mcg = 1000 Iu)] EPINEPHrine (Auto Inject) [Epipen] 0.3 mg IM ONCE PRN 09/06/24 12/13/24 History Levothyroxine Sodium [Synthroid] 150 mcg PO DAILY 09/06/24 12/13/24 History polyethylene glycoL 3350 [Miralax] 17 gm PO BID 09/06/24 12/13/24 History Aspirin 81 mg PO DAILY #30 tab 10/15/24 12/13/24 Rx Midodrine [ProAmatine] 5 mg PO AC-TID PRN #90 tab 10/15/24 12/13/24 Rx Cyclobenzaprine [Flexeril] 5 mg PO TID 12/13/24 12/13/24 History Docusate [Colace] 100 mg PO BID 12/13/24 12/13/24 History Fluticasone Propion/Salmeterol 1 puff INHALATION RT-BID 12/13/24 12/13/24 History [Wixela 250-50 Inhub] Gabapentin 600 mg PO TID 12/13/24 12/13/24 History Nicotine Gum (Polacrilex) 2 mg BUCCAL Q4H PRN 12/13/24 12/13/24 History [Nicorette] Olopatadine HCl [Pataday] 1 drop BOTH EYES BID PRN 12/13/24 12/13/24 History Allergies Allergy/AdvReac Type Severity Reaction Status Date / Time acetaminophen Allergy per [facility] Verified 12/13/24 07:57 [From Tylenol-Codeine] codeine Allergy per [facility] Verified 12/13/24 07:57 [From Tylenol-Codeine] hydrocodone [From Vicodin] Allergy per [facility] Verified 12/13/24 07:57 venom-honey bee Allergy Dyspnea Verified 12/13/24 07:57 [bee venom (honey bee)] Physical Exam Vitals: Vital Signs Temp Pulse Resp BP Pulse Ox 12/13/24 12:24 97.8 F 57 L 15 121/74 100 12/13/24 11:00 67 18 132/108 98 12/13/24 05:48 84 18 154/88 96 12/13/24 03:00 73 18 156/83 95 12/13/24 00:00 75 17 148/71 94 L 12/12/24 22:20 97.6 F 76 18 158/93 98 Intake and Output 12/12/24 12/13/24 12/13/24 22:59 06:59 14:59 Other: Weight 79.832 kg Results 12/13/24 07:44 12/12/24 22:37 Cardiac Enzymes 12/12/24 12/12/24 12/13/24 Range/Units 22:37 22:37 00:53 AST 31 (17-59) U/L Troponin I 0.041 H* 0.039 H* (0.000-0.034) ng/mL 12/13/24 Range/Units 07:44 AST (17-59) U/L Troponin I 0.040 H* (0.000-0.034) ng/mL Coagulation 12/12/24 12/13/24 12/13/24 Range/Units 22:37 00:53 07:44 PT 10.6 (10.0-12.5) sec APTT 24.1 61.3 H 31.4 H (22.0-30.0) sec 12/13/24 Range/Units 12:07 PT (10.0-12.5) sec APTT 24.7 (22.0-30.0) sec Lipids 12/13/24 Range/Units 07:44 Triglycerides 74.70 (0.00-149.00) mg/dL Cholesterol 129.00 (0.00-200.00) mg/dL HDL Cholesterol 46.10 (40.00-60.00) mg/dL Cholesterol/HDL Ratio 2.80 Ratio CBC 12/12/24 12/13/24 Range/Units 22:37 07:44 WBC 9.4 (3.8-10.6) k/uL RBC 4.55 (4.30-5.90) m/uL Hgb 14.6 (13.0-17.5) gm/dL Hct 43.7 (39.0-53.0) % Plt Count 255 231 (150-450) k/uL Comprehensive Metabolic Panel 12/12/24 Range/Units 22:37 Sodium 141 (137-145) mmol/L Potassium 4.5 (3.5-5.1) mmol/L Chloride 106 (98-107) mmol/L Carbon Dioxide 29 (22-30) mmol/L BUN 22 H (9-20) mg/dL Creatinine 0.83 (0.66-1.25) mg/dL Glucose 81 (74-99) mg/dL Calcium 9.3 (8.4-10.2) mg/dL AST 31 (17-59) U/L ALT 25 (4-49) U/L Alkaline Phosphatase 108 (38-126) U/L Total Protein 7.9 (6.3-8.2) g/dL Albumin 4.6 (3.5-5.0) g/dL Current Medications Generic Name Dose Route Start Last Admin Trade Name Freq PRN Reason Stop Dose Admin Aspirin 81 mg 12/13/24 09:00 12/13/24 08:26 Aspirin 81 Mg PO 81 mg DAILY CHIP Administration Atorvastatin Calcium 80 mg 12/13/24 09:00 12/13/24 08:25 Atorvastatin 80 Mg Tab PO 80 mg DAILY CHIP Administration Carbidopa/Levodopa 3 each 12/13/24 12:00 12/13/24 12:28 Carbidopa-Levodopa 25-100 Mg 1 Each Tab PO 3 each TID@0900,1200,1700 CHIP Administration Cyclobenzaprine HCl 5 mg 12/13/24 16:00 Cyclobenzaprine 5 Mg Tab PO TID CHIP Docusate Sodium 100 mg 12/13/24 09:57 Docusate 100 Mg Cap PO BID PRN Constipation Gabapentin 600 mg 12/13/24 16:00 Gabapentin 300 Mg Cap PO TID [facility] Levothyroxine Sodium 150 mcg 12/14/24 06:30 Levothyroxine 75 Mcg Tab PO DAILY@0630 [facility] Metoprolol Tartrate 25 mg 12/13/24 09:00 12/13/24 08:26 Metoprolol Tartrate 25 Mg Tab PO 25 mg BID [facility] Administration Midodrine 5 mg 12/13/24 09:57 Midodrine 5 Mg Tab PO AC-TID PRN Hypotension Morphine Sulfate 4 mg 12/12/24 23:59 12/13/24 08:26 Morphine Sulfate 4 Mg/Ml Syringe IV 4 mg Q4HR PRN Administration Chest Pain Nitroglycerin 0.4 mg 12/12/24 23:59 Nitroglycerin Sl Tabs 0.4 Mg Tab SUBLINGUAL Q5M PRN Chest Pain Nitroglycerin 1 inch 12/13/24 06:00 12/13/24 12:28 Nitroglycerin Oint 1 Inch/Gm Packet TOPICAL 1 inch Q6HR [facility] Administration Polyethylene Glycol 17 gm 12/13/24 09:57 Polyethylene Glycol 3350 17 Gm Powd.Pack PO BID PRN Constipation Intake and Output 12/12/24 12/13/24 12/13/24 22:59 06:59 14:59 Other: Weight 79.832 kg 12/13/24 07:44 12/12/24 22:37
[2024-12-13] MEDS: GABAPENTIN 300 MG CAP PO SCH (16:54)
[2024-12-13] MEDS: CYCLOBENZAPRINE 5 MG TAB PO SCH (16:54)
--- NOTE | 2024-12-13 16:54 | CA ---
Transthoracic Echo Report Name: Danis Gomez Age: 79 Gender: M : 1945 Exam Date: 12/13/2024 09:55 Exam Location: [place] [facility] Ht (in): 72 Wt (lb): 176 Ordering Physician: Danielle De La Cruz Attending/Referring Phys: [id number], Dorothy Batteryman Roxana Keene RDCS Procedure CPT: Indications: lv function, palpitations Cardiac Hx: Limited LVEF Technical Quality: Good Contrast 1: Total Dose (mL): Contrast 2: Total Dose (mL): MEASUREMENTS (Male / Female) Normal Values 2D ECHO LV Diastolic Diameter PLAX 4.5 cm 4.2 - 5.9 / 3.9 - 5.3 cm LV Systolic Diameter PLAX 3.0 cm IVS Diastolic Thickness 0.9 cm 0.6 - 1.0 / 0.6 - 0.9 cm LVPW Diastolic Thickness 1.0 cm 0.6 - 1.0 / 0.6 - 0.9 cm LV Relative Wall Thickness 0.4 LVOT Diameter 2.1 cm LV Diastolic Volume MOD BP 113.4 cm??? 67 - 155 / 56 - 104 cm??? LV Systolic Volume MOD BP 39.5 cm??? 22 - 58 / 19 - 49 cm??? LV Ejection Fraction MOD BP 65.2 % >= 55 % LV Cardiac Index MOD BP 2676.4 cm???/min???m??? LV Diastolic Volume MOD 4C 115.1 cm??? LV Systolic Volume MOD 4C 38.9 cm??? LV Ejection Fraction MOD 4C 66.2 % LV Cardiac Index MOD 4C 2759.3 cm???/min???m??? LV Diastolic Length 4C 8.3 cm LV Systolic Length 4C 6.1 cm LV Diastolic Volume MOD 2C 107.3 cm??? LV Systolic Volume MOD 2C 37.2 cm??? LV Ejection Fraction MOD 2C 65.3 % LV Cardiac Index MOD 2C 2538.7 cm???/min???m??? LV Diastolic Length 2C 8.7 cm LV Systolic Length 2C 6.6 cm DOPPLER AV Peak Velocity 143.8 cm/s AV Peak Gradient 8.3 mmHg AV Mean Velocity 92.7 cm/s AV Mean Gradient 4.0 mmHg AV Velocity Time Integral 33.0 cm LVOT Peak Velocity 101.3 cm/s LVOT Peak Gradient 4.1 mmHg LVOT Velocity Time Integral 24.2 cm LVOT Stroke Volume 80.4 cm??? LVOT Stroke Volume Index 39.9 ml/m??? LVOT Cardiac Index 2911.1 cm???/min???m??? AV Area Cont Eq vti 2.4 cm??? AV Area Cont Eq pk 2.3 cm??? MV Peak Velocity 128.0 cm/s MV Peak Gradient 6.5 mmHg MV Mean Velocity 91.8 cm/s MV Mean Gradient 3.5 mmHg MV Velocity Time Integral 34.2 cm TR Peak Velocity 291.6 cm/s TR Peak Gradient 34.0 mmHg Right Atrial Pressure 5.0 mmHg Pulmonary Artery Systolic Pressu 39.0 mmHg Right Ventricular Systolic Press 39.0 mmHg FINDINGS Left Ventricle Left ventricular ejection fraction is estimated at 60-65 %. Left ventricular cavity size normal. Left ventricular wall thickness normal. No obvious regional wall motion abnormalities. Right Ventricle Normal right ventricular size and function. Mild pulmonary hypertension. Right Atrium Left Atrium Mitral Valve Mitral valve thickened. Mild mitral stenosis. Mild mitral regurgitation. Aortic Valve Trileaflet aortic valve. Aortic valve sclerosis. No aortic valve stenosis or regurgitation. Tricuspid Valve Structurally normal tricuspid valve. Mild tricuspid regurgitation. Pulmonic Valve Pulmonic valve not well visualized. Pericardium No pericardial effusion. Aorta Aortic annulus normal. CONCLUSIONS Left ventricular ejection fraction 60-65% RVSP 39 Mild mitral regurgitation Mild tricuspid regurgitation No pericardial effusion Previewed by: Dr. Wilian Emerson DO (Electronically Signed) Final Date: 13 December 2024 16:53
[2024-12-13] MEDS: LORazepam 2 MG/ML INJ IV STA (21:48)
[2024-12-14] MEDS: LEVOTHYROXINE 75 MCG TAB PO SCH (06:19)
[2024-12-14 08:09] VITALS: PULSE 66
[2024-12-14 08:12] LABS: Mean Platelet Volume 7.1; Platelet Count 251 k/uL (150-450)
[2024-12-14] MEDS ORDERED: ALBUTEROL NEBULIZED 2.5 MG/3 ML INHALATION PRN (09:01)
[2024-12-14] MEDS ORDERED: KETOTIFEN 0.025% OPHTH DROPS 5 ML BTL BOTH EYES PRN (09:01)
--- NOTE | 2024-12-14 11:48 | P.PN ---
Subjective HISTORY OF PRESENT ILLNESS: This is a 79-year-old male with a past medical history significant for paroxysmal atrial fibrillation, pacemaker implantation, hypothyroidism, Parkinson's disease, hypertension, neuropathy, and syncope. Patient follows in the office with Dr. Emerson. We have been asked to see the patient in consultation for atrial fibrillation. Patient examined at the bedside in the emergency room. Patient states he presented to the hospital after having multiple episodes of elevated heart rates at home. He states that he checks his vitals at home and his heart rates would be up in to the 150s. He reports having some vague chest discomfort as well. However when patient presented to the hospital he was in sinus mechanism and has been maintaining sinus mechanism at the time of examination. He does report he is having a lot of anxiety and states that nobody is giving him medications to help that. He currently denies any chest pain or shortness of breath. The patient was seen by Dr. Emerson in October 2024. It is noted that the patient had his device checked in September 2024 that did not reveal any episodes. He then wore an event monitor for 14 days which did not reveal any arrhythmias. He apparently has been having frequent falls and his Eliquis has been placed on hold. He was referred for Watchman device at his last appointment in the office. However patient states he has not had any appointments for this as of yet. DIAGNOSTICS: - EKG reveals sinus mechanism with no signs of acute ischemia - Chest xray cardiomegaly with small right pleural effusion redemonstrated. - Laboratory data: WBC 9.4. Hemoglobin 14.6. Platelet count 231. D-dimer 0.77. Sodium 141. Potassium 4.5. BUN 22. Creatinine 0.83. Troponin 0.041. 0.039. 0.041. proBNP 1730. - Current home cardiac medications include aspirin 81 mg daily, midodrine 5 mg 3 times a day as needed - Most recent echocardiogram obtained in August 2024 revealing ejection fraction 55 to 60%, mild TR, and no pericardial effusion - Cardiac catheterization history: 2016 revealing mild nonobstructive disease involving mid LAD 12/14/2024 Patient examined this morning in the emergency room. Patient currently denies any chest pain or pressure. He denies any shortness of breath. He is maintaining sinus mechanism. Patient is complaining of anxiety and states that is not controlled at this time. He is asking for antianxiety medications to be prescribed at discharge. Echocardiogram completed revealing ejection fraction 60 to 65%, mild MR, mild TR PHYSICAL EXAM: VITAL SIGNS: Reviewed. GENERAL: Well-developed in no acute distress. HEENT: Head is normocephalic. Pupils are equal, round. Sclerae anicteric. Mucous membranes of the mouth are moist. Neck supple. No JVD or thyromegaly LUNGS: Respirations even and unlabored. Lungs essentially clear to auscultation bilaterally. HEART: Regular rate and rhythm. S1 and S2 heard. ABDOMEN: Soft. Nondistended. Nontender. EXTREMITIES: Normal range of motion. No clubbing or cyanosis. Peripheral pulses intact. No lower extremity edema NEUROLOGIC: Awake and alert. Oriented x 3. 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 Patient has been maintaining sinus mechanism since coming to the hospital. Patient taken off anticoagulation on an outpatient basis and recently referred for Watchman device Recommend outpatient stress testing Patient is stable for discharge from a cardiac standpoint Further recommendations pending patient course Nurse practitioner note has been reviewed by physician. Signing provider agrees with the documented findings, assessment, and plan of care documented by LEGAL SERVICES MANAGER as a scribe. Objective - Vital Signs Vital signs: Vital Signs Temp 97.9 F 12/14/24 03:10 Pulse 66 12/14/24 08:07 Resp 18 12/14/24 08:07 BP 140/63 12/14/24 08:07 Pulse Ox 96 12/14/24 08:07 FiO2 Intake & Output 12/13/24 12/14/24 12/14/24 18:59 06:59 18:59 Other: Voiding Method Toilet Urinal # Voids 3 - Labs CBC & Chem 7: 12/14/24 07:22 12/12/24 22:37
--- NOTE | 2024-12-14 12:18 | P.DS ---
Providers Date of admission: 12/13/24 00:01 Expected date of discharge: 12/14/24 Attending physician: Iza Maxwell MD Consults: 12/12/24 23:59 Consult Physician Routine Consulting Provider: Larisa Birmingham Consult Reason/Comments: afibCP Do you want consulting provider notified?: Yes Primary care physician: [facility] Hospital Course: Discharge Diagnosis: Chest pain, palpitations, and shortness of breath. Acute coronary event ruled out. Elevated troponins, flat. Paroxysmal atrial fibrillation. Elevated D-dimer, CTA negative for PE Hypertension Hyperlipidemia Parkinson's disease Hypothyroidism Hospital Course: Patient is a very pleasant 79-year-old male with a past medical history of status post permanent pacemaker placement, paroxysmal atrial fibrillation previously on Eliquis but discontinued on 10/15/2024 by [employer] due to history of multiple falls and referred for watchman's device placement, hypertension, hyperlipidemia, Parkinson's disease, and hypothyroidism. He presented to the hospital on 12/12/2024 with a chief complaint of chest pain and shortness of breath. Upon arrival to our facility, patient underwent evaluation in the emergency department. Vital signs upon arrival show blood pressure 158/93, heart rate 76, respiratory rate 18, temp 97.6 F, and SpO2 of 98% on room air. EKG completed showing normal sinus rhythm at 72 bpm. Chest x-ray showing cardiomegaly with small right pleural effusion. Dated and reviewed. CBC unremarkable. Coagulation profile showing elevated D-dimer of 0.77 but normal with age correction. BMP showing mild prerenal azotemia with BUN of 22 otherwise normal findings. Blood glucose was 81. Magnesium 2.0. Liver profile unremarkable. Troponin was elevated at 0.041 with proBNP of 1730. Patient admitted under services with consultation to cardiology. Troponins trended resulting at 0.041, 0.039, 0.040. CTA chest was completed negative for pulmonary emboli showing right lower lobe infiltrate and small pleural effusion, mild splenomegaly measuring 13.3 cm, right hilar lymphadenopathy, and 6 mm left lower lobe pulmonary nodule too small to characterize. Echocardiogram was completed showing a preserved EF of 60 to 65% with mild mitral and tricuspid regurgitation and negative for pericardial effusion. Patient was evaluated by cardiology and started on metoprolol and atorvastatin discussed with patient and importance of following up for watchman's device and clearing patient from cardiac perspective for discharge. Patient currently free from any chest pain, shortness of breath, or any other complaints. He has been ambulatory throughout the emergency department and denies any exertional chest pain or shortness of breath. Patient medically optimized for discharge and to follow-up outpatient with PCP in 1 to 2 days and with [employer] in 1 week. Physical exam: Vital signs reviewed and stable. General: Nontoxic, no distress and appears stated age. Derm: Skin warm and dry, normal coloration for ethnicity. Head: Atraumatic, normocephalic and symmetric. Eyes: EOM's intact, no lid lag, and anicteric sclera Mouth: no lip lesions, mucus membranes moist Cardiovascular: regular rate and rhythm with normal S1S2, no murmur, positive posterior tibial pulses bilaterally, and cap refill < 2 seconds. Lungs: Respirations even, regular, and unlabored on room air. Lungs CTA bilaterally, no rhonchi, no rales, no wheezing, and no accessory muscle usage. Abdominal: soft, nontender to palpation, no guarding, no appreciable organomegaly Ext: ROM intact. No gross muscle atrophy, no edema, no contractures Neuro: Speech clear, face symmetrical and CN II-XII grossly intact with no noted focal neuro deficits Psych: Alert and oriented to person, place, time, and situation. Appropriate and pleasant affect. A total of 34 minutes of time were spent preparing this complex discharge summary. Pt was discharged on 12/14/2024 at 11:59 AM Patient was seen independently by Nurse Practitioner. This document was prepared using [employer] dictation software. Please allow for errors in transfer car operator drier while rare they do occur. Marco Sifuentes NP rendered care for this patient independently, reviewed the findings and plan as documented in the note above. I did not physically speak with or examine the patient on this date. Patient Condition at Discharge: Stable Plan - Discharge Summary New Discharge Prescriptions: New LORazepam [Ativan] 0.5 mg PO TID PRN 3 Days #9 tab PRN Reason: Anxiety Atorvastatin [Lipitor] 80 mg PO DAILY 30 Days #30 tab Metoprolol Tartrate [Lopressor] 25 mg PO BID 30 Days #60 tab Continue Carbidopa-Levodopa 25-100 mg [Sinemet 25-100 mg] 3 tab PO TID@0900,1200,1700 Cholecalciferol [Vitamin D3 (25 Mcg = 1000 Iu)] 25 mcg PO DAILY EPINEPHrine (Auto Inject) [Epipen] 0.3 mg IM ONCE PRN PRN Reason: Anaphylaxis Levothyroxine Sodium [Synthroid] 150 mcg PO DAILY Aspirin 81 mg PO DAILY #30 tab Olopatadine HCl [Pataday] 1 drop BOTH EYES BID PRN PRN Reason: allergies Albuterol Sulfate [Albuterol Sulfate Hfa] 2 puff INHALATION RT-QID PRN PRN Reason: Shortness Of Breath polyethylene glycoL 3350 [Miralax] 17 gm PO BID Midodrine [ProAmatine] 5 mg PO AC-TID PRN #90 tab PRN Reason: Hypotension Nicotine Gum (Polacrilex) [Nicorette] 2 mg BUCCAL Q4H PRN PRN Reason: Nicotine Cravings Gabapentin 600 mg PO TID Fluticasone Propion/Salmeterol [Wixela 250-50 Inhub] 1 puff INHALATION RT-BID Docusate [Colace] 100 mg PO BID Cyclobenzaprine [Flexeril] 5 mg PO TID Discharge Medication List Carbidopa-Levodopa 25-100 mg [Sinemet 25-100 mg] 3 tab PO TID@0900,1200,1700 08/18/21 [History] Albuterol Sulfate [Albuterol Sulfate Hfa] 2 puff INHALATION RT-QID PRN 07/23/22 [History] Cholecalciferol [Vitamin D3 (25 Mcg = 1000 Iu)] 25 mcg PO DAILY 09/06/24 [History] EPINEPHrine (Auto Inject) [Epipen] 0.3 mg IM ONCE PRN 09/06/24 [History] Levothyroxine Sodium [Synthroid] 150 mcg PO DAILY 09/06/24 [History] polyethylene glycoL 3350 [Miralax] 17 gm PO BID 09/06/24 [History] Aspirin 81 mg PO DAILY #30 tab 10/15/24 [Rx] Midodrine [ProAmatine] 5 mg PO AC-TID PRN #90 tab 10/15/24 [Rx] Cyclobenzaprine [Flexeril] 5 mg PO TID 12/13/24 [History] Docusate [Colace] 100 mg PO BID 12/13/24 [History] Fluticasone Propion/Salmeterol [Wixela 250-50 Inhub] 1 puff INHALATION RT-BID 12/13/24 [History] Gabapentin 600 mg PO TID 12/13/24 [History] Nicotine Gum (Polacrilex) [Nicorette] 2 mg BUCCAL Q4H PRN 12/13/24 [History] Olopatadine HCl [Pataday] 1 drop BOTH EYES BID PRN 12/13/24 [History] Atorvastatin [Lipitor] 80 mg PO DAILY 30 Days #30 tab 12/14/24 [Rx] LORazepam [Ativan] 0.5 mg PO TID PRN 3 Days #9 tab 12/14/24 [Rx] Metoprolol Tartrate [Lopressor] 25 mg PO BID 30 Days #60 tab 12/14/24 [Rx] Follow up Appointment(s)/Referral(s): Wilian Emerson DO [STAFF PHYSICIAN] - 1 Week [facility] [Primary Care Provider] - 1-2 days Patient Instructions/Handouts: Chest Pain (DC) Activity/Diet/Wound Care/Special Instructions: Activity: As tolerated. Take breaks as needed. Diet: Heart healthy and carb consistent diet. Avoid salts, or foods with hidden salts such as canned or boxed foods and frozen dinners. Extra salt makes your heart work harder and traps the fluid in your body for longer. Special Instructions: Take all of your medications as directed and remember to keep all of your doctor's appointments and follow-up as needed. Follow-up as discussed for for evaluation for placement of Watchman's device. Thank you for allowing us to participate in your care, it was truly a pleasure having you for our patient!!! Discharge Disposition: HOME SELF-CARE
[2024-12-14 12:21] LABS: HCT 45.3 % (39.0-53.0); MCH 31.9 pg (25.0-35.0); MCHC 33.2 g/dL (31.0-37.0); MCV 96.1 fL (80.0-100.0); Mean Platelet Volume 7.5; Platelet Count 277 k/uL (150-450); RBC 4.72 m/uL (4.30-5.90); RDW 13.8 % (11.5-15.5); WBC 7.8 k/uL (3.8-10.6)
[2024-12-14 12:38] VITALS: BP 116/68; RESP 16; TEMP 97.4
[2024-12-14 12:42] LABS: ALT 6 U/L (4-49); AST 28 U/L (17-59); African American GFR (CKD) >90 (>60 ml/min/1.73 sqM); Albumin 4.5 g/dL (3.5-5.0); Alkaline Phosphatase 88 U/L (38-126); Anion Gap 10 mmol/L; Blood Urea Nitrogen 17 mg/dL (9-20); Calcium 9.6 mg/dL (8.4-10.2); Carbon Dioxide 26 mmol/L (22-30); Chloride 104 mmol/L (98-107); Glucose 118 mg/dL (74-99); Magnesium 2.2 mg/dL (1.6-2.3); Non-African American GFR(CKD) 90 (>60 ml/min/1.73 sqM); Potassium 4.6 mmol/L (3.5-5.1); Sodium 140 mmol/L (137-145); Total Protein 7.7 g/dL (6.3-8.2)
[2024-12-14] MEDS ORDERED: SYMBICORT 80-4.5 MCG INHALER INHALATION SCH (20:00)
[2024-12-15] MEDS ORDERED: CHOLECALCIFEROL 25 MCG (1000 IU) TABLET PO SCH (09:00)
== END 2024-12-14 12:40 | disposition home or self-care (01) | DRG 310 ==
LOC: EC 22:16 → 3SCARD 12-13 00:01
PROVIDERS: ADMIT Internal Medicine; ATTEND Internal Medicine
DX: I48.0 Paroxysmal atrial fibrillation (principal); G20.A1 Parkinson's disease without dyskinesia, without mention of fluctuations; E03.9 Hypothyroidism, unspecified; F32.A Depression, unspecified; I10 Essential (primary) hypertension; I08.1 Rheumatic disorders of both mitral and tricuspid valves; I25.10 Atherosclerotic heart disease of native coronary artery without angina pectoris; E78.5 Hyperlipidemia, unspecified; G62.9 Polyneuropathy, unspecified; F41.9 Anxiety disorder, unspecified; F43.10 Post-traumatic stress disorder, unspecified; R29.6 Repeated falls; Z79.82 Long term (current) use of aspirin; Z79.890 Hormone replacement therapy; Z79.899 Other long term (current) drug therapy; Z91.81 History of falling; Z95.0 Presence of cardiac pacemaker; Z96.642 Presence of left artificial hip joint; Z98.1 Arthrodesis status; Z88.5 Allergy status to narcotic agent; Z88.6 Allergy status to analgesic agent; Z91.030 Bee allergy status
CPT/HCPCS: 36415; 71046; 71275; 80053; 80061; 83690; 83735; 83880; 84145; 84484; 85025; 85027; 85049; 85379; 85610; 85730; 93005; 93308; 96361; 96365; 96366; 96375; 96376; 99285

== ENCOUNTER → 2024-12-27 | Outpatient (CLI) | payer OTHER ==
[2024-12-27 10:28] VITALS: BP 129/79; PULSE 72; RESP 18; TEMP 97.8
--- NOTE | 2024-12-27 16:17 | P.PAINPG ---
PQRS Measure Charge Sheet Comment: HISTORY OF PRESENT ILLNESS: A 79 yr old male as a referral from the [facility] presents today w severe and chronic cervical & lumbar pain secondary to C6-C7 laminectomy w fusion, post laminectomy syndrome for evaluation. Pt states pain level is provoked at 7 /10 in intensity, constant, localized in the cervical & lumbar spine, predominantly axial, achy in character w occasional shooting pain towards the L knee. Pain is provoked by over activity. Pain is alleviated by PT x 6 wks which ended in 2020, physician guided home stretches daily since 2020, medications (Neurontin), repositioning and rest . Oswestry axial pain score at 30. PMH: OA, aFIb, GERD, Syncope, Hypothyroidism, Parkinson's Disorder, MDD/ Anxiety/ PTSD PSH: Lumbar Surgeries x5, Lumbar Laminectomies x2, Lumbar Fusion, C6-C7 ACDF (2004), Thoracentesis, Foot Surgery, BL Hip Replacement, Pacemaker SH: Daily tobacco use, Rare ETOH use, No illicit drug use FH: Mo- Ovarian CA All: See list Meds: See list REVIEW OF ORGAN SYSTEMS: CONSTITUTIONAL: No fevers or chills. No recent weight loss. NEUROLOGICAL: + numbness and tingling along the distal extremities. No seizure disorders or headaches. MUSCULOSKELETAL: + pain PSYCHIATRIC: Denies current depression or suicidal thoughts. Physical Examinations : Constitutional : Cooperative , not in acute distress . Neurologic : Cranial nerve II to XII intact. No focal neurological deficits. Psychiatric : alert & oriented x 3. Matching mood & appropriate affect. Judgment & insight intact. Musculoskeletal : Cervical Spine +Incisional scar Motor strength in the deltoid and biceps: Normal right side. Normal Left side Motor strength biceps and the wrist extensors: Normal right side . Normal left side Motor strength in the triceps muscle: Normal right side. Normal left side Deep tendon reflexes: Normal at the biceps. Normal at Brachioradialis. Normal at triceps Vertebral body tenderness to deep palpation over Cervical facet loading test: positive bilaterally Spurling test: positive bilaterally Neck distraction test: positive bilaterally Yayo sign: positive bilaterally Lumbar spine +Incisional scar Motor strength lower extremities ,thigh and legs 5/5 Right side , 5/5 Left side Deep tendon reflexes : Normal Knee Jerk. Normal Ankle Jerk Vertebral body tenderness over Frey Test positive Lumbar facet Loading Test: positive Right / positive Left Range of motion of the lumbar spine Flexion 30 degrees, extension 10 degrees Straight Leg Raise test: Left/ Right positive at degrees Loni test: positive right / positive left. Severe tenderness over the Sacroiliac joint on the Right / Left sides Gaenslen test: positive bilaterally Seated flexion test: positive bilaterally. Sacral spine : Severe tenderness over the Sacroiliac joint: right side / left side Range of motion: Flexion of the lumbar spine <60 degrees Range of motion: Extension of the lumbar spine <20 degrees Gaenslen's Test positive Loni test: positive right side / left side Thigh Thrust Test Sacral Thrust Test Imaging: CT non contrast R hip from 11/02/[address] non contrast brain from 10/08/[address] non contrast cervical spine from 10/08/24 reviewed Assessment/ Plan : R Hip Arthroplasty, C6-C7 ACDF Recommendation of DIANNE C6-C7 #1 and medication management. Risks, benefits of procedure discussed and patient verbalized understanding. Admits to anti- coagulant use or medical history of diabetes. Protocol for discontinuation/ continuation of medications tr procedure discussed. Opiate/ narcotic agreement signed 12/27/24. [place] 5/325mg #90 w 1 RF. Use, side effects, adverse reactions, safe storage dsicussed. All questions answered. I have spent greater than 30 minutes on patient care today. Dr Salazar was available by phone for the evaluation of this patient. The time was used to review the medical records including relevant urine studies and Prescription history (MAPs), review of the available imaging, evaluation and examination of the patient, coordination of care with the medical staff and if applicable referring physicians, as well as creation of the medical record - Pain Location Neck Non-Pharmacological Interventions: Inactivity Left Knee Non-Pharmacological Interventions: Inactivity Back Non-Pharmacological Interventions: Inactivity PQRS Narrative: Smoking Status Former smoker Home Medications: Ambulatory Orders Carbidopa-Levodopa 25-100 mg [Sinemet 25-100 mg] 3 tab PO TID@0900,1200,1700 08/18/21 Albuterol Sulfate [Albuterol Sulfate Hfa] 2 puff INHALATION RT-QID PRN 07/23/22 Cholecalciferol [Vitamin D3 (25 Mcg = 1000 Iu)] 25 mcg PO DAILY 09/06/24 EPINEPHrine (Auto Inject) [Epipen] 0.3 mg IM ONCE PRN 09/06/24 Levothyroxine Sodium [Synthroid] 150 mcg PO DAILY 09/06/24 polyethylene glycoL 3350 [Miralax] 17 gm PO BID 09/06/24 Aspirin 81 mg PO DAILY #30 tab 10/15/24 Midodrine [ProAmatine] 5 mg PO AC-TID PRN #90 tab 10/15/24 Cyclobenzaprine [Flexeril] 5 mg PO TID 12/13/24 Docusate [Colace] 100 mg PO BID 12/13/24 Fluticasone Propion/Salmeterol [Wixela 250-50 Inhub] 1 puff INHALATION RT-BID 12/13/24 Gabapentin 600 mg PO TID 12/13/24 Nicotine Gum (Polacrilex) [Nicorette] 2 mg BUCCAL Q4H PRN 12/13/24 Olopatadine HCl [Pataday] 1 drop BOTH EYES BID PRN 12/13/24 Atorvastatin [Lipitor] 80 mg PO DAILY 30 Days #30 tab 12/14/24 LORazepam [Ativan] 0.5 mg PO TID PRN 3 Days #9 tab 12/14/24 Metoprolol Tartrate [Lopressor] 25 mg PO BID 30 Days #60 tab 12/14/24 HYDROcodone/APAP 5-325MG [[place] 5-325] 1 tab PO TID PRN 30 Days #90 tab 12/27/24 HYDROcodone/APAP 5-325MG [[place] 5-325] 1 tab PO TID PRN 30 Days #90 tab 12/27/24 Controlled Substance Measures - Controlled Substance Measures Is patient prescribed a controlled substance at discharge?: Yes When asked, does pt state using other controlled substances?: No If prescribed controlled substance>3 days was MAPS reviewed?: Yes If Rx opioid, was Start Talking consent form obtained?: Yes Was information provided regarding opioid addiction?: Yes
== END ==
LOC: PNWHC3 09:57
PROVIDERS: ATTEND Specialist
DX: M50.223 Other cervical disc displacement at C6-C7 level (principal); Z96.651 Presence of right artificial knee joint; Z88.6 Allergy status to analgesic agent; Z88.5 Allergy status to narcotic agent; Z91.030 Bee allergy status; Z87.891 Personal history of nicotine dependence
CPT/HCPCS: 99202

== ENCOUNTER → 2025-03-17 | Outpatient (CLI) | payer OTHER ==
[2025-03-17 16:43] LABS: Basophils # (A) 0.08 10*3/uL (0.00-0.10); Basophils % (A) 1.1 %; Eosinophils # (A) 0.53 10*3/uL (0.04-0.35); Eosinophils % (A) 7.3 %; HCT 45.2 % (39.6-50.0); HGB 15.3 g/dL (13.0-17.0); Lymphocytes # (A) 1.48 10*3/uL (0.90-5.00); Lymphocytes % (A) 20.4 %; MCH 30.9 pg (27.0-32.0); MCHC 33.8 g/dL (32.0-37.0); MCV 91.3 fL (80.0-97.0); Mean Platelet Volume 9.6 fL (9.5-12.2); Monocytes % (A) 9.7 %; Neutrophils # (A) 4.43 10*3/uL (1.80-7.70); Neutrophils % (A) 61.2 %; Platelet Count 271 10*3/uL (140-440); RBC 4.95 10*6/uL (4.40-5.60); RDW 13.4 % (11.5-14.5); WBC 7.24 10*3/uL (4.50-10.00)
[2025-03-17 16:51] LABS: African American GFR (CKD) 86 (>60 ml/min/1.73 sqM); Anion Gap 9 mmol/L; Blood Urea Nitrogen 17 mg/dL (9-20); Calcium 9.3 mg/dL (8.4-10.2); Carbon Dioxide 26 mmol/L (22-30); Chloride 106 mmol/L (98-107); Glucose 93 mg/dL (74-99); Non-African American GFR(CKD) 75 (>60 ml/min/1.73 sqM); Potassium 4.8 mmol/L (3.5-5.1); Sodium 141 mmol/L (137-145)
--- NOTE | 2025-03-18 12:11 | CT ---
EXAMINATION TYPE: CT angio chest DATE OF EXAM: 03/17/2025 5:58 PM COMPARISON: 12/13/2024 CLINICAL INDICATION: Male, 79 years old with history of I48.0 PAROXYSMAL ATRIAL FIBRILLATION; Watchma n protocol. Paroxysmal atrial fibrillation. TECHNIQUE/CONTRAST: CTA scan of the thorax is performed with IV Contrast, patient injected with 65 ml mL of Isovue 370, M IP images are created and reviewed these are created on a separate workstation.. CT DLP: 900.2 mGycm, Automated exposure control for dose reduction was used. FINDINGS: Lungs/Pleura: No evidence of focal consolidation, pleural effusion or pneumothorax. Airway: Large airways are patent. Heart: There is high-density contrast seen posterior to the left atrial appendage occlusion device. C ardiomegaly is demonstrated. Mitral valve annular calcifications. Mild coronary artery calcifications present. Aortic valve calcifications are present. Cardiac conduction leads terminating in the right ventricle and right atrium. Vasculature: Mild atherosclerotic calcifications are present throughout the aorta and its branches. Mediastinum: No gross evidence of adenopathy. Musculoskeletal: Mild disc degeneration changes are present throughout the thoracolumbar spine second onofre to osteophyte formation and facet joint arthropathy. Soft Tissues/lymph nodes: Unremarkable. Lower neck: No significant findings. Upper Abdomen: No significant findings. IMPRESSION: 1. Incomplete occlusion of the left atrial appendage with high density contrast identified beyond the occlusion device. 2. Mild aortic valve calcifications. [facility], , 03/18/2025 12:09 PM
== END | disposition home or self-care (01) ==
LOC: RADCTMAIN 15:50
PROVIDERS: ATTEND Internal Medicine Interventional Cardiology
DX: I48.0 Paroxysmal atrial fibrillation (principal); I35.8 Other nonrheumatic aortic valve disorders; I70.0 Atherosclerosis of aorta
CPT/HCPCS: 80048; 85025; 85610; 71275; 36415; Q9967

== ENCOUNTER 2025-05-13 23:24 | Emergency (ER) | payer OTHER ==
[2025-05-13 23:33] VITALS: RESP 18; TEMP 98
--- NOTE | 2025-05-13 23:40 | ED ---
Abdominal Pain HPI - General Chief Complaint: Abdominal Pain Stated Complaint: Flank pain Time Seen by Provider: 05/13/25 23:28 Source: patient, EMS, RN notes reviewed, old records reviewed Mode of arrival: EMS Limitations: no limitations - History of Present Illness Initial Comments: This is a 79-year-old male to the ER for evaluation of severe left-sided abdominal pain left-sided flank pain pain in the back. Pain is mostly back to left leg. No traumatic injury no fever symptoms for a few weeks ago. No prior evaluation for similar pain pain is worse when he presses on the area. Normal bowel movements normal urination. No significant history of surgery MD Complaint: abdominal pain, flank pain -: days(s) Location: LLQ, L flank Radiation: L flank Migration to: suprapubic, L flank Severity: severe Severity scale (1-10): 10 Quality: sharp Consistency: constant Improves With: nothing Worsens With: nothing Associated Symptoms: nausea, vomiting Treatments Prior to Arrival: other (0) - Related Data Home Medications Medication Instructions Recorded Confirmed Carbidopa-Levodopa 25-100 mg 3 tab PO TID@0900,1200,1700 08/18/21 01/12/25 [Sinemet 25-100 mg] Albuterol Sulfate [Albuterol 2 puff INHALATION RT-QID PRN 07/23/22 01/12/25 Sulfate Hfa] Cholecalciferol [Vitamin D3 (25 25 mcg PO DAILY 09/06/24 01/12/25 Mcg = 1000 Iu)] EPINEPHrine (Auto Inject) [Epipen] 0.3 mg IM ONCE PRN 09/06/24 01/12/25 Levothyroxine Sodium [Synthroid] 150 mcg PO DAILY 09/06/24 01/12/25 polyethylene glycoL 3350 [Miralax] 17 gm PO BID 09/06/24 01/12/25 Cyclobenzaprine [Flexeril] 5 mg PO TID 12/13/24 01/12/25 Fluticasone Propion/Salmeterol 1 puff INHALATION RT-BID 12/13/24 01/12/25 [Wixela 250-50 Inhub] Gabapentin 600 mg PO TID 12/13/24 01/12/25 Olopatadine HCl [Pataday] 1 drop BOTH EYES BID PRN 12/13/24 01/12/25 Clopidogrel [Plavix] 75 mg PO BID 01/12/25 01/12/25 Previous Rx's Medication Instructions Recorded Aspirin 81 mg PO DAILY #30 tab 10/15/24 Midodrine [ProAmatine] 5 mg PO AC-TID PRN #90 tab 10/15/24 HYDROcodone/APAP 5-325MG [[place] 1 tab PO TID PRN 30 Days #90 tab 12/27/24 5-325] Gabapentin 600 mg PO TID 3 Days #9 tab 05/14/25 Allergies Allergy/AdvReac Type Severity Reaction Status Date / Time hydrocodone [From Vicodin] Allergy per [facility] Verified 05/13/25 23:34 shrimp Allergy Rash/Hives Verified 05/13/25 23:34 venom-honey bee Allergy Dyspnea Verified 05/13/25 23:34 [bee venom (honey bee)] Review of Systems ROS Statement: Those systems with pertinent positive or pertinent negative responses have been documented in the HPI. ROS Other: All systems not noted in ROS Statement are negative. Past Medical History Past Medical History: Atrial Fibrillation, Osteoarthritis (OA), Pneumonia, Syncope, Thyroid Disorder Additional Past Medical History / Comment(s): [place], neck right side and numbness in right arm, neuropathy watchman device in place History of Any Multi-Drug Resistant Organisms: None Reported Past Surgical History: Back Surgery, Cholecystectomy, Orthopedic Surgery, Pacemaker, Tonsillectomy Additional Past Surgical History / Comment(s): lung drains-thoracentesis; foot surgery repair of tendon, osvaldo hip replaced; 5x back surgeries, laminectomy x2, 20 years ago cervical fusion, lumbar spine fusion. Past Anesthesia/Blood Transfusion Reactions: No Reported Reaction Type of Cardiac Device: Permanent Pacemaker Device Placement Date:: unk Past Psychological History: Anxiety, Depression, PTSD Smoking Status: Current some day smoker - Past Family History Mother Family Medical History: Cancer Additional Family Medical History / Comment(s): Ovarian General Exam Limitations: no limitations General appearance: alert, in no apparent distress Head exam: Present: atraumatic, normocephalic, normal inspection Eye exam: Present: normal appearance, PERRL, EOMI. Absent: scleral icterus, conjunctival injection, periorbital swelling ENT exam: Present: normal exam, mucous membranes moist Neck exam: Present: normal inspection. Absent: tenderness, meningismus, lymp hadenopathy Respiratory exam: Present: normal lung sounds bilaterally. Absent: respiratory distress, wheezes, rales, rhonchi, stridor Cardiovascular Exam: Present: regular rate, normal rhythm, normal heart sounds. Absent: systolic murmur, diastolic murmur, rubs, gallop, clicks GI/Abdominal exam: Present: soft, normal bowel sounds. Absent: distended, tenderness, guarding, rebound, rigid Extremities exam: Present: normal inspection, full ROM, normal capillary refill. Absent: tenderness, pedal edema, joint swelling, calf tenderness Back exam: Present: normal inspection Neurological exam: Present: alert, oriented X3, CN II-XII intact Psychiatric exam: Present: normal affect, normal mood Skin exam: Present: warm, dry, intact, normal color. Absent: rash Course Vital Signs 05/13/25 05/14/25 05/14/25 23:28 01:12 02:40 Temperature 98 F Pulse Rate 73 71 72 Respiratory 18 18 18 Rate Blood Pressure 141/67 165/92 153/76 O2 Sat by Pulse 98 97 98 Oximetry - Reevaluation(s) Reevaluation #1: 05/13/25 23:44 Medical records reviewed Reevaluation #2: 05/14/25 01:47 Patient symptoms improved Reevaluation #3: 05/14/25 01:47 Patient informed of results and questions answered Reevaluation #4: Was pt. sent in by a medical professional or institution (, PA, LEAD MILITARY ANALYST, urgent care, hospital, or half-way...) When possible be specific @ -no Did you speak to anyone other than the patient for history (EMS, parent, family, police, friend...)? What history was obtained from this source @ -no Did you review nursing and triage notes (agree or disagree)? Why? @ -agree Are old charts reviewed (outside hosp., previous admission, EMS record, old EKG, old radiological studies, urgent care reports/EKG's, half-way records)? Report findings @ -yes Differential Diagnosis (chest pain, altered mental status, abdominal pain women, abdominal pain men, vaginal bleeding, weakness, fever, dyspnea, syncope, headache, dizziness, GI bleed, back pain, seizure, CVA, palpatations, mental health, musculoskeletal)? @ -prior EKG interpreted by me (3pts min.). @ -yes X-rays interpreted by me (1pt min.). @ -no CT interpreted by me (1pt min.). @ -yes negative for acute disease U/S interpreted by me (1pt. min.). @ -no What testing was considered but not performed or refused? (CT, X-rays, U/S, labs)? Why? @ -none What meds were considered but not given or refused? Why? @ -none Did you discuss the management of the patient with other professionals (professionals i.e. , PA, LEAD MILITARY ANALYST, lab, RT, psych nurse, social security assessor, straw hat washer operator, teacher, wildlife conservation officer, corporate services manager)? Give summary @ -no Was smoking cessation discussed for >3mins.? @ -no Was critical care preformed (if so, how long)? @ -no Were there social determinants of health that impacted care today? How? (Homelessness, low income, unemployed, alcoholism, drug addiction, transportation, low edu. Level, literacy, decrease access to med. care, prison, rehab)? @ -none Was there de-escalation of care discussed even if they declined (Discuss DNR or withdrawal of care, Hospice)? DNR status @ -no What co-morbidities impacted this encounter? (DM, HTN, Smoking, COPD, CAD, Cancer, CVA, ARF, Chemo, Hep., AIDS, mental health diagnosis, sleep apnea, morbid obesity)? @ -none Was patient admitted / discharged? Hospital course, mention meds given and route, prescriptions, significant lab abnormalities, going to OR and other pertinent info. @ - 79 male with nonspecific abdominal pain. Pain resolved here in the ER patient feels well can be discharged home Discharge Undiagnosed new problem with uncertain prognosis? @ -no Drug Therapy requiring intensive monitoring for toxicity (Heparin, Nitro, Insulin, Cardizem)? @ -no Were any procedures done? @ -no Diagnosis/symptom? @ -Abdominal pain Acute, or Chronic, or Acute on Chronic? @ -Acute Uncomplicated (without systemic symptoms) or Complicated (systemic symptoms)? @ -Complicated Side effects of treatment? @ -no Exacerbation, Progression, or Severe Exacerbation? @ -exacerbation Poses a threat to life or bodily function? How? (Chest pain, [place], [place], pneumonia, PE, COPD, DKA, ARF, appy, cholecystitis, CVA, Diverticulitis, Homicidal, Suicidal, threat to staff... and all critical care pts) @ -yes extremes of age Reevaluation #5: Differential Abdominal Pain Men: Appendicitis, cholecystitis, diverticulosis, ischemic bowel, pancreatitis, hepatitis, UTI, gastroenteritis, AAA, incarcerated hernia, bowel obstruction, constipation, inflammatory bowel, hepatitis, peptic ulcer disease, splenic infarction, perforated viscus, testicular torsion, this is not meant to be an all-inclusive list Medical Decision Making - Medical Decision Making 79 male with nonspecific abdominal pain. Pain resolved here in the ER patient feels well can be discharged home - Lab Data Result diagrams: 05/13/25 23:59 05/13/25 23:59 Lab Results 05/13/25 05/13/25 05/13/25 Range/Units 23:59 23:59 23:59 WBC 8.14 (4.50-10.00) 10*3/uL RBC 4.52 (4.40-5.60) 10*6/uL Hgb 13.0 (13.0-17.0) g/dL Hct 39.8 (39.6-50.0) % MCV 88.1 (80.0-97.0) fL MCH 28.8 (27.0-32.0) pg MCHC 32.7 (32.0-37.0) g/dL Plt Count 279 (140-440) 10*3/uL MPV 9.9 (9.5-12.2) fL Immature Gran % (Auto) 0.4 % Neutrophils % 60.6 % Lymphocytes % 23.8 % Monocytes % 10.3 % Eosinophils % 4.2 % Basophils % 0.7 % Immature Gran # 0.03 (0.00-0.04) 10*3/uL Neutrophils # 4.93 (1.80-7.70) 10*3/uL Lymphocytes # 1.94 (0.90-5.00) 10*3/uL Monocytes # 0.84 (0.20-1.00) 10*3/uL Eosinophils # 0.34 (0.04-0.35) 10*3/uL Basophils # 0.06 (0.00-0.10) 10*3/uL PT 10.6 (10.0-12.5) sec INR 0.9 (<1.2) APTT 24.5 (22.0-30.0) sec Sodium 140 (137-145) mmol/L Potassium 4.9 (3.5-5.1) mmol/L Chloride 105 (98-107) mmol/L Carbon Dioxide 23 (22-30) mmol/L Anion Gap 12 mmol/L BUN 23 H (9-20) mg/dL Creatinine 0.92 (0.66-1.25) mg/dL Est GFR (CKD-EPI)AfAm >90 (>60 ml/min/1.73 sqM) Est GFR (CKD-EPI)NonAf 80 (>60 ml/min/1.73 sqM) Glucose 93 (74-99) mg/dL Plasma Lactic Acid Bryant (0.7-2.0) mmol/L Calcium 9.8 (8.4-10.2) mg/dL Phosphorus 5.4 H (2.5-4.5) mg/dL Magnesium 2.1 (1.6-2.3) mg/dL Total Bilirubin 0.7 (0.2-1.3) mg/dL AST 41 (17-59) U/L ALT 29 (4-49) U/L Alkaline Phosphatase 80 (38-126) U/L Troponin I (0.000-0.034) ng/mL NT-Pro-B Natriuret Pep 290 pg/mL Total Protein 7.9 (6.3-8.2) g/dL Albumin 4.4 (3.5-5.0) g/dL Lipase 117 (23-300) U/L Serum Alcohol <10 mg/dL 05/13/25 05/13/25 Range/Units 23:59 23:59 WBC (4.50-10.00) 10*3/uL RBC (4.40-5.60) 10*6/uL Hgb (13.0-17.0) g/dL Hct (39.6-50.0) % MCV (80.0-97.0) fL MCH (27.0-32.0) pg MCHC (32.0-37.0) g/dL Plt Count (140-440) 10*3/uL MPV (9.5-12.2) fL Immature Gran % (Auto) % Neutrophils % % Lymphocytes % % Monocytes % % Eosinophils % % Basophils % % Immature Gran # (0.00-0.04) 10*3/uL Neutrophils # (1.80-7.70) 10*3/uL Lymphocytes # (0.90-5.00) 10*3/uL Monocytes # (0.20-1.00) 10*3/uL Eosinophils # (0.04-0.35) 10*3/uL Basophils # (0.00-0.10) 10*3/uL PT (10.0-12.5) sec INR (<1.2) APTT (22.0-30.0) sec Sodium (137-145) mmol/L Potassium (3.5-5.1) mmol/L Chloride (98-107) mmol/L Carbon Dioxide (22-30) mmol/L Anion Gap mmol/L BUN (9-20) mg/dL Creatinine (0.66-1.25) mg/dL Est GFR (CKD-EPI)AfAm (>60 ml/min/1.73 sqM) Est GFR (CKD-EPI)NonAf (>60 ml/min/1.73 sqM) Glucose (74-99) mg/dL Plasma Lactic Acid Bryant 1.1 (0.7-2.0) mmol/L Calcium (8.4-10.2) mg/dL Phosphorus (2.5-4.5) mg/dL Magnesium (1.6-2.3) mg/dL Total Bilirubin (0.2-1.3) mg/dL AST (17-59) U/L ALT (4-49) U/L Alkaline Phosphatase (38-126) U/L Troponin I <0.012 (0.000-0.034) ng/mL NT-Pro-B Natriuret Pep pg/mL Total Protein (6.3-8.2) g/dL Albumin (3.5-5.0) g/dL Lipase (23-300) U/L Serum Alcohol mg/dL - EKG Data -: EKG Interpreted by Me (EKG sinus 71 NH 164 QRS 100 QTc 429) - Radiology Data Radiology results: report reviewed (CT abdomen pelvis negative for acute disease), image reviewed Disposition Clinical Impression: Abdominal pain Disposition: HOME SELF-CARE Condition: Good Instructions (If sedation given, give patient instructions): Abdominal Pain (ED) Prescriptions: Gabapentin 600 mg PO TID 3 Days #9 tab Is patient prescribed a controlled substance at d/c from ED?: No Referrals: Sanchez Nava DO [Primary Care Provider] - 1-2 days Time of Disposition: 02:30
[2025-05-14] MEDS: SODIUM CHLORIDE 0.9% 1,000 ML IV ONE (00:10)
[2025-05-14 00:11] LABS: Basophils # (A) 0.06 10*3/uL (0.00-0.10); Basophils % (A) 0.7 %; Eosinophils # (A) 0.34 10*3/uL (0.04-0.35); Eosinophils % (A) 4.2 %; HCT 39.8 % (39.6-50.0); Lymphocytes # (A) 1.94 10*3/uL (0.90-5.00); Lymphocytes % (A) 23.8 %; MCH 28.8 pg (27.0-32.0); MCHC 32.7 g/dL (32.0-37.0); MCV 88.1 fL (80.0-97.0); Mean Platelet Volume 9.9 fL (9.5-12.2); Monocytes # (A) 0.84 10*3/uL (0.20-1.00); Monocytes % (A) 10.3 %; Neutrophils # (A) 4.93 10*3/uL (1.80-7.70); Neutrophils % (A) 60.6 %; Platelet Count 279 10*3/uL (140-440); RBC 4.52 10*6/uL (4.40-5.60); RDW 15.5 % (11.5-14.5); WBC 8.14 10*3/uL (4.50-10.00)
[2025-05-14] MEDS: HYDROmorphone 1 MG/ML 1 ML SYRINGE IVP STA (00:11)
[2025-05-14 00:39] LABS: ALT 29 U/L (4-49); African American GFR (CKD) >90 (>60 ml/min/1.73 sqM); Alcohol <10 mg/dL; Anion Gap 12 mmol/L; Blood Urea Nitrogen 23 mg/dL (9-20); Calcium 9.8 mg/dL (8.4-10.2); Carbon Dioxide 23 mmol/L (22-30); Chloride 105 mmol/L (98-107); Glucose 93 mg/dL (74-99); Lipase 117 U/L (23-300); Non-African American GFR(CKD) 80 (>60 ml/min/1.73 sqM); Sodium 140 mmol/L (137-145); Total Bilirubin 0.7 mg/dL (0.2-1.3)
[2025-05-14 00:47] LABS: NT-Pro-B-Type Natriuretic Pept 290 pg/mL
[2025-05-14 01:01] LABS: INR 0.9 (<1.2); Partial Thromboplastin Time 24.5 sec (22.0-30.0); Prothrombin Time 10.6 sec (10.0-12.5)
[2025-05-14 01:11] LABS: AST 41 U/L (17-59); Albumin 4.4 g/dL (3.5-5.0); Alkaline Phosphatase 80 U/L (38-126); Magnesium 2.1 mg/dL (1.6-2.3); Phosphorus 5.4 mg/dL (2.5-4.5); Potassium 4.9 mmol/L (3.5-5.1); Total Protein 7.9 g/dL (6.3-8.2)
--- NOTE | 2025-05-14 02:35 | CT ---
EXAM: CT Abdomen and Pelvis Without Intravenous Contrast CLINICAL HISTORY: ITS.REASON CT Reason: pain TECHNIQUE: Axial computed tomography images of the abdomen and pelvis without intravenous contrast. CTDI is 13.9 mGy and DLP is 849.3 mGy-cm. This CT exam was performed using one or more of the following dose reduction techniques: automated exposure control, adjustment of the mA and/or kV according to patient size, and/or use of iterative reconstruction technique. COMPARISON: No relevant prior studies available. FINDINGS: Lung bases: Small chronic loculated right pleural effusion with pleural thickening and adjacent round atelectasis. ABDOMEN: Liver: Unremarkable. Gallbladder and bile ducts: Unremarkable. No calcified stones. No ductal dilation. Pancreas: Unremarkable. No ductal dilation. Spleen: Unremarkable. No splenomegaly. Adrenals: Unremarkable. No mass. Kidneys and ureters: No hydronephrosis. Nonobstructing right kidney stones (x3) measuring up to 3 mm. Stomach and bowel: Diverticulosis without diverticulitis. No bowel obstruction. PELVIS: Appendix: No evidence of appendicitis. Bladder: Unremarkable. No stones. Reproductive: Partially obscured but otherwise unremarkable. ABDOMEN and PELVIS: Intraperitoneal space: Unremarkable. No free air, significant free fluid, or fluid collection. Bones/joints: Bilateral total hip arthroplasties. Laminectomies and posterior hardware fixation of the spine L2-S1. Mild chronic L1 superior endplate compression deformity. No acute fracture. No dislocation. Soft tissues: Unremarkable. Vasculature: Atherosclerosis. No abdominal aortic aneurysm. Lymph nodes: Unremarkable. No enlarged lymph nodes. Tubes, lines and devices: Partially imaged cardiac pacer leads. IMPRESSION: No acute findings in the abdomen or pelvis.
[2025-05-14 02:42] VITALS: BP 153/76; PULSE 72
[2025-05-14] MEDS: GABAPENTIN 300 MG CAP PO STA (03:03)
[2025-05-14] MEDS: Acetaminophen-Codeine 300-30mg TAB PO STA (03:04)
== END 2025-05-14 03:16 | disposition home or self-care (01) ==
LOC: EC 23:24
DX: R10.32 Left lower quadrant pain (principal); F17.200 Nicotine dependence, unspecified, uncomplicated; Z88.5 Allergy status to narcotic agent; Z91.030 Bee allergy status; Z88.8 Allergy status to other drugs, medicaments and biological substances
CPT/HCPCS: 36415; 93005; 83880; 80053; 83605; 83690; 83735; 84100; 84484; 85025; 85610; 85730; 80320; 74176; 96374; 96361 ×2; 99285; J1171